=== PATIENT | male | born 1960 | race Caucasian/White ===

== ENCOUNTER 2016-10-17 17:02 | Inpatient (IN) | payer MEDICARE, OTHER ==
[2016-10-17] VITALS (7 sets, daily range): BP systolic 141–163; BP diastolic 61–73; PULSE 79–88; RESP 16–20; TEMP 97.8–98.2; O2SAT 96–97
[~2016-10-17] VITALS: Ht 185.4 cm; Wt 83.8 kg
[~2016-10-17 17:02] MED LIST: AMLO10 PO; AZAT50 PO; HYDRA50 PO; LABE100 PO; LEVA500T PO; LEVEMIR SQ; LORA.5 PO; MAGN400T PO; PRED5 PO; SODI650T PO; TACR1 PO; Z.0.HUMULIN REGULARU SQ
[2016-10-17] MEDS ORDERED: HYDR50TA15 PO (17:22)
[2016-10-17] MEDS ORDERED: AZAT50 PO (17:22)
[2016-10-17] MEDS ORDERED: LEVEMIR SQ (17:22)
[2016-10-17] MEDS ORDERED: INSU100V2 SQ (17:22)
[2016-10-17] MEDS ORDERED: AMLO10TA2 PO (17:22)
[2016-10-17] MEDS ORDERED: TACR1 PO ×2 (17:23→17:26)
[2016-10-17] MEDS ORDERED: SODI325T PO (17:23)
[2016-10-17] MEDS ORDERED: MAGN400T5 PO (17:23)
[2016-10-17] MEDS ORDERED: LORA-373 PO (17:23)
[2016-10-17] MEDS ORDERED: PRED5TAB PO (17:23)
[2016-10-17] MEDS ORDERED: TRAZ100T4 PO (17:26)
[2016-10-17] MEDS ORDERED: LEXA10TA PO (17:26)
[2016-10-17] MEDS ORDERED: DOXY1CAP74 PO (17:26)
[2016-10-17] MEDS ORDERED: SODIUM CHLORIDE 0.9% FLUSH 5 ML FLUSH IVF PRN (17:30)
--- NOTE | 2016-10-17 17:32 | PD ---
HPI Chief Complaint: Respiratory Symptoms Time Seen by Provider: 17:17 Travel History International Travel<30 days: No Contact w/Intl Traveler<30days: No Traveled to known affect area: No History of Present Illness HPI 55yo M with PMH of ESRD s/p 2 kidney transplants, DM, bilateral BKA presents to the ED with c/o shortness of breath for a few days. States he feels short of breath when he takes a few steps which is new. +Nausea. +Generalized weakness. Pt is currently taking antibiotics for UTI. States his kidney function is getting worst and his sponge maker is Dr. Ramirez. Pt had stress test 2 weeks ago and was told it was abnormal by Dr. Phelan. Denies any fever, cough, chest pain, vomiting, abdominal pain, focal weakness or numbness. PFSH Past Medical History Hx Anticoagulant Therapy: No Arthritis: No Asthma: No Autoimmune Disease: No Anxiety: No Depression: No Heart Rhythm Problems: No Cancer: Yes (SKIN) Cardiovascular Problems: No High Cholesterol: No Chemotherapy: No Chest Pain: No Congestive Heart Failure: No COPD: No Cerebrovascular Accident: No Diabetes: Yes (Type I) Dialysis: No ( STOPPED IN 2009) Diminished Hearing: No Endocrine: No Gastrointestinal Disorders: Yes GERD: Yes Glaucoma: No Genitourinary: Yes (SELF CATH NEEDED, HX: BLADDER STONES) Headaches: No Hepatitis: No Hiatal Hernia: No Hypertension: Yes Immune Disorder: No (takes immune depressant drugs) Implanted Vascular Access Dvce: Yes Kidney Stones: No Musculoskeletal: No Neurologic: Yes Psychiatric: No Reproductive: No Respiratory: No Immunizations Current: Yes Migraines: No Myocardial Infarction: No Pancreatitis: Yes Radiation Therapy: No Renal Failure: Yes Seizures: No Sleep Apnea: No Thyroid Disease: No Ulcer: No Past Surgical History Abdominal Surgery: Yes (left kidney transplants x2, pancreas transplant-1991) AICD: No Appendectomy: Yes Arteriovenous Shunt: Yes ( non-functional AV graft LUE) Cardiac Surgery: No Cholecystectomy: Yes Ear Surgery: Yes (cataract surgery left eye) Endocrine Surgery: Yes (pancreatic TXPL 1991) Eye Surgery: Yes (rt eye extracted/prosthetic eye now) Genitourinary Surgery: Yes (turp 2007- patient self cath to void) Gynecologic Surgery: No Hysterectomy: No Insulin Pump: No Joint Replacement: No Neurologic Surgery: No Oral Surgery: No Pacemaker: No Prostatectomy: Yes Thoracic Surgery: No Other Surgery: Yes (fistula left ARM upper arm, non funtional av graft) Social History Alcohol Use: No Tobacco Use: No Substance Use: No Allergies-Medications (Allergen,Severity, Reaction): Coded Allergies: No Known Allergies (Verified , 10/17/16) Reported Meds & Prescriptions Reported Meds & Active Scripts Active Reported Doxycycline 40 Mg Cap 100 Mg PO DAILY Lexapro (Escitalopram Oxalate) 10 Mg Tab 10 Mg PO DAILY Trazodone (Trazodone HCl) 100 Mg Tab 100 Mg PO HS Prograf (Tacrolimus) 1 Mg Cap 2 Mg PO DAILY 2200 Sodium Bicarbonate 325 Mg Tab 450 Mg PO BIDPC Prograf (Tacrolimus) 1 Mg Cap 3 Mg PO DAILY@0600 Magnesium Oxide 400 Mg Tab 2 Tab PO DAILY Lorazepam 0.5 Mg Tab 0.5 Mg PO Q6H PRN Prednisone 5 Mg Tab 5 Mg PO DAILY Humulin R Inj (Insulin Human Regular) 1,000 Unit/10 Ml Vial 1-9 Units SQ ACHS Max dose at bedtime( )units; sugars < 70(0)units; sugars 150-199,(1)unit; sugars 200-249(3)units; sugars 250-299,(5)units; sugars 300-349(7)units; sugars more than 349(9)units. Levemir Inj (Insulin Detemir) 1,000 unit/ 10 ML Vial 15 Units SQ HS Do not mix with any other Insulin. Hydralazine (Hydralazine HCl) 50 Mg Tab 50 Mg PO DAILY Take with a meal Azathioprine 50 Mg Tab 75 Mg PO DAILY Hazardous agent use appropriate precautions for handling and disposal. Amlodipine (Amlodipine Besylate) 10 Mg Tab 10 Mg PO DAILY Review of Systems Except as stated in HPI: all other systems reviewed are Neg Physical Exam Narrative GENERAL: 55yo M not in distress. SKIN: Warm and dry. HEAD: Atraumatic. Normocephalic. EYES: Right eye prosthetic. Left eye: Pupil reactive at 4mm. EOMI. ENT: No nasal bleeding or discharge. Mucous membranes pink and moist. NECK: Trachea midline. No JVD. CARDIOVASCULAR: Regular rate and rhythm. No murmur appreciated. RESPIRATORY: No accessory muscle use. Clear to auscultation. Breath sounds equal bilaterally. Saturating at 97% on RA. GASTROINTESTINAL: Abdomen soft, non-tender, nondistended. +Midline surgical scar. MUSCULOSKELETAL: Bilateral prosthetic legs. NEUROLOGICAL: Awake and alert. No obvious cranial nerve deficits. Motor grossly within normal limits. Normal speech. PSYCHIATRIC: Appropriate mood and affect; insight and judgment normal. Data Data Last Documented VS Vital Signs Date Time Temp Pulse Resp B/P Pulse Ox O2 Delivery O2 Flow Rate FiO2 10/17/16 18:00 88 18 153/73 97 Room Air 10/17/16 17:07 97.9 Orders Complete Blood Count With Diff (10/17/16 17:25) Basic Metabolic Panel (Bmp) (10/17/16 17:25) B-Type Natriuretic Peptide (10/17/16 17:25) Act Partial Throm Time (Ptt) (10/17/16 17:25) Prothrombin Time / Inr (Pt) (10/17/16 17:25) Magnesium (Mg) (10/17/16 17:25) Troponin I (10/17/16 17:25) Urinalysis - C+S If Indicated (10/17/16 17:25) Influenzae A/B Antigen (10/17/16 17:25) Iv Access Insert/Monitor (10/17/16 17:25) Electrocardiogram (10/17/16 17:25) Ecg Monitoring (10/17/16 17:25) Oximetry (10/17/16 17:25) Oxygen Administration (10/17/16 17:25) Sodium Chloride 0.9% Flush (Ns Flush) (10/17/16 17:30) Chest, Single Ap (10/17/16 ) Urine Culture (10/17/16 17:50) Ceftriaxone Inj (Rocephin Inj) (10/17/16 18:45) Calcium Gluconate Inj (Calcium Gluconate (10/17/16 18:45) Consult Nephrology (10/17/16 ) Admit Order (Ed Use Only) (10/17/16 18:41) Labs Laboratory Tests Test 10/17/16 10/17/16 17:40 17:50 White Blood Count 5.8 TH/MM3 Red Blood Count 2.49 MIL/MM3 Hemoglobin 8.1 GM/DL Hematocrit 23.9 % Mean Corpuscular Volume 95.8 FL Mean Corpuscular Hemoglobin 32.3 PG Mean Corpuscular Hemoglobin 33.8 % Concent Red Cell Distribution Width 14.8 % Platelet Count 159 TH/MM3 Mean Platelet Volume 7.0 FL Neutrophils (%) (Auto) 82.8 % Lymphocytes (%) (Auto) 9.5 % Monocytes (%) (Auto) 4.5 % Eosinophils (%) (Auto) 0.2 % Basophils (%) (Auto) 3.0 % Neutrophils # (Auto) 4.7 TH/MM3 Lymphocytes # (Auto) 0.6 TH/MM3 Monocytes # (Auto) 0.3 TH/MM3 Eosinophils # (Auto) 0.0 TH/MM3 Basophils # (Auto) 0.2 TH/MM3 CBC Comment AUTO DIFF Differential Comment AUTO DIFF CONFIRMED Prothrombin Time 10.6 SEC Prothromb Time International 1.0 RATIO Ratio Activated Partial 27.7 SEC Thromboplast Time Sodium Level 136 MEQ/L Potassium Level 3.6 MEQ/L Chloride Level 110 MEQ/L Carbon Dioxide Level 8.6 MEQ/L Anion Gap 17 MEQ/L Blood Urea Nitrogen 101 MG/DL Creatinine 6.90 MG/DL Estimat Glomerular Filtration 8 ML/MIN Rate Random Glucose 136 MG/DL Calcium Level 7.5 MG/DL Magnesium Level 1.6 MG/DL Troponin I 0.03 NG/ML B-Type Natriuretic Peptide 462 PG/ML Urine Color YELLOW Urine Turbidity CLOUDY Urine pH 7.0 Urine Specific [place] 1.011 Urine Protein 30 mg/dL Urine Glucose (UA) NEG mg/dL Urine Ketones NEG mg/dL Urine Occult Blood MOD Urine Nitrite NEG Urine Bilirubin NEG Urine Leukocyte Esterase LARGE Urine RBC 10-14 /hpf Urine WBC INNUM /hpf Urine Squamous Epithelial 6-8 /hpf Cells Urine Bacteria MANY /hpf Microscopic Urinalysis Comment CULTURE INDICATED MDM Medical Decision Making Medical Screen Exam Complete: Yes Emergency Medical Condition: Yes Interpretation(s) EKG: NSR 82bpm. LAD. No ST segment elevation or depression. Q wave III, V1. Laboratory Tests Test 10/17/16 10/17/16 17:40 17:50 White Blood Count 5.8 TH/MM3 (4.0-11.0) Red Blood Count 2.49 MIL/MM3 (4.50-5.90) Hemoglobin 8.1 GM/DL (13.0-17.0) Hematocrit 23.9 % (39.0-51.0) Mean Corpuscular Volume 95.8 FL (80.0-100.0) Mean Corpuscular Hemoglobin 32.3 PG (27.0-34.0) Mean Corpuscular Hemoglobin 33.8 % Concent (32.0-36.0) Red Cell Distribution Width 14.8 % (11.6-17.2) Platelet Count 159 TH/MM3 (150-450) Mean Platelet Volume 7.0 FL (7.0-11.0) Neutrophils (%) (Auto) 82.8 % (16.0-70.0) Lymphocytes (%) (Auto) 9.5 % (9.0-44.0) Monocytes (%) (Auto) 4.5 % (0.0-8.0) Eosinophils (%) (Auto) 0.2 % (0.0-4.0) Basophils (%) (Auto) 3.0 % (0.0-2.0) Neutrophils # (Auto) 4.7 TH/MM3 (1.8-7.7) Lymphocytes # (Auto) 0.6 TH/MM3 (1.0-4.8) Monocytes # (Auto) 0.3 TH/MM3 (0-0.9) Eosinophils # (Auto) 0.0 TH/MM3 (0-0.4) Basophils # (Auto) 0.2 TH/MM3 (0-0.2) CBC Comment AUTO DIFF Differential Comment AUTO DIFF CONFIRMED Prothrombin Time 10.6 SEC (9.8-11.6) Prothromb Time International 1.0 RATIO Ratio Activated Partial 27.7 SEC Thromboplast Time (24.3-30.1) Sodium Level 136 MEQ/L (136-145) Potassium Level 3.6 MEQ/L (3.5-5.1) Chloride Level 110 MEQ/L (98-107) Carbon Dioxide Level 8.6 MEQ/L (21.0-32.0) Anion Gap 17 MEQ/L (5-15) Blood Urea Nitrogen 101 MG/DL (7-18) Creatinine 6.90 MG/DL (0.60-1.30) Estimat Glomerular Filtration 8 ML/MIN (>89) Rate Random Glucose 136 MG/DL (74-106) Calcium Level 7.5 MG/DL (8.5-10.1) Magnesium Level 1.6 MG/DL (1.5-2.5) Troponin I 0.03 NG/ML (0.02-0.05) B-Type Natriuretic Peptide 462 PG/ML (0-100) Urine Color YELLOW (YELLW/STRAW) Urine Turbidity CLOUDY (CLEAR) Urine pH 7.0 (5.0-8.5) Urine Specific [place] 1.011 (1.002-1.035) Urine Protein 30 mg/dL (NEG-TRACE) Urine Glucose (UA) NEG mg/dL (NEG) Urine Ketones NEG mg/dL (NEG) Urine Occult Blood MOD (NEG) Urine Nitrite NEG (NEG) Urine Bilirubin NEG (NEG) Urine Leukocyte Esterase LARGE (NEG) Urine RBC 10-14 /hpf (0-3) Urine WBC INNUM /hpf (0-5) Urine Squamous Epithelial 6-8 /hpf (0-5) Cells Urine Bacteria MANY /hpf (NONE) Microscopic Urinalysis Comment CULTURE INDICATED Differential Diagnosis CHF exacerbation vs. Pneumonia vs. symptomatic anemia vs. electrolyte abnormality Narrative Course 55yo M with multiple comorbidities presents to the ED with c/o sob with walking that is new for a new days. Pt states he has been having declining renal function and has had 2 kidney transplants already. Labs reviewed, no leukocytosis. H/H is low at 8.1/23.9 compare to 11.1/34.0 from 04/2016. BUN/ creatinine is elevated at 101/6.90. Pt state his renal failure has been worsening and creatinine was 4.4 a month ago. Last BUN/creatinine we have is 43 /3.50 on 04/2016. BNP 462. Troponin 0.03. Calcium low at 7.5, replaced. UA showed large leukocytosis. Ceftriaxone 1gm IV given. Pt reevaluated at bedside. Does not feel short of breath just sitting down and saturating at 97% RA. CXR showed cardiomegaly with possible mild vascular congestion but no evidence of pulmonary edema or significant pleural fluid accumulation. Discussed with sponge maker Dr. Harris and he states that patient is in kidney failure and needs to be admitted. He would prefer pt be transferred to [facility]. Discussed with Dr. Mariano who accepted the patient. Diagnosis Primary Impression: Acute on chronic kidney failure Admitting Information Admitting Physician Requests: Admit EbenDorinda DO Oct 17, 2016 17:32
[2016-10-17 18:02] LABS: AUTOMATED NEUTROPHIL # 4.7 TH/MM3 (1.8-7.7); BASOPHIL # 0.2 TH/MM3 (0-0.2); EOSINOPHIL % 0.2 % (0.0-4.0); HEMATOCRIT 23.9 % (39.0-51.0); LYMPH % 9.5 % (9.0-44.0); LYMPHOCYTE # 0.6 TH/MM3 (1.0-4.8); MEAN CELL VOLUME 95.8 FL (80.0-100.0); MEAN CORPUSCULAR HEMOGLOBIN 32.3 PG (27.0-34.0); MEAN CORPUSCULAR HGB CONC 33.8 % (32.0-36.0); MONO % 4.5 % (0.0-8.0); NEUT % 82.8 % (16.0-70.0); PLATELET COUNT 159 TH/MM3 (150-450); RED BLOOD COUNT 2.49 MIL/MM3 (4.50-5.90); RED CELL DISTRIBUTION WIDTH 14.8 % (11.6-17.2); WHITE BLOOD COUNT 5.8 TH/MM3 (4.0-11.0)
[2016-10-17 18:04] LABS: HEMO FLAGS AUTO DIFF
[2016-10-17 18:05] LABS: POTASSIUM 3.6 MEQ/L (3.5-5.1)
[2016-10-17 18:08] LABS: BICARBONATE 8.6 MEQ/L (21.0-32.0); MAGNESIUM 1.6 MG/DL (1.5-2.5)
[2016-10-17 18:10] LABS: APTT (PATIENT) 27.7 SEC (24.3-30.1); PROTHROMBIN TIME - PATIENT 10.6 SEC (9.8-11.6)
[2016-10-17 18:12] LABS: GLUCOSE,URINE NEG (NEG); KETONE, URINE NEG (NEG); NITRITE,URINE NEG (NEG)
[2016-10-17 18:21] LABS: BLOOD, URINE MOD (NEG)
[2016-10-17 18:23] LABS: URINE COLOR YELLOW (YELLW/STRAW)
[2016-10-17 18:24] LABS: BACTERIA, URINE MANY /hpf; COMMENT (UR) CULTURE INDICATED; CULTURE IF INDICATED CULTURE INDICATED; WBC, URINE INNUM /hpf (0-5)
[2016-10-17 18:30] LABS: SCAN/DIFF AUTO DIFF CONFIRMED
[2016-10-17] MEDS ORDERED: LORazepam 0.5 MG TAB PO PRN (18:45)
[2016-10-17] MEDS ORDERED: GLUCAGON 1 MG/ML VIAL OTHER PRN (18:45)
[2016-10-17] MEDS ORDERED: TACROLIMUS 1 MG CAP PO SCH (18:45)
[2016-10-17] MEDS ORDERED: DEXTROSE 50% IN WATER 50 ML VIAL(D50) IV PUSH PRN (18:45)
[2016-10-17] MEDS ORDERED: CALCIUM GLUCONATE INJ 1 GM in DEXTROSE 5% IN WATER 100ML INJ 100 ML IV ONE ×2 (18:45)
[2016-10-17] MEDS ORDERED: cefTRIAXone INJ 1,000 MG in SODIUM CHLORIDE 0.9% INJ 100 ML IV ONE (18:45)
--- NOTE | 2016-10-17 18:53 | RADHPO ---
EXAM DATE/TIME: 10/17/2016 18:32 [facility] COMPARISON: CHEST SINGLE AP, May 01, 2016, 10:33. INDICATIONS : Shortness of breath for 3 days MEDICAL HISTORY : None. SURGICAL HISTORY : None. ENCOUNTER: Initial ACUITY: 3 days PAIN SCORE: 0/10 LOCATION: Bilateral chest FINDINGS: The heart is moderately enlarged. Mild vascular engorgement is noted. There is no subchondral edema o r consolidating airspace disease. There are no significant effusions. CONCLUSION: Cardiomegaly with possible mild vascular congestion but no evidence of pulmonary edema or significant pleural fluid accumulation. No evidence of acute air space disease Leonardo Butler MD on October 17, 2016 at 18:50 Board Certified Radiologist. This report was verified electronically.
[2016-10-17] MEDS ORDERED: PILL SPLITTER OTHER PRN (19:00)
[2016-10-17] MEDS: BUMETANIDE INJ 1 MG/4 ML VIAL IV PUSH SCH (19:37)
[2016-10-17] MEDS: INSULIN ASPART SUPPLEMENTAL SCALE SQ SCH (21:45)
[2016-10-17] MEDS: INSULIN DETEMIR 100 UNITS/ML VIAL SQ SCH (21:46)
[2016-10-17] MEDS: traZODone HCL 100 MG TAB PO SCH (21:49)
[2016-10-17] MEDS: SODIUM CHLORIDE 0.9% FLUSH 5 ML FLUSH FLUSH SCH (21:49)
[2016-10-17] MEDS ORDERED: ACETAMINOPHEN 325 MG TAB PO PRN (22:30)
[2016-10-18] VITALS (10 sets, daily range): BP systolic 128–174; BP diastolic 58–77; PULSE 73–88; RESP 16–20; TEMP 97.5–99; O2SAT 75–98
[2016-10-18 04:07] LABS: AUTOMATED NEUTROPHIL # 3.2 TH/MM3 (1.8-7.7); BASOPHIL % 0.5 % (0.0-2.0); EOSINOPHIL % 0.3 % (0.0-4.0); HEMATOCRIT 21.8 % (39.0-51.0); HEMO FLAGS DIFF FINAL; LYMPH % 16.8 % (9.0-44.0); LYMPHOCYTE # 0.7 TH/MM3 (1.0-4.8); MEAN CELL VOLUME 95.8 FL (80.0-100.0); MEAN CORPUSCULAR HEMOGLOBIN 33.1 PG (27.0-34.0); MEAN CORPUSCULAR HGB CONC 34.5 % (32.0-36.0); MONO % 6.8 % (0.0-8.0); NEUT % 75.6 % (16.0-70.0); PLATELET COUNT 121 TH/MM3 (150-450); RED BLOOD COUNT 2.27 MIL/MM3 (4.50-5.90); RED CELL DISTRIBUTION WIDTH 15.3 % (11.6-17.2); WHITE BLOOD COUNT 4.2 TH/MM3 (4.0-11.0)
[2016-10-18 04:34] LABS: POTASSIUM 3.5 MEQ/L (3.5-5.1)
[2016-10-18] MEDS: INSULIN ASPART SUPPLEMENTAL SCALE SQ SCH ×4 (06:55→21:00)
[2016-10-18] MEDS: TACROLIMUS 1 MG CAP PO SCH ×2 (07:34→17:01)
[2016-10-18] MEDS: predniSONE 5 MG TAB PO SCH (08:24)
[2016-10-18] MEDS: ESCITALOPRAM OXALATE 10 MG TAB PO SCH (08:25)
[2016-10-18] MEDS: BUMETANIDE INJ 1 MG/4 ML VIAL IV PUSH SCH ×2 (08:25→17:04)
[2016-10-18] MEDS: hydrALAZINE HCL 50 MG TAB PO SCH (08:25)
[2016-10-18] MEDS ORDERED: SODIUM BICARBONATE 650 MG TAB PO SCH (09:00)
[2016-10-18] MEDS: DOXYCYCLINE HYCLATE 100 MG TAB PO SCH (09:13)
[2016-10-18] MEDS: azaTHIOprine 50 MG TAB PO SCH (09:13)
[2016-10-18] MEDS: SODIUM CHLORIDE 0.9% FLUSH 5 ML FLUSH FLUSH SCH ×2 (09:14→21:22)
--- NOTE | 2016-10-18 09:47 | PD.CONS ---
[facility] Service Nephrology Consult Requested By Reason for Consult Known to our services. CKD approaching ESRD. Transplant patient Primary Care Physician No Primary Care Physician History of Present Illness The patient is a 55 yo [place] male who is known to our services for CKD s/p kidney/ pancreas transplant x2. He has had progressively worsening renal functions over the past 6 months and has been following with his transplant team at [facility] to attempt salvage of allograft even receiving IVIg in July. He unfortunately has progressed to stage 5 CKD requiring HD intervention. He has been weak, anorexic, and dyspneic on exertion for the past few weeks. He went to see his outpatient cardiology, Dr. Medina, at the end of Sep for a stress test. It showed suspicion for inferior ischemia, but given his severely impaired renal functions, a cardiac cath was held off. Fortunately, has a preserved LVEF. Denies any new medication, no new illness except UTI that was treated by Dr. León with Doxycycline. Endorses very little energy, [place], and very poor appetite. He self catheterizes 4 times per day and says he gets out about 400mL of urine each time. 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 x2 Pancreas transplant HTN DM Urinary retention requiring self-cath 4x daily PVD s/p bilat BKA Anxiety Depression Chronic Acidosis Past Surgical History Bilat BKA Kidney transplant x2 Pancreas transplant Cholecystectomy Knee surgery Skin CA removal Reported Medications Reported Meds & Active Scripts Active Reported Doxycycline 40 Mg Cap 100 Mg PO DAILY Lexapro (Escitalopram Oxalate) 10 Mg Tab 10 Mg PO DAILY Trazodone (Trazodone HCl) 100 Mg Tab 100 Mg PO HS Prograf (Tacrolimus) 1 Mg Cap 2 Mg PO DAILY 2200 Sodium Bicarbonate 325 Mg Tab 450 Mg PO BIDPC Prograf (Tacrolimus) 1 Mg Cap 3 Mg PO DAILY@0600 Magnesium Oxide 400 Mg Tab 2 Tab PO DAILY Lorazepam 0.5 Mg Tab 0.5 Mg PO Q6H PRN Prednisone 5 Mg Tab 5 Mg PO DAILY Humulin R Inj (Insulin Human Regular) 1,000 Unit/10 Ml Vial 1-9 Units SQ ACHS Max dose at bedtime( )units; sugars < 70(0)units; sugars 150-199,(1)unit; sugars 200-249(3)units; sugars 250-299,(5)units; sugars 300-349(7)units; sugars more than 349(9)units. Levemir Inj (Insulin Detemir) 1,000 unit/ 10 ML Vial 15 Units SQ HS Do not mix with any other Insulin. Hydralazine (Hydralazine HCl) 50 Mg Tab 50 Mg PO DAILY Take with a meal Azathioprine 50 Mg Tab 75 Mg PO DAILY Hazardous agent use appropriate precautions for handling and disposal. Amlodipine (Amlodipine Besylate) 10 Mg Tab 10 Mg PO DAILY Active Ordered Medications Current Medications Medications (Trade) Dose Ordered Sig/Lida Route Start Time Stop Time Status Last Admin (NS Flush) 2 ml UNSCH PRN FLUSH 10/17/16 18:45 (NS Flush) 2 ml BID FLUSH 10/17/16 21:00 10/18/16 09:14 (Zofran Inj) 4 mg Q6H PRN IVP 10/17/16 18:45 (Bumex Inj) 1 mg BID@09,18 IV PUSH 10/17/16 18:50 10/18/16 08:25 (D50w (Vial) Inj) 25 ml UNSCH PRN IV PUSH 10/17/16 18:45 (Glucagon Inj) 1 mg UNSCH PRN OTHER 10/17/16 18:45 (Norvasc) 10 mg DAILY PO 10/18/16 09:00 10/18/16 08:25 (Imuran) 75 mg DAILY PO 10/18/16 09:00 10/18/16 09:13 (Lexapro) 10 mg DAILY PO 10/18/16 09:00 10/18/16 08:25 (Apresoline) 50 mg DAILY PO 10/18/16 09:00 10/18/16 08:25 (Levemir Inj) 15 units HS SQ 10/17/16 21:00 10/17/16 21:46 (Ativan) 0.5 mg Q6H PRN PO 10/17/16 18:45 (Deltasone) 5 mg DAILY PO 10/18/16 09:00 10/18/16 08:24 (Prograf) 3 mg DAILY@0600 PO 10/18/16 06:00 10/18/16 07:34 (Desyrel) 100 mg HS PO 10/17/16 21:00 10/17/16 21:49 (Vibratab) 100 mg DAILY PO 10/18/16 09:00 10/18/16 09:13 (Pill Splitter) 1 ea UNSCH PRN OTHER 10/17/16 19:00 (Tylenol) 650 mg Q8HR PRN PO 10/17/16 22:30 10/17/16 23:10 Sodium Bicarbonate 1300 mg 1,300 mg TID PO 10/18/16 13:00 (NS 1000 ml Inj) 1,000 ml @ 0 mls/hr Q0M PRN IV 10/18/16 12:51 Heparin Sodium (Porcine) 8000 units 8,000 units UNSCH PRN IVF 10/18/16 13:00 UNV Sodium Chloride 1,000 ml @ 200 mls/hr Q5H PRN IV 10/18/16 12:51 (NS 1000 ml Inj) 1,000 ml @ 0 mls/hr Q0M PRN IV 10/18/16 12:51 (Mannitol Inj) 12.5 gm UNSCH PRN IV 10/18/16 13:00 (Albumin 25% Inj) 25 gm UNSCH PRN IV 10/18/16 13:00 (NS Flush) 5 ml UNSCH PRN IVF 10/18/16 13:00 (Heparin Inj) UNSCH PRN .XX 10/18/16 13:00 (Gentamicin (Dialysis) Inj) 20 mg UNSCH PRN IV 10/18/16 13:00 (Zofran Inj) 4 mg UNSCH PRN IV 10/18/16 13:00 (Tylenol) 650 mg UNSCH PRN PO 10/18/16 13:00 (Benadryl) 25 mg UNSCH PRN PO 10/18/16 13:00 UNV (Nitrostat Sl) 0.4 mg UNSCH PRN SL 10/18/16 13:00 UNV (Catapres) 0.1 mg UNSCH PRN PO 10/18/16 13:00 UNV (Gelfoam 12 Mm/7 Mm Top) 1 foam UNSCH PRN TOP 10/18/16 13:00 UNV Family History Father PE Mother Crohn's Social History Non-smoker No tobacco use No EtOH use (Liza Clifford) Physical Exam Vital Signs Vital Signs Date Time Temp Pulse Resp B/P Pulse Ox O2 Delivery O2 Flow Rate FiO2 10/18/16 08:00 97.8 74 18 144/66 98 10/18/16 03:59 97.8 73 16 134/63 96 10/18/16 03:00 Room Air 10/18/16 02:03 78 10/18/16 01:50 97.5 77 16 171/77 97 10/18/16 00:30 97.7 79 20 159/70 97 Room Air 10/18/16 00:20 20 10/17/16 23:00 20 97 Room Air 10/17/16 22:00 98.2 82 20 141/61 96 Room Air 10/17/16 21:25 96 21 10/17/16 20:00 80 20 163/66 97 Room Air 10/17/16 19:05 20 97 Room Air 10/17/16 19:05 97.8 79 20 161/66 97 Room Air 10/17/16 18:00 88 18 153/73 97 Room Air 10/17/16 17:27 97 Room Air 10/17/16 17:27 97 Room Air 10/17/16 17:26 97 Room Air 10/17/16 17:07 97.9 80 16 144/63 97 Physical Exam GENERAL: NAD. Sitting in bed. SKIN: Warm and dry. HEAD: Atraumatic. Normocephalic. EYES: Pupils equal and round. No scleral icterus. No injection or drainage. ENT: No nasal bleeding or discharge. Mucous membranes pink and moist. NECK: Trachea midline. No JVD. CARDIOVASCULAR: Regular rate and rhythm. RESPIRATORY: No accessory muscle use. Clear to auscultation. Breath sounds equal bilaterally. GASTROINTESTINAL: Abdomen soft, non-tender, nondistended. Hepatic and splenic margins not palpable. MUSCULOSKELETAL: Extremities without clubbing, cyanosis. No edema present. bilat BKA NEUROLOGICAL: Awake and alert. No obvious cranial nerve deficits.Normal speech. PSYCHIATRIC: Appropriate mood and affect; insight and judgment normal. Laboratory Laboratory Tests Test 10/17/16 10/17/16 10/18/16 17:40 17:50 03:54 White Blood Count 5.8 4.2 Red Blood Count 2.49 2.27 Hemoglobin 8.1 7.5 Hematocrit 23.9 21.8 Mean Corpuscular Volume 95.8 95.8 Mean Corpuscular Hemoglobin 32.3 33.1 Mean Corpuscular Hemoglobin 33.8 34.5 Concent Red Cell Distribution Width 14.8 15.3 Platelet Count 159 121 Mean Platelet Volume 7.0 6.9 Neutrophils (%) (Auto) 82.8 75.6 Lymphocytes (%) (Auto) 9.5 16.8 Monocytes (%) (Auto) 4.5 6.8 Eosinophils (%) (Auto) 0.2 0.3 Basophils (%) (Auto) 3.0 0.5 Neutrophils # (Auto) 4.7 3.2 Lymphocytes # (Auto) 0.6 0.7 Monocytes # (Auto) 0.3 0.3 Eosinophils # (Auto) 0.0 0.0 Basophils # (Auto) 0.2 0.0 CBC Comment AUTO DIFF DIFF FINAL Differential Comment AUTO DIFF CONFIRMED Prothrombin Time 10.6 Prothromb Time International 1.0 Ratio Activated Partial 27.7 Thromboplast Time Sodium Level 136 135 Potassium Level 3.6 3.5 Chloride Level 110 109 Carbon Dioxide Level 8.6 10.0 Anion Gap 17 16 Blood Urea Nitrogen 101 108 Creatinine 6.90 6.90 Estimat Glomerular Filtration 8 8 Rate Random Glucose 136 180 Calcium Level 7.5 8.1 Magnesium Level 1.6 Troponin I 0.03 B-Type Natriuretic Peptide 462 Urine Color YELLOW Urine Turbidity CLOUDY Urine pH 7.0 Urine Specific [place] 1.011 Urine Protein 30 Urine Glucose (UA) NEG Urine Ketones NEG Urine Occult Blood MOD Urine Nitrite NEG Urine Bilirubin NEG Urine Leukocyte Esterase LARGE Urine RBC 10-14 Urine WBC INNUM Urine Squamous Epithelial 6-8 Cells Urine Bacteria MANY Microscopic Urinalysis Comment CULTURE INDICATED Date/Time Procedure Status Source Growth 10/17/16 17:50 Urine Culture Received Urine Clean Catch Pending 10/17/16 17:33 Influenza Types A,B Antigen (ELSA) - Final Complete Nasal Aspirate NEGATIVE FOR FLU A AND B ANTIGEN.... (Liza Clifford) Result Diagram: 10/18/16 0354 10/18/16 0354 Imaging Last Impressions Chest X-Ray 10/17/16 0000 Signed Impressions: Service Date/Time: Monday, October 17, 2016 18:32 - CONCLUSION: Cardiomegaly with possible mild vascular congestion but no evidence of pulmonary edema or significant pleural fluid accumulation. No evidence of acute air space disease Leonardo Butler MD (Liza Clifford) Assessment and Plan Problem List: (1) Kidney transplant failure Plan: The patient's renal functions have been deteriorating over the past 6 months. He has been following very closely with [facility] in attempt to salvage his transplanted kidney, but unfortunately at this time as progressed to ESRD. He is symptomatically uremic with fatigue, SOB, weakness, anorexia. He is chronically acidotic (baseline serum bicarb at 17), but has fallen to 10. He has a viable AVF in [facility] that we will have the dialysis nurse assess to see if they can cannulate. We have planned to initiate dialysis today with another session tomorrow. This should help alleviate his symptom of SOB, but I have reviewed his outpatient cardiology records that states he had an abnormal stress test and consideration was given to catheterization but was held given his impaired renal functions. If agreeable by the primary team, would likely benefit from cardiology consultation. Check iPTH, phos, Vit D levels Will leave on transplant medications at the present (Tacrolimus, Prednisone) and confer with his broadcast traffic coordinator at [facility] for recommendations on tapering dose. He uses Prograf 3mg in the AM and 2mg in the PM as well as Prednisone. Medications should be adjusted for the patient's renal decline. Avoid gadolinium. (2) Diabetes mellitus type 2 with complications Plan: Mgmt as per primary (3) HTN (hypertension) Plan: Continue on current regimen (4) Anemia Plan: Repeat CBC with Fe panel. Epo with HD (5) Metabolic acidosis Plan: Will improve with HD (6) Urinary retention Plan: To continue with self catheterization QID as before. (7) Dyspnea Plan: As above, would benefit from cardiology input if agreeable with primary (Liza Clifford) Assessment and Plan The exam, history, and the medical decision-making described in the above note were completed with the assistance of the PA-Kee. I reviewed and agree with the findings presented. I attest that I had a [id number] encounter with the patient . (Rodo Ramirez MD) Problem Qualifiers (1) Dyspnea: Qualified Code: R06.09 - Dyspnea on exertion Liza Clifford Oct 18, 2016 09:47 Rodo Ramirez MD Oct 19, 2016 12:23
--- NOTE | 2016-10-18 11:49 | HHI.HP ---
HPI Service [facility] Hospitalists Primary Care Physician No Primary Care Physician Admission Diagnosis Acute on chronic kidney failure Diagnoses: (1) CKD (chronic kidney disease) stage 4, GFR 15-29 ml/min (2) Diabetes mellitus type 2 with complications (3) Kidney transplant failure (4) HTN (hypertension) (5) Urinary retention Chief Complaint: Shortness of breath Travel History International Travel<30 Days: No Contact w/Intl Traveler <30 Da: No Traveled to Known Affected Are: No History of Present Illness 55-year-old male with history of diabetes mellitus, end-stage renal disease, renal transplantation failure on chronic immunosuppression presented to the hospital for evaluation of worsening shortness of breath times several days associated with nausea without any emesis along with generalized weakness. Patient had 2 previous kidney transplant however both have failed. Followed by cardiology as well and states had abnormal recent studies performed. He Is currently on oral antibiotics for UTI. Patient was transferred from [place] to [facility] in order to undergo dialysis. He denies any chest pain or GI bleed Review of Systems Other 12 systems reviewed and are negative except for the ones mentioned in history of present illness Past Family Social History Past Medical History Renal transplant (history of end-stage renal disease) Diabetes) resolved with pancreatic transplant) hypertension Immunosuppression Renal stones Past Surgical History Pancreas renal transplant Renal transplants (second postoperative this Bilateral BKAs Appendectomy AV shunt Cataract left eye Right eye prosthesis TURP Reported Medications Doxycycline 40 Mg Cap 100 Mg PO DAILY Lexapro (Escitalopram Oxalate) 10 Mg Tab 10 Mg PO DAILY Trazodone (Trazodone HCl) 100 Mg Tab 100 Mg PO HS Prograf (Tacrolimus) 1 Mg Cap 2 Mg PO DAILY 2200 Sodium Bicarbonate 325 Mg Tab 450 Mg PO BIDPC Prograf (Tacrolimus) 1 Mg Cap 3 Mg PO DAILY@0600 Magnesium Oxide 400 Mg Tab 2 Tab PO DAILY Lorazepam 0.5 Mg Tab 0.5 Mg PO Q6H PRN Prednisone 5 Mg Tab 5 Mg PO DAILY Humulin R Inj (Insulin Human Regular) 1,000 Unit/10 Ml Vial 1-9 Units SQ ACHS Max dose at bedtime( )units; sugars < 70(0)units; sugars 150-199,(1)unit; sugars 200-249(3)units; sugars 250-299,(5)units; sugars 300-349(7)units; sugars more than 349(9)units. Levemir Inj (Insulin Detemir) 1,000 unit/ 10 ML Vial 15 Units SQ HS Do not mix with any other Insulin. Hydralazine (Hydralazine HCl) 50 Mg Tab 50 Mg PO DAILY Take with a meal Azathioprine 50 Mg Tab 75 Mg PO DAILY Hazardous agent use appropriate precautions for handling and disposal. Amlodipine (Amlodipine Besylate) 10 Mg Tab 10 Mg PO DAILY Allergies: Coded Allergies: No Known Allergies (Verified , 10/17/16) Family History Positive for diabetes type 2 Social History Lives with family, no tobacco alcohol dependency Physical Exam Vital Signs Vital Signs Date Time Temp Pulse Resp B/P Pulse Ox O2 Delivery O2 Flow Rate FiO2 10/18/16 09:47 Room Air 10/18/16 09:35 75 10/18/16 08:00 97.8 74 18 144/66 98 10/18/16 03:59 97.8 73 16 134/63 96 10/18/16 03:00 Room Air 10/18/16 02:03 78 10/18/16 01:50 97.5 77 16 171/77 97 10/18/16 00:30 97.7 79 20 159/70 97 Room Air 10/18/16 00:20 20 10/17/16 23:00 20 97 Room Air 10/17/16 22:00 98.2 82 20 141/61 96 Room Air 10/17/16 21:25 96 21 10/17/16 20:00 80 20 163/66 97 Room Air 10/17/16 19:05 20 97 Room Air 10/17/16 19:05 97.8 79 20 161/66 97 Room Air 10/17/16 18:00 88 18 153/73 97 Room Air 10/17/16 17:27 97 Room Air 10/17/16 17:27 97 Room Air 10/17/16 17:26 97 Room Air 10/17/16 17:07 97.9 80 16 144/63 97 Physical Exam GENERAL: This is a well-nourished, well-developed patient, in no apparent distress. SKIN: No rashes, ecchymoses or lesions. Cool and dry. HEAD: Atraumatic. Normocephalic. No temporal or scalp tenderness. EYES: Pupils equal round and reactive. Extraocular motions intact. No scleral icterus. No injection or drainage. ENT: Nose without bleeding, purulent drainage or septal hematoma. Throat without erythema, tonsillar hypertrophy or exudate. Uvula midline. Airway patent. NECK: Trachea midline. No JVD or lymphadenopathy. Supple, nontender, no meningeal signs. CARDIOVASCULAR: Regular rate and rhythm without murmurs, gallops, or rubs. RESPIRATORY: Clear to auscultation. Breath sounds equal bilaterally. No wheezes , rales, or rhonchi. GASTROINTESTINAL: Abdomen soft, non-tender, nondistended. No hepato-splenomegaly , or palpable masses. No guarding. MUSCULOSKELETAL: Bilateral BKAs. AV fistula left arm NEUROLOGICAL: Awake and alert. Cranial nerves II through XII intact. Motor and sensory grossly within normal limits. Five out of 5 muscle strength in all muscle groups. Normal speech. Laboratory Laboratory Tests Test 10/17/16 10/17/16 10/18/16 17:40 17:50 03:54 White Blood Count 5.8 4.2 Red Blood Count 2.49 2.27 Hemoglobin 8.1 7.5 Hematocrit 23.9 21.8 Mean Corpuscular Volume 95.8 95.8 Mean Corpuscular Hemoglobin 32.3 33.1 Mean Corpuscular Hemoglobin 33.8 34.5 Concent Red Cell Distribution Width 14.8 15.3 Platelet Count 159 121 Mean Platelet Volume 7.0 6.9 Neutrophils (%) (Auto) 82.8 75.6 Lymphocytes (%) (Auto) 9.5 16.8 Monocytes (%) (Auto) 4.5 6.8 Eosinophils (%) (Auto) 0.2 0.3 Basophils (%) (Auto) 3.0 0.5 Neutrophils # (Auto) 4.7 3.2 Lymphocytes # (Auto) 0.6 0.7 Monocytes # (Auto) 0.3 0.3 Eosinophils # (Auto) 0.0 0.0 Basophils # (Auto) 0.2 0.0 CBC Comment AUTO DIFF DIFF FINAL Differential Comment AUTO DIFF CONFIRMED Prothrombin Time 10.6 Prothromb Time International 1.0 Ratio Activated Partial 27.7 Thromboplast Time Sodium Level 136 135 Potassium Level 3.6 3.5 Chloride Level 110 109 Carbon Dioxide Level 8.6 10.0 Anion Gap 17 16 Blood Urea Nitrogen 101 108 Creatinine 6.90 6.90 Estimat Glomerular Filtration 8 8 Rate Random Glucose 136 180 Calcium Level 7.5 8.1 Magnesium Level 1.6 Troponin I 0.03 B-Type Natriuretic Peptide 462 Urine Color YELLOW Urine Turbidity CLOUDY Urine pH 7.0 Urine Specific [place] 1.011 Urine Protein 30 Urine Glucose (UA) NEG Urine Ketones NEG Urine Occult Blood MOD Urine Nitrite NEG Urine Bilirubin NEG Urine Leukocyte Esterase LARGE Urine RBC 10-14 Urine WBC INNUM Urine Squamous Epithelial 6-8 Cells Urine Bacteria MANY Microscopic Urinalysis Comment CULTURE INDICATED Date/Time Procedure Status Source Growth 10/17/16 17:50 Urine Culture Received Urine Clean Catch Pending 10/17/16 17:33 Influenza Types A,B Antigen (ELSA) - Final Complete Nasal Aspirate NEGATIVE FOR FLU A AND B ANTIGEN.... Result Diagram: 10/18/16 0354 10/18/16 0354 Imaging Last Impressions Chest X-Ray 10/17/16 0000 Signed Impressions: Service Date/Time: Saturday, October 17, 2016 18:32 - CONCLUSION: Cardiomegaly with possible mild vascular congestion but no evidence of pulmonary edema or significant pleural fluid accumulation. No evidence of acute air space disease Leonardo Butler MD Assessment and Plan Problem List: (1) CKD (chronic kidney disease) stage 4, GFR 15-29 ml/min ICD Code: N18.4 Status: Acute (2) Diabetes mellitus type 2 with complications ICD Code: E11.8 Status: Acute (3) HTN (hypertension) ICD Code: I10 Status: Acute (4) Kidney transplant failure ICD Code: T86.12 Status: Acute Assessment and Plan 55-year-old male History of renal chest pain failure: On chronic immunosuppression, management per nephrology and monitor Prograf level End-stage renal disease: Previous history of kidney transplant, now in need of dialysis. Nephrology was consulted and plan for hemodialysis today 10/18/16 Diabetes mellitus type II - continue basal insulin and start ISS with FSBG monitoring Hypertension-continue oral antihypertensive medications History of urinary retention: Currently stable and continue with self catheterization Recent diagnosis of UTI: Continue oral antibiotic Anxiety/depression: Stable on Lexapro Code Status Full code Discussed Condition With Patient Physician Certification 2 Midnight Certification Type: Admission for Inpatient Services Order for Inpatient Services The services are ordered in accordance with Medicare regulations or non- Medicare payer requirements, as applicable. In the case of services not specified as inpatient-only, they are appropriately provided as inpatient services in accordance with the 2-midnight benchmark. Estimated LOS (days): 2 days is the estimated time the patient will need to remain in the hospital, assuming treatment plan goals are met and no additional complications. Post-Hospital Plan: Not yet determined Arnulfo Warner MD Oct 18, 2016 11:47
[2016-10-18] MEDS ORDERED: SODIUM CHLOR 0.9% 1000 ML INJ 1,000 ML IV PRN ×3 (12:51)
[2016-10-18 12:56] LABS: FERRITIN 466 NG/ML (26-388); TRANSFERRIN IRON PROFILE 128 MG/DL (200-360)
[2016-10-18] MEDS ORDERED: SODIUM CHLORIDE 0.9% FLUSH 5 ML FLUSH IVF PRN (13:00)
[2016-10-18] MEDS ORDERED: GENTAMICIN SULFATE (DIALYSIS USE ONLY) 20 MG/2 ML VIAL IV PRN (13:00)
[2016-10-18] MEDS ORDERED: HEPARIN SODIUM - IV 10,000 UNITS/10 ML VIAL IVF PRN (13:00)
[2016-10-18] MEDS ORDERED: MANNITOL 12.5 GM/50 ML VIAL IV PRN (13:00)
[2016-10-18] MEDS ORDERED: diphenhydrAMINE HCL 25 MG CAP PO PRN (13:00)
[2016-10-18] MEDS ORDERED: ACETAMINOPHEN 325 MG TAB PO PRN (13:00)
[2016-10-18] MEDS ORDERED: ALBUMIN HUMAN 25% 25 GM/100 ML BAGP IV PRN (13:00)
[2016-10-18] MEDS ORDERED: ONDANSETRON HCL 4 MG/2 ML VIAL IV PRN (13:00)
[2016-10-18] MEDS ORDERED: HEPARIN SODIUM - IV 10,000 UNITS/10 ML VIAL PRN (13:00)
[2016-10-18] MEDS ORDERED: NITROGLYCERIN 0.4 MG SL 25 TABS/BTL SL PRN (13:00)
[2016-10-18] MEDS ORDERED: cloNIDine HCL 0.1 MG TAB PO PRN (13:00)
[2016-10-18] MEDS: SODIUM BICARBONATE 650 MG TAB PO SCH ×2 (13:00→17:01)
[2016-10-18] MEDS: GELATIN 12 MM/7 MM FOAM TOP PRN (13:45)
[2016-10-18] MEDS: INSULIN DETEMIR 100 UNITS/ML VIAL SQ SCH (21:15)
[2016-10-18] MEDS: traZODone HCL 100 MG TAB PO SCH (21:15)
[2016-10-18] MEDS ORDERED: hydrALAZINE HCL 25 MG TAB PO PRN (23:00)
--- NOTE | 2016-10-18 23:55 | EKG ---
Date Performed: 10/17/2016 Time Performed: 17:29:36 PTAGE: 55 years EKG: Sinus rhythm with PAC(s) Lateral T wave changes are nonspecific Borderline ECG PREVIOUS TRACING : 10/11/2015 16.20 Compared to prior tracing no significant change DOCTOR: Archie Smith Interpretating Date/Time 10/18/2016 23:53:57
[2016-10-19] VITALS: BP 151/65; PULSE 66; RESP 20; TEMP 98.5; O2SAT 90
[2016-10-19] MEDS: TACROLIMUS 1 MG CAP PO SCH ×2 (06:00→17:23)
[2016-10-19] MEDS: INSULIN ASPART SUPPLEMENTAL SCALE SQ SCH ×4 (07:00→21:00)
[2016-10-19 08:00] VITALS: BP 135/65; PULSE 63; PULSE 66; RESP 18; TEMP 97; O2SAT 97
[2016-10-19 08:18] LABS: HEMATOCRIT 21.3 % (39.0-51.0); MEAN CELL VOLUME 93.6 FL (80.0-100.0); MEAN CORPUSCULAR HGB CONC 34.2 % (32.0-36.0); PLATELET COUNT 140 TH/MM3 (150-450); RED BLOOD COUNT 2.27 MIL/MM3 (4.50-5.90); RED CELL DISTRIBUTION WIDTH 14.7 % (11.6-17.2); REVIEW FLAG FINAL; WHITE BLOOD COUNT 4.6 TH/MM3 (4.0-11.0)
[2016-10-19 08:49] LABS: BICARBONATE 21.6 MEQ/L (21.0-32.0)
[2016-10-19 08:53] LABS: POTASSIUM 2.5 MEQ/L (3.5-5.1)
--- NOTE | 2016-10-19 09:13 | HHI.PR ---
Subjective Remarks Follow-up end-stage renal disease in need of HD 10/19/16-patient seen and examined, he had hemodialysis yesterday and report improvement or shortness of breath. Plan for HD today Objective Vitals Vital Signs Date Time Temp Pulse Resp B/P Pulse Ox O2 Delivery O2 Flow Rate FiO2 10/19/16 08:00 97.0 66 18 135/65 97 10/19/16 00:00 98.5 66 20 151/65 90 10/18/16 21:30 Room Air 10/18/16 20:00 99.0 75 20 161/74 75 10/18/16 16:00 98.1 88 19 174/73 93 160/70 10/18/16 12:45 94 10/18/16 11:40 97.5 76 19 128/58 95 10/18/16 09:47 Room Air 10/18/16 09:35 75 I/O 10/18/16 10/18/16 10/18/16 10/19/16 10/19/16 10/19/16 07:00 15:00 23:00 07:00 15:00 23:00 Intake Total 200 ml 480 ml 240 ml Output Total 175 ml 300 ml Balance 25 ml 180 ml 240 ml Intake Oral 200 ml 480 ml 240 ml Output Urine Total 175 ml 300 ml # Voids 2 0 1 # Bowel Movements 0 0 0 Result Diagram: 10/19/16 0723 10/19/16 0723 Imaging Last Impressions Chest X-Ray 10/17/16 0000 Signed Impressions: Service Date/Time: Monday, October 17, 2016 18:32 - CONCLUSION: Cardiomegaly with possible mild vascular congestion but no evidence of pulmonary edema or significant pleural fluid accumulation. No evidence of acute air space disease Leonardo Butler MD Procedures GENERAL: NAD SKIN: Warm and dry. HEAD: Normocephalic. EYES: No scleral icterus. No injection or drainage. NECK: Supple, trachea midline. No JVD or lymphadenopathy. CARDIOVASCULAR: Regular rate and rhythm without murmurs, gallops, or rubs. RESPIRATORY: Breath sounds equal bilaterally. No accessory muscle use. GASTROINTESTINAL: Abdomen soft, non-tender, nondistended. MUSCULOSKELETAL: B-BKAs BACK: Nontender without obvious deformity. No CVA tenderness. A/P Problem List: (1) CKD (chronic kidney disease) stage 4, GFR 15-29 ml/min ICD Code: N18.4 Status: Acute (2) Diabetes mellitus type 2 with complications ICD Code: E11.8 Status: Acute (3) HTN (hypertension) ICD Code: I10 Status: Acute (4) Kidney transplant failure ICD Code: T86.12 Status: Acute Assessment and Plan 55-year-old male History of renal chest pain failure: On chronic immunosuppression, management per nephrology and monitor Prograf level End-stage renal disease: Previous history of kidney transplant, now in need of dialysis. Had hemodialysis yesterday 10/18/16 and plan for HD again today 10/19. Management per nephrology. Hypokalemia: Give potassium 60 mEq 1 now and monitor Diabetes mellitus type II - continue basal insulin and ISS with FSBG monitoring Hypertension-continue oral antihypertensive medications History of urinary retention: Currently stable and continue with self catheterization Recent diagnosis of UTI: Continue oral antibiotic Anxiety/depression: Stable on Arnulfo Alicia MD Oct 19, 2016 09:13
[2016-10-19] MEDS ORDERED: POTASSIUM CHLORIDE 10 MEQ CONTROLLED RELEASE TAB PO ONE (09:15)
[2016-10-19] MEDS: SODIUM CHLORIDE 0.9% FLUSH 5 ML FLUSH FLUSH SCH ×2 (09:26→21:00)
[2016-10-19] MEDS: azaTHIOprine 50 MG TAB PO SCH (09:31)
[2016-10-19] MEDS: SODIUM BICARBONATE 650 MG TAB PO SCH ×2 (09:31→21:41)
[2016-10-19] MEDS: DOXYCYCLINE HYCLATE 100 MG TAB PO SCH (09:32)
[2016-10-19] MEDS: ESCITALOPRAM OXALATE 10 MG TAB PO SCH (09:32)
[2016-10-19] MEDS: hydrALAZINE HCL 50 MG TAB PO SCH (09:32)
[2016-10-19] MEDS: predniSONE 5 MG TAB PO SCH (09:32)
[2016-10-19] MEDS: BUMETANIDE INJ 1 MG/4 ML VIAL IV PUSH SCH ×2 (09:33→17:24)
[2016-10-19 12:00] VITALS: BP 145/66; PULSE 68; RESP 18; TEMP 97.9; O2SAT 94
[2016-10-19] MEDS ORDERED: EPOETIN ALFA 10,000 UNITS/ML VIAL IV ONE (12:00)
--- NOTE | 2016-10-19 12:32 | HHI.NPPN ---
Subjective History of Present Illness The patient is a 55 yo [place] male who is known to our services for CKD s/p kidney/ pancreas transplant x2. He has had progressively worsening renal functions over the past 6 months and has been following with his transplant team at [facility] to attempt salvage of allograft even receiving IVIg in July. He unfortunately has progressed to stage 5 CKD requiring HD intervention. He has been weak, anorexic, and dyspneic on exertion for the past few weeks. He went to see his outpatient cardiology, Dr. Medina, at the end of Sep for a stress test. It showed suspicion for inferior ischemia, but given his severely impaired renal functions, a cardiac cath was held off. Fortunately, has a preserved LVEF. Denies any new medication, no new illness except UTI that was treated by Dr. León with Doxycycline. Endorses very little energy, [place], and very poor appetite. He self catheterizes 4 times per day and says he gets out about 400mL of urine each time. Interval History Patient received initial hemodialysis yesterday and indicated that his shortness of breath has improved and he feels improved overall. He is awaiting his second session today. Review of Systems General Constitutional: Fatigue Objective Data Data 10/18/16 10/19/16 19:00 07:00 Intake Total 480 ml 240 ml Output Total 300 ml Balance 180 ml 240 ml Intake Oral 480 ml 240 ml Output Urine Total 300 ml # Voids 1 # Bowel Movements 0 Vital Signs Date Time Temp Pulse Resp B/P Pulse Ox O2 Delivery O2 Flow Rate FiO2 10/19/16 08:00 97.0 66 18 135/65 97 10/19/16 08:00 Room Air 10/19/16 08:00 63 10/19/16 00:00 98.5 66 20 151/65 90 10/18/16 21:30 Room Air 10/18/16 20:00 99.0 75 20 161/74 75 10/18/16 16:00 98.1 88 19 174/73 93 160/70 10/18/16 12:45 94 -: 10/19/16 0723 10/19/16 0723 Medication Review Current Medications IV Flush 2 ml 2 ml UNSCH PRN IVF FLUSH AFTER USING IV ACCESS Last administered on 10/17/16t 18:40; Start 10/17/16 at 17:30; Stop 10/17/16 at 18:55; Status DC Ceftriaxone Sodium 1000 mg/ Sodium Chloride 100 ml @ 200 mls/hr ONCE ONCE IV Last administered on 10/17/16 18:38; Start 10/17/16 at 18:45; Stop 10/17/16 at 19: 14; Status DC Calcium Gluconate/ Dextrose (Calcium Gluconate Inj/D5W 100 ml Inj) 110 ml @ 110 mls/hr ONCE ONCE IV Last administered on 10/17/16 19:38; Start 10/17/16 at 18:45; Stop 10/17/16 at 19:44; Status DC IV Flush (NS Flush) 2 ml UNSCH PRN FLUSH FLUSH AFTER USING IV ACCESS; Start 10/17/16 at 18:45 IV Flush (NS Flush) 2 ml BID FLUSH Last administered on 10/19/16 09:26; Start 10/17/16 at 21:00 Ondansetron HCl (Zofran Inj) 4 mg Q6H PRN IVP NAUSEA OR VOMITING; Start at 18:45 Bumetanide (Bumex Inj) 1 mg BID@09,18 IV PUSH Last administered on 10/19/16 09: 33; Start 10/17/16 at 18:50 Dextrose (D50w (Vial) Inj) 25 ml UNSCH PRN IV PUSH HYPOGLYCEMIA-SEE COMMENTS; Start 10/17/16 at 18:45 Glucagon (Glucagon Inj) 1 mg UNSCH PRN OTHER HYPOGLYCEMIA-SEE COMMENTS; Start 10/17/16 at 18:45 Insulin Aspart (NovoLOG SUPPLEMENTAL SCALE) 1 ACHS SLIDING SCALE SQ Last administered on 10/19/16 11:17; Start 10/17/16 at 21:00 Amlodipine Besylate (Norvasc) 10 mg DAILY PO Last administered on 10/19/16 09: 32; Start 10/18/16 at 09:00 Azathioprine (Imuran) 75 mg DAILY PO Last administered on 10/19/16 09:31; Start 10/18/16 at 09:00 Escitalopram Oxalate (Lexapro) 10 mg DAILY PO Last administered on 10/19/16 09: 32; Start 10/18/16 at 09:00 Hydralazine HCl (Apresoline) 50 mg DAILY PO Last administered on 10/19/16 09:32 ; Start 10/18/16 at 09:00 Insulin Detemir (Levemir Inj) 15 units HS SQ Last administered on 10/18/16 21: 15; Start 10/17/16 at 21:00 Lorazepam (Ativan) 0.5 mg Q6H PRN PO ANXIETY; Start 10/17/16 at 18:45 Prednisone (Deltasone) 5 mg DAILY PO Last administered on 10/19/16 09:32; Start 10/18/16 at 09:00 Sodium Bicarbonate (Sodium Bicarbonate) 650 mg BIDPC PO Last administered on 08:25; Start 10/18/16 at 09:00; Stop 10/18/16 at 09:47; Status DC Tacrolimus (Prograf) 2 mg DAILY PO Last administered on 10/17/16 19:36; Start 10/17/16 at 18:45; Stop 10/18/16 at 07:13; Status DC Tacrolimus (Prograf) 3 mg DAILY@0600 PO Last administered on 10/19/16 06:00; Start 10/18/16 at 06:00 Trazodone HCl (Desyrel) 100 mg HS PO Last administered on 10/18/16 21:15; Start 10/17/16 at 21:00 Doxycycline Hyclate (Vibratab) 100 mg DAILY PO Last administered on 10/19/16 09 :32; Start 10/18/16 at 09:00 Miscellaneous (Pill Splitter) 1 ea UNSCH PRN OTHER SEE LABEL COMMENTS; Start at 19:00 Acetaminophen (Tylenol) 650 mg Q8HR PRN PO pain Last administered on 10/17/16 23:10; Start 10/17/16 at 22:30 Sodium Bicarbonate 1300 mg 1,300 mg TID PO Last administered on 10/19/16 09:31 ; Start 10/18/16 at 13:00 Sodium Chloride (NS 1000 ml Inj) 1,000 ml @ 0 mls/hr Q0M PRN IV For Prime & Rinse Back Last administered on 10/18/16 13:45; Start 10/18/16 at 12:51 Heparin Sodium (Porcine) 8000 units 8,000 units UNSCH PRN IVF WITH DIALYSIS; Start 10/18/16 at 13:00 Sodium Chloride 1,000 ml @ 200 mls/hr Q5H PRN IV WITH DIALYSIS; Start 10/18/16 at 12:51 Sodium Chloride (NS 1000 ml Inj) 1,000 ml @ 0 mls/hr Q0M PRN IV WITH DIALYSIS; Start 10/18/16 at 12:51 Mannitol (Mannitol Inj) 12.5 gm UNSCH PRN IV WITH DIALYSIS; Start 10/18/16 at 13 :00 Albumin Human (Albumin 25% Inj) 25 gm UNSCH PRN IV WITH DIALYSIS; Start at 13:00 IV Flush (NS Flush) 5 ml UNSCH PRN IVF WITH DIALYSIS; Start 10/18/16 at 13:00 Heparin Sodium (Porcine) (Heparin Inj) UNSCH PRN .XX WITH DIALYSIS; Start 10/18 at 13:00 Gentamicin Sulfate (Gentamicin (Dialysis) Inj) 20 mg UNSCH PRN IV WITH DIALYSIS ; Start 10/18/16 at 13:00 Ondansetron HCl (Zofran Inj) 4 mg UNSCH PRN IV WITH DIALYSIS; Start 10/18/16 at 13:00 Acetaminophen (Tylenol) 650 mg UNSCH PRN PO for headach, pain, temp > 101F; Start 10/18/16 at 13:00 Diphenhydramine HCl (Benadryl) 25 mg UNSCH PRN PO for hives/itching/anaphylaxis ; Start 10/18/16 at 13:00 Nitroglycerin (Nitrostat Sl) 0.4 mg UNSCH PRN SL CHEST PAIN; Start 10/18/16 at 13:00 Clonidine (Catapres) 0.1 mg UNSCH PRN PO for BP > 180/100 X 2 readings; Start 10/18/16 at 13:00 Gelatin (Gelfoam 12 Mm/7 Mm Top) 1 foam UNSCH PRN TOP SEE LABEL COMMENTS Last administered on 10/18/16 13:45; Start 10/18/16 at 13:00 Tacrolimus (Prograf) 2 mg DAILY@18 PO Last administered on 10/18/16 17:01; Start 10/18/16 at 18:00 Epoetin Delfino (Epogen Inj) 10,000 units ONCE ONCE IV ; Start 10/19/16 at 12:00; Stop 10/19/16 at 12:01 Hydralazine HCl (Apresoline) 25 mg Q8HR PRN PO SBP>160, DBP>90; Start 10/18/16 at 23:00 Potassium Chloride 60 meq 60 meq ONCE ONCE PO Last administered on 10/19/16t 09 :26; Start 10/19/16 at 09:15; Stop 10/19/16 at 09:26; Status DC Cefepime HCl/ Sodium Chloride (Maxipime Inj/NS Inj) 100 ml @ 200 mls/hr Q48H PRN IV WITH DIALYSIS; Start 10/19/16 at 13:00 Physical Exam General Appearance: No Acute Distress, Comfortable Eyes Eye Exam: Sclera White Pulmonary Resp Exam: Clear Bilaterally, Breath Sounds Equal, No Distress Cardiology CV Exam: Regular, Normal Sinus Rhythm, Good Perfusion Gastrointestinal/Abdomen GI Exam: Soft, Non-Tender Integumentary Skin Exam: Clear, Warm, Dry Extremeties Extremities Exam: Trace Edema Neurologic Neuro Exam: Alert, Awake Psychiatric Psych Exam: Appropriate Responses Assessment/Plan Problem List: (1) Kidney transplant failure Plan: Patient's renal function has been deteriorating progressively over the last several months and I believe that he has progressed to end-stage renal disease but will continue to monitor. Second hemodialysis today. His dialysis shunt appears to be working well. Situation was discussed with his quality improvement coordinator at [facility]. She indicated to me that workup there suggested that his pancreatic transplant was still working relatively well and she recommended continuance of current immunosuppressive therapy in view of this with subsequent follow-up with them about 2 weeks after discharge from this institution. Recommended Prograf level 5-7 for the pancreas. Discharge pending reevaluation over the weekend. Dialysis has been arranged as an outpatient. Medications should be adjusted for the patient's renal decline. Avoid gadolinium. Total time spent in direct patient care 44 minutes. (2) Urinary tract infection Plan: Urine culture indicating Enterobacter sensitive to Cipro and cefepime. There is potential interaction between Cipro and tacrolimus. I will order cefepime adjusted for the patient's renal function. Discussed with patient. (3) Diabetes mellitus type 2 with complications Plan: Mgmt as per primary (4) HTN (hypertension) Plan: Continue on current regimen (5) Hyperparathyroidism due to vitamin D deficiency Plan: We'll start ergocalciferol 50,000 units weekly. (6) Secondary hyperparathyroidism of renal origin Plan: Will monitor intact PTH level. If it remains above 500 despite adequate vitamin D, 25-hydroxy level will initiate therapy with calcitriol subsequently. (7) Anemia Plan: Repeat CBC with Fe panel. Epo with HD (8) Metabolic acidosis Plan: Improved with dialysis. Reduce by mouth sodium bicarbonate. (9) Urinary retention Plan: To continue with self catheterization QID as before. Rodo Ramirez MD Oct 19, 2016 12:32
[2016-10-19] MEDS ORDERED: CEFEPIME INJ 2,000 MG in SODIUM CHLORIDE 0.9% INJ 100 ML IV PRN (13:00)
[2016-10-19] MEDS: GELATIN 12 MM/7 MM FOAM TOP PRN (15:17)
[2016-10-19 16:00] VITALS: BP 142/68; PULSE 72; RESP 18; TEMP 98.5; O2SAT 93
[2016-10-19 20:00] VITALS: BP 128/61; PULSE 76; PULSE 77; RESP 20; TEMP 98.2; O2SAT 96
[2016-10-19] MEDS: traZODone HCL 100 MG TAB PO SCH (21:41)
[2016-10-19] MEDS: INSULIN DETEMIR 100 UNITS/ML VIAL SQ SCH (21:45)
--- NOTE | 2016-10-19 23:22 | RADRPT ---
EXAM DATE/TIME: 10/19/2016 22:17 [facility] COMPARISON: US KIDNEY / TRANSPLANT, May 01, 2016, 14:23. EXTERNAL COMPARISON : [facility], US KIDNEY - BILATERAL, June 14, 2016 INDICATIONS : Obstruction. MEDICAL HISTORY : Peripheral vascular disease. Pancreatitis. Diabetes mellitus type 2. GERD. Chronic kidney disease. UT I. HTN. Skin cancer. MRSA. SURGICAL HISTORY : Appendectomy. Cholecystectomy. Prostatectomy. Right eye extracted/prosthetic eye. Left laser eye surg sully. Left cataract surgery. AV shunt. Kidney transplant x2. Pancreas transplant. Dialysis. TURP. Lef t femur with pins. Left elbow surgery. Bilateral below knee amputations with prostheses. Carpel tunne l release. Blood transfusions. ENCOUNTER: Subsequent ACUITY: 1 day PAIN SCORE: 0/10 LOCATION: Left lower quadrant MEASUREMENTS: TRANSPLANT KIDNEY: 11.6 x 6.5 x 5.0 cm LOCATION: Left lower quadrant. PREVIOUS ULTRASOUND: May 01 2016 PREVIOUS ARCUATE ARTERIES INDEX: Upper - 0.7 Mid - 0.7 Lower - 0.7 ARCUATE ARTERIES RESISTIVE INDEX: Upper - 0.8 Mid - 0.8 Lower - 0.8 RA/EIA Ratio: 0.59 MAIN RENAL ARTERY VELOCITY: (cm/sec): 86.9 MAIN RENAL VEIN: Patent EXTERNAL ILIAC ARTERY VELOCITY (cm/sec): 145.3 * NORMAL DOPPLER FINDINGS Arcuate arteries - RI = 0.6 - 0.8 Renal artery = under 200 cm/sec Renal vein = May be monophasic with continuous flow or demonstrate some pulsatility with cardiac cycl e FINDINGS: TRANSPLANT KIDNEY: Tiny upper pole cyst. Minimal fullness of the renal pelvis. URINARY BLADDER: Dilated with note again made of endophytic structures or masses as previously described CONCLUSION: Stable appearance of transplant kidney Gage Tellez MD on October 19, 2016 at 23:14 Board Certified Radiologist. This report was verified electronically.
[2016-10-20] VITALS (8 sets, daily range): BP systolic 128–145; BP diastolic 63–68; PULSE 62–89; RESP 18–20; TEMP 97.9–98.5; O2SAT 92–96
[2016-10-20] MEDS: TACROLIMUS 1 MG CAP PO SCH ×2 (06:36→17:46)
[2016-10-20] MEDS: INSULIN ASPART SUPPLEMENTAL SCALE SQ SCH ×4 (06:36→20:32)
[2016-10-20] MEDS: ONDANSETRON HCL 4 MG/2 ML VIAL IVP PRN (06:43)
[2016-10-20] MEDS: SODIUM CHLORIDE 0.9% FLUSH 5 ML FLUSH FLUSH PRN (06:44)
[2016-10-20 08:11] LABS: HEMATOCRIT 21.7 % (39.0-51.0); MEAN CORPUSCULAR HEMOGLOBIN 32.3 PG (27.0-34.0); PLATELET COUNT 123 TH/MM3 (150-450); RED BLOOD COUNT 2.28 MIL/MM3 (4.50-5.90); RED CELL DISTRIBUTION WIDTH 14.7 % (11.6-17.2); REVIEW FLAG FINAL; WHITE BLOOD COUNT 4.2 TH/MM3 (4.0-11.0)
[2016-10-20] MEDS: BUMETANIDE INJ 1 MG/4 ML VIAL IV PUSH SCH ×2 (09:44→17:46)
[2016-10-20] MEDS: SODIUM CHLORIDE 0.9% FLUSH 5 ML FLUSH FLUSH SCH ×2 (09:44→20:31)
[2016-10-20] MEDS: azaTHIOprine 50 MG TAB PO SCH (09:45)
[2016-10-20] MEDS: predniSONE 5 MG TAB PO SCH (09:45)
[2016-10-20] MEDS: hydrALAZINE HCL 50 MG TAB PO SCH (09:45)
[2016-10-20] MEDS: ESCITALOPRAM OXALATE 10 MG TAB PO SCH (09:46)
[2016-10-20] MEDS: SODIUM BICARBONATE 650 MG TAB PO SCH ×2 (09:46→20:31)
[2016-10-20] MEDS: DOXYCYCLINE HYCLATE 100 MG TAB PO SCH (09:46)
--- NOTE | 2016-10-20 10:55 | HHI.PR ---
Subjective Remarks Follow-up end-stage renal disease in need of HD 10/19/16-patient seen and examined, he had hemodialysis yesterday and report improvement or shortness of breath. Plan for HD today 10/20/16-patient seen and examined, complains of nausea without any emesis. Getting cefepime with dialysis for UTI. Objective Vitals Vital Signs Date Time Temp Pulse Resp B/P Pulse Ox O2 Delivery O2 Flow Rate FiO2 10/20/16 08:00 98.4 62 18 128/63 94 10/20/16 04:00 98.0 69 18 144/68 96 10/20/16 00:00 98.3 89 18 145/67 94 10/19/16 21:45 Room Air 10/19/16 20:00 76 10/19/16 20:00 98.2 77 20 128/61 96 10/19/16 16:00 98.5 72 18 142/68 93 10/19/16 12:00 97.9 68 18 145/66 94 I/O 10/19/16 10/19/16 10/19/16 10/20/16 10/20/16 10/20/16 07:00 15:00 23:00 07:00 15:00 23:00 Intake Total 240 ml 360 ml 780 ml 250 ml Output Total 300 ml Balance 240 ml 360 ml 780 ml -50 ml Intake Oral 240 ml 360 ml 780 ml 250 ml Output Urine Total 300 ml # Voids 1 1 1 # Bowel Movements 0 0 Result Diagram: 10/20/16 0717 10/20/16 0717 Imaging Last Impressions Renal Ultrasound 10/19/16 0000 Signed Impressions: Service Date/Time: Wednesday, October 19, 2016 22:17 - CONCLUSION: Stable appearance of transplant kidney Gage Tellez MD Chest X-Ray 10/17/16 0000 Signed Impressions: Service Date/Time: Monday, October 17, 2016 18:32 - CONCLUSION: Cardiomegaly with possible mild vascular congestion but no evidence of pulmonary edema or significant pleural fluid accumulation. No evidence of acute air space disease Leonardo Butler MD Objective Remarks GENERAL: NAD SKIN: Warm and dry. HEAD: Normocephalic. EYES: No scleral icterus. No injection or drainage. NECK: Supple, trachea midline. No JVD or lymphadenopathy. CARDIOVASCULAR: Regular rate and rhythm without murmurs, gallops, or rubs. RESPIRATORY: Breath sounds equal bilaterally. No accessory muscle use. GASTROINTESTINAL: Abdomen soft, non-tender, nondistended. MUSCULOSKELETAL: B-BKAs BACK: Nontender without obvious deformity. No CVA tenderness. Procedures A/P Problem List: (1) CKD (chronic kidney disease) stage 4, GFR 15-29 ml/min ICD Code: N18.4 Status: Acute (2) Diabetes mellitus type 2 with complications ICD Code: E11.8 Status: Acute (3) HTN (hypertension) ICD Code: I10 Status: Acute (4) Kidney transplant failure ICD Code: T86.12 Status: Acute (5) UTI (urinary tract infection) ICD Code: N39.0 Status: Acute Assessment and Plan 55-year-old male History of renal chest pain failure: On chronic immunosuppression, management per nephrology and monitor Prograf level End-stage renal disease: Previous history of kidney transplant, now in need of dialysis. Had hemodialysis x 2 on 10/18/16 and 10/19/16, plan for HD on . Management per nephrology. Will need outpatient HD Hypokalemia: Replace electrolyte and monitor UTI: On cefepime during HD. Cipro was discontinued Diabetes mellitus type II - continue basal insulin and ISS with FSBG monitoring Hypertension-continue oral antihypertensive medications History of urinary retention: Currently stable and continue with self catheterization Anxiety/depression: Stable on Arnulfo Alicia MD Oct 20, 2016 10:55
--- NOTE | 2016-10-20 14:44 | HHI.NPPN ---
Subjective History of Present Illness The patient is a 55 yo [place] male who is known to our services for CKD s/p kidney/ pancreas transplant x2. He has had progressively worsening renal functions over the past 6 months and has been following with his transplant team at [facility] to attempt salvage of allograft even receiving IVIg in July. He unfortunately has progressed to stage 5 CKD requiring HD intervention. He has been weak, anorexic, and dyspneic on exertion for the past few weeks. He went to see his outpatient cardiology, Dr. Medina, at the end of Sep for a stress test. It showed suspicion for inferior ischemia, but given his severely impaired renal functions, a cardiac cath was held off. Fortunately, has a preserved LVEF. Denies any new medication, no new illness except UTI that was treated by Dr. León with Doxycycline. Endorses very little energy, [place], and very poor appetite. He self catheterizes 4 times per day and says he gets out about 400mL of urine each time. Interval History Patient indicated that he was feeling better. No verbal complaints currently. Review of Systems General Constitutional: Fatigue Objective Data Data 10/19/16 10/20/16 19:00 07:00 Intake Total 360 ml 1030 ml Output Total 300 ml Balance 360 ml 730 ml Intake Oral 360 ml 1030 ml Output Urine Total 300 ml # Voids 1 1 # Bowel Movements 0 Vital Signs Date Time Temp Pulse Resp B/P Pulse Ox O2 Delivery O2 Flow Rate FiO2 10/20/16 12:00 98.5 73 18 143/65 92 10/20/16 11:00 92 Room Air 10/20/16 08:00 98.4 62 18 128/63 94 10/20/16 04:00 98.0 69 18 144/68 96 10/20/16 00:00 98.3 89 18 145/67 94 10/19/16 21:45 Room Air 10/19/16 20:00 76 10/19/16 20:00 98.2 77 20 128/61 96 10/19/16 16:00 98.5 72 18 142/68 93 -: 10/20/16 0717 10/20/16 0717 Physical Exam General Appearance: No Acute Distress, Comfortable Eyes Eye Exam: Sclera White Pulmonary Resp Exam: Clear Bilaterally, Breath Sounds Equal, No Distress Cardiology CV Exam: Regular, Normal Sinus Rhythm, Good Perfusion Gastrointestinal/Abdomen GI Exam: Soft, Non-Tender Integumentary Skin Exam: Clear, Warm, Dry Extremeties Extremities Exam: Trace Edema Neurologic Neuro Exam: Alert, Awake Psychiatric Psych Exam: Appropriate Responses Assessment/Plan Problem List: (1) Kidney transplant failure Plan: Patient's renal function has been deteriorating progressively over the last several months and I believe that he has progressed to end-stage renal disease but will continue to monitor. His dialysis shunt appears to be working well. Situation was discussed with his material coordinator at [facility]. She indicated to me that workup there suggested that his pancreatic transplant was still working relatively well and she recommended continuance of current immunosuppressive therapy in view of this with subsequent follow-up with them about 2 weeks after discharge from this institution. Recommended Prograf level 5-7 for the pancreas. We'll continue to monitor patient's renal indices over the weekend. Hemodialysis Saturday if indicated and subsequently patient will be clear from a renal point of view to start outpatient dialysis thereafter if required. Discharge pending reevaluation over the weekend. Dialysis has been arranged as an outpatient if required. Medications should be adjusted for the patient's renal decline. Avoid gadolinium. (2) Urinary tract infection Plan: Urine culture indicating Enterobacter sensitive to Cipro and cefepime. There is potential interaction between Cipro and tacrolimus. I will order cefepime adjusted for the patient's renal function. Discussed with patient. (3) Diabetes mellitus type 2 with complications Plan: Mgmt as per primary (4) HTN (hypertension) Plan: Continue on current regimen (5) Hyperparathyroidism due to vitamin D deficiency Plan: We'll start ergocalciferol 50,000 units weekly. (6) Secondary hyperparathyroidism of renal origin Plan: Will monitor intact PTH level. If it remains above 500 despite adequate vitamin D, 25-hydroxy level will initiate therapy with calcitriol subsequently. (7) Anemia Plan: Repeat CBC with Fe panel. Extra dose of Epogen today. (8) Metabolic acidosis Plan: Improved with dialysis. (9) Urinary retention Plan: To continue with self catheterization QID as before. Rodo Ramirez MD Oct 20, 2016 14:44
[2016-10-20] MEDS ORDERED: POTASSIUM CHLORIDE 10 MEQ CONTROLLED RELEASE TAB PO ONE (14:45)
[2016-10-20] MEDS: EPOETIN ALFA 10,000 UNITS/ML VIAL SQ ONE ×2 (15:23→17:42)
[2016-10-20] MEDS: traZODone HCL 100 MG TAB PO SCH (20:31)
[2016-10-20] MEDS: INSULIN DETEMIR 100 UNITS/ML VIAL SQ SCH (20:31)
[2016-10-21] VITALS (7 sets, daily range): BP systolic 127–152; BP diastolic 60–70; PULSE 60–72; RESP 16–18; TEMP 98.4–99.9; O2SAT 92–95
[2016-10-21] MEDS: SODIUM CHLORIDE 0.9% FLUSH 5 ML FLUSH FLUSH PRN (05:15)
[2016-10-21] MEDS: ONDANSETRON HCL 4 MG/2 ML VIAL IVP PRN (05:15)
[2016-10-21] MEDS: TACROLIMUS 1 MG CAP PO SCH ×2 (06:12→17:20)
[2016-10-21] MEDS: INSULIN ASPART SUPPLEMENTAL SCALE SQ SCH ×4 (06:12→20:33)
[2016-10-21] MEDS: SODIUM CHLORIDE 0.9% FLUSH 5 ML FLUSH FLUSH SCH ×2 (09:22→20:33)
[2016-10-21] MEDS: hydrALAZINE HCL 50 MG TAB PO SCH (09:22)
[2016-10-21] MEDS: BUMETANIDE INJ 1 MG/4 ML VIAL IV PUSH SCH ×2 (09:22→17:20)
[2016-10-21] MEDS: predniSONE 5 MG TAB PO SCH (09:22)
[2016-10-21] MEDS: SODIUM BICARBONATE 650 MG TAB PO SCH ×2 (09:23→20:33)
[2016-10-21] MEDS: DOXYCYCLINE HYCLATE 100 MG TAB PO SCH (09:23)
[2016-10-21] MEDS: ESCITALOPRAM OXALATE 10 MG TAB PO SCH (09:23)
[2016-10-21] MEDS: azaTHIOprine 50 MG TAB PO SCH (09:23)
[2016-10-21 09:29] LABS: BICARBONATE 22.6 MEQ/L (21.0-32.0); POTASSIUM 3.5 MEQ/L (3.5-5.1)
--- NOTE | 2016-10-21 10:10 | HHI.PR ---
Subjective Remarks Follow-up end-stage renal disease in need of HD 10/19/16-patient seen and examined, he had hemodialysis yesterday and report improvement or shortness of breath. Plan for HD today 10/20/16-patient seen and examined, complains of nausea without any emesis. Getting cefepime with dialysis for UTI. 10/21/16-patient seen and examined, still complain of nausea with dry heaves however no emesis. Afebrile. Plan for HD tomorrow 10/22/16 Objective Vitals Vital Signs Date Time Temp Pulse Resp B/P Pulse Ox O2 Delivery O2 Flow Rate FiO2 10/21/16 04:00 98.7 60 18 152/68 95 10/21/16 00:00 98.4 60 18 138/66 95 10/20/16 20:30 Room Air 10/20/16 20:26 69 10/20/16 20:00 97.9 66 20 144/67 94 10/20/16 16:47 65 10/20/16 16:00 98.0 65 18 135/63 94 10/20/16 12:00 98.5 73 18 143/65 92 10/20/16 11:00 92 Room Air I/O 10/20/16 10/20/16 10/20/16 10/21/16 10/21/16 10/21/16 07:00 15:00 23:00 07:00 15:00 23:00 Intake Total 250 ml 360 ml 120 ml 120 ml Output Total 300 ml 500 ml 500 ml Balance -50 ml -140 ml 120 ml -380 ml Intake Oral 250 ml 360 ml 120 ml 120 ml IV Total 0 ml Output Urine Total 300 ml 500 ml 500 ml # Voids 2 # Bowel Movements 1 0 Result Diagram: 10/20/16 0717 10/21/16 0735 Imaging Last Impressions Renal Ultrasound 10/19/16 0000 Signed Impressions: Service Date/Time: Wednesday, October 19, 2016 22:17 - CONCLUSION: Stable appearance of transplant kidney Gage Tellez MD Chest X-Ray 10/17/16 0000 Signed Impressions: Service Date/Time: Monday, October 17, 2016 18:32 - CONCLUSION: Cardiomegaly with possible mild vascular congestion but no evidence of pulmonary edema or significant pleural fluid accumulation. No evidence of acute air space disease Leonardo Butler MD Objective Remarks GENERAL: NAD SKIN: Warm and dry. HEAD: Normocephalic. EYES: No scleral icterus. No injection or drainage. NECK: Supple, trachea midline. No JVD or lymphadenopathy. CARDIOVASCULAR: Regular rate and rhythm without murmurs, gallops, or rubs. RESPIRATORY: Breath sounds equal bilaterally. No accessory muscle use. GASTROINTESTINAL: Abdomen soft, non-tender, nondistended. MUSCULOSKELETAL: B-BKAs BACK: Nontender without obvious deformity. No CVA tenderness. Procedures A/P Problem List: (1) CKD (chronic kidney disease) stage 4, GFR 15-29 ml/min ICD Code: N18.4 Status: Acute (2) Diabetes mellitus type 2 with complications ICD Code: E11.8 Status: Acute (3) HTN (hypertension) ICD Code: I10 Status: Acute (4) Kidney transplant failure ICD Code: T86.12 Status: Acute (5) UTI (urinary tract infection) ICD Code: N39.0 Status: Acute (6) Anemia in CKD (chronic kidney disease) ICD Code: N18.9 Status: Acute (7) Hyperparathyroidism due to vitamin D deficiency ICD Code: E21.1 Status: Acute Assessment and Plan 55-year-old male History of renal chest pain failure: On chronic immunosuppression, management per nephrology and monitor Prograf level End-stage renal disease: Previous history of kidney transplant, now in need of dialysis. Had hemodialysis x 2 on 10/18/16 and 10/19/16, plan for HD on if indicated. Otherwise may need outpatient HD by nephrology next week. Management per nephrology. But if no HD on 10/22/16 patient will be discharged home Anemia in CKD: H&H stable, continue with Epogen during HD Vitamin D deficiency:Ergocalciferol 50,000 units weekly Hypokalemia: Replace electrolyte and monitor UTI: On cefepime during HD. Will need by mouth antibiotic other Cipro on discharge Diabetes mellitus type II - continue basal insulin and ISS with FSBG monitoring Hypertension-continue oral antihypertensive medications History of urinary retention: Currently stable and continue with self catheterization Anxiety/depression: Stable on Arnulfo Alicia MD Oct 21, 2016 10:09
--- NOTE | 2016-10-21 10:14 | HHI.FF ---
Face to Face Verification Diagnosis: (1) CKD (chronic kidney disease) stage 4, GFR 15-29 ml/min (2) Diabetes mellitus type 2 with complications (3) UTI (urinary tract infection) (4) Anemia in CKD (chronic kidney disease) Physical Therapy Order: Evaluate and Treat Home Health Nursing Order: Signs/symptoms of disease process I have seen patient Basilio Frank on 10/21/16. My clinical findings support the need for the requested home health care services because: Deconditioned w/ increased weakness I certify that my clinical findings support that this patient is homebound because: Poor cardiac reserve Arnulfo Warner MD Oct 21, 2016 10:14
[2016-10-21] MEDS: INSULIN DETEMIR 100 UNITS/ML VIAL SQ SCH (20:32)
[2016-10-21] MEDS: traZODone HCL 100 MG TAB PO SCH (20:33)
[2016-10-22 00:51] VITALS: BP 141/65; PULSE 73; RESP 18; TEMP 99.9; O2SAT 91
[2016-10-22 05:03] VITALS: BP 122/60; PULSE 62; RESP 18; TEMP 99.3; O2SAT 90
[2016-10-22] MEDS: INSULIN ASPART SUPPLEMENTAL SCALE SQ SCH ×3 (06:09→16:00)
[2016-10-22] MEDS: TACROLIMUS 1 MG CAP PO SCH (06:09)
[2016-10-22 08:00] VITALS: BP_SYST 118; BP_SYST 124; BP_DIAS 59; BP_DIAS 60; PULSE 58; PULSE 60; RESP 18; RESP 24; TEMP 98.5; TEMP 99.3; O2SAT 95
[2016-10-22 09:00] VITALS: PULSE 55
[2016-10-22] MEDS: SODIUM CHLORIDE 0.9% FLUSH 5 ML FLUSH FLUSH SCH (09:00)
[2016-10-22] MEDS: SODIUM BICARBONATE 650 MG TAB PO SCH (09:44)
[2016-10-22] MEDS: ESCITALOPRAM OXALATE 10 MG TAB PO SCH (09:44)
[2016-10-22] MEDS: azaTHIOprine 50 MG TAB PO SCH (09:44)
[2016-10-22] MEDS: predniSONE 5 MG TAB PO SCH (09:44)
[2016-10-22] MEDS: DOXYCYCLINE HYCLATE 100 MG TAB PO SCH (09:44)
[2016-10-22] MEDS: hydrALAZINE HCL 50 MG TAB PO SCH (09:44)
[2016-10-22] MEDS: BUMETANIDE INJ 1 MG/4 ML VIAL IV PUSH SCH (09:45)
--- NOTE | 2016-10-22 10:58 | HHI.NPPN ---
Subjective History of Present Illness The patient is a 55 yo [place] male who is known to our services for CKD s/p kidney/ pancreas transplant x2. He has had progressively worsening renal functions over the past 6 months and has been following with his transplant team at [facility] to attempt salvage of allograft even receiving IVIg in July. He unfortunately has progressed to stage 5 CKD requiring HD intervention. He has been weak, anorexic, and dyspneic on exertion for the past few weeks. He went to see his outpatient cardiology, Dr. Medina, at the end of Sep for a stress test. It showed suspicion for inferior ischemia, but given his severely impaired renal functions, a cardiac cath was held off. Fortunately, has a preserved LVEF. Denies any new medication, no new illness except UTI that was treated by Dr. León with Doxycycline. Endorses very little energy, [place], and very poor appetite. He self catheterizes 4 times per day and says he gets out about 400mL of urine each time. Interval History Patient had no verbal complaints today. Objective Data Data 10/21/16 10/22/16 19:00 07:00 Intake Total 900 ml Balance 900 ml Intake Oral 900 ml IV Total 0 ml # Voids 2 1 # Bowel Movements 1 Vital Signs Date Time Temp Pulse Resp B/P Pulse Ox O2 Delivery O2 Flow Rate FiO2 10/22/16 08:00 99.3 58 18 118/59 95 10/22/16 05:03 99.3 62 18 122/60 90 10/22/16 00:51 99.9 73 18 141/65 91 10/21/16 21:41 98.8 60 16 144/66 92 10/21/16 20:40 Room Air 10/21/16 20:24 66 10/21/16 17:13 94 Room Air 10/21/16 16:00 99.2 70 18 150/70 94 10/21/16 12:00 99.5 72 18 127/60 94 10/21/16 12:00 99.5 72 18 127/60 94 -: 10/20/16 0717 10/21/16 0735 Medication Review Current Medications IV Flush 2 ml 2 ml UNSCH PRN IVF FLUSH AFTER USING IV ACCESS Last administered on 10/17/16t 18:40; Start 10/17/16 at 17:30; Stop 10/17/16 at 18:55; Status DC Ceftriaxone Sodium 1000 mg/ Sodium Chloride 100 ml @ 200 mls/hr ONCE ONCE IV Last administered on 10/17/16 18:38; Start 10/17/16 at 18:45; Stop 10/17/16 at 19: 14; Status DC Calcium Gluconate/ Dextrose (Calcium Gluconate Inj/D5W 100 ml Inj) 110 ml @ 110 mls/hr ONCE ONCE IV Last administered on 10/17/16 19:38; Start 10/17/16 at 18:45; Stop 10/17/16 at 19:44; Status DC IV Flush (NS Flush) 2 ml UNSCH PRN FLUSH FLUSH AFTER USING IV ACCESS Last administered on 10/21/16 05:15; Start 10/17/16 at 18:45 IV Flush (NS Flush) 2 ml BID FLUSH Last administered on 10/22/16 09:00; Start 10/17/16 at 21:00 Ondansetron HCl (Zofran Inj) 4 mg Q6H PRN IVP NAUSEA OR VOMITING Last administered on 10/21/16 05:15; Start 10/17/16 at 18:45 Bumetanide (Bumex Inj) 1 mg BID@09,18 IV PUSH Last administered on 10/22/16 09: 45; Start 10/17/16 at 18:50; Stop 10/22/16 at 10:30; Status DC Dextrose (D50w (Vial) Inj) 25 ml UNSCH PRN IV PUSH HYPOGLYCEMIA-SEE COMMENTS; Start 10/17/16 at 18:45 Glucagon (Glucagon Inj) 1 mg UNSCH PRN OTHER HYPOGLYCEMIA-SEE COMMENTS; Start 10/17/16 at 18:45 Insulin Aspart (NovoLOG SUPPLEMENTAL SCALE) 1 ACHS SLIDING SCALE SQ Last administered on 10/21/16 20:33; Start 10/17/16 at 21:00 Amlodipine Besylate (Norvasc) 10 mg DAILY PO Last administered on 10/22/16 09: 44; Start 10/18/16 at 09:00 Azathioprine (Imuran) 75 mg DAILY PO Last administered on 10/22/16 09:44; Start 10/18/16 at 09:00 Escitalopram Oxalate (Lexapro) 10 mg DAILY PO Last administered on 10/22/16 09: 44; Start 10/18/16 at 09:00 Hydralazine HCl (Apresoline) 50 mg DAILY PO Last administered on 10/22/16 09:44 ; Start 10/18/16 at 09:00 Insulin Detemir (Levemir Inj) 15 units HS SQ Last administered on 10/21/16 20: 32; Start 10/17/16 at 21:00 Lorazepam (Ativan) 0.5 mg Q6H PRN PO ANXIETY; Start 10/17/16 at 18:45 Prednisone (Deltasone) 5 mg DAILY PO Last administered on 10/22/16 09:44; Start 10/18/16 at 09:00 Sodium Bicarbonate (Sodium Bicarbonate) 650 mg BIDPC PO Last administered on 08:25; Start 10/18/16 at 09:00; Stop 10/18/16 at 09:47; Status DC Tacrolimus (Prograf) 2 mg DAILY PO Last administered on 10/17/16 19:36; Start 10/17/16 at 18:45; Stop 10/18/16 at 07:13; Status DC Tacrolimus (Prograf) 3 mg DAILY@0600 PO Last administered on 10/22/16 06:09; Start 10/18/16 at 06:00 Trazodone HCl (Desyrel) 100 mg HS PO Last administered on 10/21/16 20:33; Start 10/17/16 at 21:00 Doxycycline Hyclate (Vibratab) 100 mg DAILY PO Last administered on 10/22/16 09 :44; Start 10/18/16 at 09:00 Miscellaneous (Pill Splitter) 1 ea UNSCH PRN OTHER SEE LABEL COMMENTS; Start at 19:00 Acetaminophen (Tylenol) 650 mg Q8HR PRN PO pain Last administered on 10/17/16 23:10; Start 10/17/16 at 22:30 Sodium Bicarbonate 1300 mg 1,300 mg TID PO Last administered on 10/19/16 09:31 ; Start 10/18/16 at 13:00; Stop 10/19/16 at 12:22; Status DC Sodium Chloride (NS 1000 ml Inj) 1,000 ml @ 0 mls/hr Q0M PRN IV For Prime & Rinse Back Last administered on 10/18/16 13:45; Start 10/18/16 at 12:51 Heparin Sodium (Porcine) 8000 units 8,000 units UNSCH PRN IVF WITH DIALYSIS; Start 10/18/16 at 13:00 Sodium Chloride 1,000 ml @ 200 mls/hr Q5H PRN IV WITH DIALYSIS; Start 10/18/16 at 12:51 Sodium Chloride (NS 1000 ml Inj) 1,000 ml @ 0 mls/hr Q0M PRN IV WITH DIALYSIS; Start 10/18/16 at 12:51 Mannitol (Mannitol Inj) 12.5 gm UNSCH PRN IV WITH DIALYSIS; Start 10/18/16 at 13 :00 Albumin Human (Albumin 25% Inj) 25 gm UNSCH PRN IV WITH DIALYSIS; Start at 13:00 IV Flush (NS Flush) 5 ml UNSCH PRN IVF WITH DIALYSIS; Start 10/18/16 at 13:00 Heparin Sodium (Porcine) (Heparin Inj) UNSCH PRN .XX WITH DIALYSIS; Start 10/18 at 13:00 Gentamicin Sulfate (Gentamicin (Dialysis) Inj) 20 mg UNSCH PRN IV WITH DIALYSIS ; Start 10/18/16 at 13:00 Ondansetron HCl (Zofran Inj) 4 mg UNSCH PRN IV WITH DIALYSIS; Start 10/18/16 at 13:00 Acetaminophen (Tylenol) 650 mg UNSCH PRN PO for headach, pain, temp > 101F; Start 10/18/16 at 13:00 Diphenhydramine HCl (Benadryl) 25 mg UNSCH PRN PO for hives/itching/anaphylaxis ; Start 10/18/16 at 13:00 Nitroglycerin (Nitrostat Sl) 0.4 mg UNSCH PRN SL CHEST PAIN; Start 10/18/16 at 13:00 Clonidine (Catapres) 0.1 mg UNSCH PRN PO for BP > 180/100 X 2 readings; Start 10/18/16 at 13:00 Gelatin (Gelfoam 12 Mm/7 Mm Top) 1 foam UNSCH PRN TOP SEE LABEL COMMENTS Last administered on 10/19/16 15:17; Start 10/18/16 at 13:00 Tacrolimus (Prograf) 2 mg DAILY@18 PO Last administered on 10/21/16 17:20; Start 10/18/16 at 18:00 Epoetin Delfino (Epogen Inj) 10,000 units ONCE ONCE IV Last administered on 14:45; Start 10/19/16 at 12:00; Stop 10/19/16 at 12:34; Status DC Hydralazine HCl (Apresoline) 25 mg Q8HR PRN PO SBP>160, DBP>90; Start 10/18/16 at 23:00 Potassium Chloride 60 meq 60 meq ONCE ONCE PO Last administered on 10/19/16 09 :26; Start 10/19/16 at 09:15; Stop 10/19/16 at 09:26; Status DC Cefepime HCl/ Sodium Chloride (Maxipime Inj/NS Inj) 100 ml @ 200 mls/hr Q48H PRN IV WITH DIALYSIS Last administered on 10/19/16 15:00; Start 10/19/16 at 13:00 Sodium Bicarbonate (Sodium Bicarbonate) 650 mg BID PO Last administered on 09:44; Start 10/19/16 at 21:00 Potassium Chloride (KCl) 10 meq ONCE ONCE PO Last administered on 10/20/16 15: 23; Start 10/20/16 at 14:45; Stop 10/20/16 at 14:46; Status DC Epoetin Delfino (Epogen Inj) 10,000 units ONCE ONCE SQ Last administered on 17:42; Start 10/20/16 at 14:45; Stop 10/20/16 at 14:46; Status DC Bumetanide (Bumetanide) 2 mg DAILY PO ; Start 10/23/16 at 09:00 Physical Exam General Appearance: No Acute Distress, Comfortable Eyes Eye Exam: Sclera White Pulmonary Resp Exam: Clear Bilaterally, Breath Sounds Equal, No Distress Cardiology CV Exam: Regular, Normal Sinus Rhythm, Good Perfusion Gastrointestinal/Abdomen GI Exam: Soft, Non-Tender Integumentary Skin Exam: Clear, Warm, Dry Extremeties Extremities Exam: Trace Edema Neurologic Neuro Exam: Alert, Awake Psychiatric Psych Exam: Appropriate Responses Assessment/Plan Problem List: (1) Kidney transplant failure Plan: Patient's renal function has been deteriorating progressively over the last several months. His dialysis shunt appears to be working well. Patient's creatinine level deteriorated postdialysis so I do believe the patient has progressed to end- stage renal disease at this point in time. Patient will have hemodialysis today in house and will subsequently be clear from a renal point of view for discharge. Outpatient dialysis has been arranged for Saturday 6 AM. Patient will be notified. I discussed the situation with his outpatient office bookkeeper Dr. Medina. She indicated as far she can recollect the only strong indication for a cardiac catheterization was for clearance for renal transplant. I discussed the situation with the packaging coordinator at [facility] during this admission and she indicated that there were multiple issues as far as clearance for transplant was concerned which included patient's 2 previous kidney transplants, the fact that he has to self catheterize to empty his bladder as well as possible need for catheterization. I advised the patient to contact his packaging coordinator to determine whether or not if he did have cardiac catheterization and was subsequently clear from a cardiac point of view whether or not this would be enough for him to be listed for future transplant with there were other issues precluding patient being listed for same. borough coordinator or so indicated to me that workup there suggested that his pancreatic transplant was still working relatively well and she recommended continuance of current immunosuppressive therapy in view of this with subsequent follow-up with them about 2 weeks after discharge from this institution. Recommended Prograf level 5-7 for the pancreas. Level currently 7.1. Minimally above range will continue current immunosuppressive dosages. Medications should be adjusted for the patient's renal decline. Avoid gadolinium. (2) Urinary tract infection Plan: Urine culture indicating Enterobacter sensitive to Cipro and cefepime. There is potential interaction between Cipro and tacrolimus. I will order cefepime adjusted for the patient's renal function. Discussed with patient. (3) Diabetes mellitus type 2 with complications Plan: Mgmt as per primary (4) HTN (hypertension) Plan: Continue on current regimen (5) Hyperparathyroidism due to vitamin D deficiency Plan: We'll start ergocalciferol 50,000 units weekly. (6) Secondary hyperparathyroidism of renal origin Plan: Will monitor intact PTH level. If it remains above 500 despite adequate vitamin D, 25-hydroxy level will initiate therapy with calcitriol subsequently. (7) Anemia Plan: Repeat CBC with Fe panel. Extra dose of Epogen today. (8) Metabolic acidosis Plan: Improved with dialysis. (9) Urinary retention Plan: To continue with self catheterization QID as before. Rodo Ramirez MD Oct 22, 2016 10:58
--- NOTE | 2016-10-22 11:35 | HHI.PR ---
Subjective Remarks The patient no acute complaints. He is resting comfortably. Discussed with nursing. He was expecting to go to dialysis and then home afterwards. Objective Vitals Vital Signs Date Time Temp Pulse Resp B/P Pulse Ox O2 Delivery O2 Flow Rate FiO2 10/22/16 09:00 55 10/22/16 08:00 Room Air 10/22/16 08:00 99.3 58 18 118/59 95 10/22/16 05:03 99.3 62 18 122/60 90 10/22/16 00:51 99.9 73 18 141/65 91 10/21/16 21:41 98.8 60 16 144/66 92 10/21/16 20:40 Room Air 10/21/16 20:24 66 10/21/16 17:13 94 Room Air 10/21/16 16:00 99.2 70 18 150/70 94 10/21/16 12:00 99.5 72 18 127/60 94 10/21/16 12:00 99.5 72 18 127/60 94 I/O 10/21/16 10/21/16 10/21/16 10/22/16 10/22/16 10/22/16 07:00 15:00 23:00 07:00 15:00 23:00 Intake Total 120 ml 900 ml 0 ml Output Total 500 ml Balance -380 ml 900 ml 0 ml Intake Oral 120 ml 900 ml IV Total 0 ml Output Urine Total 500 ml # Voids 2 1 # Bowel Movements 1 Result Diagram: 10/20/16 0717 10/21/16 0735 Imaging Last Impressions Renal Ultrasound 10/19/16 0000 Signed Impressions: Service Date/Time: Wednesday, October 19, 2016 22:17 - CONCLUSION: Stable appearance of transplant kidney Gage Tellez MD Chest X-Ray 10/17/16 0000 Signed Impressions: Service Date/Time: Monday, October 17, 2016 18:32 - CONCLUSION: Cardiomegaly with possible mild vascular congestion but no evidence of pulmonary edema or significant pleural fluid accumulation. No evidence of acute air space disease Leonardo Butler MD Objective Remarks GENERAL: NAD SKIN: Warm and dry. HEAD: Normocephalic. EYES: No scleral icterus. No injection or drainage. NECK: Supple, trachea midline. No JVD or lymphadenopathy. CARDIOVASCULAR: Regular rate and rhythm without murmurs, gallops, or rubs. RESPIRATORY: Breath sounds equal bilaterally. No accessory muscle use. GASTROINTESTINAL: Abdomen soft, non-tender, nondistended. MUSCULOSKELETAL: B-BKAs BACK: Nontender without obvious deformity. No CVA tenderness. Procedures Medications and IVs Current Medications Medications (Trade) Dose Ordered Sig/Lida Route Start Time Stop Time Status Last Admin (NS Flush) 2 ml UNSCH PRN FLUSH 10/17/16 18:45 10/21/16 05:15 (NS Flush) 2 ml BID FLUSH 10/17/16 21:00 10/22/16 09:00 (Zofran Inj) 4 mg Q6H PRN IVP 10/17/16 18:45 10/21/16 05:15 (D50w (Vial) Inj) 25 ml UNSCH PRN IV PUSH 10/17/16 18:45 (Glucagon Inj) 1 mg UNSCH PRN OTHER 10/17/16 18:45 (Norvasc) 10 mg DAILY PO 10/18/16 09:00 10/22/16 09:44 (Imuran) 75 mg DAILY PO 10/18/16 09:00 10/22/16 09:44 (Lexapro) 10 mg DAILY PO 10/18/16 09:00 10/22/16 09:44 (Apresoline) 50 mg DAILY PO 10/18/16 09:00 10/22/16 09:44 (Levemir Inj) 15 units HS SQ 10/17/16 21:00 10/21/16 20:32 (Ativan) 0.5 mg Q6H PRN PO 10/17/16 18:45 (Deltasone) 5 mg DAILY PO 10/18/16 09:00 10/22/16 09:44 (Prograf) 3 mg DAILY@0600 PO 10/18/16 06:00 10/22/16 06:09 (Desyrel) 100 mg HS PO 10/17/16 21:00 10/21/16 20:33 (Vibratab) 100 mg DAILY PO 10/18/16 09:00 10/22/16 09:44 (Pill Splitter) 1 ea UNSCH PRN OTHER 10/17/16 19:00 Acetaminophen 650 mg 650 mg Q8HR PRN PO 10/17/16 22:30 10/17/16 23:10 (NS 1000 ml Inj) 1,000 ml @ 0 mls/hr Q0M PRN IV 10/18/16 12:51 10/18/16 13:45 Heparin Sodium (Porcine) 8000 units 8,000 units UNSCH PRN IVF 10/18/16 13:00 Sodium Chloride 1,000 ml @ 200 mls/hr Q5H PRN IV 10/18/16 12:51 (NS 1000 ml Inj) 1,000 ml @ 0 mls/hr Q0M PRN IV 10/18/16 12:51 (Mannitol Inj) 12.5 gm UNSCH PRN IV 10/18/16 13:00 (Albumin 25% Inj) 25 gm UNSCH PRN IV 10/18/16 13:00 (NS Flush) 5 ml UNSCH PRN IVF 10/18/16 13:00 (Heparin Inj) UNSCH PRN .XX 10/18/16 13:00 (Gentamicin (Dialysis) Inj) 20 mg UNSCH PRN IV 10/18/16 13:00 (Zofran Inj) 4 mg UNSCH PRN IV 10/18/16 13:00 (Tylenol) 650 mg UNSCH PRN PO 10/18/16 13:00 (Benadryl) 25 mg UNSCH PRN PO 10/18/16 13:00 (Nitrostat Sl) 0.4 mg UNSCH PRN SL 10/18/16 13:00 (Catapres) 0.1 mg UNSCH PRN PO 10/18/16 13:00 (Gelfoam 12 Mm/7 Mm Top) 1 foam UNSCH PRN TOP 10/18/16 13:00 10/19/16 15:17 (Prograf) 2 mg DAILY@18 PO 10/18/16 18:00 10/21/16 17:20 Hydralazine HCl 25 mg 25 mg Q8HR PRN PO 10/18/16 23:00 (Maxipime Inj/NS Inj) 100 ml @ 200 mls/hr Q48H PRN IV 10/19/16 13:00 10/19/16 15:00 (Sodium Bicarbonate) 650 mg BID PO 10/19/16 21:00 10/22/16 09:44 (Bumetanide) 2 mg DAILY PO 10/23/16 09:00 A/P Problem List: (1) CKD (chronic kidney disease) stage 4, GFR 15-29 ml/min ICD Code: N18.4 Status: Acute (2) Diabetes mellitus type 2 with complications ICD Code: E11.8 Status: Acute (3) HTN (hypertension) ICD Code: I10 Status: Acute (4) Kidney transplant failure ICD Code: T86.12 Status: Acute (5) UTI (urinary tract infection) ICD Code: N39.0 Status: Acute (6) Anemia in CKD (chronic kidney disease) ICD Code: N18.9 Status: Acute (7) Hyperparathyroidism due to vitamin D deficiency ICD Code: E21.1 Status: Acute Assessment and Plan 55-year-old male History of renal chest pain failure: On chronic immunosuppression, management per nephrology and monitor Prograf level End-stage renal disease: Previous history of kidney transplant, now in need of dialysis. Had hemodialysis x 2 on 10/18/16 and 10/19/16, plan for HD on if indicated. The patient is in a have dialysis today. He'll continue his medication regimen per nephrology. Anemia in CKD: H&H stable, continue with Epogen during HD Vitamin D deficiency:Ergocalciferol 50,000 units weekly Hypokalemia: Replace electrolyte and monitor UTI: On cefepime during HD. Will need by mouth Cipro on discharge Diabetes mellitus type II - continue basal insulin and ISS with [facility]SB[facility] monitoring Hypertension-continue oral antihypertensive medications History of urinary retention: Currently stable and continue with self catheterization Anxiety/depression: Stable on Lexapro Discharge Planning Discharge with home health care. Brett Rick DO Oct 22, 2016 11:35
[2016-10-22 12:00] VITALS: BP 124/60; PULSE 60; RESP 24; TEMP 98.5; O2SAT 95
[2016-10-22] MEDS ORDERED: SODI650T PO (12:03)
[2016-10-22] MEDS ORDERED: BUME1TAB PO (12:03)
--- NOTE | 2016-10-22 12:05 | HHI.DCPOC ---
Discharge Care Plan Diagnosis: (1) Urinary tract infection (2) CKD (chronic kidney disease) stage 4, GFR 15-29 ml/min (3) Diabetes mellitus type 2 with complications (4) Kidney transplant failure (5) Urinary retention Goals to Promote Your Health * To prevent worsening of your condition and complications * To maintain your health at the optimal level Directions to Meet Your Goals Take your medications as prescribed Follow your dietary instruction Follow activity as directed Keep your appointments as scheduled Take your immunizations and boosters as scheduled If your symptoms worsen call your PCP, if no PCP go to Urgent Care Center or Emergency Room Smoking is Dangerous to Your Health. Avoid second hand smoke Call the 24-hour hour crisis hotline for domestic abuse at Brett Rick DO Oct 22, 2016 12:05
[2016-10-22] MEDS ORDERED: CIPR500T2 PO (12:13)
--- NOTE | 2016-10-22 12:15 | HHI.DS ---
Discharge Summary Admission Date Oct 17, 2016 at 18:43 Discharge Date: Oct 22, 2016 Admitting Diagnosis Acute on chronic kidney failure (1) CKD (chronic kidney disease) stage 4, GFR 15-29 ml/min ICD Code: N18.4 Diagnosis: Principal (2) Diabetes mellitus type 2 with complications ICD Code: E11.8 (3) HTN (hypertension) ICD Code: I10 (4) Kidney transplant failure ICD Code: T86.12 (5) UTI (urinary tract infection) ICD Code: N39.0 (6) Anemia in CKD (chronic kidney disease) ICD Code: N18.9 (7) Hyperparathyroidism due to vitamin D deficiency ICD Code: E21.1 Procedures None. Brief History - From Admission 55-year-old male with history of diabetes mellitus, end-stage renal disease, renal transplantation failure on chronic immunosuppression presented to the hospital for evaluation of worsening shortness of breath times several days associated with nausea without any emesis along with generalized weakness. Patient had 2 previous kidney transplant however both have failed. Followed by cardiology as well and states had abnormal recent studies performed. He Is currently on oral antibiotics for UTI. Patient was transferred from [place] to [facility] in order to undergo dialysis. He denies any chest pain or GI bleed CBC/BMP: 10/20/16 0717 10/21/16 0735 Significant Findings Laboratory Tests Test 10/20/16 10/21/16 07:17 07:35 Red Blood Count 2.28 MIL/MM3 (4.50-5.90) Hemoglobin 7.4 GM/DL (13.0-17.0) Hematocrit 21.7 % (39.0-51.0) Platelet Count 123 TH/MM3 (150-450) Potassium Level 3.0 MEQ/L (3.5-5.1) Blood Urea Nitrogen 49 MG/DL (7-18) 70 MG/DL (7-18) Creatinine 4.17 MG/DL 5.78 MG/DL (0.60-1.30) (0.60-1.30) Estimat Glomerular Filtration 15 ML/MIN (>89) 10 ML/MIN (>89) Rate Random Glucose 161 MG/DL 161 MG/DL (74-106) (74-106) Calcium Level 8.4 MG/DL 8.3 MG/DL (8.5-10.1) (8.5-10.1) Sodium Level 135 MEQ/L (136-145) Imaging Last Impressions Renal Ultrasound 10/19/16 0000 Signed Impressions: Service Date/Time: Wednesday, October 19, 2016 22:17 - CONCLUSION: Stable appearance of transplant kidney Gage Tellez MD Chest X-Ray 10/17/16 0000 Signed Impressions: Service Date/Time: Monday, October 17, 2016 18:32 - CONCLUSION: Cardiomegaly with possible mild vascular congestion but no evidence of pulmonary edema or significant pleural fluid accumulation. No evidence of acute air space disease Leonardo Butler MD PE at Discharge GENERAL: NAD SKIN: Warm and dry. HEAD: Normocephalic. EYES: No scleral icterus. No injection or drainage. NECK: Supple, trachea midline. No JVD or lymphadenopathy. CARDIOVASCULAR: Regular rate and rhythm without murmurs, gallops, or rubs. RESPIRATORY: Breath sounds equal bilaterally. No accessory muscle use. GASTROINTESTINAL: Abdomen soft, non-tender, nondistended. MUSCULOSKELETAL: B-BKAs BACK: Nontender without obvious deformity. No CVA tenderness. Pt update on day of discharge The patient said he was feeling well. He said he was going to go for dialysis and would like to go home afterwards. He said he will follow up with his kidney doctor as an outpatient. Discussed with nursing. Hospital Course End-stage renal disease: Previous history of kidney transplant, now in need of dialysis. Had hemodialysis on 10/18/16 and 10/19/16 and 10/22/16. Outpatient HD was set up by nephrology to start on Saturday. The pt was diuresed. He was continued on his immunosuppressive agents. He will follow up with nephrology as an outpt. He will continue his medication regimen. He will follow up with [facility] as scheduled. Anemia in CKD: H&H has been stable. He will continue with Epogen during HD. Vitamin D deficiency: The pt received Ergocalciferol 50,000 units weekly. UTI: On cefepime during HD. Will complete course of Cipro on discharge. Diabetes mellitus type II - continue basal insulin and ISS. Hypertension-continue oral antihypertensive medications. History of urinary retention: Currently stable and continues with self catheterization. Anxiety/depression: Stable on Lexapro Pt Condition on Discharge: Stable Discharge Disposition: Disch w/ Home Health Serv Discharge Time: > 30 minutes Discharge Instructions DIET: Follow Instructions for: Diabetic Diet, Renal Failure Diet Activities you can perform: Weight Bearing as John Follow up Referrals: Nephrology - 10/24/[address] Ramirez New Medications: Ciprofloxacin (Ciprofloxacin) 500 Mg Tab 500 MG PO DAILY Please take after dialysis on dialysis days. First dose on Saturday after dialysis. Infection #2 Ref 0 TAB Bumetanide (Bumetanide) 1 Mg Tab 2 MG PO DAILY Kidneys #60 TAB Sodium Bicarbonate (Sodium Bicarbonate) 650 Mg Tab 650 MG PO BID Supplement #60 TAB Continued Medications: Amlodipine (Amlodipine) 10 Mg Tab 10 MG PO DAILY Blood Pressure Management #30 Ref 0 TAB Azathioprine (Azathioprine) 50 Mg Tab 75 MG PO DAILY Hazardous agent use appropriate precautions for handling and disposal. Immunosuppression #30 Ref 0 TAB Escitalopram (Lexapro) 10 Mg Tab 10 MG PO DAILY #30 Ref 0 TAB Hydralazine (Hydralazine) 50 Mg Tab 50 MG PO DAILY Take with a meal Blood Pressure Management Ref 0 TAB Insulin Detemir Inj (Levemir Inj) 1,000 unit/ 10 ML Vial 15 UNITS SQ HS Do not mix with any other Insulin. Blood Sugar Management Ref 0 VIAL Insulin Human Regular Inj (Humulin R Inj) 1,000 Unit/10 Ml Vial 1-9 UNITS SQ ACHS Max dose at bedtime( )units; sugars < 70(0)units; sugars 150- 199,(1)unit; sugars 200-249(3)units; sugars 250-299,(5)units; sugars 300-349(7) units; sugars more than 349(9)units. Blood Sugar Management #10 ML Lorazepam (Lorazepam) 0.5 Mg Tab 0.5 MG PO Q6H PRN ANXIETY Ref 0 TAB Magnesium Oxide (Magnesium Oxide) 400 Mg Tab 2 TAB PO DAILY Prednisone (Prednisone) 5 Mg Tab 5 MG PO DAILY Ref 0 TAB Tacrolimus (Prograf) 1 Mg Cap 3 MG PO DAILY@0600 Prevent Transplant Reject #30 Ref 0 CAP Tacrolimus (Prograf) 1 Mg Cap 2 MG PO DAILY 2200 Prevent Transplant Reject #30 Ref 0 CAP Trazodone (Trazodone) 100 Mg Tab 100 MG PO HS Control Depression #30 Ref 0 TAB Discontinued Medications: Doxycycline (Doxycycline) 40 Mg Cap 100 MG PO DAILY Infection Ref 0 CAP Sodium Bicarbonate (Sodium Bicarbonate) 325 Mg Tab 450 MG PO BIDPC #60 Ref 0 TAB Brett Rick DO Oct 22, 2016 12:14
[2016-10-23] MEDS ORDERED: BUMETANIDE 1 MG TAB PO SCH (09:00)
== END 2016-10-22 19:22 | disposition home health service (06) | DRG 698 ==
LOC: PHED 17:02 → PHEDA 18:43 → PHEDH 22:42 → N04B 10-18 01:42
PROVIDERS: ADMIT Hospitalist; ATTEND Hospitalist
PROC: 5A1D00Z (ICD-10-PCS; principal; 2016-10-18)
PROC: 5A1D00Z (ICD-10-PCS; 2016-10-19)
DX: T86.12 Kidney transplant failure (principal); N18.6 End stage renal disease; N17.9 Acute kidney failure, unspecified; Z94.83 Pancreas transplant status; N39.0 Urinary tract infection, site not specified; I12.0 Hypertensive chronic kidney disease with stage 5 chronic kidney disease or end stage renal disease; E10.22 Type 1 diabetes mellitus with diabetic chronic kidney disease; N25.81 Secondary hyperparathyroidism of renal origin; E55.9 Vitamin D deficiency, unspecified; D63.1 Anemia in chronic kidney disease; E87.6 Hypokalemia; I73.9 Peripheral vascular disease, unspecified; Z89.512 Acquired absence of left leg below knee; Z99.2 Dependence on renal dialysis; R11.0 Nausea; F32.9 Major depressive disorder, single episode, unspecified; F41.9 Anxiety disorder, unspecified; Y83.0 Surgical operation with transplant of whole organ as the cause of abnormal reaction of the patient, or of later complication, without mention of misadventure at the time of the procedure
CPT/HCPCS: 36591; 71010; 76776; 80048; 80069; 80197; 81001; 82306; 82728; 82948; 83540; 83550; 83735; 83880; 83970; 84484; 85025; 85027; 85610; 85730; 86803; 87077; 87086; 87186; 87340; 87804; 90935; 93005; 96374; 96375; J0610; J0692; J0696; J1815; J2405; J7030; J7500; J7507; J7512; Q4081

== ENCOUNTER 2017-03-23 17:16 | Inpatient (IN) | payer MEDICARE, OTHER ==
[~2017-03-23] VITALS: Ht 185.4 cm; Wt 91.6 kg
[~2017-03-23 17:16] MED LIST changes: -AMLO10 PO; +AMLO10TA2 PO; +BUME1TAB PO; +CIPR500T2 PO; +HYDR50TA15 PO; -HYDRA50 PO; +INSU100V2 SQ; -LABE100 PO; -LEVA500T PO; +LEXA10TA PO; +LORA-373 PO; -LORA.5 PO; -MAGN400T PO; +MAGN400T5 PO; -PRED5 PO; +PRED5TAB PO; +TRAZ100T4 PO; -Z.0.HUMULIN REGULARU SQ
[2017-03-23 17:19] VITALS: BP 149/67; PULSE 89; RESP 16; TEMP 99; O2SAT 97
--- NOTE | 2017-03-23 17:46 | PD ---
HPI Chief Complaint: Skin Problem Time Seen by Provider: 17:26 Travel History International Travel<30 days: No Contact w/Intl Traveler<30days: No Traveled to known affect area: No History of Present Illness HPI 56 years old male complains of pain and swelling and redness left leg stump. Patient status post bilateral BKA. Patient also has history of end-stage renal disease status post renal transplant failure. Patient also has history of pancreatic transplant and on Chronic immunosuppression and hemodialysis. Patient noticed increase in pain on the left leg stump yesterday and increasing redness and swelling of the left leg stump today. Patient denies any fever chills. Patient denies any recent injury to the left leg stump. Patient also has history of diabetes, hypertension, anemia and hyperparathyroidism. Patient has dialysis Saturday and Saturday weekly by Dr. Ramirez. [facility] Past Medical History Hx Anticoagulant Therapy: No Arthritis: No Asthma: No Autoimmune Disease: No Anxiety: No Depression: No Heart Rhythm Problems: No Cancer: Yes (SKIN) Cardiovascular Problems: No High Cholesterol: No Chemotherapy: No Chest Pain: No Congestive Heart Failure: No COPD: No Cerebrovascular Accident: No Diabetes: Yes (Type I) Dialysis: No ( STOPPED IN 2009) Diminished Hearing: No Endocrine: No Gastrointestinal Disorders: Yes GERD: Yes Glaucoma: No Genitourinary: Yes (SELF CATH NEEDED, HX: BLADDER STONES) Headaches: No Hepatitis: No Hiatal Hernia: No Hypertension: Yes Immune Disorder: No Implanted Vascular Access Dvce: Yes Kidney Stones: No Musculoskeletal: No Neurologic: Yes Psychiatric: No Reproductive: No Respiratory: No Immunizations Current: Yes Migraines: No Myocardial Infarction: No Pancreatitis: Yes Radiation Therapy: No Renal Failure: Yes Seizures: No Sleep Apnea: No Thyroid Disease: No Ulcer: No Past Surgical History Abdominal Surgery: Yes (left kidney transplants x2, pancreas transplant-1991) AICD: No Appendectomy: Yes Arteriovenous Shunt: Yes ( non-functional AV graft LUE) Cardiac Surgery: No Cholecystectomy: Yes Ear Surgery: Yes (cataract surgery left eye) Endocrine Surgery: Yes (pancreatic TXPL 1991) Eye Surgery: Yes (rt eye extracted/prosthetic eye now) Genitourinary Surgery: Yes (turp 2006- patient self cath to void) Gynecologic Surgery: No Hysterectomy: No Insulin Pump: No Joint Replacement: No Neurologic Surgery: No Oral Surgery: No Pacemaker: No Prostatectomy: Yes Thoracic Surgery: No Other Surgery: Yes (fistula left ARM upper arm, non funtional av graft) Social History Alcohol Use: No Tobacco Use: No Substance Use: No Allergies-Medications (Allergen,Severity, Reaction): Coded Allergies: No Known Allergies (Verified , 03/23/17) Reported Meds & Prescriptions Reported Meds & Active Scripts Active Sodium Bicarbonate 650 Mg Tab 650 Mg PO BID Reported Trazodone (Trazodone HCl) 100 Mg Tablet 100 Mg PO HS Lexapro (Escitalopram Oxalate) 10 Mg Tab 10 Mg PO DAILY Prograf (Tacrolimus) 1 Mg Cap 2 Mg PO DAILY 2200 Prograf (Tacrolimus) 1 Mg Cap 2 Mg PO DAILY@0600 Prednisone 5 Mg Tab 5 Mg PO DAILY Humulin R Inj (Insulin Human Regular) 1,000 Unit/10 Ml Vial 1-9 Units SQ ACHS Max dose at bedtime( )units; sugars < 70(0)units; sugars 150-199,(1)unit; sugars 200-249(3)units; sugars 250-299,(5)units; sugars 300-349(7)units; sugars more than 349(9)units. Levemir Inj (Insulin Detemir) 1,000 unit/ 10 ML Vial 15 Units SQ HS Do not mix with any other Insulin. Azathioprine 50 Mg Tab 75 Mg PO DAILY Hazardous agent use appropriate precautions for handling and disposal. Review of Systems General / Constitutional: No: Fever Eyes: No: Visual changes HENT: No: Headaches Cardiovascular: No: Chest Pain or Discomfort Respiratory: No: Shortness of Breath Gastrointestinal: No: Abdominal Pain Genitourinary: No: Dysuria Musculoskeletal: Positive: Pain Skin: No Rash Neurologic: No: Weakness Psychiatric: No: Depression Endocrine: No: Polydipsia Hematologic/Lymphatic: No: Easy Bruising Physical Exam Narrative GENERAL: Well-nourished, well-developed patient. SKIN: Focused skin assessment warm/dry. HEAD: Normocephalic. EYES: No scleral icterus. No injection or drainage. NECK: Supple, trachea midline. No JVD or lymphadenopathy. CARDIOVASCULAR: Regular rate and rhythm without murmurs, gallops, or rubs. RESPIRATORY: Breath sounds equal bilaterally. No accessory muscle use. GASTROINTESTINAL: Abdomen soft, non-tender, nondistended. MUSCULOSKELETAL: Patient has bilateral BKA. Patient has redness swelling tenderness and increasing heat on the left leg stump. No induration. No discharge. BACK: Nontender without obvious deformity. No CVA tenderness. Neurologic exam normal. Data Data Last Documented VS Vital Signs Date Time Temp Pulse Resp B/P Pulse Ox O2 Delivery O2 Flow Rate FiO2 03/23/17 18:04 20 97 Room Air 03/23/17 17:19 99.0 89 149/67 Orders Complete Blood Count With Diff (03/23/17 17:34) Comprehensive Metabolic Panel (03/23/17 17:34) Prothrombin Time / Inr (Pt) (03/23/17 17:34) Act Partial Throm Time (Ptt) (03/23/17 17:34) Blood Culture (03/23/17 17:34) Magnesium (Mg) (03/23/17 17:34) Phosphorus (Po4) (03/23/17 17:34) Chest, Single Ap (03/23/17 17:34) Iv Access Insert/Monitor (03/23/17 17:34) Ecg Monitoring (03/23/17 17:34) Oximetry (03/23/17 17:34) Morphine Inj (Morphine Inj) (03/23/17 18:15) Ondansetron Inj (Zofran Inj) (03/23/17 18:15) Admit Order (Ed Use Only) (03/23/17 19:13) Vancomycin Inj (Vancomycin Inj) (03/23/17 19:15) Labs Laboratory Tests Test 03/23/17 17:55 White Blood Count 12.0 TH/MM3 Red Blood Count 3.62 MIL/MM3 Hemoglobin 12.3 GM/DL Hematocrit 36.8 % Mean Corpuscular Volume 101.5 FL Mean Corpuscular Hemoglobin 33.9 PG Mean Corpuscular Hemoglobin 33.4 % Concent Red Cell Distribution Width 15.9 % Platelet Count 225 TH/MM3 Mean Platelet Volume 7.0 FL Neutrophils (%) (Auto) 86.8 % Lymphocytes (%) (Auto) 5.0 % Monocytes (%) (Auto) 5.3 % Eosinophils (%) (Auto) 0.2 % Basophils (%) (Auto) 2.7 % Neutrophils # (Auto) 10.5 TH/MM3 Lymphocytes # (Auto) 0.6 TH/MM3 Monocytes # (Auto) 0.6 TH/MM3 Eosinophils # (Auto) 0.0 TH/MM3 Basophils # (Auto) 0.3 TH/MM3 CBC Comment DIFF FINAL Differential Comment Prothrombin Time 10.4 SEC Prothromb Time International 0.9 RATIO Ratio Activated Partial 29.6 SEC Thromboplast Time Sodium Level 128 MEQ/L Potassium Level 5.3 MEQ/L Chloride Level 96 MEQ/L Carbon Dioxide Level 19.0 MEQ/L Anion Gap 13 MEQ/L Blood Urea Nitrogen 36 MG/DL Creatinine 7.30 MG/DL Estimat Glomerular Filtration 8 ML/MIN Rate Random Glucose 308 MG/DL Calcium Level 8.7 MG/DL Phosphorus Level 5.6 MG/DL Magnesium Level 1.9 MG/DL Total Bilirubin 1.2 MG/DL Aspartate Amino Transf 12 U/L (AST/SGOT) Alanine Aminotransferase 7 U/L (ALT/SGPT) Alkaline Phosphatase 126 U/L Total Protein 7.8 GM/DL Albumin 2.5 GM/DL [facility] Medical Decision Making Medical Screen Exam Complete: Yes Emergency Medical Condition: Yes Interpretation(s) Last Impressions Chest X-Ray 03/23/17 7684 Signed Impressions: Service Date/Time: Thursday, March 23, 2017 17:57 - CONCLUSION: 1. Mild basal atelectasis. Cardiomegaly. No significant change from October 17. Tee Stack MD 1846 PM. CBC WBC 12.0. Hemoglobin 12.3 hematocrit 36.8. MCV 11.5. 86 neutrophil. Sodium 128. Potassium 5.3. Chloride 96. Bicarbonate 19. BUN 36. Creatinine 7.3. Glucose 308. Phosphorus 5.6. Total bili 1.2. Alkaline phosphatase 126. Differential Diagnosis Differential diagnosis including cellulitis, abscess. Narrative Course 56-year-old male with increasing pain, redness swelling left leg stump. Status post BKA. Patient's on hemodialysis. Diagnosis Primary Impression: Cellulitis Qualified Code: L03.116 - Cellulitis of left lower extremity Additional Impressions: End stage renal disease on dialysis Electrolyte abnormality Admitting Information Admitting Physician Requests: Admit Ez Forrester MD Mar 23, 2017 17:46 Additional Impressions: End stage renal disease on dialysis Electrolyte abnormality Admitting Information Admitting Physician Requests: Admit Ez Forrester MD Mar 23, 2017 17:46
[2017-03-23 18:04] VITALS: RESP 20; O2SAT 97
[2017-03-23 18:04] LABS: AUTOMATED NEUTROPHIL # 10.5 TH/MM3 (1.8-7.7); BASOPHIL # 0.3 TH/MM3 (0-0.2); BASOPHIL % 2.7 % (0.0-2.0); EOSINOPHIL % 0.2 % (0.0-4.0); HEMATOCRIT 36.8 % (39.0-51.0); LYMPHOCYTE # 0.6 TH/MM3 (1.0-4.8); MEAN CELL VOLUME 101.5 FL (80.0-100.0); MEAN CORPUSCULAR HEMOGLOBIN 33.9 PG (27.0-34.0); MEAN CORPUSCULAR HGB CONC 33.4 % (32.0-36.0); MONO % 5.3 % (0.0-8.0); NEUT % 86.8 % (16.0-70.0); PLATELET COUNT 225 TH/MM3 (150-450); RED BLOOD COUNT 3.62 MIL/MM3 (4.50-5.90); RED CELL DISTRIBUTION WIDTH 15.9 % (11.6-17.2)
[2017-03-23 18:10] LABS: HEMO FLAGS DIFF FINAL
[2017-03-23 18:13] LABS: CHLORIDE 96 MEQ/L (98-107); POTASSIUM 5.3 MEQ/L (3.5-5.1); SODIUM (NA) 128 MEQ/L (136-145)
[2017-03-23] MEDS ORDERED: ONDANSETRON HCL 4 MG/2 ML VIAL IV PUSH ONE (18:15)
[2017-03-23] MEDS ORDERED: MORPHINE SULFATE 4 MG/ML INJ IV PUSH ONE (18:15)
[2017-03-23 18:17] LABS: ANION GAP 13 MEQ/L (5-15); BLOOD UREA NITROGEN 36 MG/DL (7-18); MAGNESIUM 1.9 MG/DL (1.5-2.5)
[2017-03-23 18:18] LABS: APTT (PATIENT) 29.6 SEC (24.3-30.1); INTERNATIONAL NORMALIZED RATIO 0.9 RATIO; PROTHROMBIN TIME - PATIENT 10.4 SEC (9.8-11.6)
[2017-03-23 18:20] LABS: ALT (GPT) 7 U/L (12-78); AST (GOT) 12 U/L (15-37); GLOMERULAR FILTRATION RATE 8 ML/MIN (>89)
[2017-03-23 18:21] LABS: TOTAL BILIRUBIN ADULT 1.2 MG/DL (0.2-1.0)
[2017-03-23 18:22] LABS: ALKALINE PHOSPHATASE 126 U/L (45-117)
--- NOTE | 2017-03-23 18:29 | RADRPT ---
EXAM DATE/TIME: 03/23/2017 17:57 [facility] COMPARISON: CHEST SINGLE AP, October 17, 2016, 18:32. INDICATIONS : Sepsis follow up. MEDICAL HISTORY : Diabetes mellitus type I. Hypertension SURGICAL HISTORY : None. ENCOUNTER: Initial ACUITY: 1 day PAIN SCORE: 0/10 LOCATION: Bilateral chest FINDINGS: A single view of the chest demonstrates cardiomegaly. Basal atelectasis. No significant effusion. No pneumothorax. CONCLUSION: 1. Mild basal atelectasis. Cardiomegaly. No significant change from October 17. Tee Stack MD on March 23, 2017 at 18:26 Board Certified Radiologist. This report was verified electronically.
[2017-03-23 19:02] VITALS: BP 129/64; PULSE 79; RESP 18; TEMP 98.7; O2SAT 97
[2017-03-23] MEDS ORDERED: TRAZ100T6 PO (19:11)
[2017-03-23] MEDS ORDERED: ONDANSETRON HCL 4 MG/2 ML VIAL IVP PRN (19:15)
[2017-03-23] MEDS ORDERED: DEXTROSE 50% IN WATER 50 ML VIAL(D50) IV PRN (19:15)
[2017-03-23] MEDS ORDERED: SODIUM CHLORIDE 0.9% FLUSH 10 ML FLUSH IV FLUSH PRN (19:15)
[2017-03-23] MEDS ORDERED: MAGNESIUM HYDROXIDE SUSP 30 ML CUP PO PRN (19:15)
[2017-03-23] MEDS ORDERED: VANCOMYCIN INJ 1,000 MG in SODIUM CHLOR 0.9% 250 ML INJ 250 ML IV ONE (19:15)
[2017-03-23] MEDS ORDERED: SENNOSIDES 8.6 MG TAB PO PRN (19:15)
[2017-03-23] MEDS ORDERED: BISACODYL 10 MG SUPP RECTAL PRN (19:15)
[2017-03-23] MEDS ORDERED: LACTULOSE SYRUP 20 GM/30 ML CUP PO PRN (19:15)
[2017-03-23] MEDS ORDERED: GLUCAGON 1 MG/ML VIAL OTHER PRN (19:15)
[2017-03-23] MEDS ORDERED: PILL SPLITTER OTHER PRN (19:45)
[2017-03-23] MEDS: DOCUSATE SODIUM 50 MG/SENNA 8.6 MG TAB PO SCH (20:13)
[2017-03-23] MEDS: SODIUM BICARBONATE 325 MG TAB PO SCH (20:13)
[2017-03-23] MEDS: traZODone HCL 100 MG TAB PO SCH (20:14)
[2017-03-23] MEDS: INSULIN DETEMIR 100 UNITS/ML VIAL SQ SCH (20:16)
[2017-03-23 20:21] VITALS: BP 117/62; PULSE 80; RESP 18; TEMP 99.1; O2SAT 97
[2017-03-23] MEDS: SODIUM CHLORIDE 0.9% FLUSH 10 ML FLUSH IV FLUSH SCH (21:00)
[2017-03-23] MEDS: MORPHINE SULFATE 4 MG/ML INJ IV PRN (21:15)
[2017-03-23 21:57] VITALS: BP 94/55; PULSE 76; RESP 16; O2SAT 98
[2017-03-23] MEDS ORDERED: TACROLIMUS 1 MG CAP PO SCH (22:00)
[2017-03-23 22:53] VITALS: BP 96/55; PULSE 78; RESP 16; TEMP 98.5; O2SAT 98
[2017-03-23] MEDS: HEPARIN SODIUM - SQ 10,000 UNITS/ML VIAL SQ SCH (22:59)
[2017-03-24] VITALS (9 sets, daily range): BP systolic 92–128; BP diastolic 53–69; PULSE 70–80; RESP 16–20; TEMP 97.2–98.2; O2SAT 95–98
[2017-03-24] MEDS: ACETAMINOPHEN 325 MG TAB PO PRN ×2 (00:52→11:59)
--- NOTE | 2017-03-24 01:27 | HHI.HP ---
HPI Service [facility] Primary Care Physician Rodo Ramirez MD Admission Diagnosis left leg stump cellulitis. End stage renal disease on dialysis. El Diagnoses: Chief Complaint: Left stump redness, swelling and pain Travel History International Travel<30 Days: No Contact w/Intl Traveler <30 Da: No Traveled to Known Affected Are: No History of Present Illness 56 y/o male with a history of ESRD on HD s/p failed kidney transplant on chronic immunosuppression , HTN, DM, bilateral BKA, anxiety and depression presented to the ED with complaints of pain, swelling and redness in left stump. Patient states for the last week he has been having pain, swelling and redness in his left stump, and yesterday he began to have a hard time walking with his prostatic. He denies any fevers but does state at dialysis yesterday he did experience chills. He is a dialysis patient MWF with Dr. Ramirez. He denies any chest pain, sob, nausea, vomiting, dizziness or headaches. Review of Systems Except as stated in HPI: all other systems reviewed are Neg Past Family Social History Past Medical History ESRD on HD s/p kidney transplant x2 Pancreas transplant HTN DM Urinary retention requiring self-cath 4x daily PVD s/p bilat BKA Anxiety Depression Chronic Acidosis Past Surgical History Bilat BKA Kidney transplant x2 Pancreas transplant Cholecystectomy Knee surgery Skin CA removal Reported Medications Reported Meds & Active Scripts Active Sodium Bicarbonate 650 Mg Tab 650 Mg PO BID Reported Trazodone (Trazodone HCl) 100 Mg Tablet 100 Mg PO HS Lexapro (Escitalopram Oxalate) 10 Mg Tab 10 Mg PO DAILY Prograf (Tacrolimus) 1 Mg Cap 2 Mg PO DAILY 2200 Prograf (Tacrolimus) 1 Mg Cap 2 Mg PO DAILY@0600 Prednisone 5 Mg Tab 5 Mg PO DAILY Humulin R Inj (Insulin Human Regular) 1,000 Unit/10 Ml Vial 1-9 Units SQ ACHS Max dose at bedtime( )units; sugars < 70(0)units; sugars 150-199,(1)unit; sugars 200-249(3)units; sugars 250-299,(5)units; sugars 300-349(7)units; sugars more than 349(9)units. Levemir Inj (Insulin Detemir) 1,000 unit/ 10 ML Vial 15 Units SQ HS Do not mix with any other Insulin. Azathioprine 50 Mg Tab 75 Mg PO DAILY Hazardous agent use appropriate precautions for handling and disposal. Allergies: Coded Allergies: No Known Allergies (Verified , 03/23/17) Active Ordered Medications Current Medications Medications (Trade) Dose Ordered Sig/Lida Route Start Time Stop Time Status Last Admin (D50w (Vial) Inj) 50 ml UNSCH PRN IV 03/23/17 19:15 (Glucagon Inj) 1 mg UNSCH PRN OTHER 03/23/17 19:15 (NovoLIN R SUPPLEMENTAL SCALE) 1 TIDAC SQ 03/24/17 08:00 (NS Flush) 2 ml UNSCH PRN IV FLUSH 03/23/17 19:15 (NS Flush) 2 ml BID IV FLUSH 03/23/17 21:00 (Zofran Inj) 4 mg Q6H PRN IVP 03/23/17 19:15 (Heparin Inj) 5,000 units Q12H SQ 03/23/17 23:00 (Tylenol) 650 mg Q6H PRN PO 03/23/17 19:15 03/24/17 00:52 ([place] 5-325 Mg) 1 tab Q4H PRN PO 03/23/17 19:15 (Morphine Inj) 2 mg Q3H PRN IV 03/23/17 19:15 03/23/17 21:15 (Bibiana-Colace) 1 tab BID PO 03/23/17 21:00 03/23/17 20:13 (Milk Of Magnesia Liq) 30 ml Q12H PRN PO 03/23/17 19:15 (Senokot) 17.2 mg Q12H PRN PO 03/23/17 19:15 (Dulcolax Supp) 10 mg DAILY PRN RECTAL 03/23/17 19:15 (Lactulose Liq) 30 ml DAILY PRN PO 03/23/17 19:15 (Imuran) 75 mg DAILY PO 03/24/17 09:00 (Lexapro) 10 mg DAILY PO 03/24/17 09:00 (Levemir Inj) 15 units HS SQ 03/23/17 21:00 8/5/17 20:16 (Deltasone) 5 mg DAILY PO 03/24/17 09:00 (Sodium Bicarbonate) 650 mg BID PO 03/23/17 21:00 03/23/17 20:13 (Prograf) 2 mg DAILY@22 PO 03/23/17 22:00 03/23/17 23:20 (Prograf) 2 mg DAILY@0600 PO 03/24/17 06:00 (Desyrel) 100 mg HS PO 03/23/17 21:00 03/23/17 20:14 (Pill Splitter) 1 ea UNSCH PRN OTHER 03/23/17 19:45 Family History Father: PE, DM Mother: Crohn's Social History Patient denies any tobacco , alcohol or illicit drug use Physical Exam Vital Signs Vital Signs Date Time Temp Pulse Resp B/P Pulse Ox O2 Delivery O2 Flow Rate FiO2 03/24/17 00:00 98.0 74 16 97/53 97 03/23/17 22:53 98.5 78 16 96/55 98 Room Air 03/23/17 21:57 76 16 94/55 98 Room Air 03/23/17 20:21 99.1 80 18 117/62 97 Room Air 03/23/17 19:02 98.7 79 18 129/64 97 Room Air 03/23/17 18:04 20 97 Room Air 03/23/17 17:19 99.0 89 16 149/67 97 Physical Exam GENERAL: This is a well-nourished, well-developed patient, in no apparent distress. SKIN: No rashes, ecchymoses or lesions. Cool and dry. Left stump warm to touch with erythema HEAD: Atraumatic. Normocephalic. EYES: Pupils equal round and reactive. Extraocular motions intact. ENT: Nose without bleeding, purulent drainage or septal hematoma. Airway patent. NECK: Trachea midline. No JVD or lymphadenopathy. Supple, nontender, no meningeal signs. CARDIOVASCULAR: Regular rate and rhythm without murmurs, gallops, or rubs. RESPIRATORY: Clear to auscultation. Breath sounds equal bilaterally. No wheezes , rales, or rhonchi. GASTROINTESTINAL: Abdomen soft, non-tender, nondistended. MUSCULOSKELETAL: Estuardo BKA, Left stump with erythema, pain, and swelling. NEUROLOGICAL: Awake and alert. Motor and sensory grossly within normal limits. Normal speech. Laboratory Laboratory Tests Test 03/23/17 17:55 White Blood Count 12.0 Red Blood Count 3.62 Hemoglobin 12.3 Hematocrit 36.8 Mean Corpuscular Volume 101.5 Mean Corpuscular Hemoglobin 33.9 Mean Corpuscular Hemoglobin 33.4 Concent Red Cell Distribution Width 15.9 Platelet Count 225 Mean Platelet Volume 7.0 Neutrophils (%) (Auto) 86.8 Lymphocytes (%) (Auto) 5.0 Monocytes (%) (Auto) 5.3 Eosinophils (%) (Auto) 0.2 Basophils (%) (Auto) 2.7 Neutrophils # (Auto) 10.5 Lymphocytes # (Auto) 0.6 Monocytes # (Auto) 0.6 Eosinophils # (Auto) 0.0 Basophils # (Auto) 0.3 CBC Comment DIFF FINAL Differential Comment Prothrombin Time 10.4 Prothromb Time International 0.9 Ratio Activated Partial 29.6 Thromboplast Time Sodium Level 128 Potassium Level 5.3 Chloride Level 96 Carbon Dioxide Level 19.0 Anion Gap 13 Blood Urea Nitrogen 36 Creatinine 7.30 Estimat Glomerular Filtration 8 Rate Random Glucose 308 Calcium Level 8.7 Phosphorus Level 5.6 Magnesium Level 1.9 Total Bilirubin 1.2 Aspartate Amino Transf 12 (AST/SGOT) Alanine Aminotransferase 7 (ALT/SGPT) Alkaline Phosphatase 126 Total Protein 7.8 Albumin 2.5 Date/Time Procedure Status Source Growth 03/23/17 18:10 Aerobic Blood Culture Received Blood Peripheral Pending 03/23/17 18:10 Anaerobic Blood Culture Received Blood Peripheral Pending Result Diagram: 03/23/17 1755 03/23/17 1755 Imaging Last Impressions Chest X-Ray 03/23/17 1734 Signed Impressions: Service Date/Time: Thursday, March 23, 2017 17:57 - CONCLUSION: 1. Mild basal atelectasis. Cardiomegaly. No significant change from October 17. Tee Stack MD Assessment and Plan Problem List: (1) Cellulitis ICD Code: L03.90 Status: Acute (2) Diabetes mellitus type 2 with complications ICD Code: E11.8 Status: Chronic (3) HTN (hypertension) ICD Code: I10 Status: Chronic (4) End stage renal disease on dialysis ICD Code: N18.6 Status: Chronic Assessment and Plan 56 y/o male with a history of ESRD on HD s/p failed kidney transplant on chronic immunosuppression , HTN, DM, bilateral BKA, anxiety and depression presented to the ED with complaints of pain, swelling and redness in left stump. Cellulitis, left stump, no open wound or drainage -Iv antibiotics: vancomycin (nephrology to dose) -Pain management with IV morphine, and po [place] -Consult ID for recommendations Leukocytosis, WBC 12.0, due to cellulitis, no fevers -Antibiotics as above -Trend CBC in AM -Blood cultures pending ESRD on HD MWF, s/p failed renal transplant on chronic immunosuppression, creatinine 7.3 -Consult nephrology, Dr. Ramirez will follow -Reorder home medications: Prograf, na bicarb, and prednisone -BMP in AM HTN, chronic: Resume home medications, hold if hypotensive DM, Chronic: Resume home long acting insulin, Accu checks with SSI DVT prophylaxis: Heparin Discussed Condition With Patient and RN Physician Certification 2 Midnight Certification Type: Admission for Inpatient Services Order for Inpatient Services The services are ordered in accordance with Medicare regulations or non- Medicare payer requirements, as applicable. In the case of services not specified as inpatient-only, they are appropriately provided as inpatient services in accordance with the 2-midnight benchmark. Estimated LOS (days): 2 days is the estimated time the patient will need to remain in the hospital, assuming treatment plan goals are met and no additional complications. Post-Hospital Plan: Not yet determined Problem Qualifiers (1) Cellulitis: Qualified Code: L03.116 - Cellulitis of left lower extremity (2) Diabetes mellitus type 2 with complications: Qualified Code: E11.8 - Type 2 diabetes mellitus with complication, with long- term current use of insulin Ashley Boyle Mar 24, 2017 01:26
[2017-03-24] MEDS ORDERED: TACROLIMUS 1 MG CAP PO SCH (06:00)
[2017-03-24] MEDS: INSULIN NovoLIN REGULAR SUPPLEMENTAL SCALE SQ SCH ×3 (08:00→18:13)
[2017-03-24] MEDS: ESCITALOPRAM OXALATE 10 MG TAB PO SCH (08:28)
[2017-03-24] MEDS: DOCUSATE SODIUM 50 MG/SENNA 8.6 MG TAB PO SCH ×2 (08:28→20:25)
[2017-03-24] MEDS: predniSONE 5 MG TAB PO SCH (08:29)
[2017-03-24] MEDS: SODIUM BICARBONATE 325 MG TAB PO SCH ×2 (08:29→18:15)
[2017-03-24] MEDS: SODIUM CHLORIDE 0.9% FLUSH 10 ML FLUSH IV FLUSH SCH ×2 (08:29→20:30)
[2017-03-24] MEDS: azaTHIOprine 50 MG TAB PO SCH (09:38)
[2017-03-24] MEDS: HEPARIN SODIUM - SQ 10,000 UNITS/ML VIAL SQ SCH (11:00)
--- NOTE | 2017-03-24 12:26 | HHI.PR ---
Subjective Remarks Hypotensive to 92/54. Afebrile. Patient continues to complain of pain in his left knee. States it is better without his prosthetic on. Noted fluid-filled area on lateral aspect of left knee the patient states is new. Objective Vitals Vital Signs Date Time Temp Pulse Resp B/P Pulse Ox O2 Delivery O2 Flow Rate FiO2 03/24/17 08:25 Room Air 03/24/17 08:25 73 03/24/17 08:10 98.0 70 20 92/54 98 03/24/17 04:00 97.9 70 16 95/54 96 03/24/17 01:59 Room Air 03/24/17 00:30 73 03/24/17 00:00 98.0 74 16 97/53 97 03/23/17 22:53 98.5 78 16 96/55 98 Room Air 03/23/17 21:57 76 16 94/55 98 Room Air 03/23/17 20:21 99.1 80 18 117/62 97 Room Air 03/23/17 19:02 98.7 79 18 129/64 97 Room Air 03/23/17 19:00 18 03/23/17 18:04 20 97 Room Air 03/23/17 17:19 99.0 89 16 149/67 97 I/O 03/23/17 03/23/17 03/23/17 03/24/17 03/24/17 03/24/17 07:00 15:00 23:00 07:00 15:00 23:00 Intake Total 850 ml Balance 850 ml Intake Oral 600 ml IV Total 250 ml Result Diagram: 03/23/17 1755 03/23/17 1755 Objective Remarks GENERAL: This is a well-nourished, well-developed patient, in no apparent distress. SKIN: No rashes, ecchymoses or lesions. Cool and dry. Left stump warm to touch with erythema HEAD: Atraumatic. Normocephalic. EYES: Pupils equal round and reactive. Extraocular motions intact. ENT: Nose without bleeding, purulent drainage or septal hematoma. Airway patent. NECK: Trachea midline. No JVD or lymphadenopathy. Supple, nontender, no meningeal signs. CARDIOVASCULAR: Regular rate and rhythm without murmurs, gallops, or rubs. RESPIRATORY: Clear to auscultation. Breath sounds equal bilaterally. No wheezes , rales, or rhonchi. GASTROINTESTINAL: Abdomen soft, non-tender, nondistended. MUSCULOSKELETAL: Estuardo BKA, Left stump with erythema, pain, and swelling. Effusion and fluid noted worse on the lateral aspect of left knee. NEUROLOGICAL: Awake and alert. Motor and sensory grossly within normal limits. Normal speech. A/P Problem List: (1) Cellulitis ICD Code: L03.90 Status: Acute (2) Diabetes mellitus type 2 with complications ICD Code: E11.8 Status: Chronic (3) HTN (hypertension) ICD Code: I10 Status: Chronic (4) End stage renal disease on dialysis ICD Code: N18.6 Status: Chronic Assessment and Plan 56 y/o male with a history of ESRD on HD s/p failed kidney transplant on chronic immunosuppression , HTN, DM, bilateral BKA, anxiety and depression presented to the ED with complaints of pain, swelling and redness in left stump. Cellulitis, left stump, no open wound or drainage. On exam today patient with significant amount of fluid, worse in the lateral aspect of left knee. Concern for septic joint. Patient also with history of sarahy in left femur and pins in left elbow. -IV antibiotics: vancomycin (nephrology to dose) -Ordered joint aspiration with synovial fluid studies. -Pain management with IV morphine, and po [place] -Consult ID for recommendations Leukocytosis, due to cellulitis, no fevers -Antibiotics as above -Trend CBC in AM -Blood cultures NG x 1 day ESRD on HD MWF, s/p failed renal transplant on chronic immunosuppression, creatinine 7.3 -Consult nephrology, Dr. Ramirez will follow -Reorder home medications: Prograf, na bicarb, and prednisone -BMP in AM HTN, chronic: Resume home medications, hold if hypotensive DM, Chronic: Resume home long acting insulin, Accu checks with SSI DVT prophylaxis: Heparin - on hold in anticipation of joint aspiration Discharge Planning Pending clinical improvement Problem Qualifiers (1) Cellulitis: Qualified Code: L03.116 - Cellulitis of left lower extremity (2) Diabetes mellitus type 2 with complications: Qualified Code: E11.8 - Type 2 diabetes mellitus with complication, with long- term current use of insulin Latrice Stallings MD R3 Mar 24, 2017 12:26
--- NOTE | 2017-03-24 14:05 | PD.CONS ---
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 Patient also has a transplanted pancreas which is said to be still functional and he has been continued on immunosuppressive therapy per transplant clinic at [facility]. The patient has a history of bilateral below-knee amputations. Now presents with a history of erythema and increased swelling of his left stump. Denies drainage. His present for approximately 48 hours. Patient currently on maintenance hemodialysis Saturday and Saturday via a left dialysis shunt. Review of Systems Constitutional: DENIES: Diaphoretic episodes, Fatigue, Fever, Weight gain, Weight loss, Chills, Dizziness, Change in appetite, Night Sweats Cardiovascular: DENIES: Chest pain, Palpitations, Syncope, Dyspnea on Exertion , PND, Lower Extremity Edema, Orthopnea, Claudication Gastrointestinal: DENIES: Abdominal pain, Black stools, Bloody stools, Constipation, Diarrhea, Nausea, Vomiting, Difficulty Swallowing, Anorexia Musculoskeletal: COMPLAINS OF: Joint pain, Joint Swelling Psychiatric: DENIES: Anxiety, Confusion Past Family Social History Allergies: Coded Allergies: No Known Allergies (Verified , 03/23/17) Past Medical History End-stage renal disease from failed transplant s/p kidney transplant x2 Pancreas transplant HTN DM Urinary retention requiring self-cath 4x daily PVD s/p bilat BKA Anxiety Depression Chronic Acidosis Past Surgical History Bilat BKA Kidney transplant x2 Pancreas transplant Cholecystectomy Knee surgery Skin CA removal Reported Medications Past Surgical History Bilat BKA Kidney transplant x2 Pancreas transplant Cholecystectomy Knee surgery Skin CA removal Pancreatic transplant Reported Medications Reported Meds & Active Scripts Active Sodium Bicarbonate 650 Mg Tab 650 Mg PO BID Reported Trazodone (Trazodone HCl) 100 Mg Tablet 100 Mg PO HS Lexapro (Escitalopram Oxalate) 10 Mg Tab 10 Mg PO DAILY Prograf (Tacrolimus) 1 Mg Cap 2 Mg PO DAILY 2200 Prograf (Tacrolimus) 1 Mg Cap 2 Mg PO DAILY@0600 Prednisone 5 Mg Tab 5 Mg PO DAILY Humulin R Inj (Insulin Human Regular) 1,000 Unit/10 Ml Vial 1-9 Units SQ ACHS Max dose at bedtime( )units; sugars < 70(0)units; sugars 150-199,(1)unit; sugars 200-249(3)units; sugars 250-299,(5)units; sugars 300-349(7)units; sugars more than 349(9)units. Levemir Inj (Insulin Detemir) 1,000 unit/ 10 ML Vial 15 Units SQ HS Do not mix with any other Insulin. Azathioprine 50 Mg Tab 75 Mg PO DAILY Hazardous agent use appropriate precautions for handling and disposal. Active Ordered Medications Current Medications Morphine Sulfate (Morphine Inj) 2 mg ONCE ONCE IV PUSH Last administered on 18:15; Start 03/23/17 at 18:15; Stop 03/23/17 at 18:16; Status DC Ondansetron HCl 4 mg 4 mg ONCE ONCE IV PUSH Last administered on 03/23/17 18: 15; Start 03/23/17 at 18:15; Stop 03/23/17 at 18:16; Status DC Vancomycin HCl/ Sodium Chloride (Vancomycin Inj/ NS 250 ml Inj) 250 ml @ 250 mls/hr ONCE ONCE IV Last administered on 03/23/17 20:13; Start 03/23/17 at 19: 15; Stop 03/23/17 at 20:14; Status DC Dextrose (D50w (Vial) Inj) 50 ml UNSCH PRN IV HYPOGLYCEMIA-SEE COMMENTS; Start 03/23/17 at 19:15 Glucagon (Glucagon Inj) 1 mg UNSCH PRN OTHER HYPOGLYCEMIA-SEE COMMENTS; Start 03/23/17 at 19:15 Insulin Human Regular (NovoLIN R SUPPLEMENTAL SCALE) 1 TIDAC SQ Last administered on 03/24/17 08:00; Start 03/24/17 at 08:00 Sodium Chloride (NS Flush) 2 ml UNSCH PRN IV FLUSH FLUSH AFTER USING IV ACCESS ; Start 03/23/17 at 19:15 Sodium Chloride (NS Flush) 2 ml BID IV FLUSH Last administered on 03/24/17 08: 29; Start 03/23/17 at 21:00 Ondansetron HCl (Zofran Inj) 4 mg Q6H PRN IVP NAUSEA OR VOMITING; Start at 19:15 Heparin Sodium (Porcine) (Heparin Inj) 5,000 units Q12H SQ ; Start 03/23/17 at 23 :00; Status Hold Acetaminophen (Tylenol) 650 mg Q6H PRN PO FEVER/PAIN SCALE 1 TO 2 Last administered on 03/24/17 11:59; Start 03/23/17 at 19:15 Acetaminophen/ Hydrocodone Bitart ([place] 5-325 Mg) 1 tab Q4H PRN PO PAIN SCALE 3 TO 5; Start 03/23/17 at 19:15 Morphine Sulfate (Morphine Inj) 2 mg Q3H PRN IV Pain 6-10 Last administered on 03/23/17 21:15; Start 03/23/17 at 19:15 Senna/Docusate Sodium (Bibiana-Colace) 1 tab BID PO Last administered on 03/23/17 20:13; Start 03/23/17 at 21:00 Magnesium Hydroxide (Milk Of Magnesia Liq) 30 ml Q12H PRN PO MILD - MODERATE CONSTIPATION; Start 03/23/17 at 19:15 Sennosides (Senokot) 17.2 mg Q12H PRN PO MODERATE - SEVERE CONSTIPATION; Start 03/23/17 at 19:15 Bisacodyl (Dulcolax Supp) 10 mg DAILY PRN RECTAL SEVERE CONSITIPATION; Start at 19:15 Lactulose (Lactulose Liq) 30 ml DAILY PRN PO SEVERE CONSITIPATION; Start at 19:15 Azathioprine (Imuran) 75 mg DAILY PO Last administered on 03/24/17 09:38; Start 03/24/17 at 09:00 Escitalopram Oxalate (Lexapro) 10 mg DAILY PO Last administered on 03/24/17 08: 28; Start 03/24/17 at 09:00 Insulin Detemir (Levemir Inj) 15 units HS SQ Last administered on 03/23/17 20: 16; Start 03/23/17 at 21:00 Prednisone (Deltasone) 5 mg DAILY PO Last administered on 03/24/17 08:29; Start 03/24/17 at 09:00 Sodium Bicarbonate (Sodium Bicarbonate) 650 mg BID PO Last administered on 08:29; Start 03/23/17 at 21:00 Tacrolimus (Prograf) 2 mg DAILY@22 PO Last administered on 03/23/17 23:20; Start 03/23/17 at 22:00 Tacrolimus (Prograf) 2 mg DAILY@0600 PO Last administered on 03/24/17 05:31; Start 03/24/17 at 06:00 Trazodone HCl (Desyrel) 100 mg HS PO Last administered on 03/23/17 20:14; Start 03/23/17 at 21:00 Miscellaneous (Pill Splitter) 1 ea UNSCH PRN OTHER SEE LABEL COMMENTS; Start at 19:45 Family History Noncontributory to current complaint. Social History No current history of illicit drug use or alcohol abuse. Physical Exam Vital Signs Vital Signs Date Time Temp Pulse Resp B/P Pulse Ox O2 Delivery O2 Flow Rate FiO2 03/24/17 12:30 97.2 75 18 104/58 95 03/24/17 08:25 Room Air 03/24/17 08:25 73 03/24/17 08:10 98.0 70 20 92/54 98 03/24/17 04:00 97.9 70 16 95/54 96 03/24/17 01:59 Room Air 03/24/17 00:30 73 03/24/17 00:00 98.0 74 16 97/53 97 03/23/17 22:53 98.5 78 16 96/55 98 Room Air 03/23/17 21:57 76 16 94/55 98 Room Air 03/23/17 20:21 99.1 80 18 117/62 97 Room Air 03/23/17 19:02 98.7 79 18 129/64 97 Room Air 03/23/17 19:00 18 03/23/17 18:04 20 97 Room Air 03/23/17 17:19 99.0 89 16 149/67 97 Physical Exam GENERAL: Gen. examination reveals a middle-aged male lying in bed not in the respiratory distress. SKIN: Warm and dry. HEAD: Normocephalic. EYES: No scleral icterus. No injection or drainage. NECK: Supple, trachea midline. No JVD or lymphadenopathy. CARDIOVASCULAR: Regular rate and rhythm without murmurs, gallops, or rubs. RESPIRATORY: Breath sounds equal bilaterally. No accessory muscle use. GASTROINTESTINAL: Abdomen soft, non-tender, nondistended. MUSCULOSKELETAL: No cyanosis, or edema. Left lower extremity with erythema and edema involving the knee and leg stump. Clinically there appears to be a left knee effusion. No evidence of ulceration or drainage on exam. BACK: Nontender without obvious deformity. No CVA tenderness. Laboratory Laboratory Tests Test 03/23/17 17:55 White Blood Count 12.0 Red Blood Count 3.62 Hemoglobin 12.3 Hematocrit 36.8 Mean Corpuscular Volume 101.5 Mean Corpuscular Hemoglobin 33.9 Mean Corpuscular Hemoglobin 33.4 Concent Red Cell Distribution Width 15.9 Platelet Count 225 Mean Platelet Volume 7.0 Neutrophils (%) (Auto) 86.8 Lymphocytes (%) (Auto) 5.0 Monocytes (%) (Auto) 5.3 Eosinophils (%) (Auto) 0.2 Basophils (%) (Auto) 2.7 Neutrophils # (Auto) 10.5 Lymphocytes # (Auto) 0.6 Monocytes # (Auto) 0.6 Eosinophils # (Auto) 0.0 Basophils # (Auto) 0.3 CBC Comment DIFF FINAL Differential Comment Prothrombin Time 10.4 Prothromb Time International 0.9 Ratio Activated Partial 29.6 Thromboplast Time Sodium Level 128 Potassium Level 5.3 Chloride Level 96 Carbon Dioxide Level 19.0 Anion Gap 13 Blood Urea Nitrogen 36 Creatinine 7.30 Estimat Glomerular Filtration 8 Rate Random Glucose 308 Calcium Level 8.7 Phosphorus Level 5.6 Magnesium Level 1.9 Total Bilirubin 1.2 Aspartate Amino Transf 12 (AST/SGOT) Alanine Aminotransferase 7 (ALT/SGPT) Alkaline Phosphatase 126 Total Protein 7.8 Albumin 2.5 Date/Time Procedure Status Source Growth 03/23/17 18:10 Aerobic Blood Culture - Preliminary Resulted Blood Peripheral NO GROWTH IN 1 DAY 03/23/17 18:10 Anaerobic Blood Culture - Preliminary Resulted Blood Peripheral NO GROWTH IN 1 DAY Result Diagram: 03/23/17 1753 03/23/17 4585 Assessment and Plan Problem List: (1) End stage renal disease on dialysis Plan: Continue hemodialysis Saturday and Saturday. Dialysis orders have been entered. Medication should be adjusted for his end-stage renal disease when indicated. Avoid gadolinium. (2) Cellulitis of left leg without foot Plan: Will defer management to infectious disease. Noted knee aspirate has been ordered (3) Metabolic acidosis Plan: Patient's metabolic acidosis is secondary to a combination of his end- stage renal disease but also his pancreatic transplant which is associated with bicarbonate into the bladder. Continue sodium bicarbonate supplementation. Hemodialysis tomorrow. (4) Kidney transplant failure (5) Pancreas transplant status Plan: The patient is continued on immunosuppressive therapy secondary to the presence of a pancreatic transplant and not renal function. We'll check tacrolimus level in a.m. According to the patient transplant clinic at [place] recommending a tacrolimus level of approximately 6-8. Rodo Ramirez MD Mar 24, 2017 14:05
[2017-03-24 14:09] LABS: AUTOMATED NEUTROPHIL # 7.8 TH/MM3 (1.8-7.7); BASOPHIL % 0.2 % (0.0-2.0); EOSINOPHIL # 0.1 TH/MM3 (0-0.4); EOSINOPHIL % 0.6 % (0.0-4.0); HEMATOCRIT 33.6 % (39.0-51.0); HEMO FLAGS DIFF FINAL; LYMPH % 8.4 % (9.0-44.0); LYMPHOCYTE # 0.8 TH/MM3 (1.0-4.8); MEAN CELL VOLUME 103.7 FL (80.0-100.0); MEAN CORPUSCULAR HEMOGLOBIN 34.7 PG (27.0-34.0); MEAN CORPUSCULAR HGB CONC 33.5 % (32.0-36.0); MONO % 7.6 % (0.0-8.0); NEUT % 83.2 % (16.0-70.0); PLATELET COUNT 192 TH/MM3 (150-450); RED BLOOD COUNT 3.24 MIL/MM3 (4.50-5.90); RED CELL DISTRIBUTION WIDTH 16.4 % (11.6-17.2); WHITE BLOOD COUNT 9.4 TH/MM3 (4.0-11.0)
[2017-03-24 14:28] LABS: ANION GAP 16 MEQ/L (5-15); AST (GOT) 6 U/L (15-37); BICARBONATE 18.1 MEQ/L (21.0-32.0); BLOOD UREA NITROGEN 47 MG/DL (7-18); CHLORIDE 98 MEQ/L (98-107); GLOMERULAR FILTRATION RATE 7 ML/MIN (>89); POTASSIUM 4.6 MEQ/L (3.5-5.1); SODIUM (NA) 132 MEQ/L (136-145)
[2017-03-24 14:29] LABS: ALT (GPT) LESS THAN 6 U/L (12-78)
[2017-03-24 14:32] LABS: ALKALINE PHOSPHATASE 108 U/L (45-117); TOTAL BILIRUBIN ADULT 1.1 MG/DL (0.2-1.0)
[2017-03-24] MEDS ORDERED: SODIUM CHLOR 0.9% 1000 ML INJ 1,000 ML IV PRN ×3 (14:44)
[2017-03-24] MEDS ORDERED: MANNITOL 12.5 GM/50 ML VIAL IV PRN (14:45)
[2017-03-24] MEDS ORDERED: NITROGLYCERIN 0.4 MG SL 25 TABS/BTL SL PRN (14:45)
[2017-03-24] MEDS ORDERED: ONDANSETRON HCL 4 MG/2 ML VIAL IV PRN (14:45)
[2017-03-24] MEDS ORDERED: HEPARIN SODIUM - IV 10,000 UNITS/10 ML VIAL IVF PRN (14:45)
[2017-03-24] MEDS ORDERED: GENTAMICIN SULFATE (DIALYSIS USE ONLY) 20 MG/2 ML VIAL IV PRN (14:45)
[2017-03-24] MEDS ORDERED: diphenhydrAMINE HCL 25 MG CAP PO PRN (14:45)
[2017-03-24] MEDS ORDERED: ACETAMINOPHEN 325 MG TAB PO PRN (14:45)
[2017-03-24] MEDS ORDERED: cloNIDine HCL 0.1 MG TAB PO PRN (14:45)
[2017-03-24] MEDS ORDERED: GELATIN 12 MM/7 MM FOAM TOP PRN (14:45)
[2017-03-24] MEDS ORDERED: ALBUMIN HUMAN 25% 25 GM/100 ML BAGP IV PRN (14:45)
[2017-03-24] MEDS ORDERED: VANCOMYCIN INJ 1,000 MG in SODIUM CHLOR 0.9% 250 ML INJ 250 ML IV SCH (15:15)
--- NOTE | 2017-03-24 16:29 | MB ---
cc: OBEY MABRY MD DATE OF CONSULTATION 03/24/[address] Shen REASON FOR CONSULTATION BKA stump infection. Immunocompromised. HISTORY OF THE PRESENT ILLNESS This is a 56-year-old white male who has a history of end-stage renal disease and has hemodialysis three times a week. The patient noticed some redness at his right knee 2 days ago. He has a history of bilateral dexpl-vfg-iekh amputations and wears prosthesis. He states that he went to dialysis 5 days ago and at the beginning he was having some shaking. Three days ago the dialysis was performed and he was feeling cold rather with developing shaking at the time. He presented to the emergency department because of the pain and swelling and redness of the left leg some which is actually at the inner aspect of the left knee. The prosthesis of the stump appears to be extending up to that area of the knee where the redness is located. He denies nausea or vomiting or fever. The patient has a history of pancreatic transplantation and he is on immunosuppressive agents. Blood cultures taken on admission have no growth in 1 day. White blood cell count was elevated 12.0 yesterday and today it is 9.4. The patient undergoes hemodialysis via an AV fistula in the lower left upper extremity. PAST MEDICAL HISTORY 1. End-stage renal disease. 2. Hypertension. 3. Diabetes mellitus. 4. Anxiety, depression. 5. Chronic acidosis. 6. Bilateral bizau-oos-qjtv amputation. 7. kidney transplantation in 1991 and 2009. 8. Pancreatic transplantation in 1991. 9. Cholecystectomy. 10. Skin cancer removal. 11. Prosthesis in the right eye. ALLERGIES NO KNOWN DRUG ALLERGIES. MEDICATIONS 1. Tacrolimus. 2. Imuran. 3. Lexapro. 4. Deltasone. 5. Insulin. 6. Bibiana-Colace. 7. Levemir. 8. Morphine sulfate. SOCIAL HISTORY No alcohol, tobacco or illicit drugs. FAMILY HISTORY Significant for diabetes in the patient's father. REVIEW OF SYSTEMS GENERAL: No fever or chills. HEENT: The right eye has a prosthesis. The left eye has no visual blurring or diplopia. No difficulty swallowing or soreness of the throat. CARDIOVASCULAR: No palpitations or chest pain. RESPIRATORY: No cough or shortness of breath. GASTROINTESTINAL: No nausea or vomiting, abdominal pain or diarrhea. GENITOURINARY: No urgency, frequency or dysuria. HEMATOLOGIC: No easy bruising or bleeding. MUSCULOSKELETAL: Pain at the left inner knee and a little along the area above the BKA stump at the inner aspect. INTEGUMENT: No skin rash or itching. ENDOCRINE: No polyuria or polydipsia. PSYCHIATRIC: No mood changes or depression. PHYSICAL EXAMINATION GENERAL: This is a well-developed, pleasant male in no acute distress. He is awake, alert, oriented. VITAL SIGNS: Include a temperature of 97.2, blood pressure 104/58, respiratory rate 18, heart rate 75. HEENT: Extraocular movements on the left is intact. No itcterus. The right side has an eye prosthesis. Oropharynx no visible lesions. NECK: Supple without adenopathy or swelling. LUNGS: Decreased clear breath sounds. HEART: Regular S1-S2 without murmurs, rubs, or gallops. ABDOMEN: Decreased bowel sounds, soft, nontender. RECTAL: Not performed. EXTREMITIES: The left knee at the inner aspect has erythema and it blanches on palpation. The area is warm to touch. The erythema extends along the side of the patella. There is no involvement of the stump incision or the area around the stump itself. The right stump is intact. There is no cyanosis or edema. SKIN: No rash. NEUROLOGIC: No gross focal findings. PSYCHIATRIC: The patient is calm and cooperative. LABORATORY DATA WBC 9.4, platelets 192, 83% neutrophils, hemoglobin 11.2. Creatinine 8.52, BUN 47, sodium 132. IMPRESSION 1. Cellulitis of the right knee and possibly soft tissue infection at the right knee. 2. Immunosuppression. The patient had a pancreatic transplant and is on immunosuppressive medications. 3. Bilateral mzgqx-yjk-sadq amputation. It appears that the patient's cellulitis in the area where the stump rubs against the lower extremity at the knee region and he may simply have developed cellulitis from the irritation of the prosthesis subsequently developing infection in that location. RECOMMENDATIONS 1. Continue vancomycin at dialysis. 2. Monitor response. 3. Monitor blood cultures. 4. If there is not satisfactory response we may need to change the antibiotic. If he does continue to respond he can receive the vancomycin to complete treatment. He may also have possibly an effusion at the left knee which may have to be evaluated if he does not improve. Thank for this consultation. I will follow the patient's progress with you and will make further recommendations on followup if necessary. Obey Mabry MD FD/JD /2:57 PM /3:48 PM JUAN LUIS
[2017-03-24] MEDS: CINACALCET HYDROCHLORIDE 30 MG TAB PO SCH (18:15)
[2017-03-24] MEDS ORDERED: INSULIN ASPART 1,000 UNITS/10 ML VIAL SQ ONE (18:15)
[2017-03-24] MEDS: TACROLIMUS 1 MG CAP PO SCH ×2 (18:15→20:26)
[2017-03-24] MEDS: traZODone HCL 100 MG TAB PO SCH (20:25)
[2017-03-24] MEDS: ACETAMINOPHEN/HYDROcodone 325 MG/5 MG TAB PO PRN (20:25)
[2017-03-24] MEDS: INSULIN DETEMIR 100 UNITS/ML VIAL SQ SCH (20:28)
[2017-03-25] VITALS (8 sets, daily range): BP systolic 102–132; BP diastolic 56–63; PULSE 74–103; RESP 16–20; TEMP 97.4–99.4; O2SAT 76–98
[2017-03-25] MEDS: ACETAMINOPHEN/HYDROcodone 325 MG/5 MG TAB PO PRN ×3 (04:14→20:37)
[2017-03-25 07:59] LABS: AUTOMATED NEUTROPHIL # 7.4 TH/MM3 (1.8-7.7); BASOPHIL # 0.1 TH/MM3 (0-0.2); BASOPHIL % 0.6 % (0.0-2.0); EOSINOPHIL # 0.1 TH/MM3 (0-0.4); HEMATOCRIT 33.8 % (39.0-51.0); HEMO FLAGS DIFF FINAL; LYMPH % 12.2 % (9.0-44.0); LYMPHOCYTE # 1.1 TH/MM3 (1.0-4.8); MEAN CELL VOLUME 103.6 FL (80.0-100.0); MEAN CORPUSCULAR HEMOGLOBIN 34.6 PG (27.0-34.0); MEAN CORPUSCULAR HGB CONC 33.4 % (32.0-36.0); MONO % 7.2 % (0.0-8.0); PLATELET COUNT 199 TH/MM3 (150-450); RED BLOOD COUNT 3.27 MIL/MM3 (4.50-5.90); RED CELL DISTRIBUTION WIDTH 16.6 % (11.6-17.2); WHITE BLOOD COUNT 9.3 TH/MM3 (4.0-11.0)
[2017-03-25] MEDS: INSULIN NovoLIN REGULAR SUPPLEMENTAL SCALE SQ SCH ×3 (08:00→17:00)
[2017-03-25 08:35] LABS: BICARBONATE 16.1 MEQ/L (21.0-32.0); POTASSIUM 5.3 MEQ/L (3.5-5.1)
[2017-03-25] MEDS: predniSONE 5 MG TAB PO SCH (09:12)
[2017-03-25] MEDS: SODIUM BICARBONATE 325 MG TAB PO SCH ×3 (09:12→19:02)
[2017-03-25] MEDS: ESCITALOPRAM OXALATE 10 MG TAB PO SCH (09:12)
[2017-03-25] MEDS: DOCUSATE SODIUM 50 MG/SENNA 8.6 MG TAB PO SCH ×2 (09:12→20:38)
[2017-03-25] MEDS: SODIUM CHLORIDE 0.9% FLUSH 10 ML FLUSH IV FLUSH SCH ×2 (09:13→20:38)
[2017-03-25] MEDS: azaTHIOprine 50 MG TAB PO SCH (09:18)
[2017-03-25] MEDS: TACROLIMUS 1 MG CAP PO SCH ×2 (09:18→20:37)
--- NOTE | 2017-03-25 11:14 | HHI.NPPN ---
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 Patient also has a transplanted pancreas which is said to be still functional and he has been continued on immunosuppressive therapy per transplant clinic at [facility]. The patient has a history of bilateral below-knee amputations. Now presents with a history of erythema and increased swelling of his left stump. Denies drainage. His present for approximately 48 hours. Patient currently on maintenance hemodialysis Saturday and Saturday via a left dialysis shunt. Interval History Patient indicated that his stump was feeling slightly better but still swollen Review of Systems General Constitutional: Fatigue Objective Data Data 03/24/17 03/25/17 18:59 06:59 Intake Total 600 ml 900 ml Output Total 1 ml 1200 ml Balance 599 ml -300 ml Intake Oral 600 ml 900 ml Output Urine Total 1 ml 1200 ml # Bowel Movements 0 1 Vital Signs Date Time Temp Pulse Resp B/P Pulse Ox O2 Delivery O2 Flow Rate FiO2 03/25/17 08:00 98.0 77 18 102/56 97 03/25/17 04:07 98.1 103 20 103/57 76 03/25/17 00:00 97.8 85 18 122/59 96 03/24/17 20:05 74 03/24/17 20:05 Room Air 03/24/17 20:00 97.9 77 18 128/57 96 03/24/17 16:10 98.2 80 18 114/69 96 03/24/17 12:30 97.2 75 18 104/58 95 -: 03/25/17 0721 03/25/17 0721 Microbiology 03/25/17 Gram Stain, Received Pending 03/25/17 Body Fluid Culture, Received Pending 03/25/17 Acid Fast Stain, Received Pending 03/25/17 Mycobacterial Culture, Received Pending 03/25/17 Fungal Smear, Received Pending 03/25/17 Fungal Culture, Received Pending Medication Review Inpatient Medications Acetaminophen (Tylenol) 650 mg UNSCH PRN PO for headach, pain, temp > 101F; Start 03/24/17 at 14:45 Acetaminophen/ Hydrocodone Bitart ([place] 5-325 Mg) 1 tab Q4H PRN PO PAIN SCALE 3 TO 5 Last administered on 03/25/17t 04:14; Start 03/23/17 at 19:15 Albumin Human (Albumin 25% Inj) 25 gm UNSCH PRN IV WITH DIALYSIS; Start at 14:45 Azathioprine (Imuran) 75 mg DAILY PO Last administered on 03/25/17 09:18; Start 03/24/17 at 09:00 Bisacodyl (Dulcolax Supp) 10 mg DAILY PRN RECTAL SEVERE CONSITIPATION; Start at 19:15 Cinacalcet 30 mg 30 mg WITH DINNER PO Last administered on 03/24/17 18:15; Start 03/24/17 at 18:00 Clonidine (Catapres) 0.1 mg UNSCH PRN PO for BP > 180/100 X 2 readings; Start 03/24/17 at 14:45 Dextrose (D50w (Vial) Inj) 50 ml UNSCH PRN IV HYPOGLYCEMIA-SEE COMMENTS; Start 03/23/17 at 19:15 Diphenhydramine HCl (Benadryl) 25 mg UNSCH PRN PO for hives/itching/anaphylaxis ; Start 03/24/17 at 14:45 Escitalopram Oxalate (Lexapro) 10 mg DAILY PO Last administered on 03/25/17 09: 12; Start 03/24/17 at 09:00 Gelatin (Gelfoam 12 Mm/7 Mm Top) 1 foam UNSCH PRN TOP SEE LABEL COMMENTS; Start 03/24/17 at 14:45 Gentamicin Sulfate (Gentamicin (Dialysis) Inj) 20 mg UNSCH PRN IV WITH DIALYSIS ; Start 03/24/17 at 14:45 Glucagon (Glucagon Inj) 1 mg UNSCH PRN OTHER HYPOGLYCEMIA-SEE COMMENTS; Start 03/23/17 at 19:15 Heparin Sodium (Porcine) (Heparin Inj) 5,000 units Q12H SQ ; Start 03/23/17 at 23 :00; Status Hold Heparin Sodium (Porcine) 8000 units 8,000 units UNSCH PRN IVF WITH DIALYSIS; Start 03/24/17 at 14:45 Insulin Aspart (NovoLOG INJ) 10 units ONCE ONCE SQ ; Start 03/24/17 at 18:15; Stop 03/24/17 at 18:41; Status DC Insulin Detemir (Levemir Inj) 15 units HS SQ Last administered on 03/24/17 20: 28; Start 03/23/17 at 21:00 Insulin Human Regular (NovoLIN R SUPPLEMENTAL SCALE) 1 TIDAC SQ Last administered on 03/25/17 08:00; Start 03/24/17 at 08:00 Lactulose (Lactulose Liq) 30 ml DAILY PRN PO SEVERE CONSITIPATION; Start at 19:15 Magnesium Hydroxide (Milk Of Magnesia Liq) 30 ml Q12H PRN PO MILD - MODERATE CONSTIPATION; Start 03/23/17 at 19:15 Mannitol (Mannitol Inj) 12.5 gm UNSCH PRN IV WITH DIALYSIS; Start 03/24/17 at 14 :45 Miscellaneous (Pill Splitter) 1 ea UNSCH PRN OTHER SEE LABEL COMMENTS; Start at 19:45 Morphine Sulfate (Morphine Inj) 2 mg Q3H PRN IV Pain 6-10 Last administered on 03/23/17 21:15; Start 03/23/17 at 19:15 Nitroglycerin (Nitrostat Sl) 0.4 mg UNSCH PRN SL CHEST PAIN; Start 03/24/17 at 14:45 Ondansetron HCl (Zofran Inj) 4 mg UNSCH PRN IV WITH DIALYSIS; Start 03/24/17 at 14:45 Prednisone (Deltasone) 5 mg DAILY PO Last administered on 03/25/17 09:12; Start 03/24/17 at 09:00 Senna/Docusate Sodium (Bibiana-Colace) 1 tab BID PO Last administered on 03/25/17 09:12; Start 03/23/17 at 21:00 Sennosides (Senokot) 17.2 mg Q12H PRN PO MODERATE - SEVERE CONSTIPATION; Start 03/23/17 at 19:15 Sodium Bicarbonate (Sodium Bicarbonate) 650 mg TID PO Last administered on 09:12; Start 03/24/17 at 18:00 Sodium Chloride (NS 1000 ml Inj) 1,000 ml @ 0 mls/hr Q0M PRN IV WITH DIALYSIS; Start 03/24/17 at 14:44 Sodium Chloride (NS Flush) 5 ml UNSCH PRN IV FLUSH WITH DIALYSIS; Start at 14:45 Tacrolimus (Prograf) 2 mg Q12HR PO Last administered on 03/25/17 09:18; Start 03/24/17 at 18:00 Trazodone HCl (Desyrel) 100 mg HS PO Last administered on 03/24/17t 20:25; Start 03/23/17 at 21:00 Vancomycin HCl/ Sodium Chloride (Vancomycin Inj/ NS 250 ml Inj) 250 ml @ 250 mls/hr WITH DIALYSIS IV ; Start 03/24/17 at 15:15 Physical Exam General Appearance: No Acute Distress, Comfortable Eyes Eye Exam: Sclera White Pulmonary Resp Exam: Clear Bilaterally, Breath Sounds Equal, No Distress Cardiology CV Exam: Regular, Normal Sinus Rhythm, Good Perfusion Gastrointestinal/Abdomen GI Exam: Soft, Non-Tender Musculoskeletal MS Exam: Joints Intact (improved but still swollen left knee joint.) MS Remarks Bilateral BKA. Integumentary Skin Exam: Clear, Warm Extremeties Extremities Exam: Moderate Edema (L BKA stump.) Assessment/Plan Discussed Condition With: Patient Problem List: (1) End stage renal disease on dialysis Plan: Continue hemodialysis Saturday and Saturday. Dialysis orders have been entered. Medication should be adjusted for his end-stage renal disease when indicated. Avoid gadolinium. (2) Cellulitis of left leg without foot Plan: Will defer management to infectious disease. Await results of the knee aspirate. (3) Metabolic acidosis Plan: Patient's metabolic acidosis is secondary to a combination of his end- stage renal disease but also his pancreatic transplant which is associated with bicarbonate into the bladder. Continue sodium bicarbonate supplementation. Hemodialysis tomorrow. (4) Kidney transplant failure (5) Pancreas transplant status Plan: The patient is continued on immunosuppressive therapy secondary to the presence of a pancreatic transplant and not renal function. Tacrolimus level still pending. According to the patient transplant clinic at [place] recommending a tacrolimus level of approximately 6-8. Rodo Ramirez MD Mar 25, 2017 11:14
--- NOTE | 2017-03-25 12:19 | HHI.PR ---
Subjective Remarks Follow up for left knee/stump cellulitis. The patient reports continued pain/ warmth/erythema mostly at the left anterior medial knee with extension down to the anterior stump. Denies fevers/chills. Tolerating oral intake. Denies any chest pain or shortness of breath. He has no other medical complaints at this time. Objective Vitals Vital Signs Date Time Temp Pulse Resp B/P Pulse Ox O2 Delivery O2 Flow Rate FiO2 03/25/17 08:00 98.0 77 18 102/56 97 03/25/17 04:07 98.1 103 20 103/57 76 03/25/17 00:00 97.8 85 18 122/59 96 03/24/17 20:05 74 03/24/17 20:05 Room Air 03/24/17 20:00 97.9 77 18 128/57 96 03/24/17 16:10 98.2 80 18 114/69 96 03/24/17 12:30 97.2 75 18 104/58 95 I/O 03/24/17 03/24/17 03/24/17 03/25/17 03/25/17 03/25/17 06:59 14:59 22:59 06:59 14:59 22:59 Intake Total 600 ml 600 ml 580 ml 320 ml Output Total 1 ml 300 ml 900 ml Balance 600 ml 599 ml 280 ml -580 ml Intake Oral 600 ml 600 ml 580 ml 320 ml Output Urine Total 1 ml 300 ml 900 ml # Bowel Movements 0 1 0 Result Diagram: 03/25/17 0721 03/25/17 0721 Imaging Last Impressions Chest X-Ray 03/23/17 3314 Signed Impressions: Service Date/Time: Thursday, March 23, 2017 17:57 - CONCLUSION: 1. Mild basal atelectasis. Cardiomegaly. No significant change from October 17. Tee Stack MD Objective Remarks GENERAL: Well-nourished, well-developed pleasant middle aged male patient in [facility]. SKIN: Warm and dry. No rash. HEENT: Normocephalic. Atraumatic. Pupils equal and round. Mucous membranes pink and moist. CARDIOVASCULAR: Regular rate and rhythm. S1, S2 noted. No murmur appreciated. RESPIRATORY: No accessory muscle use. Clear to auscultation. Breath sounds equal bilaterally. GASTROINTESTINAL: Abdomen soft, non-tender, nondistended. Normoactive bowel sounds x4. MUSCULOSKELETAL: Chronic bilateral BKA. Left stump with diffuse erythema/edema and TTP extending into the medial knee. S/p joint aspiration at left lateral knee, aspiration site clean, covered with dressing CDI. Right leg with prosthesis in place. NEUROLOGICAL: Awake and alert. No obvious cranial nerve deficits. Motor grossly within normal limits. Normal speech. PSYCHIATRIC: Appropriate mood and affect; insight and judgment normal. Procedures 03/25/17 - right lateral knee joint aspiration Medications and IVs Current Medications Medications (Trade) Dose Ordered Sig/Lida Route Start Time Stop Time Status Last Admin (D50w (Vial) Inj) 50 ml UNSCH PRN IV 03/23/17 19:15 (Glucagon Inj) 1 mg UNSCH PRN OTHER 03/23/17 19:15 (NovoLIN R SUPPLEMENTAL SCALE) 1 TIDAC SQ 03/24/17 08:00 03/25/17 08:00 (NS Flush) 2 ml UNSCH PRN IV FLUSH 03/23/17 19:15 (NS Flush) 2 ml BID IV FLUSH 03/23/17 21:00 03/25/17 09:13 (Zofran Inj) 4 mg Q6H PRN IVP 03/23/17 19:15 (Heparin Inj) 5,000 units Q12H SQ 03/23/17 23:00 Hold (Tylenol) 650 mg Q6H PRN PO 03/23/17 19:15 03/24/17 11:59 ([place] 5-325 Mg) 1 tab Q4H PRN PO 03/23/17 19:15 03/25/17 04:14 (Morphine Inj) 2 mg Q3H PRN IV 03/23/17 19:15 03/23/17 21:15 (Bibiana-Colace) 1 tab BID PO 03/23/17 21:00 03/25/17 09:12 (Milk Of Magnesia Liq) 30 ml Q12H PRN PO 03/23/17 19:15 (Senokot) 17.2 mg Q12H PRN PO 03/23/17 19:15 (Dulcolax Supp) 10 mg DAILY PRN RECTAL 03/23/17 19:15 (Lactulose Liq) 30 ml DAILY PRN PO 03/23/17 19:15 (Imuran) 75 mg DAILY PO 03/24/17 09:00 03/25/17 09:18 (Lexapro) 10 mg DAILY PO 03/24/17 09:00 03/25/17 09:12 (Levemir Inj) 15 units HS SQ 03/23/17 21:00 03/24/17 20:28 (Deltasone) 5 mg DAILY PO 03/24/17 09:00 03/25/17 09:12 (Desyrel) 100 mg HS PO 03/23/17 21:00 03/24/17 20:25 (Pill Splitter) 1 ea UNSCH PRN OTHER 03/23/17 19:45 (Prograf) 2 mg Q12HR PO 03/24/17 18:00 03/25/17 09:18 Sodium Bicarbonate 650 mg 650 mg TID PO 03/24/17 18:00 03/25/17 09:12 (NS 1000 ml Inj) 1,000 ml @ 0 mls/hr Q0M PRN IV 03/24/17 14:44 Heparin Sodium (Porcine) 8000 units 8,000 units UNSCH PRN IVF 03/24/17 14:45 Sodium Chloride 1,000 ml @ 200 mls/hr Q5H PRN IV 03/24/17 14:44 (NS 1000 ml Inj) 1,000 ml @ 0 mls/hr Q0M PRN IV 03/24/17 14:44 (Mannitol Inj) 12.5 gm UNSCH PRN IV 03/24/17 14:45 (Albumin 25% Inj) 25 gm UNSCH PRN IV 03/24/17 14:45 (NS Flush) 5 ml UNSCH PRN IV FLUSH 03/24/17 14:45 (Gentamicin (Dialysis) Inj) 20 mg UNSCH PRN IV 03/24/17 14:45 (Zofran Inj) 4 mg UNSCH PRN IV 03/24/17 14:45 (Tylenol) 650 mg UNSCH PRN PO 03/24/17 14:45 (Benadryl) 25 mg UNSCH PRN PO 03/24/17 14:45 (Nitrostat Sl) 0.4 mg UNSCH PRN SL 03/24/17 14:45 (Catapres) 0.1 mg UNSCH PRN PO 03/24/17 14:45 (Gelfoam 12 Mm/7 Mm Top) 1 foam UNSCH PRN TOP 03/24/17 14:45 A/P Problem List: (1) Cellulitis ICD Code: L03.90 Status: Acute (2) Diabetes mellitus type 2 with complications ICD Code: E11.8 Status: Chronic (3) HTN (hypertension) ICD Code: I10 Status: Chronic (4) End stage renal disease on dialysis ICD Code: N18.6 Status: Chronic Assessment and Plan 56 y/o male with a history of ESRD on HD s/p failed kidney transplant on chronic immunosuppression , HTN, DM, bilateral BKA, anxiety and depression presented to the ED with complaints of pain, swelling and redness in left stump. Left BKA/Knee Cellulitis: no open wound or drainage however +erythema/edema/ warmth with palpable effusion. Concern for septic joint. Patient also with history of sarahy in left femur and pins in left elbow. -Continue IV antibiotics with vancomycin during dialysis -S/p left knee joint aspiration on 03/25, send synovial fluid studies -Continue pain control with IV morphine, and po [place] -Consult ID, discussed with Dr. Mabry, await fluid cultures, consider MRI depending on results of culture Leukocytosis: secondary to cellulitis as above, no documented fevers. -On antibiotics as above -CBC shows improvement, WBC 9.3K -Continue to monitor blood cultures, NGTD ESRD on HD MWF, s/p failed renal transplant on chronic immunosuppression, creatinine 7.3 -Consult nephrology, Dr. Ramirez will follow -Continue home medications: Prograf, na bicarb, and prednisone -Monitor BMP, worsening today with +hyperkalemia and anion gap acidosis, going for HD today HTN, chronic: Resume home medications, hold if hypotensive DM, Chronic: Resume home long acting insulin, Accu checks with SSI DVT prophylaxis: Heparin Discharge Planning Discharge pending further clinical improvement and culture results. Possible discharge in 2-3 days. Problem Qualifiers (1) Cellulitis: Qualified Code: L03.116 - Cellulitis of left lower extremity (2) Diabetes mellitus type 2 with complications: Qualified Code: E11.8 - Type 2 diabetes mellitus with complication, with long- term current use of insulin Brandi Hicks PA-C Mar 25, 2017 12:19 pm
--- NOTE | 2017-03-25 12:19 | HHI.IDPN ---
Note Infectious Disease Note Patient continues to have pain at the l. knee. Went for aspiration. The fluid was removed from the lateral left knee. Redness still present at the inner l. knee. No redness at the lateral l. knee. No chills. Afebrile. Synovial fluid counts pending. Culture pending. PAST MEDICAL HISTORY 1. End-stage renal disease. On hemodialysis. 2. Hypertension. 3. Diabetes mellitus. 4. Anxiety, depression. 5. Chronic acidosis. 6. Bilateral zpkql-rny-rtqz amputation. 7. kidney transplantation in 1991 and 2009. 8. Pancreatic transplantation in 1991. On immunosuppressive med. 9. Cholecystectomy. 10. Skin cancer removal. 11. Prosthesis in the right eye. ALLERGIES NO KNOWN DRUG ALLERGIES. OBJECTIVE: Vital Signs Date Time Temp Pulse Resp B/P Pulse Ox O2 Delivery O2 Flow Rate FiO2 03/25/17 08:00 98.0 77 18 102/56 97 03/25/17 04:07 98.1 103 20 103/57 76 03/25/17 00:00 97.8 85 18 122/59 96 03/24/17 20:05 74 03/24/17 20:05 Room Air 03/24/17 20:00 97.9 77 18 128/57 96 03/24/17 16:10 98.2 80 18 114/69 96 03/24/17 12:30 97.2 75 18 104/58 95 03/24/17 03/24/17 03/25/17 14:59 22:59 06:59 Intake Total 600 ml 580 ml 320 ml Output Total 1 ml 300 ml 900 ml Balance 599 ml 280 ml -580 ml Intake Oral 600 ml 580 ml 320 ml Output Urine Total 1 ml 300 ml 900 ml # Bowel Movements 0 1 0 Laboratory Tests Test 03/23/17 03/24/17 03/25/17 17:55 13:05 07:21 White Blood Count 12.0 TH/MM3 9.4 TH/MM3 9.3 TH/MM3 Red Blood Count 3.62 MIL/MM3 3.24 MIL/MM3 3.27 MIL/MM3 Hemoglobin 12.3 GM/DL 11.2 GM/DL 11.3 GM/DL Hematocrit 36.8 % 33.6 % 33.8 % Mean Corpuscular Volume 101.5 FL 103.7 FL 103.6 FL Mean Corpuscular Hemoglobin 33.9 PG 34.7 PG 34.6 PG Mean Corpuscular Hemoglobin 33.4 % 33.5 % 33.4 % Concent Red Cell Distribution Width 15.9 % 16.4 % 16.6 % Platelet Count 225 TH/MM3 192 TH/MM3 199 TH/MM3 Mean Platelet Volume 7.0 FL 7.6 FL 7.5 FL Neutrophils (%) (Auto) 86.8 % 83.2 % 79.0 % Lymphocytes (%) (Auto) 5.0 % 8.4 % 12.2 % Monocytes (%) (Auto) 5.3 % 7.6 % 7.2 % Eosinophils (%) (Auto) 0.2 % 0.6 % 1.0 % Basophils (%) (Auto) 2.7 % 0.2 % 0.6 % Neutrophils # (Auto) 10.5 TH/MM3 7.8 TH/MM3 7.4 TH/MM3 Lymphocytes # (Auto) 0.6 TH/MM3 0.8 TH/MM3 1.1 TH/MM3 Monocytes # (Auto) 0.6 TH/MM3 0.7 TH/MM3 0.7 TH/MM3 Eosinophils # (Auto) 0.0 TH/MM3 0.1 TH/MM3 0.1 TH/MM3 Basophils # (Auto) 0.3 TH/MM3 0.0 TH/MM3 0.1 TH/MM3 CBC Comment DIFF FINAL DIFF FINAL DIFF FINAL Differential Comment Laboratory Tests Test 03/23/17 03/24/17 03/25/17 17:55 13:05 07:21 Sodium Level 128 MEQ/L 132 MEQ/L 132 MEQ/L Potassium Level 5.3 MEQ/L 4.6 MEQ/L 5.3 MEQ/L Chloride Level 96 MEQ/L 98 MEQ/L 97 MEQ/L Carbon Dioxide Level 19.0 MEQ/L 18.1 MEQ/L 16.1 MEQ/L Anion Gap 13 MEQ/L 16 MEQ/L 19 MEQ/L Blood Urea Nitrogen 36 MG/DL 47 MG/DL 67 MG/DL Creatinine 7.30 MG/DL 8.52 MG/DL 10.63 MG/DL Estimat Glomerular Filtration 8 ML/MIN 7 ML/MIN 5 ML/MIN Rate Random Glucose 308 MG/DL 191 MG/DL 172 MG/DL Calcium Level 8.7 MG/DL 8.6 MG/DL 8.7 MG/DL Phosphorus Level 5.6 MG/DL Magnesium Level 1.9 MG/DL Total Bilirubin 1.2 MG/DL 1.1 MG/DL Aspartate Amino Transf 12 U/L 6 U/L (AST/SGOT) Alanine Aminotransferase 7 U/L LESS THAN 6 U/L (ALT/SGPT) Alkaline Phosphatase 126 U/L 108 U/L Total Protein 7.8 GM/DL 6.7 GM/DL Albumin 2.5 GM/DL 2.1 GM/DL Microbiology Date/Time Procedure Status Source Growth 03/23/17 17:55 Aerobic Blood Culture - Preliminary Resulted Blood Peripheral NO GROWTH IN 2 DAYS 03/23/17 17:55 Anaerobic Blood Culture - Preliminary Resulted Blood Peripheral NO GROWTH IN 2 DAYS 03/23/17 18:10 Aerobic Blood Culture - Preliminary Resulted Blood Peripheral NO GROWTH IN 2 DAYS 03/23/17 18:10 Anaerobic Blood Culture - Preliminary Resulted Blood Peripheral NO GROWTH IN 2 DAYS 03/25/17 10:10 Gram Stain Received Fluid Synovial Fluid Pending 03/25/17 10:10 Body Fluid Culture Received Fluid Synovial Fluid Pending 03/25/17 10:10 Acid Fast Stain Received Fluid Synovial Fluid Pending 03/25/17 10:10 Mycobacterial Culture Received Fluid Synovial Fluid Pending 03/25/17 10:10 Fungal Smear Received Fluid Synovial Fluid Pending 03/25/17 10:10 Fungal Culture Received Fluid Synovial Fluid Pending PHYSICAL EXAMINATION GENERAL: No acute distress. He is awake, alert, oriented. HEENT: No icterus. The right side has an eye prosthesis. Oropharynx no visible lesions. LUNGS: Decreased clear breath sounds. HEART: Regular S1-S2 without murmurs, rubs, or gallops. ABDOMEN: Decreased bowel sounds, soft, nontender. EXTREMITIES: The left knee at the inner aspect has blanching erythema at the inner aspect. The area is warm to touch. No change from yesterday. The erythema extends along the side of the patella and here is also mild erythema at the anterior tatiana above the stump. There is no involvement of the stump incision or the area around the stump itself. The right stump is intact. There is no cyanosis or edema. SKIN: No rash. NEUROLOGIC: No gross focal findings. PSYCHIATRIC: The patient is calm and cooperative. IMPRESSION 1. Cellulitis of the right knee and possibly soft tissue infection at the right knee. ? infective arthritis. 2. Immunosuppression. The patient had a pancreatic transplant and is on immunosuppressive medications. 3. Bilateral [id number]-bix-vbcl amputation. It appears that the patient's cellulitis in the area where the stump rubs against the lower extremity at the knee region and he may simply have developed cellulitis from the irritation of the prosthesis subsequently developing infection in that location. RECOMMENDATIONS 1. Continue vancomycin at dialysis. 2. Monitor response. 3. Monitor cultures. Elier Mabry MD Mar 25, 2017 12:19
--- NOTE | 2017-03-25 12:24 | RADRPT ---
EXAM DATE/TIME: 03/25/2017 09:48 [place] COMPARISON: No previous studies available for comparison. INDICATIONS : Patient is in need of a left knee aspiration due to swelling and joint effusion. MEDICAL HISTORY : History of HTN, DM, urinary retention, ESRD, PVD, chronic acidosis, right knee cellulitis. SURGICAL HISTORY : History of bilateral BKA, cholecystectomy, right eye prosthesis, skin cancer removal, renal transplan t x 2, pancreas transplant. ENCOUNTER: Initial ACUITY: 1 day PAIN SCORE: 6/10 LOCATION: Bilateral knee stumps FLUORO TIME: IMAGE SERIES: 0 DEVICE(S): 18 gauge needle was placed into the left knee joint. RESPONSE: Pre procedure pain level was 6/10 Post procedure pain level was 6/10 FLUID: Total volume of30 cc of clear yellowjoint fluid was removed. Fluid specimen was submitted to the lab for evaluation. PROCEDURE : 1. Fluoroscopically guided left knee aspiration. The risks, benefits and alternatives to the procedure were explained and verbal and written consent w as obtained. The site was prepped in sterile fashion. Full sterile technique was used, including ca p, mask, sterile gloves and gown and a large sterile sheet. Hand hygiene and 2% chlorhexidine and/or betadine/alcohol prep was utilized per protocol for cutaneous antisepsis. The skin and subcutaneous tissues were infiltrated with local anesthetic solution. A total of 30 cc of akbar fluid was aspirated from the lateral aspect of the left knee. Sample was se nt for laboratory analysis. The patient tolerated the procedure well and there were no complications. CONCLUSION: Uncomplicated aspiration as above. Rodney Vaughan MD on March 25, 2017 at 12:21 Board Certified Radiologist. This report was verified electronically.
--- NOTE | 2017-03-25 12:57 | PD.RAD ---
Post Procedure Progress Note Pre Procedure Diagnosis: (1) Cellulitis of left leg without foot Post Procedure Diagnosis: (1) Cellulitis of left leg without foot Procedure Date: Mar 25, 2017 Supervising Radiologist: Rodney Vaughan Proceduralist/Assist: RT Sonia(R)() Anesthesia: Local Plan of Activity Patient to Unit: Nursing Unit Patient Condition: Good See PACS Report for procedural detail/treatment Drainage Procedure Procedure 1 Imaging Guidance: Ultrasound Procedure Type: Aspiration (Left knee) Fluid Removal (CCs): 30 Fluid Description: Clear, Other (akbar) Rodney Vaughan MD Mar 25, 2017 12:57
[2017-03-25 14:04] LABS: WBC, SYNOVIAL FLUID 690 /MM3 (0-200)
[2017-03-25] MEDS: CINACALCET HYDROCHLORIDE 30 MG TAB PO SCH (19:01)
[2017-03-25] MEDS: traZODone HCL 100 MG TAB PO SCH (20:37)
[2017-03-25] MEDS: INSULIN DETEMIR 100 UNITS/ML VIAL SQ SCH (20:38)
[2017-03-25] MEDS: HEPARIN SODIUM - SQ 10,000 UNITS/ML VIAL SQ SCH (23:00)
[2017-03-26] VITALS (7 sets, daily range): BP systolic 98–119; BP diastolic 54–60; PULSE 71–91; RESP 16–20; TEMP 97.6–99.8; O2SAT 90–95
[2017-03-26] MEDS: INSULIN NovoLIN REGULAR SUPPLEMENTAL SCALE SQ SCH (09:02)
[2017-03-26] MEDS: SODIUM CHLORIDE 0.9% FLUSH 10 ML FLUSH IV FLUSH SCH ×2 (09:03→20:59)
[2017-03-26] MEDS: predniSONE 5 MG TAB PO SCH (09:03)
[2017-03-26] MEDS: azaTHIOprine 50 MG TAB PO SCH (09:03)
[2017-03-26] MEDS: SODIUM BICARBONATE 325 MG TAB PO SCH ×3 (09:03→16:17)
[2017-03-26] MEDS: TACROLIMUS 1 MG CAP PO SCH ×2 (09:03→20:56)
[2017-03-26] MEDS: ESCITALOPRAM OXALATE 10 MG TAB PO SCH (09:03)
[2017-03-26] MEDS: DOCUSATE SODIUM 50 MG/SENNA 8.6 MG TAB PO SCH ×2 (09:03→20:57)
[2017-03-26] MEDS: HEPARIN SODIUM - SQ 10,000 UNITS/ML VIAL SQ SCH ×2 (11:29→23:00)
--- NOTE | 2017-03-26 11:49 | HHI.NPPN ---
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 Patient also has a transplanted pancreas which is said to be still functional and he has been continued on immunosuppressive therapy per transplant clinic at [facility]. The patient has a history of bilateral below-knee amputations. Now presents with a history of erythema and increased swelling of his left stump. Denies drainage. His present for approximately 48 hours. Patient currently on maintenance hemodialysis Saturday and Saturday via a left dialysis shunt. Interval History No new complaints today. Review of Systems General Constitutional: Fatigue Objective Data Data 03/25/17 03/26/17 19:00 07:00 Intake Total 236 ml 480 ml Output Total 2500 ml 0 ml Balance -2264 ml 480 ml Intake Oral 236 ml 480 ml Output Urine Total 0 ml 0 ml Hemodialysis 2500 ml # Bowel Movements 0 0 Vital Signs Date Time Temp Pulse Resp B/P Pulse Ox O2 Delivery O2 Flow Rate FiO2 03/26/17 09:09 Room Air 03/26/17 09:09 81 03/26/17 08:00 98.9 80 18 98/57 92 03/26/17 04:35 98.5 76 16 99/54 91 03/26/17 04:00 Room Air 03/26/17 00:12 99.8 91 16 102/55 94 03/26/17 00:00 Room Air 03/25/17 20:18 99.4 89 16 132/63 92 03/25/17 20:00 96 03/25/17 20:00 Room Air 03/25/17 13:30 20 03/25/17 12:00 97.4 74 20 125/60 98 -: 03/25/17 0721 03/25/17 0721 Physical Exam General Appearance: No Acute Distress, Comfortable Eyes Eye Exam: Sclera White Pulmonary Resp Exam: Clear Bilaterally, Breath Sounds Equal, No Distress Cardiology CV Exam: Regular, Normal Sinus Rhythm, Good Perfusion Gastrointestinal/Abdomen GI Exam: Soft, Non-Tender Musculoskeletal MS Exam: Joints Intact (improved but still swollen left knee joint.) MS Remarks Bilateral BKA. Integumentary Skin Exam: Clear, Warm Extremeties Extremities Exam: Moderate Edema (erythema overlying the stump has improved however there is still some erythema and tenderness overlying his left knee joint.) Assessment/Plan Discussed Condition With: Patient Problem List: (1) End stage renal disease on dialysis Plan: Continue hemodialysis Saturday and Saturday. Dialysis orders have been entered. Medication should be adjusted for his end-stage renal disease when indicated. Avoid gadolinium. (2) Cellulitis of left leg without foot Plan: Will defer management to infectious disease. Await results of the knee aspirate. Clinically the infection is improving albeit slowly. Blood cultures negative to date. (3) Metabolic acidosis Plan: Patient's metabolic acidosis is secondary to a combination of his end- stage renal disease but also his pancreatic transplant which is associated with bicarbonate into the bladder. Continue sodium bicarbonate supplementation. Hemodialysis tomorrow. (4) Kidney transplant failure (5) Pancreas transplant status Plan: Tacrolimus level is elevated however the timing of the medication and lab draw seen to indicate that it was not a true trough level. Re-ordered for tomorrow. Rodo Ramirez MD Mar 26, 2017 11:49
--- NOTE | 2017-03-26 12:59 | HHI.PR ---
Subjective Remarks The patient was resting comfortably in bed. He said he had dialysis. He said his pain was controlled. He had no acute complaints. He said he has been having bowel movements. Discussed with nursing. Objective Vitals Vital Signs Date Time Temp Pulse Resp B/P Pulse Ox O2 Delivery O2 Flow Rate FiO2 03/26/17 09:09 Room Air 03/26/17 09:09 81 03/26/17 08:00 98.9 80 18 98/57 92 03/26/17 04:35 98.5 76 16 99/54 91 03/26/17 04:00 Room Air 03/26/17 00:12 99.8 91 16 102/55 94 03/26/17 00:00 Room Air 03/25/17 20:18 99.4 89 16 132/63 92 03/25/17 20:00 96 03/25/17 20:00 Room Air 03/25/17 13:30 20 I/O 03/25/17 03/25/17 03/25/17 03/26/17 03/26/17 03/26/17 07:00 15:00 23:00 07:00 15:00 23:00 Intake Total 320 ml 236 ml 480 ml 0 ml Output Total 900 ml 0 ml 2500 ml 0 ml Balance -580 ml 236 ml -2020 ml 0 ml Intake Oral 320 ml 236 ml 480 ml 0 ml Output Urine Total 900 ml 0 ml 0 ml 0 ml Hemodialysis 2500 ml # Bowel Movements 0 0 0 0 Result Diagram: 03/25/17 0721 03/25/17 0721 Imaging Last Impressions Aspiration 03/25/17 0000 Signed Impressions: Service Date/Time: Saturday, March 25, 2017 09:48 - CONCLUSION: Uncomplicated aspiration as above. Rodney Vaughan MD Chest X-Ray 03/23/17 2194 Signed Impressions: Service Date/Time: Thursday, March 23, 2017 17:57 - CONCLUSION: 1. Mild basal atelectasis. Cardiomegaly. No significant change from October 17. Tee Stack MD Objective Remarks GENERAL: Well-nourished, well-developed pleasant middle aged male patient in [facility]. SKIN: Warm and dry. No rash. HEENT: Normocephalic. Atraumatic. Pupils equal and round. Mucous membranes pink and moist. CARDIOVASCULAR: Regular rate and rhythm. S1, S2 noted. No murmur appreciated. RESPIRATORY: Slight crackles at the bases. GASTROINTESTINAL: Abdomen soft, non-tender, nondistended. Normoactive bowel sounds x4. MUSCULOSKELETAL: Chronic bilateral BKA. Left stump with diffuse erythema/edema and TTP extending into the medial knee. S/p joint aspiration at left lateral knee, aspiration site clean, covered with dressing CDI. NEUROLOGICAL: Awake and alert. No obvious cranial nerve deficits. Motor grossly within normal limits. Normal speech. PSYCHIATRIC: Appropriate mood and affect; insight and judgment normal. Procedures 03/25/17 - right lateral knee joint aspiration Medications and IVs Current Medications Medications (Trade) Dose Ordered Sig/Lida Route Start Time Stop Time Status Last Admin (D50w (Vial) Inj) 50 ml UNSCH PRN IV 03/23/17 19:15 (Glucagon Inj) 1 mg UNSCH PRN OTHER 03/23/17 19:15 (NS Flush) 2 ml UNSCH PRN IV FLUSH 03/23/17 19:15 (NS Flush) 2 ml BID IV FLUSH 03/23/17 21:00 03/26/17 09:03 (Zofran Inj) 4 mg Q6H PRN IVP 03/23/17 19:15 (Heparin Inj) 5,000 units Q12H SQ 03/23/17 23:00 (Tylenol) 650 mg Q6H PRN PO 03/23/17 19:15 03/24/17 11:59 ([place] 5-325 Mg) 1 tab Q4H PRN PO 03/23/17 19:15 03/25/17 20:37 (Morphine Inj) 2 mg Q3H PRN IV 03/23/17 19:15 03/23/17 21:15 (Bibiana-Colace) 1 tab BID PO 03/23/17 21:00 03/26/17 09:03 (Milk Of Magnesia Liq) 30 ml Q12H PRN PO 03/23/17 19:15 (Senokot) 17.2 mg Q12H PRN PO 03/23/17 19:15 (Dulcolax Supp) 10 mg DAILY PRN RECTAL 03/23/17 19:15 (Lactulose Liq) 30 ml DAILY PRN PO 03/23/17 19:15 (Imuran) 75 mg DAILY PO 03/24/17 09:00 03/26/17 09:03 (Lexapro) 10 mg DAILY PO 03/24/17 09:00 03/26/17 09:03 (Levemir Inj) 15 units HS SQ 03/23/17 21:00 03/25/17 20:38 (Deltasone) 5 mg DAILY PO 03/24/17 09:00 03/26/17 09:03 (Desyrel) 100 mg HS PO 03/23/17 21:00 03/25/17 20:37 (Pill Splitter) 1 ea UNSCH PRN OTHER 03/23/17 19:45 (Prograf) 2 mg Q12HR PO 03/24/17 18:00 03/26/17 09:03 Sodium Bicarbonate 650 mg 650 mg TID PO 03/24/17 18:00 03/26/17 09:03 (NS 1000 ml Inj) 1,000 ml @ 0 mls/hr Q0M PRN IV 03/24/17 14:44 03/25/17 16:48 Heparin Sodium (Porcine) 8000 units 8,000 units UNSCH PRN IVF 03/24/17 14:45 Sodium Chloride 1,000 ml @ 200 mls/hr Q5H PRN IV 03/24/17 14:44 (NS 1000 ml Inj) 1,000 ml @ 0 mls/hr Q0M PRN IV 03/24/17 14:44 (Mannitol Inj) 12.5 gm UNSCH PRN IV 03/24/17 14:45 (Albumin 25% Inj) 25 gm UNSCH PRN IV 03/24/17 14:45 (NS Flush) 5 ml UNSCH PRN IV FLUSH 03/24/17 14:45 (Gentamicin (Dialysis) Inj) 20 mg UNSCH PRN IV 03/24/17 14:45 (Zofran Inj) 4 mg UNSCH PRN IV 03/24/17 14:45 (Tylenol) 650 mg UNSCH PRN PO 03/24/17 14:45 (Benadryl) 25 mg UNSCH PRN PO 03/24/17 14:45 (Nitrostat Sl) 0.4 mg UNSCH PRN SL 03/24/17 14:45 (Catapres) 0.1 mg UNSCH PRN PO 03/24/17 14:45 (Gelfoam 12 Mm/7 Mm Top) 1 foam UNSCH PRN TOP 03/24/17 14:45 03/25/17 16:48 A/P Problem List: (1) Cellulitis ICD Code: L03.90 Status: Acute (2) Diabetes mellitus type 2 with complications ICD Code: E11.8 Status: Chronic (3) HTN (hypertension) ICD Code: I10 Status: Chronic (4) End stage renal disease on dialysis ICD Code: N18.6 Status: Chronic Assessment and Plan 56 y/o male with a history of ESRD on HD s/p failed kidney transplant on chronic immunosuppression , HTN, DM, bilateral BKA, anxiety and depression presented to the ED with complaints of pain, swelling and redness in left stump. Left BKA/Knee Cellulitis: no open wound or drainage, however, +erythema/edema/ warmth with palpable effusion. Concern for septic joint. Patient also with history of sarahy in left femur and pins in left elbow. -Continue IV antibiotics with vancomycin during dialysis -S/p left knee joint aspiration on 03/25, send synovial fluid studies. WBC count 690 -Continue pain control as needed with a bowel regimen -Consult ID, discussed with Dr. Mabry, await fluid cultures, consider MRI depending on results of culture Leukocytosis: secondary to cellulitis as above, no documented fevers. -On antibiotics as above -Continue to monitor blood cultures, NGTD ESRD on HD MWF, s/p failed renal transplant on chronic immunosuppression. -Consult nephrology, Dr. Ramirez will follow -Continue home medications: Prograf, na bicarb, and prednisone -Monitor BMP. HTN, chronic: Resume home medications, hold if hypotensive DM, Chronic: Resume home long acting insulin, Accu checks with SSI. Add long- acting as needed. DVT prophylaxis: Heparin Discharge Planning Awaiting clinical improvement Problem Qualifiers (1) Cellulitis: Qualified Code: L03.116 - Cellulitis of left lower extremity (2) Diabetes mellitus type 2 with complications: Qualified Code: E11.8 - Type 2 diabetes mellitus with complication, with long- term current use of insulin Brett Rick DO Mar 26, 2017 12:59
[2017-03-26] MEDS: INSULIN ASPART SUPPLEMENTAL SCALE SQ SCH ×3 (13:17→20:53)
[2017-03-26] MEDS ORDERED: INSULIN ASPART SUPPLEMENTAL SCALE SQ SCH (16:00)
[2017-03-26] MEDS: ACETAMINOPHEN/HYDROcodone 325 MG/5 MG TAB PO PRN (16:17)
[2017-03-26] MEDS: CINACALCET HYDROCHLORIDE 30 MG TAB PO SCH (16:17)
--- NOTE | 2017-03-26 17:07 | HHI.IDPN ---
Note Infectious Disease Note Patient continues to have pain at the l. knee. Redness still present at the inner l. knee. No redness at the lateral l. knee. No chills. Afebrile. Synovial fluid Culture - no growth. PAST MEDICAL HISTORY 1. End-stage renal disease. On hemodialysis. 2. Hypertension. 3. Diabetes mellitus. 4. Anxiety, depression. 5. Chronic acidosis. 6. Bilateral tqfvh-ilf-inot amputation. 7. kidney transplantation in 1991 and 2009. 8. Pancreatic transplantation in 1991. On immunosuppressive med. 9. Cholecystectomy. 10. Skin cancer removal. 11. Prosthesis in the right eye. ALLERGIES NO KNOWN DRUG ALLERGIES. OBJECTIVE: Vital Signs Date Time Temp Pulse Resp B/P Pulse Ox O2 Delivery O2 Flow Rate FiO2 03/26/17 12:00 98.7 84 18 113/58 90 03/26/17 09:09 Room Air 03/26/17 09:09 81 03/26/17 08:00 98.9 80 18 98/57 92 03/26/17 04:35 98.5 76 16 99/54 91 03/26/17 04:00 Room Air 03/26/17 00:12 99.8 91 16 102/55 94 03/26/17 00:00 Room Air 03/25/17 20:18 99.4 89 16 132/63 92 03/25/17 20:00 96 03/25/17 20:00 Room Air 03/25/17 03/25/17 03/26/17 15:00 23:00 07:00 Intake Total 236 ml 480 ml 0 ml Output Total 0 ml 2500 ml 0 ml Balance 236 ml -2020 ml 0 ml Intake Oral 236 ml 480 ml 0 ml Output Urine Total 0 ml 0 ml 0 ml Hemodialysis 2500 ml # Bowel Movements 0 0 0 Laboratory Tests Test 03/25/17 07:21 White Blood Count 9.3 TH/MM3 Red Blood Count 3.27 MIL/MM3 Hemoglobin 11.3 GM/DL Hematocrit 33.8 % Mean Corpuscular Volume 103.6 FL Mean Corpuscular Hemoglobin 34.6 PG Mean Corpuscular Hemoglobin 33.4 % Concent Red Cell Distribution Width 16.6 % Platelet Count 199 TH/MM3 Mean Platelet Volume 7.5 FL Neutrophils (%) (Auto) 79.0 % Lymphocytes (%) (Auto) 12.2 % Monocytes (%) (Auto) 7.2 % Eosinophils (%) (Auto) 1.0 % Basophils (%) (Auto) 0.6 % Neutrophils # (Auto) 7.4 TH/MM3 Lymphocytes # (Auto) 1.1 TH/MM3 Monocytes # (Auto) 0.7 TH/MM3 Eosinophils # (Auto) 0.1 TH/MM3 Basophils # (Auto) 0.1 TH/MM3 CBC Comment DIFF FINAL Differential Comment Laboratory Tests Test 03/25/17 07:21 Sodium Level 132 MEQ/L Potassium Level 5.3 MEQ/L Chloride Level 97 MEQ/L Carbon Dioxide Level 16.1 MEQ/L Anion Gap 19 MEQ/L Blood Urea Nitrogen 67 MG/DL Creatinine 10.63 MG/DL Estimat Glomerular Filtration 5 ML/MIN Rate Random Glucose 172 MG/DL Calcium Level 8.7 MG/DL Microbiology Date/Time Procedure Status Source Growth 03/23/17 17:55 Aerobic Blood Culture - Preliminary Resulted Blood Peripheral NO GROWTH IN 3 DAYS 03/23/17 17:55 Anaerobic Blood Culture - Preliminary Resulted Blood Peripheral NO GROWTH IN 3 DAYS 03/23/17 18:10 Aerobic Blood Culture - Preliminary Resulted Blood Peripheral NO GROWTH IN 3 DAYS 03/23/17 18:10 Anaerobic Blood Culture - Preliminary Resulted Blood Peripheral NO GROWTH IN 3 DAYS 03/25/17 10:10 Gram Stain - Final Resulted Fluid Synovial Fluid 03/25/17 10:10 Body Fluid Culture - Preliminary Resulted Fluid Synovial Fluid NO GROWTH IN 24 HOURS. 03/25/17 10:10 Acid Fast Stain - Final Resulted Fluid Synovial Fluid NO ACID FAST BACILLI SEEN 03/25/17 10:10 Mycobacterial Culture Resulted Fluid Synovial Fluid Pending 03/25/17 10:10 Fungal Smear - Final Resulted Fluid Synovial Fluid NO FUNGAL ELEMENTS SEEN. 03/25/17 10:10 Fungal Culture Resulted Fluid Synovial Fluid Pending PHYSICAL EXAMINATION GENERAL: No acute distress. He is awake, alert, oriented. HEENT: No icterus. The right side has an eye prosthesis. Oropharynx no visible lesions. LUNGS: Decreased clear breath sounds. HEART: Regular S1-S2 without murmurs, rubs, or gallops. ABDOMEN: Decreased bowel sounds, soft, nontender. EXTREMITIES: The left knee at the inner aspect has blanching erythema at the inner aspect. The area is warm to touch. No change. The erythema extends along the side of the patella and here is also mild erythema at the anterior tatiana above the stump. There is no involvement of the stump incision or the area around the stump itself. The right stump is intact. There is no cyanosis or edema. SKIN: No rash. NEUROLOGIC: No gross focal findings. PSYCHIATRIC: The patient is calm and cooperative. IMPRESSION 1. Cellulitis of the right knee and possibly soft tissue infection at the right knee. ? infective arthritis. 2. Immunosuppression. The patient had pancreatic transplant and is on immunosuppressive medications. 3. Bilateral [id number]-dml-[id number] amputation. It appears that the patient's cellulitis in the area where the stump rubs against the lower extremity at the knee region and he may simply have developed cellulitis from the irritation of the prosthesis subsequently developing infection in that location. RECOMMENDATIONS 1. Continue vancomycin at dialysis. 2. Add Ceftriaxone. 3. Monitor cultures. 4. Monitor response. Elier Mabry MD Mar 26, 2017 17:07
[2017-03-26] MEDS: INSULIN DETEMIR 100 UNITS/ML VIAL SQ SCH (20:55)
[2017-03-26] MEDS: traZODone HCL 100 MG TAB PO SCH (20:56)
[2017-03-26] MEDS: cefTRIAXone INJ 1,000 MG in SODIUM CHLORIDE 0.9% INJ 100 ML IV SCH (20:58)
[2017-03-27] VITALS: BP 100/54; PULSE 67; RESP 16; TEMP 98.4; O2SAT 91
[2017-03-27 04:00] VITALS: BP 98/55; PULSE 70; RESP 18; TEMP 99; O2SAT 91
[2017-03-27] MEDS: INSULIN ASPART SUPPLEMENTAL SCALE SQ SCH ×4 (05:25→20:55)
[2017-03-27 07:27] LABS: BICARBONATE 22.6 MEQ/L (21.0-32.0); MAGNESIUM 2.1 MG/DL (1.5-2.5); POTASSIUM 4.7 MEQ/L (3.5-5.1)
[2017-03-27 08:00] VITALS: BP 90/50; PULSE 91; RESP 18; TEMP 98.5; O2SAT 91
[2017-03-27] MEDS: SODIUM CHLORIDE 0.9% FLUSH 10 ML FLUSH IV FLUSH SCH ×2 (09:05→20:56)
[2017-03-27] MEDS: SODIUM BICARBONATE 325 MG TAB PO SCH ×3 (09:05→18:08)
[2017-03-27] MEDS: azaTHIOprine 50 MG TAB PO SCH (09:05)
[2017-03-27] MEDS: TACROLIMUS 1 MG CAP PO SCH (09:05)
[2017-03-27] MEDS: DOCUSATE SODIUM 50 MG/SENNA 8.6 MG TAB PO SCH ×2 (09:05→20:59)
[2017-03-27] MEDS: predniSONE 5 MG TAB PO SCH (09:05)
[2017-03-27] MEDS: ESCITALOPRAM OXALATE 10 MG TAB PO SCH (09:05)
[2017-03-27] MEDS: ACETAMINOPHEN/HYDROcodone 325 MG/5 MG TAB PO PRN ×2 (09:11→20:51)
[2017-03-27 09:13] VITALS: PULSE 69
--- NOTE | 2017-03-27 15:11 | HHI.IDPN ---
Note Infectious Disease Note Patient continues to have pain at the l. knee above and below the knee. Redness still present at the inner l. knee. and anteriorly above the stump. No chills. Afebrile. Synovial fluid Culture - no growth. PAST MEDICAL HISTORY 1. End-stage renal disease. On hemodialysis. 2. Hypertension. 3. Diabetes mellitus. 4. Anxiety, depression. 5. Chronic acidosis. 6. Bilateral zniho-edx-uqgr amputation. 7. kidney transplantation in 1991 and 2009. 8. Pancreatic transplantation in 1991. On immunosuppressive med. 9. Cholecystectomy. 10. Skin cancer removal. 11. Prosthesis in the right eye. ALLERGIES NO KNOWN DRUG ALLERGIES. OBJECTIVE: Vital Signs Date Time Temp Pulse Resp B/P Pulse Ox O2 Delivery O2 Flow Rate FiO2 03/27/17 09:13 69 03/27/17 09:13 Room Air 03/27/17 08:00 98.5 91 18 90/50 91 03/27/17 04:00 99.0 70 18 98/55 91 03/27/17 04:00 Room Air 03/27/17 00:00 Room Air 03/27/17 00:00 98.4 67 16 100/54 91 03/26/17 20:00 Room Air 03/26/17 20:00 71 03/26/17 20:00 98.3 71 18 119/60 95 03/26/17 16:00 97.6 74 20 115/58 93 03/26/17 03/26/17 03/27/17 15:00 23:00 07:00 Intake Total 480 ml 240 ml 0 ml Output Total 0 ml Balance 480 ml 240 ml 0 ml Intake Oral 480 ml 240 ml 0 ml Output Urine Total 0 ml # Voids 0 0 # Bowel Movements 0 1 0 Laboratory Tests Test 03/27/17 05:15 Sodium Level 131 MEQ/L Potassium Level 4.7 MEQ/L Chloride Level 93 MEQ/L Carbon Dioxide Level 22.6 MEQ/L Anion Gap 15 MEQ/L Blood Urea Nitrogen 62 MG/DL Creatinine 9.34 MG/DL Estimat Glomerular Filtration 6 ML/MIN Rate Random Glucose 136 MG/DL Calcium Level 8.5 MG/DL Magnesium Level 2.1 MG/DL PHYSICAL EXAMINATION GENERAL: No acute distress. HEENT: No icterus. The right side has an eye prosthesis. Oropharynx no visible lesions. LUNGS: Decreased clear breath sounds. HEART: Regular S1-S2 without murmurs, rubs, or gallops. ABDOMEN: Decreased bowel sounds, soft, nontender. EXTREMITIES: The left knee at the inner aspect has blanching erythema at the inner aspect unchanged. The area is warm to touch. No change. The erythema extends along the side of the patella and here is also mild erythema at the anterior tatiana above the stump. There is no involvement of the stump incision. The right stump is intact. There is no cyanosis or edema. SKIN: No rash. NEUROLOGIC: No gross focal findings. PSYCHIATRIC: The patient is calm and cooperative. IMPRESSION 1. Cellulitis of the right knee and possibly soft tissue infection at the right knee. No improvement. ? infective arthritis. 2. Immunosuppression. The patient had pancreatic transplant and is on immunosuppressive medications. 3. Bilateral wjjij-crx-tsoa amputation. Also has sarahy in left femur. RECOMMENDATIONS 1. Continue vancomycin at dialysis. 2. Continue Ceftriaxone. 3. Orthopedic consult. 4. Monitor response. Elier Mabry MD Mar 27, 2017 15:11
--- NOTE | 2017-03-27 15:17 | HHI.PR ---
Subjective Remarks The patient was seen after dialysis. He said dialysis went well. He said he woke up with more pain in the left leg. Everything else is going well he said. Objective Vitals Vital Signs Date Time Temp Pulse Resp B/P Pulse Ox O2 Delivery O2 Flow Rate FiO2 03/27/17 09:13 69 03/27/17 09:13 Room Air 03/27/17 08:00 98.5 91 18 90/50 91 03/27/17 04:00 99.0 70 18 98/55 91 03/27/17 04:00 Room Air 03/27/17 00:00 Room Air 03/27/17 00:00 98.4 67 16 100/54 91 03/26/17 20:00 Room Air 03/26/17 20:00 71 03/26/17 20:00 98.3 71 18 119/60 95 03/26/17 16:00 97.6 74 20 115/58 93 I/O 03/26/17 03/26/17 03/26/17 03/27/17 03/27/17 03/27/17 07:00 15:00 23:00 07:00 15:00 23:00 Intake Total 0 ml 480 ml 240 ml 0 ml Output Total 0 ml 0 ml 2500 ml Balance 0 ml 480 ml 240 ml 0 ml -2500 ml Intake Oral 0 ml 480 ml 240 ml 0 ml Output Urine Total 0 ml 0 ml Hemodialysis 2500 ml # Voids 0 0 # Bowel Movements 0 0 1 0 Result Diagram: 03/25/17 0721 03/27/17 0515 Imaging Last Impressions Aspiration 03/25/17 0000 Signed Impressions: Service Date/Time: Saturday, March 25, 2017 09:48 - CONCLUSION: Uncomplicated aspiration as above. Rodney Vaughan MD Chest X-Ray 03/23/17 1734 Signed Impressions: Service Date/Time: Thursday, March 23, 2017 17:57 - CONCLUSION: 1. Mild basal atelectasis. Cardiomegaly. No significant change from October 17. Tee Stack MD Objective Remarks GENERAL: Well-nourished, well-developed pleasant middle aged male patient in [facility]. SKIN: Warm and dry. No rash. HEENT: Normocephalic. Atraumatic. Pupils equal and round. Mucous membranes pink and moist. CARDIOVASCULAR: Regular rate and rhythm. S1, S2 noted. No murmur appreciated. RESPIRATORY: Slight crackles at the bases. GASTROINTESTINAL: Abdomen soft, non-tender, nondistended. Normoactive bowel sounds x4. MUSCULOSKELETAL: Chronic bilateral BKA. Left stump with erythema and TTP. NEUROLOGICAL: Awake and alert. No obvious cranial nerve deficits. Motor grossly within normal limits. Normal speech. PSYCHIATRIC: Appropriate mood and affect; insight and judgment normal. Procedures 03/25/17 - right lateral knee joint aspiration Medications and IVs Current Medications Medications (Trade) Dose Ordered Sig/Lida Route Start Time Stop Time Status Last Admin (D50w (Vial) Inj) 50 ml UNSCH PRN IV 03/23/17 19:15 (Glucagon Inj) 1 mg UNSCH PRN OTHER 03/23/17 19:15 (NS Flush) 2 ml UNSCH PRN IV FLUSH 03/23/17 19:15 (NS Flush) 2 ml BID IV FLUSH 03/23/17 21:00 03/27/17 09:05 (Zofran Inj) 4 mg Q6H PRN IVP 03/23/17 19:15 (Heparin Inj) 5,000 units Q12H SQ 03/23/17 23:00 (Tylenol) 650 mg Q6H PRN PO 03/23/17 19:15 03/24/17 11:59 ([place] 5-325 Mg) 1 tab Q4H PRN PO 03/23/17 19:15 03/27/17 09:11 (Morphine Inj) 2 mg Q3H PRN IV 03/23/17 19:15 03/23/17 21:15 (Bibiana-Colace) 1 tab BID PO 03/23/17 21:00 03/27/17 09:05 (Milk Of Magnesia Liq) 30 ml Q12H PRN PO 03/23/17 19:15 (Senokot) 17.2 mg Q12H PRN PO 03/23/17 19:15 (Dulcolax Supp) 10 mg DAILY PRN RECTAL 03/23/17 19:15 (Lactulose Liq) 30 ml DAILY PRN PO 03/23/17 19:15 (Imuran) 75 mg DAILY PO 03/24/17 09:00 03/27/17 09:05 (Lexapro) 10 mg DAILY PO 03/24/17 09:00 03/27/17 09:05 (Levemir Inj) 15 units HS SQ 03/23/17 21:00 03/26/17 20:55 (Deltasone) 5 mg DAILY PO 03/24/17 09:00 03/27/17 09:05 (Desyrel) 100 mg HS PO 03/23/17 21:00 03/26/17 20:56 (Pill Splitter) 1 ea UNSCH PRN OTHER 03/23/17 19:45 (Prograf) 2 mg Q12HR PO 03/24/17 18:00 03/27/17 09:05 Sodium Bicarbonate 650 mg 650 mg TID PO 03/24/17 18:00 03/27/17 09:05 (NS 1000 ml Inj) 1,000 ml @ 0 mls/hr Q0M PRN IV 03/24/17 14:44 03/25/17 16:48 Heparin Sodium (Porcine) 8000 units 8,000 units UNSCH PRN IVF 03/24/17 14:45 Sodium Chloride 1,000 ml @ 200 mls/hr Q5H PRN IV 03/24/17 14:44 (NS 1000 ml Inj) 1,000 ml @ 0 mls/hr Q0M PRN IV 03/24/17 14:44 (Mannitol Inj) 12.5 gm UNSCH PRN IV 03/24/17 14:45 (Albumin 25% Inj) 25 gm UNSCH PRN IV 03/24/17 14:45 (NS Flush) 5 ml UNSCH PRN IV FLUSH 03/24/17 14:45 (Gentamicin (Dialysis) Inj) 20 mg UNSCH PRN IV 03/24/17 14:45 (Zofran Inj) 4 mg UNSCH PRN IV 03/24/17 14:45 (Tylenol) 650 mg UNSCH PRN PO 03/24/17 14:45 (Benadryl) 25 mg UNSCH PRN PO 03/24/17 14:45 (Nitrostat Sl) 0.4 mg UNSCH PRN SL 03/24/17 14:45 (Catapres) 0.1 mg UNSCH PRN PO 03/24/17 14:45 Gelatin 1 foam 1 foam UNSCH PRN TOP 03/24/17 14:45 03/25/17 16:48 (Rocephin Inj/NS Inj) 100 ml @ 200 mls/hr Q24H IV 03/26/17 20:00 03/26/17 20:58 A/P Problem List: (1) Cellulitis ICD Code: L03.90 Status: Acute (2) Diabetes mellitus type 2 with complications ICD Code: E11.8 Status: Chronic (3) HTN (hypertension) ICD Code: I10 Status: Chronic (4) End stage renal disease on dialysis ICD Code: N18.6 Status: Chronic Assessment and Plan 56 y/o male with a history of ESRD on HD s/p failed kidney transplant on chronic immunosuppression , HTN, DM, bilateral BKA, anxiety and depression presented to the ED with complaints of pain, swelling and redness in left stump. Left BKA/Knee Cellulitis: no open wound or drainage, however, +erythema/edema/ warmth with palpable effusion. Concern for septic joint. Patient also with history of sarahy in left femur and pins in left elbow. -Continue IV antibiotics with vancomycin during dialysis -S/p left knee joint aspiration on 03/25, send synovial fluid studies. WBC count 690 -Continue pain control as needed with a bowel regimen -Consult ID, discussed with Dr. Mabry, await fluid cultures. Ortho consult has been requested. Leukocytosis: secondary to cellulitis as above, no documented fevers. -On antibiotics as above -Continue to monitor blood cultures, NGTD ESRD on HD MWF, s/p failed renal transplant on chronic immunosuppression. -Consult nephrology. Had dialysis 03/27. -Continue home medications: Prograf, na bicarb, and prednisone -Monitor BMP. HTN, chronic: Resume home medications, hold if hypotensive. Blood pressure low . DM, Chronic: Resume home long acting insulin, Accu checks with SSI. Add long- acting as needed. Well controlled 03/27. DVT prophylaxis: Heparin Discharge Planning Awaiting clinical improvement Problem Qualifiers (1) Cellulitis: Qualified Code: L03.116 - Cellulitis of left lower extremity (2) Diabetes mellitus type 2 with complications: Qualified Code: E11.8 - Type 2 diabetes mellitus with complication, with long- term current use of insulin Brett Rick DO Mar 27, 2017 15:17
[2017-03-27] MEDS: HEPARIN SODIUM - SQ 10,000 UNITS/ML VIAL SQ SCH ×2 (15:18→20:59)
[2017-03-27 16:00] VITALS: BP 107/63; PULSE 75; RESP 18; TEMP 98.6; O2SAT 97
--- NOTE | 2017-03-27 17:36 | RADRPT ---
EXAM DATE/TIME: 03/27/2017 17:04 [place] COMPARISON: No previous studies available for comparison. INDICATIONS : Left knee pain, swelling for 3 days MEDICAL HISTORY : Diabetes mellitus type II. Left distal femur fracture SURGICAL HISTORY : ORIF left distal femur, Left proximal lower leg amputation ENCOUNTER: Initial ACUITY: 3 days PAIN SCORE: 5/10 LOCATION: Left distal lower leg FINDINGS: There has been previous below knee amputation. There is been previous cortical side plate and screw f ixation of the distal femur. There is severe arthritic change at the knee with evidence of pyrophosph ate arthropathy. There is no evidence of fracture or joint effusion. No destructive changes are ident ified. Dense atherosclerotic calcification is present in the femoral and popliteal vessels. Multiple phleboliths are also noted in the soft tissues. CONCLUSION: No definite acute bony findings Gage Tellez MD on March 27, 2017 at 17:33 Board Certified Radiologist. This report was verified electronically.
[2017-03-27] MEDS: CINACALCET HYDROCHLORIDE 30 MG TAB PO SCH (18:08)
--- NOTE | 2017-03-27 19:03 | HHI.NPPN ---
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 Patient also has a transplanted pancreas which is said to be still functional and he has been continued on immunosuppressive therapy per transplant clinic at [facility]. The patient has a history of bilateral below-knee amputations. Now presents with a history of erythema and increased swelling of his left stump. Denies drainage. His present for approximately 48 hours. Patient currently on maintenance hemodialysis Saturday and Saturday via a left dialysis shunt. Interval History Pt states feeling OK. Still with pain in L stump with redness and small blisters. (Liza Clifford) Review of Systems Skin Skin: Lesions (erythema and blistering on L stump) (Liza Clifford) Objective Data Data 03/26/17 03/27/17 18:59 06:59 Intake Total 480 ml 240 ml Output Total 0 ml Balance 480 ml 240 ml Intake Oral 480 ml 240 ml Output Urine Total 0 ml # Voids 0 0 # Bowel Movements 0 1 Vital Signs Date Time Temp Pulse Resp B/P Pulse Ox O2 Delivery O2 Flow Rate FiO2 03/27/17 16:00 98.6 75 18 107/63 97 03/27/17 09:13 69 03/27/17 09:13 Room Air 03/27/17 08:00 98.5 91 18 90/50 91 03/27/17 04:00 99.0 70 18 98/55 91 03/27/17 04:00 Room Air 03/27/17 00:00 Room Air 03/27/17 00:00 98.4 67 16 100/54 91 03/26/17 20:00 Room Air 03/26/17 20:00 71 03/26/17 20:00 98.3 71 18 119/60 95 (Liza Clifford) -: 03/25/17 0721 03/27/17 0515 Imaging Last Impressions Knee X-Ray 03/27/17 0000 Signed Impressions: Service Date/Time: Monday, March 27, 2017 17:04 - CONCLUSION: No definite acute bony findings Gage Tellez MD Aspiration 03/25/17 0000 Signed Impressions: Service Date/Time: Saturday, March 25, 2017 09:48 - CONCLUSION: Uncomplicated aspiration as above. Rodney Vaughan MD Chest X-Ray 03/23/17 2713 Signed Impressions: Service Date/Time: Thursday, March 23, 2017 17:57 - CONCLUSION: 1. Mild basal atelectasis. Cardiomegaly. No significant change from October 17. Tee Stack MD Medication Review Current Medications Medications (Trade) Dose Ordered Sig/Lida Route Start Time Stop Time Status Last Admin (D50w (Vial) Inj) 50 ml UNSCH PRN IV 03/23/17 19:15 (Glucagon Inj) 1 mg UNSCH PRN OTHER 03/23/17 19:15 (NS Flush) 2 ml UNSCH PRN IV FLUSH 03/23/17 19:15 (NS Flush) 2 ml BID IV FLUSH 03/23/17 21:00 03/27/17 09:05 (Zofran Inj) 4 mg Q6H PRN IVP 03/23/17 19:15 (Heparin Inj) 5,000 units Q12H SQ 03/23/17 23:00 (Tylenol) 650 mg Q6H PRN PO 03/23/17 19:15 03/24/17 11:59 ([place] 5-325 Mg) 1 tab Q4H PRN PO 03/23/17 19:15 03/27/17 09:11 (Morphine Inj) 2 mg Q3H PRN IV 03/23/17 19:15 03/23/17 21:15 (Bibiana-Colace) 1 tab BID PO 03/23/17 21:00 03/27/17 09:05 (Milk Of Magnesia Liq) 30 ml Q12H PRN PO 03/23/17 19:15 (Senokot) 17.2 mg Q12H PRN PO 03/23/17 19:15 (Dulcolax Supp) 10 mg DAILY PRN RECTAL 03/23/17 19:15 (Lactulose Liq) 30 ml DAILY PRN PO 03/23/17 19:15 (Imuran) 75 mg DAILY PO 03/24/17 09:00 03/27/17 09:05 (Lexapro) 10 mg DAILY PO 03/24/17 09:00 03/27/17 09:05 (Levemir Inj) 15 units HS SQ 03/23/17 21:00 03/26/17 20:55 (Deltasone) 5 mg DAILY PO 03/24/17 09:00 03/27/17 09:05 (Desyrel) 100 mg HS PO 03/23/17 21:00 03/26/17 20:56 (Pill Splitter) 1 ea UNSCH PRN OTHER 03/23/17 19:45 (Prograf) 2 mg Q12HR PO 03/24/17 18:00 03/27/17 09:05 Sodium Bicarbonate 650 mg 650 mg TID PO 03/24/17 18:00 03/27/17 18:08 (NS 1000 ml Inj) 1,000 ml @ 0 mls/hr Q0M PRN IV 03/24/17 14:44 03/25/17 16:48 Heparin Sodium (Porcine) 8000 units 8,000 units UNSCH PRN IVF 03/24/17 14:45 Sodium Chloride 1,000 ml @ 200 mls/hr Q5H PRN IV 03/24/17 14:44 (NS 1000 ml Inj) 1,000 ml @ 0 mls/hr Q0M PRN IV 03/24/17 14:44 (Mannitol Inj) 12.5 gm UNSCH PRN IV 03/24/17 14:45 (Albumin 25% Inj) 25 gm UNSCH PRN IV 03/24/17 14:45 (NS Flush) 5 ml UNSCH PRN IV FLUSH 03/24/17 14:45 (Gentamicin (Dialysis) Inj) 20 mg UNSCH PRN IV 03/24/17 14:45 (Zofran Inj) 4 mg UNSCH PRN IV 03/24/17 14:45 (Tylenol) 650 mg UNSCH PRN PO 03/24/17 14:45 (Benadryl) 25 mg UNSCH PRN PO 03/24/17 14:45 (Nitrostat Sl) 0.4 mg UNSCH PRN SL 03/24/17 14:45 (Catapres) 0.1 mg UNSCH PRN PO 03/24/17 14:45 Gelatin 1 foam 1 foam UNSCH PRN TOP 03/24/17 14:45 03/25/17 16:48 (Rocephin Inj/NS Inj) 100 ml @ 200 mls/hr Q24H IV 03/26/17 20:00 03/26/17 20:58 (Liza Clifford) Physical Exam General Appearance: No Acute Distress, Comfortable (Liza Clifford) Eyes Eye Exam: Sclera White (Liza Clifford) Pulmonary Resp Exam: Clear Bilaterally, Breath Sounds Equal, No Distress (Liza Clifford) Cardiology CV Exam: Regular, Normal Sinus Rhythm, Good Perfusion (Liza Clifford) Gastrointestinal/Abdomen GI Exam: Soft, Non-Tender (Liza Clifford) Integumentary Skin Exam: Clear, Warm, Lesion(s) (L stump erythematous with small blisters present medially) (Liza Clifford) Extremeties Extremities Exam: Moderate Edema (Liza Clifford) Neurologic Neuro Exam: Alert, Awake (Liza Clifford) Psychiatric Psych Exam: Appropriate Responses (Liza Clifford) Assessment/Plan Discussed Condition With: Patient Problem List: (1) End stage renal disease on dialysis Plan: Continue hemodialysis Saturday and Saturday. Medication should be adjusted for his end-stage renal disease when indicated. Avoid gadolinium. (2) Cellulitis of left leg without foot Plan: Will defer management to infectious disease. Await results of the knee aspirate. Clinically the infection is improving albeit slowly. Blood cultures negative to date. (3) Metabolic acidosis Plan: Patient's metabolic acidosis is secondary to a combination of his end- stage renal disease but also his pancreatic transplant which is associated with bicarbonate into the bladder. Continue sodium bicarbonate supplementation. (4) Kidney transplant failure (5) Pancreas transplant status Plan: Tacrolimus level remains supratherapeutic. Goal range per transplant facility to be between 6-8. Will decrease Tacrolimus to 1.5mg q12h. Repeat level in 5 days (Liza Clifford) Plan The exam, history, and the medical decision-making described in the above note were completed with the assistance of the YANA. I reviewed and agree with the findings presented. (Rodo Ramirez MD) Liza Clifford Mar 27, 2017 19:03 Rodo Ramirez MD Mar 28, 2017 17:07
[2017-03-27 19:54] LABS: TOTAL PROTEIN, SYNOVIAL FLUID 1.6 g/dL (1.0-3.0)
[2017-03-27 20:00] VITALS: BP 150/63; PULSE 70; PULSE 84; RESP 18; TEMP 98.5; O2SAT 96
[2017-03-27] MEDS: TACROLIMUS 0.5 MG CAP PO SCH (20:49)
[2017-03-27] MEDS: cefTRIAXone INJ 1,000 MG in SODIUM CHLORIDE 0.9% INJ 100 ML IV SCH (20:49)
[2017-03-27] MEDS: traZODone HCL 100 MG TAB PO SCH (20:49)
[2017-03-27] MEDS: INSULIN DETEMIR 100 UNITS/ML VIAL SQ SCH (20:55)
[2017-03-28] VITALS (7 sets, daily range): BP systolic 110–152; BP diastolic 56–72; PULSE 64–71; RESP 16–20; TEMP 97.8–99.4; O2SAT 91–96
[2017-03-28] MEDS: INSULIN ASPART SUPPLEMENTAL SCALE SQ SCH ×4 (05:58→21:18)
[2017-03-28] MEDS: ACETAMINOPHEN/HYDROcodone 325 MG/5 MG TAB PO PRN ×2 (08:13→12:24)
[2017-03-28] MEDS: DOCUSATE SODIUM 50 MG/SENNA 8.6 MG TAB PO SCH ×2 (09:00→21:00)
[2017-03-28] MEDS: SODIUM CHLORIDE 0.9% FLUSH 10 ML FLUSH IV FLUSH SCH ×2 (09:00→21:21)
[2017-03-28] MEDS: TACROLIMUS 0.5 MG CAP PO SCH ×2 (09:11→21:21)
[2017-03-28] MEDS: ESCITALOPRAM OXALATE 10 MG TAB PO SCH (09:12)
[2017-03-28] MEDS: predniSONE 5 MG TAB PO SCH (09:12)
[2017-03-28] MEDS: azaTHIOprine 50 MG TAB PO SCH (09:12)
[2017-03-28] MEDS: SODIUM BICARBONATE 325 MG TAB PO SCH ×3 (09:13→17:33)
[2017-03-28 09:26] LABS: BICARBONATE 27.6 MEQ/L (21.0-32.0); POTASSIUM 4.3 MEQ/L (3.5-5.1)
--- NOTE | 2017-03-28 10:12 | HHI.PR ---
Subjective Remarks The patient was resting comfortably in bed. He said he still has pain along the medial aspect of his left leg and at the bottom of the stump. He had no acute complaints. Objective Vitals Vital Signs Date Time Temp Pulse Resp B/P Pulse Ox O2 Delivery O2 Flow Rate FiO2 03/28/17 08:00 99.3 65 18 110/57 94 03/28/17 04:00 Room Air 03/28/17 04:00 99.4 66 16 112/56 93 03/28/17 00:00 98.8 68 18 117/63 91 03/28/17 00:00 Room Air 03/27/17 22:03 16 03/27/17 21:00 Room Air 03/27/17 20:00 98.5 70 18 150/63 96 03/27/17 20:00 84 03/27/17 16:00 98.6 75 18 107/63 97 I/O 03/27/17 03/27/17 03/27/17 03/28/17 03/28/17 03/28/17 07:00 15:00 23:00 07:00 15:00 23:00 Intake Total 0 ml 360 ml 480 ml 586 ml Output Total 0 ml 2500 ml 480 ml Balance 0 ml -2140 ml 480 ml 106 ml Intake Oral 0 ml 360 ml 480 ml 480 ml IV Total 106 ml Output Urine Total 0 ml 480 ml Hemodialysis 2500 ml # Voids 0 1 # Bowel Movements 0 0 1 0 Result Diagram: 03/25/17 0721 03/28/17 0744 Imaging Last Impressions Knee X-Ray 03/27/17 0000 Signed Impressions: Service Date/Time: Monday, March 27, 2017 17:04 - CONCLUSION: No definite acute bony findings Gage Tellez MD Aspiration 03/25/17 0000 Signed Impressions: Service Date/Time: Saturday, March 25, 2017 09:48 - CONCLUSION: Uncomplicated aspiration as above. Rodney Vaughan MD Chest X-Ray 03/23/17 6024 Signed Impressions: Service Date/Time: Thursday, March 23, 2017 17:57 - CONCLUSION: 1. Mild basal atelectasis. Cardiomegaly. No significant change from October 17. Tee Stack MD Objective Remarks GENERAL: Well-nourished, well-developed pleasant middle aged male patient in [facility]. SKIN: Warm and dry. HEENT: Normocephalic. Atraumatic. Pupils equal and round. Mucous membranes pink and moist. CARDIOVASCULAR: Regular rate and rhythm. S1, S2 noted. No murmur appreciated. RESPIRATORY: Slight crackles at the bases. GASTROINTESTINAL: Abdomen soft, non-tender, nondistended. Normoactive bowel sounds x4. MUSCULOSKELETAL: Chronic bilateral BKA. Left stump with erythema and TTP medially. NEUROLOGICAL: Awake and alert. No obvious cranial nerve deficits. Motor grossly within normal limits. Normal speech. PSYCHIATRIC: Appropriate mood and affect; insight and judgment normal. Procedures 03/25/17 - right lateral knee joint aspiration Medications and IVs Current Medications Medications (Trade) Dose Ordered Sig/Lida Route Start Time Stop Time Status Last Admin (D50w (Vial) Inj) 50 ml UNSCH PRN IV 03/23/17 19:15 (Glucagon Inj) 1 mg UNSCH PRN OTHER 03/23/17 19:15 (NS Flush) 2 ml UNSCH PRN IV FLUSH 03/23/17 19:15 (NS Flush) 2 ml BID IV FLUSH 03/23/17 21:00 03/28/17 09:00 (Zofran Inj) 4 mg Q6H PRN IVP 03/23/17 19:15 (Heparin Inj) 5,000 units Q12H SQ 03/23/17 23:00 (Tylenol) 650 mg Q6H PRN PO 03/23/17 19:15 03/24/17 11:59 ([place] 5-325 Mg) 1 tab Q4H PRN PO 03/23/17 19:15 03/28/17 08:13 (Morphine Inj) 2 mg Q3H PRN IV 03/23/17 19:15 03/23/17 21:15 (Bibiana-Colace) 1 tab BID PO 03/23/17 21:00 03/27/17 09:05 (Milk Of Magnesia Liq) 30 ml Q12H PRN PO 03/23/17 19:15 (Senokot) 17.2 mg Q12H PRN PO 03/23/17 19:15 (Dulcolax Supp) 10 mg DAILY PRN RECTAL 03/23/17 19:15 (Lactulose Liq) 30 ml DAILY PRN PO 03/23/17 19:15 (Imuran) 75 mg DAILY PO 03/24/17 09:00 03/28/17 09:12 (Lexapro) 10 mg DAILY PO 03/24/17 09:00 03/28/17 09:12 (Levemir Inj) 15 units HS SQ 03/23/17 21:00 03/27/17 20:55 (Deltasone) 5 mg DAILY PO 03/24/17 09:00 03/28/17 09:12 (Desyrel) 100 mg HS PO 03/23/17 21:00 03/27/17 20:49 (Pill Splitter) 1 ea UNSCH PRN OTHER 03/23/17 19:45 Sodium Bicarbonate 650 mg 650 mg TID PO 03/24/17 18:00 03/28/17 09:13 (NS 1000 ml Inj) 1,000 ml @ 0 mls/hr Q0M PRN IV 03/24/17 14:44 03/25/17 16:48 Heparin Sodium (Porcine) 8000 units 8,000 units UNSCH PRN IVF 03/24/17 14:45 Sodium Chloride 1,000 ml @ 200 mls/hr Q5H PRN IV 03/24/17 14:44 (NS 1000 ml Inj) 1,000 ml @ 0 mls/hr Q0M PRN IV 03/24/17 14:44 (Mannitol Inj) 12.5 gm UNSCH PRN IV 03/24/17 14:45 (Albumin 25% Inj) 25 gm UNSCH PRN IV 03/24/17 14:45 (NS Flush) 5 ml UNSCH PRN IV FLUSH 03/24/17 14:45 (Gentamicin (Dialysis) Inj) 20 mg UNSCH PRN IV 03/24/17 14:45 (Zofran Inj) 4 mg UNSCH PRN IV 03/24/17 14:45 (Tylenol) 650 mg UNSCH PRN PO 03/24/17 14:45 (Benadryl) 25 mg UNSCH PRN PO 03/24/17 14:45 (Nitrostat Sl) 0.4 mg UNSCH PRN SL 03/24/17 14:45 (Catapres) 0.1 mg UNSCH PRN PO 03/24/17 14:45 Gelatin 1 foam 1 foam UNSCH PRN TOP 03/24/17 14:45 03/25/17 16:48 (Rocephin Inj/NS Inj) 100 ml @ 200 mls/hr Q24H IV 03/26/17 20:00 03/27/17 20:49 (Prograf) 1.5 mg Q12HR PO 03/27/17 21:00 03/28/17 09:11 A/P Problem List: (1) Cellulitis ICD Code: L03.90 Status: Acute (2) Diabetes mellitus type 2 with complications ICD Code: E11.8 Status: Chronic (3) HTN (hypertension) ICD Code: I10 Status: Chronic (4) End stage renal disease on dialysis ICD Code: N18.6 Status: Chronic Assessment and Plan 56 y/o male with a history of ESRD on HD s/p failed kidney transplant on chronic immunosuppression , HTN, DM, bilateral BKA, anxiety and depression presented to the ED with complaints of pain, swelling and redness in left stump. Left BKA/Knee Cellulitis: no open wound or drainage, however, +erythema/edema/ warmth with palpable effusion. Concern for septic joint. Patient also with history of sarahy in left femur and pins in left elbow. -Continue IV antibiotics with vancomycin during dialysis -S/p left knee joint aspiration on 03/25, send synovial fluid studies. WBC count 690 -Continue pain control as needed with a bowel regimen -Consult ID, discussed with Dr. Mabry, await fluid cultures. Ortho consult has been requested. Knee X ray unremarkable. Leukocytosis: secondary to cellulitis as above, no documented fevers. Resolved. -On antibiotics as above -Continue to monitor blood cultures, NGTD ESRD on HD MWF, s/p failed renal transplant on chronic immunosuppression. -Consult nephrology. Had dialysis 03/27. -Continue home medications: Prograf, na bicarb, and prednisone. Prograf dose decreased d/t elevated levels. Repeat levels in 5 days per nephrology. -Monitor BMP. HTN, chronic: Resume home medications, hold if hypotensive. Blood pressure well controlled 03/28. DM, Chronic: Resume home long acting insulin, Accu checks with SSI. Add long- acting as needed. Relatively well controlled 03/27. DVT prophylaxis: Heparin Discharge Planning Awaiting clinical improvement Problem Qualifiers (1) Cellulitis: Qualified Code: L03.116 - Cellulitis of left lower extremity (2) Diabetes mellitus type 2 with complications: Qualified Code: E11.8 - Type 2 diabetes mellitus with complication, with long- term current use of insulin Brett Rick DO Mar 28, 2017 10:12
[2017-03-28] MEDS: HEPARIN SODIUM - SQ 10,000 UNITS/ML VIAL SQ SCH ×2 (11:00→22:13)
--- NOTE | 2017-03-28 14:05 | MB ---
cc: LOLA NAJERA DATE OF CONSULTATION: 03/28/[address] Pérez. REASON FOR CONSULTATION Left knee pain and cellulitis. HISTORY OF PRESENT ILLNESS Mr. Frank is a 56-year-old male with multiple medical problems. He has end-stage renal failure. He has had a kidney transplant and he is on immunosuppression. He also has diabetes and hypertension. He has a history of bilateral below-knee amputations. He also has a history of left distal femur fracture treated with open reduction, internal fixation. The patient began developing redness and swelling of his left leg last week. He presented to the emergency room and was found to have cellulitis of the leg. He had aspiration of his knee which has been negative for infection. He feels as though he is improving significantly with antibiotics. He is currently awake and alert on the 4th floor. Pain is worse with weightbearing. He has minimal pain with gentle knee motion. PAST MEDICAL HISTORY ILLNESSES 1. Renal failure. 2. Hypertension. 3. Diabetes. 4. Peripheral vascular disease. 5. Depression. SURGERIES 1. Bilateral below-knee amputation. 2. Kidney transplant x2. 3. Pancreas transplant. 4. Cholecystectomy. 5. Left distal femur ORIF. 6. Skin cancer removal. MEDICATIONS Medications include: 1. Trazodone. 2. Lexapro. 3. Prograf. 4. Prednisone. 5. Humulin. 6. Levemir. 7. Azathioprine. ALLERGIES NO KNOWN DRUG ALLERGIES. FAMILY HISTORY Positive for diabetes and pulmonary embolism in his father and Crohn's disease in his mother. SOCIAL HISTORY The patient denies alcohol, tobacco or drug use. REVIEW OF SYSTEMS The patient denies headache, visual changes, neck pain, chest pain, shortness of breath, abdominal pain, nausea, vomiting or recent weight loss. He complains of left leg pain. He also had redness and swelling around his knee. PHYSICAL EXAMINATION GENERAL: The patient is a pleasant 56-year-old male, in no acute distress. He is awake and alert. He is alert and oriented x3. Appears well-developed, well-nourished. VITAL SIGNS: Temperature 99.3, pulse 65, respirations 18, blood pressure 110/57, O2 sat 94% on room air. HEAD: The patient is normocephalic. Pupils are equal. NECK: Soft, nontender. Trachea is midline. ABDOMEN: Soft, nontender, nondistended. EXTREMITIES: Examination of bilateral upper extremities reveals no obvious pain or deformity with shoulder, elbow or wrist motion. He has good cap refill in his hands. Dorsalis pedis pulses are palpable. Sensation is intact in radial, ulna and median nerve distributions. Examination of right leg reveals no obvious pain or deformity with hip or knee motion. He has a well-healed below-knee amputation. Skin is intact. Examination of left leg reveals no obvious pain or deformity with hip or knee motion. He has minimal pain with knee motion. There is no significant joint effusion noted. He does have some general redness around the stump and the medial knee. There is no fluctuance noted. There is no drainage or purulence present. His previous incision is completely healed. X-RAYS X-rays of left knee were reviewed. The patient has a well-healed left distal femur fracture. Hardware is in good position. LABORATORY DATA Left knee aspirate was reviewed. The patient has 690 white blood cells. Cultures were negative for bacterial growth to date. IMPRESSION 1. Diabetes. 2. Hypertension. 3. Immunosuppression secondary to organ transplant. 4. Left leg cellulitis. PLAN At this point the patient appears to have some cellulitis. He does not appear to have a deep infection or abscess. He does not appear to have a septic knee. He appears to be improving with IV antibiotics. At this point he should continue with antibiotics. I will continue to follow his progress. If the clinical scenario changes and he develops an abscess or septic knee, he would need surgical intervention. The patient is in agreement with this plan. All questions were answered. A mid-level provider in my office, nurse practitioner or PA, may see this patient on a follow-up basis and continue to implement the objective of this plan including: Starting or adjusting medications, injections of muscle, tendon, bursa or joints, cast application, orthotic or brace application, physical therapy, further radiographic studies including x-ray, MRI, CT, ultrasounds or bone scan, vascular studies, neurologic studies, or other specialist consultations, and proceeding with surgical management as appropriate. MD AGAPITO Mendoza/ESTEE /10:02 AM /12:36 PM
--- NOTE | 2017-03-28 16:16 | HHI.IDPN ---
Note Infectious Disease Note Patient complains of pain at the l. knee above and below the knee. Redness still present at the medial l. knee. and anteriorly above the stump unchanged form yesterday. Denies chills. Afebrile. Previous aspiration was done at the lateral aspect of the left knee. PAST MEDICAL HISTORY 1. End-stage renal disease. On hemodialysis. 2. Hypertension. 3. Diabetes mellitus. 4. Anxiety, depression. 5. Chronic acidosis. 6. Bilateral bskrb-paw-wpoh amputation. 7. kidney transplantation in 1991 and 2009. 8. Pancreatic transplantation in 1991. On immunosuppressive med. 9. Cholecystectomy. 10. Skin cancer removal. 11. Prosthesis in the right eye. ALLERGIES NO KNOWN DRUG ALLERGIES. OBJECTIVE: Vital Signs Date Time Temp Pulse Resp B/P Pulse Ox O2 Delivery O2 Flow Rate FiO2 03/28/17 12:00 98.6 67 18 124/60 93 03/28/17 10:00 93 Room Air 03/28/17 08:00 99.3 65 18 110/57 94 03/28/17 04:00 Room Air 03/28/17 04:00 99.4 66 16 112/56 93 03/28/17 00:00 98.8 68 18 117/63 91 03/28/17 00:00 Room Air 03/27/17 22:03 16 03/27/17 21:00 Room Air 03/27/17 20:00 98.5 70 18 150/63 96 03/27/17 20:00 84 03/27/17 03/27/17 03/28/17 14:59 22:59 06:59 Intake Total 360 ml 480 ml 586 ml Output Total 2500 ml 480 ml Balance -2140 ml 480 ml 106 ml Intake Oral 360 ml 480 ml 480 ml IV Total 106 ml Output Urine Total 480 ml Hemodialysis 2500 ml # Voids 0 1 # Bowel Movements 0 1 0 Laboratory Tests Test 03/27/17 03/28/17 05:15 07:44 Sodium Level 131 MEQ/L 131 MEQ/L Potassium Level 4.7 MEQ/L 4.3 MEQ/L Chloride Level 93 MEQ/L 92 MEQ/L Carbon Dioxide Level 22.6 MEQ/L 27.6 MEQ/L Anion Gap 15 MEQ/L 11 MEQ/L Blood Urea Nitrogen 62 MG/DL 43 MG/DL Creatinine 9.34 MG/DL 6.48 MG/DL Estimat Glomerular Filtration 6 ML/MIN 9 ML/MIN Rate Random Glucose 136 MG/DL 121 MG/DL Calcium Level 8.5 MG/DL 8.3 MG/DL Magnesium Level 2.1 MG/DL Phosphorus Level 5.9 MG/DL Albumin 1.9 GM/DL PHYSICAL EXAMINATION GENERAL: No acute distress. HEENT: No icterus. The right side has an eye prosthesis. Oropharynx no visible lesions. LUNGS: Clear. HEART: Regular S1-S2 without murmurs, rubs, or gallops. ABDOMEN: Decreased bowel sounds, soft, nontender. EXTREMITIES: The left knee at the inner aspect has blanching erythema at the medial aspect unchanged. The area is warm to touch. No change. The erythema extends along the side of the patella and here is also mild erythema at the anterior area above the stump. There is no involvement of the stump incision. The right stump is intact. There is no cyanosis or edema. SKIN: No rash. NEUROLOGIC: No gross focal findings. PSYCHIATRIC: The patient is calm and cooperative. IMPRESSION 1. Cellulitis of the right knee and possibly soft tissue infection at the right knee. No improvement. ? infective arthritis. 2. Immunosuppression. The patient had pancreatic transplant and is on immunosuppressive medications. 3. Bilateral mlpkh-lru-[id number] amputation. Also has sarahy in left femur. RECOMMENDATIONS 1. Continue vancomycin at dialysis. 2. Change ceftriaxone to Cefepime for gram negative coverage since he is immunosuppressed. 3. Consult invasive radiology for aspiration of the medial aspect of the knee for culture. 4. Monitor response. I will be of 03/29 - 04/01. Other ID MD covering. Elier Mabry MD Mar 28, 2017 16:16
--- NOTE | 2017-03-28 17:07 | HHI.NPPN ---
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 Patient also has a transplanted pancreas which is said to be still functional and he has been continued on immunosuppressive therapy per transplant clinic at [facility]. The patient has a history of bilateral below-knee amputations. Now presents with a history of erythema and increased swelling of his left stump. Denies drainage. His present for approximately 48 hours. Patient currently on maintenance hemodialysis Saturday and Saturday via a left dialysis shunt. Interval History No verbal complaints. Review of Systems Skin Skin: Lesions (erythema and blistering on L stump) Objective Data Data 03/27/17 03/28/17 19:00 07:00 Intake Total 360 ml 1066 ml Output Total 2500 ml 480 ml Balance -2140 ml 586 ml Intake Oral 360 ml 960 ml IV Total 106 ml Output Urine Total 480 ml Hemodialysis 2500 ml # Voids 0 1 # Bowel Movements 0 1 Vital Signs Date Time Temp Pulse Resp B/P Pulse Ox O2 Delivery O2 Flow Rate FiO2 03/28/17 16:00 98.1 71 18 124/63 96 03/28/17 12:00 98.6 67 18 124/60 93 03/28/17 10:00 93 Room Air 03/28/17 08:00 99.3 65 18 110/57 94 03/28/17 04:00 Room Air 03/28/17 04:00 99.4 66 16 112/56 93 03/28/17 00:00 98.8 68 18 117/63 91 03/28/17 00:00 Room Air 03/27/17 22:03 16 03/27/17 21:00 Room Air 03/27/17 20:00 98.5 70 18 150/63 96 03/27/17 20:00 84 -: 03/25/17 0721 03/28/17 0744 Physical Exam General Appearance: No Acute Distress, Comfortable Eyes Eye Exam: Sclera White Pulmonary Resp Exam: Clear Bilaterally, Breath Sounds Equal, No Distress Cardiology CV Exam: Regular, Normal Sinus Rhythm, Good Perfusion Gastrointestinal/Abdomen GI Exam: Soft, Non-Tender Musculoskeletal MS Remarks Bilateral BKA. Integumentary Skin Exam: Clear, Warm, Lesion(s) (L stump erythematous with small blisters present medially) Extremeties Extremities Exam: Moderate Edema Neurologic Neuro Exam: Alert, Awake Psychiatric Psych Exam: Appropriate Responses Assessment/Plan Discussed Condition With: Patient Problem List: (1) End stage renal disease on dialysis Plan: Continue hemodialysis Saturday and Saturday. Medication should be adjusted for his end-stage renal disease when indicated. Avoid gadolinium. (2) Cellulitis of left leg without foot Plan: Discussed management with infectious disease. Repeat knee aspirate has been planned. Blood cultures continue to remain negative. (3) Metabolic acidosis Plan: Patient's metabolic acidosis is secondary to a combination of his end- stage renal disease but also his pancreatic transplant which is associated with bicarbonate into the bladder. Continue sodium bicarbonate supplementation. (4) Kidney transplant failure (5) Pancreas transplant status Plan: Tacrolimus level remains supratherapeutic. Goal range per transplant facility to be between 6-8. Tacrolimus was decreased to 1.5mg q12h. Repeat level in 5 days Rodo Ramirez MD Mar 28, 2017 17:07
[2017-03-28] MEDS: CINACALCET HYDROCHLORIDE 30 MG TAB PO SCH (17:33)
[2017-03-28] MEDS: MORPHINE SULFATE 4 MG/ML INJ IV PRN ×2 (17:35→21:25)
[2017-03-28] MEDS: INSULIN DETEMIR 100 UNITS/ML VIAL SQ SCH (21:17)
[2017-03-28] MEDS: traZODone HCL 100 MG TAB PO SCH (21:21)
[2017-03-28] MEDS: cefTRIAXone INJ 1,000 MG in SODIUM CHLORIDE 0.9% INJ 100 ML IV SCH (21:30)
[2017-03-29] VITALS (7 sets, daily range): BP systolic 105–163; BP diastolic 51–81; PULSE 63–70; RESP 18–20; TEMP 97.9–98.2; O2SAT 92–97
[2017-03-29] MEDS: INSULIN ASPART SUPPLEMENTAL SCALE SQ SCH ×4 (06:03→21:00)
--- NOTE | 2017-03-29 07:05 | PD.ORT.PN ---
Subjective Subjective Remarks Patient seen and evaluated today. He has had minimal improvement overnight. He continues to have pain over the medial aspect of his knee and the anterior aspect of his below-knee amputation stump. Objective Vitals Vital Signs Date Time Temp Pulse Resp B/P Pulse Ox O2 Delivery O2 Flow Rate FiO2 03/29/17 04:00 97.9 63 20 105/51 92 03/29/17 04:00 Room Air 03/29/17 00:00 98.2 70 20 136/81 94 03/29/17 00:00 Room Air 03/28/17 21:25 Room Air 03/28/17 20:00 97.8 64 20 152/72 95 03/28/17 20:00 71 03/28/17 16:00 98.1 71 18 124/63 96 03/28/17 12:00 98.6 67 18 124/60 93 03/28/17 10:00 93 Room Air 03/28/17 09:00 66 03/28/17 08:00 99.3 65 18 110/57 94 I/O 03/28/17 03/28/17 03/28/17 03/29/17 03/29/17 03/29/17 06:59 14:59 22:59 06:59 14:59 22:59 Intake Total 586 ml 930 ml 240 ml 826 ml Output Total 480 ml Balance 106 ml 930 ml 240 ml 826 ml Intake Oral 480 ml 930 ml 240 ml 720 ml IV Total 106 ml 106 ml Output Urine Total 480 ml # Voids 1 0 0 # Bowel Movements 0 1 0 0 Result Diagram: 03/25/17 0721 03/28/17 0744 Objective Remarks Patient is awake and alert. Examination of left leg reveals well-healed surgical incisions. There is no drainage. He continues to have cellulitis around his left knee and BKA stump. There is increased area of fluctuance around the medial aspect of the knee. There is no clear fluctuance along the amputation site. Assessment & Plan Assessment and Plan Patient continues to have cellulitis and pain of the left lower extremity. Clinically he has increased fluctuance along the medial aspect of the knee. This likely represents an abscess. He also has significant tenderness along the amputation stump. Recommend MRI of left knee and stump see further evaluate abscess. Patient will likely need surgical debridement--but needs MRI first to further localize infection Carlos Sarkar MD Mar 29, 2017 07:05
[2017-03-29] MEDS: TACROLIMUS 0.5 MG CAP PO SCH ×2 (08:55→22:08)
[2017-03-29] MEDS: ESCITALOPRAM OXALATE 10 MG TAB PO SCH (08:56)
[2017-03-29] MEDS: azaTHIOprine 50 MG TAB PO SCH (08:56)
[2017-03-29] MEDS: SODIUM BICARBONATE 325 MG TAB PO SCH ×3 (08:56→16:35)
[2017-03-29] MEDS: predniSONE 5 MG TAB PO SCH (08:56)
[2017-03-29] MEDS: ACETAMINOPHEN/HYDROcodone 325 MG/5 MG TAB PO PRN ×4 (08:57→22:08)
[2017-03-29] MEDS: DOCUSATE SODIUM 50 MG/SENNA 8.6 MG TAB PO SCH ×2 (09:00→21:52)
[2017-03-29] MEDS: SODIUM CHLORIDE 0.9% FLUSH 10 ML FLUSH IV FLUSH SCH ×2 (09:00→21:52)
--- NOTE | 2017-03-29 10:57 | HHI.PR ---
Addendum to Inpatient Note Addendum Reason: Additional Documentation Additional Information D/w : he would like to cancel IR guided procedure and get an MRI. He thinks pt may need surgery but would like imaging to help guide places to be accessed. D.w . Cancel IR guided procedure. Notified IR. Continue antibiotics per . Patient off the floor at present time. covering pt over the weekend. Cindy Trejo MD Mar 29, 2017 10:57
[2017-03-29] MEDS: HEPARIN SODIUM - SQ 10,000 UNITS/ML VIAL SQ SCH ×2 (11:00→21:52)
--- NOTE | 2017-03-29 14:38 | HHI.NPPN ---
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 Patient also has a transplanted pancreas which is said to be still functional and he has been continued on immunosuppressive therapy per transplant clinic at [facility]. The patient has a history of bilateral below-knee amputations. Now presents with a history of erythema and increased swelling of his left stump. Denies drainage. His present for approximately 48 hours. Patient currently on maintenance hemodialysis Saturday and Saturday via a left dialysis shunt. Interval History Pt s/p HD today. Machine clotted last 20 minutes, but received full dose of Vanco Going to MRI tomorrow with an attempt to localize infection for potential aspiration. Pt offers no complaints (Liza Clifford) Review of Systems Skin Skin: Lesions (erythema and blistering on L stump) (Liza Clifford) Objective Data Data 03/28/17 03/29/17 18:59 06:59 Intake Total 930 ml 1066 ml Balance 930 ml 1066 ml Intake Oral 930 ml 960 ml IV Total 106 ml # Voids 1 0 # Bowel Movements 1 0 Vital Signs Date Time Temp Pulse Resp B/P Pulse Ox O2 Delivery O2 Flow Rate FiO2 03/29/17 09:30 94 Room Air 03/29/17 09:00 66 03/29/17 08:00 98.0 65 18 110/59 96 03/29/17 04:00 97.9 63 20 105/51 92 03/29/17 04:00 Room Air 03/29/17 00:00 98.2 70 20 136/81 94 03/29/17 00:00 Room Air 03/28/17 21:25 Room Air 03/28/17 20:00 97.8 64 20 152/72 95 03/28/17 20:00 71 03/28/17 16:00 98.1 71 18 124/63 96 (Liza Clifford) -: 03/25/17 0721 03/28/17 0744 Imaging Last Impressions Knee X-Ray 03/27/17 0000 Signed Impressions: Service Date/Time: Monday, March 27, 2017 17:04 - CONCLUSION: No definite acute bony findings Gage Tellez MD Aspiration 03/25/17 0000 Signed Impressions: Service Date/Time: Saturday, March 25, 2017 09:48 - CONCLUSION: Uncomplicated aspiration as above. Rodney Vaughan MD Chest X-Ray 03/23/17 1734 Signed Impressions: Service Date/Time: Thursday, March 23, 2017 17:57 - CONCLUSION: 1. Mild basal atelectasis. Cardiomegaly. No significant change from October 17. Tee Stack MD Medication Review Current Medications Medications (Trade) Dose Ordered Sig/Lida Route Start Time Stop Time Status Last Admin (D50w (Vial) Inj) 50 ml UNSCH PRN IV 03/23/17 19:15 (Glucagon Inj) 1 mg UNSCH PRN OTHER 03/23/17 19:15 (NS Flush) 2 ml UNSCH PRN IV FLUSH 03/23/17 19:15 (NS Flush) 2 ml BID IV FLUSH 03/23/17 21:00 03/29/17 09:00 (Zofran Inj) 4 mg Q6H PRN IVP 03/23/17 19:15 (Heparin Inj) 5,000 units Q12H SQ 03/23/17 23:00 (Tylenol) 650 mg Q6H PRN PO 03/23/17 19:15 03/24/17 11:59 (Lorman 5-325 Mg) 1 tab Q4H PRN PO 03/23/17 19:15 03/29/17 14:06 (Morphine Inj) 2 mg Q3H PRN IV 03/23/17 19:15 03/28/17 21:25 (Bibiana-Colace) 1 tab BID PO 03/23/17 21:00 03/27/17 09:05 (Milk Of Magnesia Liq) 30 ml Q12H PRN PO 03/23/17 19:15 (Senokot) 17.2 mg Q12H PRN PO 03/23/17 19:15 (Dulcolax Supp) 10 mg DAILY PRN RECTAL 03/23/17 19:15 (Lactulose Liq) 30 ml DAILY PRN PO 03/23/17 19:15 (Imuran) 75 mg DAILY PO 03/24/17 09:00 03/29/17 08:56 (Lexapro) 10 mg DAILY PO 03/24/17 09:00 03/29/17 08:56 (Levemir Inj) 15 units HS SQ 03/23/17 21:00 03/28/17 21:17 (Deltasone) 5 mg DAILY PO 03/24/17 09:00 03/29/17 08:56 (Desyrel) 100 mg HS PO 03/23/17 21:00 03/28/17 21:21 (Pill Splitter) 1 ea UNSCH PRN OTHER 03/23/17 19:45 Sodium Bicarbonate 650 mg 650 mg TID PO 03/24/17 18:00 03/29/17 08:56 (NS 1000 ml Inj) 1,000 ml @ 0 mls/hr Q0M PRN IV 03/24/17 14:44 03/25/17 16:48 Heparin Sodium (Porcine) 8000 units 8,000 units UNSCH PRN IVF 03/24/17 14:45 Sodium Chloride 1,000 ml @ 200 mls/hr Q5H PRN IV 03/24/17 14:44 (NS 1000 ml Inj) 1,000 ml @ 0 mls/hr Q0M PRN IV 03/24/17 14:44 (Mannitol Inj) 12.5 gm UNSCH PRN IV 03/24/17 14:45 (Albumin 25% Inj) 25 gm UNSCH PRN IV 03/24/17 14:45 (NS Flush) 5 ml UNSCH PRN IV FLUSH 03/24/17 14:45 (Gentamicin (Dialysis) Inj) 20 mg UNSCH PRN IV 03/24/17 14:45 (Zofran Inj) 4 mg UNSCH PRN IV 03/24/17 14:45 (Tylenol) 650 mg UNSCH PRN PO 03/24/17 14:45 (Benadryl) 25 mg UNSCH PRN PO 03/24/17 14:45 (Nitrostat Sl) 0.4 mg UNSCH PRN SL 03/24/17 14:45 (Catapres) 0.1 mg UNSCH PRN PO 03/24/17 14:45 Gelatin 1 foam 1 foam UNSCH PRN TOP 03/24/17 14:45 03/25/17 16:48 (Rocephin Inj/NS Inj) 100 ml @ 200 mls/hr Q24H IV 03/26/17 20:00 03/28/17 21:30 (Prograf) 1.5 mg Q12HR PO 03/27/17 21:00 03/29/17 08:55 (Liza Clifford) Physical Exam General Appearance: No Acute Distress, Comfortable (Liza Clifford) Eyes Eye Exam: Sclera White (Liza Clifford) Pulmonary Resp Exam: Clear Bilaterally, Breath Sounds Equal, No Distress (Liza Clifford) Cardiology CV Exam: Regular, Normal Sinus Rhythm, Good Perfusion (Liza Clifford) Gastrointestinal/Abdomen GI Exam: Soft, Non-Tender, Distended (Liza Clifford) Integumentary Skin Exam: Clear, Warm, Lesion(s) (L stump erythematous with small blisters present medially) (Liza Clifford) Extremeties Extremities Exam: Trace Edema (Liza Clifford) Neurologic Neuro Exam: Alert, Awake (Liza Clifford) Psychiatric Psych Exam: Appropriate Responses (Liza Clifford) Assessment/Plan Discussed Condition With: Patient Problem List: (1) End stage renal disease on dialysis Plan: Continue hemodialysis Saturday and Saturday. Start Fosrenol for hyperphosphatemia. Protein supplement ordered Medication should be adjusted for his end-stage renal disease when indicated. Avoid gadolinium. (2) Cellulitis of left leg without foot Plan: Discussed management with infectious disease. Repeat knee aspirate has been planned. Blood cultures continue to remain negative. (3) Metabolic acidosis Plan: Patient's metabolic acidosis is secondary to a combination of his end- stage renal disease but also his pancreatic transplant which is associated with bicarbonate into the bladder. Continue sodium bicarbonate supplementation. (4) Kidney transplant failure (5) Pancreas transplant status Plan: Tacrolimus level remains supratherapeutic. Goal range per transplant facility to be between 6-8. Tacrolimus was decreased to 1.5mg q12h. Repeat level in 5 days (Liza Clifford) Plan The exam, history, and the medical decision-making described in the above note were completed with the assistance of the YANA. I reviewed and agree with the findings presented. (Rodo Ramirez MD) Liza Clifford Mar 29, 2017 14:38 Rodo Ramirez MD Apr 22, 2017 13:29
--- NOTE | 2017-03-29 15:39 | HHI.PR ---
Subjective Remarks The patient was resting comfortably in bed. He said his blood pressure went low during dialysis but he didn't feel it. He was aware his leg would be debrided on Saturday by orthopedic surgery. Discussed with infectious disease. Objective Vitals Vital Signs Date Time Temp Pulse Resp B/P Pulse Ox O2 Delivery O2 Flow Rate FiO2 03/29/17 09:30 94 Room Air 03/29/17 09:00 66 03/29/17 08:00 98.0 65 18 110/59 96 03/29/17 04:00 97.9 63 20 105/51 92 03/29/17 04:00 Room Air 03/29/17 00:00 98.2 70 20 136/81 94 03/29/17 00:00 Room Air 03/28/17 21:25 Room Air 03/28/17 20:00 97.8 64 20 152/72 95 03/28/17 20:00 71 03/28/17 16:00 98.1 71 18 124/63 96 I/O 03/28/17 03/28/17 03/28/17 03/29/17 03/29/17 03/29/17 06:59 14:59 22:59 06:59 14:59 22:59 Intake Total 586 ml 930 ml 240 ml 826 ml Output Total 480 ml 2000 ml Balance 106 ml 930 ml 240 ml 826 ml -2000 ml Intake Oral 480 ml 930 ml 240 ml 720 ml IV Total 106 ml 106 ml Output Urine Total 480 ml Hemodialysis 2000 ml # Voids 1 0 0 # Bowel Movements 0 1 0 0 Result Diagram: 03/25/17 0721 03/28/17 0744 Imaging Last Impressions Knee X-Ray 03/27/17 0000 Signed Impressions: Service Date/Time: Monday, March 27, 2017 17:04 - CONCLUSION: No definite acute bony findings Gage Tellez MD Aspiration 03/25/17 0000 Signed Impressions: Service Date/Time: Saturday, March 25, 2017 09:48 - CONCLUSION: Uncomplicated aspiration as above. Rodney Vaughan MD Chest X-Ray 03/23/17 7884 Signed Impressions: Service Date/Time: Thursday, March 23, 2017 17:57 - CONCLUSION: 1. Mild basal atelectasis. Cardiomegaly. No significant change from October 17. Tee Stack MD Objective Remarks GENERAL: Well-nourished, well-developed pleasant middle aged male patient in [facility]. SKIN: Warm and dry. HEENT: Normocephalic. Atraumatic. Pupils equal and round. Mucous membranes pink and moist. CARDIOVASCULAR: Regular rate and rhythm. S1, S2 noted. No murmur appreciated. RESPIRATORY: CTAB.. GASTROINTESTINAL: Abdomen soft, non-tender, nondistended. Normoactive bowel sounds x4. MUSCULOSKELETAL: Chronic bilateral BKA. Left stump with erythema and TTP medially, extending proximally. NEUROLOGICAL: Awake and alert. No obvious cranial nerve deficits. Motor grossly within normal limits. Normal speech. PSYCHIATRIC: Appropriate mood and affect; insight and judgment normal. Procedures 03/25/17 - right lateral knee joint aspiration Medications and IVs Current Medications Medications (Trade) Dose Ordered Sig/Lida Route Start Time Stop Time Status Last Admin (D50w (Vial) Inj) 50 ml UNSCH PRN IV 03/23/17 19:15 (Glucagon Inj) 1 mg UNSCH PRN OTHER 03/23/17 19:15 (NS Flush) 2 ml UNSCH PRN IV FLUSH 03/23/17 19:15 (NS Flush) 2 ml BID IV FLUSH 03/23/17 21:00 03/29/17 09:00 (Zofran Inj) 4 mg Q6H PRN IVP 03/23/17 19:15 (Heparin Inj) 5,000 units Q12H SQ 03/23/17 23:00 (Tylenol) 650 mg Q6H PRN PO 03/23/17 19:15 03/24/17 11:59 ([place] 5-325 Mg) 1 tab Q4H PRN PO 03/23/17 19:15 03/29/17 14:06 (Morphine Inj) 2 mg Q3H PRN IV 03/23/17 19:15 03/28/17 21:25 (Bibiana-Colace) 1 tab BID PO 03/23/17 21:00 03/27/17 09:05 (Milk Of Magnesia Liq) 30 ml Q12H PRN PO 03/23/17 19:15 (Senokot) 17.2 mg Q12H PRN PO 03/23/17 19:15 (Dulcolax Supp) 10 mg DAILY PRN RECTAL 03/23/17 19:15 (Lactulose Liq) 30 ml DAILY PRN PO 03/23/17 19:15 (Imuran) 75 mg DAILY PO 03/24/17 09:00 03/29/17 08:56 (Lexapro) 10 mg DAILY PO 03/24/17 09:00 03/29/17 08:56 (Levemir Inj) 15 units HS SQ 03/23/17 21:00 03/28/17 21:17 (Deltasone) 5 mg DAILY PO 03/24/17 09:00 03/29/17 08:56 (Desyrel) 100 mg HS PO 03/23/17 21:00 03/28/17 21:21 (Pill Splitter) 1 ea UNSCH PRN OTHER 03/23/17 19:45 Sodium Bicarbonate 650 mg 650 mg TID PO 03/24/17 18:00 03/29/17 08:56 (NS 1000 ml Inj) 1,000 ml @ 0 mls/hr Q0M PRN IV 03/24/17 14:44 03/25/17 16:48 Heparin Sodium (Porcine) 8000 units 8,000 units UNSCH PRN IVF 03/24/17 14:45 Sodium Chloride 1,000 ml @ 200 mls/hr Q5H PRN IV 03/24/17 14:44 (NS 1000 ml Inj) 1,000 ml @ 0 mls/hr Q0M PRN IV 03/24/17 14:44 (Mannitol Inj) 12.5 gm UNSCH PRN IV 03/24/17 14:45 (Albumin 25% Inj) 25 gm UNSCH PRN IV 03/24/17 14:45 (NS Flush) 5 ml UNSCH PRN IV FLUSH 03/24/17 14:45 (Gentamicin (Dialysis) Inj) 20 mg UNSCH PRN IV 03/24/17 14:45 (Zofran Inj) 4 mg UNSCH PRN IV 03/24/17 14:45 (Tylenol) 650 mg UNSCH PRN PO 03/24/17 14:45 (Benadryl) 25 mg UNSCH PRN PO 03/24/17 14:45 (Nitrostat Sl) 0.4 mg UNSCH PRN SL 03/24/17 14:45 (Catapres) 0.1 mg UNSCH PRN PO 03/24/17 14:45 Gelatin 1 foam 1 foam UNSCH PRN TOP 03/24/17 14:45 03/25/17 16:48 (Rocephin Inj/NS Inj) 100 ml @ 200 mls/hr Q24H IV 03/26/17 20:00 03/28/17 21:30 (Prograf) 1.5 mg Q12HR PO 03/27/17 21:00 03/29/17 08:55 (Fosrenol Chew) 500 mg TID CHEW 03/29/17 18:00 A/P Problem List: (1) Cellulitis ICD Code: L03.90 Status: Acute (2) Diabetes mellitus type 2 with complications ICD Code: E11.8 Status: Chronic (3) HTN (hypertension) ICD Code: I10 Status: Chronic (4) End stage renal disease on dialysis ICD Code: N18.6 Status: Chronic Assessment and Plan 56 y/o male with a history of ESRD on HD s/p failed kidney transplant on chronic immunosuppression , HTN, DM, bilateral BKA, anxiety and depression presented to the ED with complaints of pain, swelling and redness in left stump. Left BKA/Knee Cellulitis: no open wound or drainage, however, +erythema/edema/ warmth with palpable effusion. Concern for septic joint. Patient also with history of sarahy in left femur and pins in left elbow. -Continue IV antibiotics with vancomycin during dialysis and ceftriaxone per ID. -S/p left knee joint aspiration on 03/25, send synovial fluid studies. WBC count 690 -Continue pain control as needed with a bowel regimen -ortho consult appreciated. MRI pending. Pt to go for debridement on Saturday. Leukocytosis: secondary to cellulitis as above, no documented fevers. Resolved. -On antibiotics as above -Continue to monitor blood cultures, NGTD ESRD on HD MWF, s/p failed renal transplant on chronic immunosuppression. -Consult nephrology. Had dialysis 03/27. -Continue home medications: Prograf, na bicarb, and prednisone. Prograf dose decreased d/t elevated levels. Repeat levels in 5 days per nephrology. -Monitor BMP. HTN, chronic: Resume home medications, hold if hypotensive. Blood pressure well controlled 03/29. DM, Chronic: Resume home long acting insulin, Accu checks with SSI. Add long- acting as needed. Relatively well controlled 03/29. DVT prophylaxis: Heparin Discharge Planning Awaiting clinical improvement. Will need debridement of left leg on Saturday by ortho. Problem Qualifiers (1) Cellulitis: Qualified Code: L03.116 - Cellulitis of left lower extremity (2) Diabetes mellitus type 2 with complications: Qualified Code: E11.8 - Type 2 diabetes mellitus with complication, with long- term current use of insulin Brett Rick DO Mar 29, 2017 15:39
[2017-03-29] MEDS: CINACALCET HYDROCHLORIDE 30 MG TAB PO SCH (16:35)
[2017-03-29] MEDS: LANTHANUM CARBONATE 500 MG CHEWABLE TABLET CHEW SCH (16:37)
[2017-03-29] MEDS: traZODone HCL 100 MG TAB PO SCH (21:52)
[2017-03-29] MEDS: cefTRIAXone INJ 1,000 MG in SODIUM CHLORIDE 0.9% INJ 100 ML IV SCH (21:52)
[2017-03-29] MEDS: INSULIN DETEMIR 100 UNITS/ML VIAL SQ SCH (21:57)
[2017-03-29] MEDS: MORPHINE SULFATE 4 MG/ML INJ IV PRN (23:02)
[2017-03-30] VITALS: BP_SYST 138; BP_SYST 157; BP_DIAS 70; BP_DIAS 74; PULSE 62; PULSE 88; RESP 16; RESP 20; TEMP 97.3; TEMP 97.8; O2SAT 100; O2SAT 93
[2017-03-30 04:00] VITALS: BP 153/70; PULSE 63; RESP 16; TEMP 97.8; O2SAT 97
[2017-03-30] MEDS: INSULIN ASPART SUPPLEMENTAL SCALE SQ SCH ×4 (06:28→21:00)
[2017-03-30] MEDS: ACETAMINOPHEN/HYDROcodone 325 MG/5 MG TAB PO PRN ×2 (06:30→12:38)
[2017-03-30 07:10] LABS: HEMATOCRIT 27.8 % (39.0-51.0); MEAN CELL VOLUME 100.9 FL (80.0-100.0); MEAN CORPUSCULAR HEMOGLOBIN 34.3 PG (27.0-34.0); PLATELET COUNT 209 TH/MM3 (150-450); RED BLOOD COUNT 2.75 MIL/MM3 (4.50-5.90); RED CELL DISTRIBUTION WIDTH 16.2 % (11.6-17.2); REVIEW FLAG FINAL; WHITE BLOOD COUNT 6.3 TH/MM3 (4.0-11.0)
[2017-03-30 07:27] LABS: BICARBONATE 29.8 MEQ/L (21.0-32.0); POTASSIUM 4.7 MEQ/L (3.5-5.1)
[2017-03-30 08:00] VITALS: BP 112/57; PULSE 66; RESP 17; TEMP 98.3; O2SAT 92
[2017-03-30] MEDS: DOCUSATE SODIUM 50 MG/SENNA 8.6 MG TAB PO SCH ×2 (09:00→21:00)
[2017-03-30] MEDS: SODIUM BICARBONATE 325 MG TAB PO SCH ×3 (09:00→18:07)
[2017-03-30] MEDS: LANTHANUM CARBONATE 500 MG CHEWABLE TABLET CHEW SCH ×3 (09:00→18:07)
--- NOTE | 2017-03-30 09:11 | RADRPT ---
EXAM DATE/TIME: 03/30/2017 07:56 [place] COMPARISON: KNEE LEFT COMPLETE (4VWS), March 27, 2017, 17:04. INDICATIONS : Abscess. MEDICAL HISTORY : Renal disease, end stage. Diabetes mellitus type 2. Hypertension. SURGICAL HISTORY : Cholecystectomy. Kidney transplant x 2. Pancreas transplant. Bilateral BKA. ENCOUNTER: Subsequent ACUITY: 2 day PAIN SCORE: 0/10 LOCATION: Left knee TECHNIQUE: Multiplanar, multisequence MRI examination was performed without contrast. FINDINGS: The patient is status post eirbn-pzu-july amputation. There is extensive soft tissue edema throughout the stump region with ill-defined crescentic fluid collection along the anterior proximal tibia. Its measures up to approximately 11 mm in greatest AP diameter. The patient is also status post open red uction internal fixation of an old distal femur fracture with screw-plate fixation device. There is s usceptibility artifact. There is evidence of a small to moderate joint effusion. Chondromalacia olguin la is also present. There is a well-defined fluid collection along the distal lateral plate in the hartmann bcutaneous tissue. This measures up to approximately 3.3 x 2 x 6.3 cm in greatest AP by transverse by caudal cranial dimension. This is mildly complex. There is no abnormal marrow signal to suggest oste omyelitis. CONCLUSION: 1. Ill-defined fluid collection along the lateral distal femur adjacent to the screw-plate fixation d evice. This is mildly complex and nonspecific. 2. Second crescentic fluid collection along the anterior proximal tibia which is nonspecific. There i s diffuse surrounding soft tissue edema. 3. No evidence of osteomyelitis. 4. Status post [id number]-[id number]-benz amputation and open rigid internal fixation of a distal femur fracture. 5. Small to moderate joint effusion and chondromalacia patella. Brett Sam MD on March 30, 2017 at 8:55 Board Certified Radiologist. This report was verified electronically.
[2017-03-30] MEDS: azaTHIOprine 50 MG TAB PO SCH (09:41)
[2017-03-30] MEDS: ESCITALOPRAM OXALATE 10 MG TAB PO SCH (09:41)
[2017-03-30] MEDS: predniSONE 5 MG TAB PO SCH (09:41)
[2017-03-30] MEDS: SODIUM CHLORIDE 0.9% FLUSH 10 ML FLUSH IV FLUSH SCH ×2 (09:42→22:01)
--- NOTE | 2017-03-30 09:42 | HHI.PR ---
Subjective Remarks 56 y/o male with a history of ESRD on HD s/p failed kidney transplant on chronic immunosuppression , HTN, DM, bilateral BKA, anxiety and depression presented to the ED with complaints of pain, swelling and redness in left stump. Patient seen in his bedroom stable no new complaint, Seen by Orthopedic hydramatic specialist, recommended to obtain a fluid sample from the medial aspect of the knee if this organizes into a more significant collection, for now continue observation. Objective Vital Signs Date Time Temp Pulse Resp B/P Pulse Ox O2 Delivery O2 Flow Rate FiO2 03/30/17 08:00 98.3 66 17 112/57 92 03/30/17 04:00 Room Air 03/30/17 04:00 97.8 63 16 153/70 97 03/30/17 00:00 97.3 62 16 157/74 93 03/30/17 00:00 Room Air 03/29/17 20:00 98.2 70 18 163/75 97 03/29/17 20:00 Room Air 03/29/17 18:00 66 03/29/17 16:00 98.0 68 18 157/72 93 I/O 03/29/17 03/29/17 03/29/17 03/30/17 03/30/17 03/30/17 06:59 14:59 22:59 06:59 14:59 22:59 Intake Total 826 ml 240 ml 820 ml 120 ml Output Total 2000 ml Balance 826 ml -1760 ml 820 ml 120 ml Intake Oral 720 ml 240 ml 720 ml 120 ml IV Total 106 ml 100 ml Hemodialysis 2000 ml # Voids 0 0 1 0 # Bowel Movements 0 1 1 0 Result Diagram: 03/30/17 0556 03/30/17 0556 Imaging Last Impressions Knee MRI 03/30/17 0000 Signed Impressions: Service Date/Time: Thursday, March 30, 2017 07:56 - CONCLUSION: 1. Ill-defined fluid collection along the lateral distal femur adjacent to the screw-plate fixation device. This is mildly complex and nonspecific. 2. Second crescentic fluid collection along the anterior proximal tibia which is nonspecific. There is diffuse surrounding soft tissue edema. 3. No evidence of osteomyelitis. 4. Status post udvue-fst-ftsu amputation and open rigid internal fixation of a distal femur fracture. 5. Small to moderate joint effusion and chondromalacia patella. Brett Sam MD Knee X-Ray 03/27/17 0000 Signed Impressions: Service Date/Time: Monday, March 27, 2017 17:04 - CONCLUSION: No definite acute bony findings Gage Tellez MD Aspiration 03/25/17 0000 Signed Impressions: Service Date/Time: Saturday, March 25, 2017 09:48 - CONCLUSION: Uncomplicated aspiration as above. Rodney Vaughan MD Chest X-Ray 03/23/17 1734 Signed Impressions: Service Date/Time: Thursday, March 23, 2017 17:57 - CONCLUSION: 1. Mild basal atelectasis. Cardiomegaly. No significant change from October 17. Tee Stack MD Procedures 03/25/17 - right lateral knee joint aspiration Other Results Laboratory Tests Test 03/25/17 03/27/17 03/30/17 10:10 05:15 05:56 Synovial Fluid Glucose 142 mg/dL Synovial Fluid Total Protein 1.6 g/dL Magnesium Level 2.1 MG/DL Tacrolimus (Prograf) Level 12.5 NG/ML White Blood Count 6.3 TH/MM3 Red Blood Count 2.75 MIL/MM3 Hemoglobin 9.4 GM/DL Hematocrit 27.8 % Mean Corpuscular Volume 100.9 FL Mean Corpuscular Hemoglobin 34.3 PG Mean Corpuscular Hemoglobin 34.0 % Concent Red Cell Distribution Width 16.2 % Platelet Count 209 TH/MM3 Mean Platelet Volume 7.4 FL Sodium Level 132 MEQ/L Potassium Level 4.7 MEQ/L Chloride Level 94 MEQ/L Carbon Dioxide Level 29.8 MEQ/L Anion Gap 8 MEQ/L Blood Urea Nitrogen 46 MG/DL Creatinine 6.44 MG/DL Estimat Glomerular Filtration 9 ML/MIN Rate Random Glucose 117 MG/DL Calcium Level 8.0 MG/DL Phosphorus Level 6.5 MG/DL Albumin 1.8 GM/DL Objective Remarks GENERAL: Well-nourished, well-developed pleasant middle aged male patient in [facility]. SKIN: Warm and dry. HEENT: Normocephalic. Atraumatic. Pupils equal and round. Mucous membranes pink and moist. CARDIOVASCULAR: Regular rate and rhythm. S1, S2 noted. No murmur appreciated. RESPIRATORY: CTAB.. GASTROINTESTINAL: Abdomen soft, non-tender, nondistended. Normoactive bowel sounds x4. MUSCULOSKELETAL: Chronic bilateral BKA. Left stump with erythema and TTP medially, extending proximally. NEUROLOGICAL: Awake and alert. No obvious cranial nerve deficits. Motor grossly within normal limits. Normal speech. PSYCHIATRIC: Appropriate mood and affect; insight and judgment normal. Medications and IVs Current Medications Medications (Trade) Dose Ordered Sig/Lida Route Start Time Stop Time Status Last Admin (D50w (Vial) Inj) 50 ml UNSCH PRN IV 03/23/17 19:15 (Glucagon Inj) 1 mg UNSCH PRN OTHER 03/23/17 19:15 (NS Flush) 2 ml UNSCH PRN IV FLUSH 03/23/17 19:15 (NS Flush) 2 ml BID IV FLUSH 03/23/17 21:00 03/29/17 21:52 (Zofran Inj) 4 mg Q6H PRN IVP 03/23/17 19:15 (Heparin Inj) 5,000 units Q12H SQ 03/23/17 23:00 (Tylenol) 650 mg Q6H PRN PO 03/23/17 19:15 03/24/17 11:59 ([place] 5-325 Mg) 1 tab Q4H PRN PO 03/23/17 19:15 03/30/17 06:30 (Morphine Inj) 2 mg Q3H PRN IV 03/23/17 19:15 03/29/17 23:02 (Bibiana-Colace) 1 tab BID PO 03/23/17 21:00 03/29/17 21:52 (Milk Of Magnesia Liq) 30 ml Q12H PRN PO 03/23/17 19:15 (Senokot) 17.2 mg Q12H PRN PO 03/23/17 19:15 (Dulcolax Supp) 10 mg DAILY PRN RECTAL 03/23/17 19:15 (Lactulose Liq) 30 ml DAILY PRN PO 03/23/17 19:15 (Imuran) 75 mg DAILY PO 03/24/17 09:00 03/29/17 08:56 (Lexapro) 10 mg DAILY PO 03/24/17 09:00 03/29/17 08:56 (Levemir Inj) 15 units HS SQ 03/23/17 21:00 03/29/17 21:57 (Deltasone) 5 mg DAILY PO 03/24/17 09:00 03/29/17 08:56 (Desyrel) 100 mg HS PO 03/23/17 21:00 03/29/17 21:52 (Pill Splitter) 1 ea UNSCH PRN OTHER 03/23/17 19:45 Sodium Bicarbonate 650 mg 650 mg TID PO 03/24/17 18:00 03/29/17 16:35 (NS 1000 ml Inj) 1,000 ml @ 0 mls/hr Q0M PRN IV 03/24/17 14:44 03/25/17 16:48 Heparin Sodium (Porcine) 8000 units 8,000 units UNSCH PRN IVF 03/24/17 14:45 Sodium Chloride 1,000 ml @ 200 mls/hr Q5H PRN IV 03/24/17 14:44 (NS 1000 ml Inj) 1,000 ml @ 0 mls/hr Q0M PRN IV 03/24/17 14:44 (Mannitol Inj) 12.5 gm UNSCH PRN IV 03/24/17 14:45 (Albumin 25% Inj) 25 gm UNSCH PRN IV 03/24/17 14:45 (NS Flush) 5 ml UNSCH PRN IV FLUSH 03/24/17 14:45 (Gentamicin (Dialysis) Inj) 20 mg UNSCH PRN IV 03/24/17 14:45 (Zofran Inj) 4 mg UNSCH PRN IV 03/24/17 14:45 (Tylenol) 650 mg UNSCH PRN PO 03/24/17 14:45 (Benadryl) 25 mg UNSCH PRN PO 03/24/17 14:45 (Nitrostat Sl) 0.4 mg UNSCH PRN SL 03/24/17 14:45 (Catapres) 0.1 mg UNSCH PRN PO 03/24/17 14:45 Gelatin 1 foam 1 foam UNSCH PRN TOP 03/24/17 14:45 03/25/17 16:48 (Rocephin Inj/NS Inj) 100 ml @ 200 mls/hr Q24H IV 03/26/17 20:00 03/29/17 21:52 (Prograf) 1.5 mg Q12HR PO 03/27/17 21:00 03/29/17 22:08 (Fosrenol Chew) 500 mg TID CHEW 8/11/17 18:00 03/29/17 16:37 A/P Assessment and Plan Left BKA/Knee Cellulitis: no open wound or drainage, however, +erythema/edema/ warmth with palpable effusion. Concern for septic joint. Patient also with history of sarahy in left femur and pins in left elbow. -Continue IV antibiotics with vancomycin during dialysis and ceftriaxone per ID. -S/p left knee joint aspiration on 03/25, send synovial fluid studies. WBC count 690 -Continue pain control as needed with a bowel regimen -Orthopedic transition specialist saw the patient and recommended for Observation Leukocytosis: secondary to cellulitis as above, no documented fevers. Resolved. -On antibiotics as above -Continue to monitor blood cultures, NGTD ESRD on HD MWF, s/p failed renal transplant on chronic immunosuppression. -Consult nephrology. Had dialysis 03/27. -Continue home medications: Prograf, na bicarb, and prednisone. Prograf dose decreased d/t elevated levels. Repeat levels in 5 days per nephrology. -Monitor BMP. HTN, chronic: Resume home medications, hold if hypotensive. Blood pressure well controlled 03/29. DM, Chronic: Resume home long acting insulin, Accu checks with SSI. Add long- acting as needed. Relatively well controlled 03/29. DVT prophylaxis: Heparin Discharge Planning Once cleared by specialists. Trung Jensen MD Mar 30, 2017 09:42
--- NOTE | 2017-03-30 11:12 | PD.ORT.PN ---
Subjective Subjective Remarks The patient says that overall the leg feels fairly stable without significant telephone exchange operator the last couple of days. He says however, that there is some swelling over the medial aspect of the knee which seems to be organizing more than previously. Objective Vitals Vital Signs Date Time Temp Pulse Resp B/P Pulse Ox O2 Delivery O2 Flow Rate FiO2 03/30/17 08:00 98.3 66 17 112/57 92 03/30/17 04:00 Room Air 03/30/17 04:00 97.8 63 16 153/70 97 03/30/17 00:00 97.3 62 16 157/74 93 03/30/17 00:00 Room Air 03/29/17 20:00 98.2 70 18 163/75 97 03/29/17 20:00 Room Air 03/29/17 18:00 66 03/29/17 16:00 98.0 68 18 157/72 93 I/O 03/29/17 03/29/17 03/29/17 03/30/17 03/30/17 03/30/17 07:00 15:00 23:00 07:00 15:00 23:00 Intake Total 826 ml 240 ml 820 ml 120 ml Output Total 2000 ml Balance 826 ml -1760 ml 820 ml 120 ml Intake Oral 720 ml 240 ml 720 ml 120 ml IV Total 106 ml 100 ml Hemodialysis 2000 ml # Voids 0 0 1 0 # Bowel Movements 0 1 1 0 Result Diagram: 03/30/17 0556 03/30/17 0556 Imaging Last 24 hours Impressions Knee MRI 03/30/17 0000 Signed Impressions: Service Date/Time: Thursday, March 30, 2017 07:56 - CONCLUSION: 1. Ill-defined fluid collection along the lateral distal femur adjacent to the screw-plate fixation device. This is mildly complex and nonspecific. 2. Second crescentic fluid collection along the anterior proximal tibia which is nonspecific. There is diffuse surrounding soft tissue edema. 3. No evidence of osteomyelitis. 4. Status post [id number]-ock-garw amputation and open rigid internal fixation of a distal femur fracture. 5. Small to moderate joint effusion and chondromalacia patella. Brett Sam MD I reviewed the MRI and agree with the report. Objective Remarks Patient is awake and alert. Examination of left leg reveals well-healed surgical incisions. There is no drainage. He continues to have cellulitis around his left knee and BKA stump. The medial aspect of the knee has induration and some flaky changes to the skin. There may be some mild fluctuance in this area. On the lateral aspect of the knee there is clear fluctuance of a moderate degree which does not have overlying cellulitis. There is no clear fluctuance along the amputation site, but there is still mild swelling and mild redness. Assessment & Plan Assessment and Plan This patient is status post a left below the knee amputation 15 years ago with recent history of cellulitis. The patient had an aspiration of the lateral fluid which did not show infection and was akbar colored. The MRI that was just completed reveals that there is a moderate fluid collection on the portion of the knee. However when I compare that area to his physical examination, that portion of fluctuance does not seem to be involved in the cellulitis or possible abscess formation. The most significant portion of the patient's exam is the anteromedial aspect of the knee, which when I review on the MRI could possibly have an organizing fluid collection isolated within the skin. However, the radiologist did not comment on this. Additionally, there is some fluid collection around the anterior aspect of the tibia which is nonspecific. I did discuss treatment options in detail with the patient including continued observation versus surgical management for irrigation and debridement. We discussed the option of obtaining a possible fluid sample from the medial aspect of the knee if this organizes into a more significant collection. For now the patient would like to move forward with observation. I agree with this plan. However, the patient still may require surgical management. Octaviano Barriga MD Mar 30, 2017 11:12
[2017-03-30 12:00] VITALS: BP 119/66; PULSE 69; RESP 18; TEMP 98.4; O2SAT 94
[2017-03-30] MEDS: TACROLIMUS 0.5 MG CAP PO SCH ×2 (12:37→22:05)
[2017-03-30] MEDS: HEPARIN SODIUM - SQ 10,000 UNITS/ML VIAL SQ SCH ×2 (12:39→22:05)
[2017-03-30 16:00] VITALS: BP 166/74; PULSE 70; RESP 22; TEMP 97.5; O2SAT 96
[2017-03-30 20:00] VITALS: BP 122/58; PULSE 67; PULSE 72; RESP 18; TEMP 98.3; O2SAT 93
[2017-03-30] MEDS: MORPHINE SULFATE 4 MG/ML INJ IV PRN (22:01)
[2017-03-30] MEDS: traZODone HCL 100 MG TAB PO SCH (22:05)
[2017-03-30] MEDS: cefTRIAXone INJ 1,000 MG in SODIUM CHLORIDE 0.9% INJ 100 ML IV SCH (22:06)
[2017-03-30] MEDS: INSULIN DETEMIR 100 UNITS/ML VIAL SQ SCH (22:10)
[2017-03-30] MEDS: CINACALCET HYDROCHLORIDE 30 MG TAB PO SCH (22:28)
[2017-03-31] VITALS (9 sets, daily range): BP systolic 130–156; BP diastolic 62–70; PULSE 68–96; RESP 18; TEMP 97.5–98.7; O2SAT 90–99
[2017-03-31] MEDS: INSULIN ASPART SUPPLEMENTAL SCALE SQ SCH ×3 (06:04→17:19)
[2017-03-31] MEDS ORDERED: GENTAMICIN SULFATE 80 MG/2 ML VIAL ONE (07:18)
--- NOTE | 2017-03-31 07:36 | PD.ORT.PN ---
Subjective Subjective Remarks The patient states that the medial aspect of the knee seems to be worsening with some increased swelling. He does continue to have pain in that region. He says the distal stump is stable and does not seem to be getting much worse. Objective Vitals Vital Signs Date Time Temp Pulse Resp B/P Pulse Ox O2 Delivery O2 Flow Rate FiO2 03/31/17 00:00 98.0 68 18 131/62 90 03/31/17 00:00 97.7 70 18 131/64 93 03/31/17 00:00 Room Air 03/30/17 20:00 Room Air 03/30/17 20:00 98.3 67 18 122/58 93 03/30/17 20:00 72 03/30/17 16:00 97.5 70 22 166/74 96 03/30/17 12:00 98.4 69 18 119/66 94 03/30/17 08:00 98.3 66 17 112/57 92 03/30/17 08:00 Room Air I/O 03/30/17 03/30/17 03/30/17 03/31/17 03/31/17 03/31/17 07:00 15:00 23:00 07:00 15:00 23:00 Intake Total 120 ml 100 ml Balance 120 ml 100 ml Intake Oral 120 ml IV Total 100 ml # Voids 0 1 # Bowel Movements 0 Result Diagram: 03/30/17 0556 03/30/17 0556 Imaging Last 24 hours Impressions Knee MRI 03/30/17 0000 Signed Impressions: Service Date/Time: Thursday, March 30, 2017 07:56 - CONCLUSION: 1. Ill-defined fluid collection along the lateral distal femur adjacent to the screw-plate fixation device. This is mildly complex and nonspecific. 2. Second crescentic fluid collection along the anterior proximal tibia which is nonspecific. There is diffuse surrounding soft tissue edema. 3. No evidence of osteomyelitis. 4. Status post qrwiv-zrp-vbri amputation and open rigid internal fixation of a distal femur fracture. 5. Small to moderate joint effusion and chondromalacia patella. Brett Sam MD I reviewed the MRI and agree with the report. Objective Remarks Patient is awake and alert. Examination of left leg reveals well-healed surgical incisions. There is no drainage. The generalized cellulitis of the stump seems to be slightly less than it was yesterday. However, on the medial aspect of the knee there has developed fluctuance around an area of what looks like fluid collection. There is still generalized swelling of the stump of a mild to moderate degree. There is some fluctuance noted laterally as well, with no specific cellulitis noted over that area. Assessment & Plan Assessment and Plan This patient is status post a left below the knee amputation 15 years ago with recent history of cellulitis. The patient had an aspiration of the lateral fluid which did not show infection and was akbar colored. The MRI that was just completed reveals that there is a moderate fluid collection on the portion of the knee. However when I compare that area to his physical examination, that portion of fluctuance does not seem to be involved in the cellulitis or possible abscess formation. The patient is having worsening fluctuance on the medial aspect of the knee with continued signs of infection. We discussed the option for surgical management again for this area. Today the patient does what will forward with this. We expressed that we can debride this and likely will require local wound dressings to allow for closure. We discussed options for the distal end of the stump. The patient would like to try to avoid opening that area due to problems with nonhealing. We did discuss that it is possible we may need to open that area up, additionally we did present some other surgical options for this. He understands he could require recurrent surgery. He has want to move forward with surgery today. He understands that the risks of surgery include but are not limited to continued infection, wound healing problems, loss of range of motion of the knee, need for reoperation, nonhealing wounds, requirement for further amputation, and medical complications such as heart attack, stroke, pulmonary embolus, . Octaviano Barriga MD Mar 31, 2017 07:36
[2017-03-31] MEDS ORDERED: HYDROCORTISONE SOD SUCCINATE 100 MG VIAL ONE (07:45)
[2017-03-31] MEDS ORDERED: SUGAMMADEX SODIUM 200 MG/2 ML VIAL IV PUSH ONE ×2 (08:03)
[2017-03-31] MEDS: SODIUM CHLOR 0.45% 1000 ML INJ 1,000 ML IV SCH ×2 (08:39→17:10)
[2017-03-31] MEDS ORDERED: diphenhydrAMINE HCL 25 MG CAP PO PRN (08:45)
[2017-03-31] MEDS ORDERED: SODIUM CHLORIDE 0.9% FLUSH 5 ML FLUSH IVF PRN (08:45)
[2017-03-31] MEDS ORDERED: Post-op Orders (for Pharmacy) MISC XX ONE (08:45)
[2017-03-31] MEDS ORDERED: MAGNESIUM HYDROXIDE SUSP 30 ML CUP PO PRN (08:45)
[2017-03-31] MEDS ORDERED: MISCELLANEOUS NURSING INFORMATION XX PRN (08:45)
[2017-03-31] MEDS ORDERED: MISCELLANEOUS PHARMACY INFORMATION XX ONE (08:45)
[2017-03-31] MEDS ORDERED: NALOXONE HCL 0.4 MG/ML AMP IV PRN (08:45)
[2017-03-31] MEDS ORDERED: ACETAMINOPHEN/HYDROcodone 325 MG/5 MG TAB PO PRN (08:45)
[2017-03-31] MEDS: LANTHANUM CARBONATE 500 MG CHEWABLE TABLET CHEW SCH ×3 (08:47→16:24)
[2017-03-31] MEDS: SODIUM CHLORIDE 0.9% FLUSH 10 ML FLUSH IV FLUSH SCH (08:48)
[2017-03-31] MEDS: SODIUM CHLORIDE 0.9% FLUSH 5 ML FLUSH IVF SCH ×2 (08:50→20:29)
[2017-03-31] MEDS: DOCUSATE SODIUM 50 MG/SENNA 8.6 MG TAB PO SCH ×2 (09:00→20:21)
[2017-03-31] MEDS ORDERED: DO NOT ADM ANY ANTICOAGULANT DRUGS PRN (09:00)
--- NOTE | 2017-03-31 09:01 | PD.OP ---
cc: Octaviano Barriga MD Operative Report Date of Surgery: Mar 31, 2017 Preoperative Diagnosis: Left lower extremity abscesses with history of below the knee up rotation. Postoperative Diagnosis: Same Procedure: Left lower leg irrigation and debridement of deep and superficial abscesses Anesthesia: Gen. Surgeon: Octaviano Barriga Manager Solution(s): MODESTO Lyles The surgical procedure was assisted by my Advanced Registered Nurse Practitioner. My TURNING SANDER TENDER presence was necessary throughout this case for the manipulation and positioning of the surgical extremity. My TURNING SANDER TENDER was assisting me throughout the duration of this procedure. The skill set of an Advance Registered Nurse Practitioner was medically necessary to complete this procedure. During the surgical case, the water filtration technician was working at the back table and the Advance Registered Nurse Practitioner was directly assisting me. Operation and Findings: The patient was brought back to the operative theater. Gen. anesthesia was administered. The patient was on standing antibiotics and no further antibiotics were given preoperatively. The left lower extremity was prepped and draped in usual sterile fashion. We started by performing an aspiration of the distal anterior deep tibia. We did express some purulence. Therefore, we decided to make incision over the anterior distal aspect of the tibia. We dissected down through deep tissue. We immediately found approximately 50 cc of gross dejesus thick purulence. There was necrosis to underlying deep soft tissue which was removed. We took multiple cultures of this including 2 swab cultures and 1 tissue culture. We used manual debridement with the use of a lap pad tracking medially and laterally up the anterior tibial region. We used a rongeur to remove necrotic tissue. The infection was just anterior to the bone. We made second incision over the anteromedial aspect of the knee where there was a second superficial infection with approximately 20 cc of even thicker dejesus purulence. This infection appeared to be superficial and did not communicate definitively with a deeper infection of the anterior tibia. We manually debrided this also with a lap pad and rongeur. We irrigated these wounds very thoroughly. We then applied wound vacs over both incisions. This patient may require repeat debridements. Intravenous antibiotics per infectious disease. Octaviano Barriga MD Mar 31, 2017 09:01
[2017-03-31] MEDS ORDERED: fentaNYL CITRATE 250 MCG/5 ML AMP ONE (09:10)
[2017-03-31] MEDS ORDERED: *RESP: ALBUTEROL 2.5 MG/3 ML NEB (PRN) PERIprocedural Use ONLY NEB ONE (09:26)
[2017-03-31] MEDS: SODIUM BICARBONATE 325 MG TAB PO SCH ×3 (10:05→17:13)
[2017-03-31] MEDS: TACROLIMUS 0.5 MG CAP PO SCH ×2 (10:06→20:21)
[2017-03-31] MEDS: predniSONE 5 MG TAB PO SCH (10:06)
[2017-03-31] MEDS: ESCITALOPRAM OXALATE 10 MG TAB PO SCH (10:06)
[2017-03-31] MEDS: MULTIVITAMINS/MINERALS THERAPEUTIC TAB PO SCH (10:06)
[2017-03-31] MEDS: azaTHIOprine 50 MG TAB PO SCH (10:06)
[2017-03-31] MEDS: MORPHINE SULFATE 4 MG/ML INJ IV PUSH PRN ×4 (10:08→20:19)
[2017-03-31] MEDS: SODIUM CHLORIDE 0.9% FLUSH 10 ML FLUSH IV FLUSH PRN ×2 (10:08→20:20)
[2017-03-31] MEDS: HEPARIN SODIUM - SQ 10,000 UNITS/ML VIAL SQ SCH ×2 (11:00→20:22)
[2017-03-31] MEDS ORDERED: ePHEDrine/NS 25 MG/5 ML SYR IV ONE (12:00)
[2017-03-31] MEDS ORDERED: ONDANSETRON HCL 4 MG/2 ML VIAL IV PUSH ONE (12:00)
[2017-03-31] MEDS ORDERED: PROPOFOL 200 MG/20 ML AMP IV ONE (12:00)
--- NOTE | 2017-03-31 12:33 | HHI.PR ---
Subjective Remarks 56 y/o male with a history of ESRD on HD s/p failed kidney transplant on chronic immunosuppression , HTN, DM, bilateral BKA, anxiety and depression presented to the ED with complaints of pain, swelling and redness in left stump. Patient seen in his bedroom stable no new complaint, Seen by Orthopedic disease education specialist, recommended to obtain a fluid sample from the medial aspect of the knee if this organizes into a more significant collection, for now continue observation. 03/31: Status post I and D with two vacuum placed on the left stump, no nausea, vomit or diarrhea. Objective Vital Signs Date Time Temp Pulse Resp B/P Pulse Ox O2 Delivery O2 Flow Rate FiO2 03/31/17 12:00 98.2 81 18 145/66 96 03/31/17 09:35 74 16 97 Nasal Cannula 2 03/31/17 09:30 97.6 72 16 149/72 95 Nasal Cannula 2 03/31/17 09:15 80 15 161/75 93 Nasal Cannula 2 03/31/17 09:00 98.1 83 15 165/63 98 Simple Mask 6 03/31/17 08:42 Room Air 03/31/17 04:00 97.7 70 18 131/64 93 03/31/17 00:00 98.0 68 18 131/62 90 03/31/17 00:00 Room Air 03/30/17 20:00 Room Air 03/30/17 20:00 98.3 67 18 122/58 93 03/30/17 20:00 72 03/30/17 16:00 97.5 70 22 166/74 96 I/O 03/30/17 03/30/17 03/30/17 03/31/17 03/31/17 03/31/17 07:00 15:00 23:00 07:00 15:00 23:00 Intake Total 120 ml 240 ml 340 ml 150 ml Output Total 575 ml 50 ml Balance 120 ml -335 ml 340 ml 100 ml Intake Oral 120 ml 240 ml 240 ml IV Total 100 ml 0 ml Other 150 ml Output Urine Total 575 ml Estimated Blood Loss 50 ml # Voids 0 1 0 # Bowel Movements 0 0 0 Result Diagram: 03/30/17 0556 03/30/17 0556 Imaging Last Impressions Knee MRI 03/30/17 0000 Signed Impressions: Service Date/Time: Thursday, March 30, 2017 07:56 - CONCLUSION: 1. Ill-defined fluid collection along the lateral distal femur adjacent to the screw-plate fixation device. This is mildly complex and nonspecific. 2. Second crescentic fluid collection along the anterior proximal tibia which is nonspecific. There is diffuse surrounding soft tissue edema. 3. No evidence of osteomyelitis. 4. Status post [id number] amputation and open rigid internal fixation of a distal femur fracture. 5. Small to moderate joint effusion and chondromalacia patella. Brett Sam MD Knee X-Ray 03/27/17 0000 Signed Impressions: Service Date/Time: Monday, March 27, 2017 17:04 - CONCLUSION: No definite acute bony findings Gage Tellez MD Aspiration 03/25/17 0000 Signed Impressions: Service Date/Time: Saturday, March 25, 2017 09:48 - CONCLUSION: Uncomplicated aspiration as above. Rodney Vaughan MD Chest X-Ray 03/23/17 1734 Signed Impressions: Service Date/Time: Thursday, March 23, 2017 17:57 - CONCLUSION: 1. Mild basal atelectasis. Cardiomegaly. No significant change from October 17. Tee Stack MD Procedures 03/25/17 - right lateral knee joint aspiration 03/31/17-Status post Left stump I and D with two Vacuum placed. Other Results Laboratory Tests Test 03/25/17 03/27/17 03/30/17 10:10 05:15 05:56 Synovial Fluid Glucose 142 mg/dL Synovial Fluid Total Protein 1.6 g/dL Magnesium Level 2.1 MG/DL Tacrolimus (Prograf) Level 12.5 NG/ML White Blood Count 6.3 TH/MM3 Red Blood Count 2.75 MIL/MM3 Hemoglobin 9.4 GM/DL Hematocrit 27.8 % Mean Corpuscular Volume 100.9 FL Mean Corpuscular Hemoglobin 34.3 PG Mean Corpuscular Hemoglobin 34.0 % Concent Red Cell Distribution Width 16.2 % Platelet Count 209 TH/MM3 Mean Platelet Volume 7.4 FL Sodium Level 132 MEQ/L Potassium Level 4.7 MEQ/L Chloride Level 94 MEQ/L Carbon Dioxide Level 29.8 MEQ/L Anion Gap 8 MEQ/L Blood Urea Nitrogen 46 MG/DL Creatinine 6.44 MG/DL Estimat Glomerular Filtration 9 ML/MIN Rate Random Glucose 117 MG/DL Calcium Level 8.0 MG/DL Phosphorus Level 6.5 MG/DL Albumin 1.8 GM/DL Objective Remarks GENERAL: Well-nourished, well-developed pleasant middle aged male patient in [facility]. SKIN: Warm and dry. HEENT: Normocephalic. Atraumatic. Pupils equal and round. Mucous membranes pink and moist. CARDIOVASCULAR: Regular rate and rhythm. S1, S2 noted. No murmur appreciated. RESPIRATORY: CTAB.. GASTROINTESTINAL: Abdomen soft, non-tender, nondistended. Normoactive bowel sounds x4. MUSCULOSKELETAL: Chronic bilateral BKA. Left stump with erythema and TTP medially, extending proximally. NEUROLOGICAL: Awake and alert. No obvious cranial nerve deficits. Motor grossly within normal limits. Normal speech. PSYCHIATRIC: Appropriate mood and affect; insight and judgment normal. Medications and IVs Current Medications Medications (Trade) Dose Ordered Sig/Lida Route Start Time Stop Time Status Last Admin (D50w (Vial) Inj) 50 ml UNSCH PRN IV 03/23/17 19:15 (Glucagon Inj) 1 mg UNSCH PRN OTHER 03/23/17 19:15 (Heparin Inj) 5,000 units Q12H SQ 03/23/17 23:00 03/30/17 12:39 (Senokot) 17.2 mg Q12H PRN PO 03/23/17 19:15 (Dulcolax Supp) 10 mg DAILY PRN RECTAL 03/23/17 19:15 (Lactulose Liq) 30 ml DAILY PRN PO 03/23/17 19:15 (Imuran) 75 mg DAILY PO 03/24/17 09:00 03/31/17 10:06 (Lexapro) 10 mg DAILY PO 03/24/17 09:00 03/31/17 10:06 (Levemir Inj) 15 units HS SQ 03/23/17 21:00 03/30/17 22:10 (Deltasone) 5 mg DAILY PO 03/24/17 09:00 03/31/17 10:06 (Desyrel) 100 mg HS PO 03/23/17 21:00 03/30/17 22:05 (Pill Splitter) 1 ea UNSCH PRN OTHER 03/23/17 19:45 Sodium Bicarbonate 650 mg 650 mg TID PO 03/24/17 18:00 03/31/17 10:05 (NS 1000 ml Inj) 1,000 ml @ 0 mls/hr Q0M PRN IV 03/24/17 14:44 03/25/17 16:48 Heparin Sodium (Porcine) 8000 units 8,000 units UNSCH PRN IVF 03/24/17 14:45 Sodium Chloride 1,000 ml @ 200 mls/hr Q5H PRN IV 03/24/17 14:44 (NS 1000 ml Inj) 1,000 ml @ 0 mls/hr Q0M PRN IV 03/24/17 14:44 (Mannitol Inj) 12.5 gm UNSCH PRN IV 03/24/17 14:45 (Albumin 25% Inj) 25 gm UNSCH PRN IV 03/24/17 14:45 (NS Flush) 5 ml UNSCH PRN IV FLUSH 03/24/17 14:45 03/31/17 10:08 (Gentamicin (Dialysis) Inj) 20 mg UNSCH PRN IV 03/24/17 14:45 (Zofran Inj) 4 mg UNSCH PRN IV 03/24/17 14:45 (Tylenol) 650 mg UNSCH PRN PO 03/24/17 14:45 (Benadryl) 25 mg UNSCH PRN PO 03/24/17 14:45 (Nitrostat Sl) 0.4 mg UNSCH PRN SL 03/24/17 14:45 (Catapres) 0.1 mg UNSCH PRN PO 03/24/17 14:45 Gelatin 1 foam 1 foam UNSCH PRN TOP 03/24/17 14:45 03/25/17 16:48 (Rocephin Inj/NS Inj) 100 ml @ 200 mls/hr Q24H IV 03/26/17 20:00 03/30/17 22:06 (Prograf) 1.5 mg Q12HR PO 03/27/17 21:00 03/31/17 10:06 Lanthanum Carbonate 500 mg 500 mg TID CHEW 03/29/17 18:00 03/30/17 18:07 (1/2 NS 1000 ml Inj) 1,000 ml @ 100 mls/hr Q10H IV 03/31/17 08:39 (NS Flush) 2 ml UNSCH PRN IVF 03/31/17 08:45 (NS Flush) 2 ml BID IVF 03/31/17 09:00 (Bibiana-Colace) 1 tab BID PO 03/31/17 09:00 (Milk Of Theodora Augustin) 10 ml Q12H PRN PO 03/31/17 08:45 Miscellaneous Information UNSCH PRN XX 03/31/17 08:45 (Zofran Inj) 4 mg Q4H PRN IVP 03/31/17 08:45 (Theragran M Tab) 1 tab DAILY PO 03/31/17 09:00 03/31/17 10:06 (Benadryl) 25 mg Q6H PRN PO 03/31/17 08:45 (Narcan Inj) 0.4 mg UNSCH PRN IV 03/31/17 08:45 (Morphine Inj) 2 mg Q3H PRN IV PUSH 03/31/17 08:45 03/31/17 10:08 ([place] 5-325 Mg) 1 tab Q4H PRN PO 03/31/17 08:45 ([place] 5-325 Mg) 2 tab Q6H PRN PO 03/31/17 08:45 Miscellaneous Information ALL NURSING DEPARTME... UNSCH PRN .XX 03/31/17 09:00 04/01/17 08:59 A/P Assessment and Plan Left BKA/Knee Cellulitis: no open wound or drainage, however, +erythema/edema/ warmth with palpable effusion. Concern for septic joint. Patient also with history of sarahy in left femur and pins in left elbow. -Continue IV antibiotics with vancomycin during dialysis and ceftriaxone per ID. -S/p left knee joint aspiration on 03/25, send synovial fluid studies. WBC count 690 -Continue pain control as needed with a bowel regimen -Orthopedic Sap Crm Developer status post I and D and two vacuum placed. Leukocytosis: secondary to cellulitis as above, no documented fevers. Resolved. -On antibiotics as above -Continue to monitor blood cultures, NGTD ESRD on HD MWF, s/p failed renal transplant on chronic immunosuppression. -Consult nephrology. to continue Dialysis Saturday, Saturday and Saturday. -Continue home medications: Prograf, na bicarb, and prednisone. Prograf dose decreased d/t elevated levels. Repeat levels in 5 days per nephrology. -Monitor BMP. HTN, chronic: Resume home medications, hold if hypotensive. controlled. DM, Chronic: Resume home long acting insulin, Accu checks with SSI. Add long- acting as needed. Uncontrolled today increased Sliding scale to moderate dose. DVT prophylaxis: Heparin Discharge Planning Once cleared by specialists. Trung Jensen MD Mar 31, 2017 12:32
--- NOTE | 2017-03-31 13:40 | HHI.NPPN ---
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 Patient also has a transplanted pancreas which is said to be still functional and he has been continued on immunosuppressive therapy per transplant clinic at [facility]. The patient has a history of bilateral below-knee amputations. Now presents with a history of erythema and increased swelling of his left stump. Denies drainage. His present for approximately 48 hours. Patient currently on maintenance hemodialysis Saturday and Saturday via a left dialysis shunt. Interval History No verbal complaints. Review of Systems Skin Skin: Lesions (erythema and blistering on L stump) Objective Data Data 03/30/17 03/31/17 19:00 07:00 Intake Total 580 ml Output Total 575 ml Balance 5 ml Intake Oral 480 ml IV Total 100 ml Output Urine Total 575 ml # Voids 1 0 # Bowel Movements 0 Vital Signs Date Time Temp Pulse Resp B/P Pulse Ox O2 Delivery O2 Flow Rate FiO2 03/31/17 12:00 98.2 81 18 145/66 96 03/31/17 10:00 97.5 79 18 142/64 99 03/31/17 09:35 74 16 97 Nasal Cannula 2 03/31/17 09:30 97.6 72 16 149/72 95 Nasal Cannula 2 03/31/17 09:15 80 15 161/75 93 Nasal Cannula 2 03/31/17 09:00 98.1 83 15 165/63 98 Simple Mask 6 03/31/17 08:42 Room Air 03/31/17 04:00 97.7 70 18 131/64 93 03/31/17 00:00 98.0 68 18 131/62 90 03/31/17 00:00 Room Air 03/30/17 20:00 Room Air 03/30/17 20:00 98.3 67 18 122/58 93 03/30/17 20:00 72 03/30/17 16:00 97.5 70 22 166/74 96 -: 03/30/17 0556 03/30/17 0556 Microbiology 03/31/17 Gram Stain, Received Pending 03/31/17 Wound Culture, Received Pending 03/31/17 Acid Fast Stain, Received Pending 03/31/17 Mycobacterial Culture, Received Pending 03/31/17 Fungal Smear, Received Pending 03/31/17 Fungal Culture, Received Pending 03/31/17 Gram Stain, Received Pending 03/31/17 Wound Culture, Received Pending 03/31/17 Acid Fast Stain, Received Pending 03/31/17 Mycobacterial Culture, Received Pending 03/31/17 Fungal Smear, Received Pending 03/31/17 Fungal Culture, Received Pending 03/31/17 Gram Stain, Received Pending 03/31/17 Wound Culture, Received Pending 03/31/17 Acid Fast Stain, Received Pending 03/31/17 Mycobacterial Culture, Received Pending 03/31/17 Fungal Smear, Received Pending 03/31/17 Fungal Culture, Received Pending Physical Exam General Appearance: No Acute Distress, Comfortable Eyes Eye Exam: Sclera White Pulmonary Resp Exam: Clear Bilaterally, Breath Sounds Equal, No Distress Cardiology CV Exam: Regular, Normal Sinus Rhythm, Good Perfusion Gastrointestinal/Abdomen GI Exam: Soft, Non-Tender, Distended Musculoskeletal MS Remarks Bilateral BKA. Integumentary Skin Exam: Clear, Warm, Lesion(s) (L stump erythematous with small blisters present medially) Extremeties Extremities Exam: Trace Edema Neurologic Neuro Exam: Alert, Awake Psychiatric Psych Exam: Appropriate Responses Assessment/Plan Discussed Condition With: Patient Problem List: (1) End stage renal disease on dialysis Plan: Continue hemodialysis Saturday and Saturday. Continue Fosrenol for hyperphosphatemia. Protein supplement ordered Medication should be adjusted for his end-stage renal disease when indicated. Avoid gadolinium. (2) Cellulitis of left leg without foot Plan: Now status post I&D. Drain in place. (3) Metabolic acidosis Plan: Patient's metabolic acidosis is secondary to a combination of his end- stage renal disease but also his pancreatic transplant which is associated with bicarbonate into the bladder. Continue sodium bicarbonate supplementation. (4) Kidney transplant failure (5) Pancreas transplant status Plan: Tacrolimus level remains supratherapeutic. Goal range per transplant facility to be between 6-8. Tacrolimus was decreased to 1.5mg q12h. Repeat level in 5 days Rodo Ramirez MD Mar 31, 2017 13:40
[2017-03-31 15:43] LABS: AUTOMATED NEUTROPHIL # 11.4 TH/MM3 (1.8-7.7); BASOPHIL % 0.3 % (0.0-2.0); EOSINOPHIL % 0.1 % (0.0-4.0); HEMATOCRIT 28.9 % (39.0-51.0); HEMO FLAGS DIFF FINAL; LYMPH % 2.6 % (9.0-44.0); LYMPHOCYTE # 0.3 TH/MM3 (1.0-4.8); MEAN CELL VOLUME 102.3 FL (80.0-100.0); MEAN CORPUSCULAR HEMOGLOBIN 32.7 PG (27.0-34.0); MONO % 1.7 % (0.0-8.0); NEUT % 95.3 % (16.0-70.0); PLATELET COUNT 245 TH/MM3 (150-450); RED BLOOD COUNT 2.82 MIL/MM3 (4.50-5.90); RED CELL DISTRIBUTION WIDTH 16.6 % (11.6-17.2); WHITE BLOOD COUNT 11.9 TH/MM3 (4.0-11.0)
[2017-03-31] MEDS: CINACALCET HYDROCHLORIDE 30 MG TAB PO SCH (17:13)
[2017-03-31] MEDS ORDERED: RESP: ALBUTEROL 2.5 MG/IPRATROPIUM 0.5 MG NEB (PRN) NEB (19:00)
[2017-03-31] MEDS: traZODone HCL 100 MG TAB PO SCH (20:21)
[2017-03-31] MEDS: guaiFENesin E.R. 600 MG TAB PO SCH (20:21)
[2017-03-31] MEDS: cefTRIAXone INJ 1,000 MG in SODIUM CHLORIDE 0.9% INJ 100 ML IV SCH (20:29)
[2017-03-31] MEDS: INSULIN DETEMIR 100 UNITS/ML VIAL SQ SCH (20:34)
[2017-03-31] MEDS: INSULIN NovoLIN REGULAR SUPPLEMENTAL SCALE SQ SCH (20:34)
[2017-04-01] VITALS: BP 174/82; PULSE 79; RESP 18; TEMP 97.7; O2SAT 97
[2017-04-01] MEDS: MORPHINE SULFATE 4 MG/ML INJ IV PUSH PRN (00:27)
[2017-04-01] MEDS: ONDANSETRON HCL 4 MG/2 ML VIAL IVP PRN (00:29)
[2017-04-01 04:00] VITALS: BP 169/82; PULSE 77; RESP 18; TEMP 97.4; O2SAT 97
[2017-04-01] MEDS: SODIUM CHLOR 0.45% 1000 ML INJ 1,000 ML IV SCH ×2 (04:39→16:36)
[2017-04-01] MEDS: INSULIN NovoLIN REGULAR SUPPLEMENTAL SCALE SQ SCH ×4 (05:46→21:00)
--- NOTE | 2017-04-01 07:00 | PD.ORT.PN ---
Subjective Subjective Remarks Patient had irrigation and debridement of left leg on 03/31/[address] Barriga. He continues to have pain over the medial aspect of his knee and the anterior aspect of his below-knee amputation stump--pain is improving Objective Vitals Vital Signs Date Time Temp Pulse Resp B/P Pulse Ox O2 Delivery O2 Flow Rate FiO2 04/01/17 04:00 97.4 77 18 169/82 97 04/01/17 00:00 Nasal Cannula 2.00 04/01/17 00:00 97.7 79 18 174/82 97 03/31/17 20:20 77 03/31/17 20:16 98 Nasal Cannula 1.50 03/31/17 20:00 Room Air 03/31/17 20:00 97.5 80 18 148/67 98 03/31/17 17:59 2.00 03/31/17 16:00 98.3 84 18 156/70 91 03/31/17 15:16 03/31/17 15:15 84 03/31/17 12:00 98.2 81 18 145/66 96 03/31/17 10:00 97.5 79 18 142/64 99 03/31/17 09:35 74 16 97 Nasal Cannula 2 03/31/17 09:30 97.6 72 16 149/72 95 Nasal Cannula 2 03/31/17 09:15 80 15 161/75 93 Nasal Cannula 2 03/31/17 09:00 98.1 83 15 165/63 98 Simple Mask 6 03/31/17 08:42 Room Air I/O 03/31/17 03/31/17 03/31/17 04/01/17 04/01/17 04/01/17 07:00 15:00 23:00 07:00 15:00 23:00 Intake Total 340 ml 870 ml 480 ml Output Total 50 ml 300 ml Balance 340 ml 820 ml 180 ml Intake Oral 240 ml 720 ml 480 ml IV Total 100 ml 0 ml Other 150 ml Output Urine Total 300 ml Stool Total 0 ml Estimated Blood Loss 50 ml # Voids 0 1 # Bowel Movements 0 0 Result Diagram: 03/31/17 1440 03/30/17 0556 Imaging Last 24 hours Impressions Knee MRI 03/30/17 0000 Signed Impressions: Service Date/Time: Thursday, March 30, 2017 07:56 - CONCLUSION: 1. Ill-defined fluid collection along the lateral distal femur adjacent to the screw-plate fixation device. This is mildly complex and nonspecific. 2. Second crescentic fluid collection along the anterior proximal tibia which is nonspecific. There is diffuse surrounding soft tissue edema. 3. No evidence of osteomyelitis. 4. Status post [id number] amputation and open rigid internal fixation of a distal femur fracture. 5. Small to moderate joint effusion and chondromalacia patella. Brett Sam MD I reviewed the MRI and agree with the report. Objective Remarks Patient is awake and alert. Examination of left leg reveals a VAC dressing in place 2. There is no drainage. The cellulitis of the stump seems to be slightly less than it was yesterday. There is still generalized swelling of the stump of a mild to moderate degree. Assessment & Plan Assessment and Plan Patient has infection of left knee and left BKA stump. He has 2 open wounds with VAC dressings. Nothing by mouth after midnight Plan on surgery tomorrow for repeat irrigation and debridement with possible wound closure. I discussed options for the distal end of the stump. The patient would like to try to avoid opening that area due to problems with nonhealing. We did discuss that it is possible we may need to open that area up , additionally we did present some other surgical options for this. He understands he could require recurrent surgery. He has want to move forward with surgery today. He understands that the risks of surgery include but are not limited to continued infection, wound healing problems, loss of range of motion of the knee, need for reoperation, nonhealing wounds, requirement for further amputation, and medical complications such as heart attack, stroke, pulmonary embolus, . Carlos Sarkar MD Apr 01, 2017 07:00
[2017-04-01 08:00] VITALS: BP 168/78; PULSE 85; RESP 18; TEMP 97.5; O2SAT 96
[2017-04-01] MEDS: TACROLIMUS 0.5 MG CAP PO SCH ×2 (08:24→21:10)
[2017-04-01] MEDS: DOCUSATE SODIUM 50 MG/SENNA 8.6 MG TAB PO SCH ×2 (08:24→21:00)
[2017-04-01] MEDS: SODIUM BICARBONATE 325 MG TAB PO SCH ×3 (08:24→16:33)
[2017-04-01] MEDS: MULTIVITAMINS/MINERALS THERAPEUTIC TAB PO SCH (08:24)
[2017-04-01] MEDS: predniSONE 5 MG TAB PO SCH (08:24)
[2017-04-01] MEDS: azaTHIOprine 50 MG TAB PO SCH (08:24)
[2017-04-01] MEDS: guaiFENesin E.R. 600 MG TAB PO SCH ×2 (08:24→21:10)
[2017-04-01] MEDS: ESCITALOPRAM OXALATE 10 MG TAB PO SCH (08:24)
[2017-04-01] MEDS: SODIUM CHLORIDE 0.9% FLUSH 5 ML FLUSH IVF SCH ×2 (08:26→21:00)
[2017-04-01] MEDS: LANTHANUM CARBONATE 500 MG CHEWABLE TABLET CHEW SCH ×3 (08:26→16:33)
[2017-04-01] MEDS: HEPARIN SODIUM - SQ 10,000 UNITS/ML VIAL SQ SCH ×2 (11:00→23:00)
--- NOTE | 2017-04-01 12:23 | HHI.NPPN ---
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 Patient also has a transplanted pancreas which is said to be still functional and he has been continued on immunosuppressive therapy per transplant clinic at [facility]. The patient has a history of bilateral below-knee amputations. Now presents with a history of erythema and increased swelling of his left stump. Denies drainage. His present for approximately 48 hours. Patient currently on maintenance hemodialysis Saturday and Saturday via a left dialysis shunt. Interval History Patient was seen during dialysis today. Indicated that his stump was feeling somewhat better today. Review of Systems Skin Skin: Lesions (erythema and blistering on L stump) Objective Data Data 03/31/17 04/01/17 19:00 07:00 Intake Total 870 ml 720 ml Output Total 50 ml 300 ml Balance 820 ml 420 ml Intake Oral 720 ml 720 ml IV Total 0 ml Other 150 ml Output Urine Total 300 ml Stool Total 0 ml Estimated Blood Loss 50 ml # Voids 1 1 # Bowel Movements 1 Vital Signs Date Time Temp Pulse Resp B/P Pulse Ox O2 Delivery O2 Flow Rate FiO2 04/01/17 08:00 97.5 85 18 168/78 96 04/01/17 04:00 97.4 77 18 169/82 97 04/01/17 00:00 Nasal Cannula 2.00 04/01/17 00:00 97.7 79 18 174/82 97 03/31/17 20:20 77 03/31/17 20:16 98 Nasal Cannula 1.50 03/31/17 20:00 Room Air 03/31/17 20:00 97.5 80 18 148/67 98 03/31/17 17:59 2.00 03/31/17 16:00 98.3 84 18 156/70 91 03/31/17 15:16 03/31/17 15:15 84 -: 03/31/17 1440 03/30/17 0556 Physical Exam General Appearance: No Acute Distress, Comfortable Eyes Eye Exam: Sclera White Pulmonary Resp Exam: Clear Bilaterally, Breath Sounds Equal, No Distress Cardiology CV Exam: Regular, Normal Sinus Rhythm, Good Perfusion Gastrointestinal/Abdomen GI Exam: Soft, Non-Tender, Distended Musculoskeletal MS Remarks Bilateral BKA. Integumentary Skin Exam: Clear, Warm, Lesion(s) (L stump erythematous with small blisters present medially) Extremeties Extremities Exam: Trace Edema Neurologic Neuro Exam: Alert, Awake Psychiatric Psych Exam: Appropriate Responses Assessment/Plan Discussed Condition With: Patient Problem List: (1) End stage renal disease on dialysis Plan: Patient was seen during dialysis today. Dialysis access working well. Patient tolerating treatment and fluid removal. Continue Fosrenol for hyperphosphatemia. Protein supplement ordered Medication should be adjusted for his end-stage renal disease when indicated. Avoid gadolinium. (2) Cellulitis of left leg without foot Plan: Now status post I&D. Drain in place. (3) Metabolic acidosis Plan: Patient's metabolic acidosis is secondary to a combination of his end- stage renal disease but also his pancreatic transplant which is associated with bicarbonate into the bladder. Continue sodium bicarbonate supplementation. (4) Kidney transplant failure (5) Pancreas transplant status Plan: Tacrolimus level remains supratherapeutic. Goal range per transplant facility to be between 6-8. Tacrolimus was decreased to 1.5mg q12h. Repeat level in 5 days Rodo Ramirez MD Apr 01, 2017 12:23
--- NOTE | 2017-04-01 13:29 | HHI.PR ---
Subjective Remarks 56 y/o male with a history of ESRD on HD s/p failed kidney transplant on chronic immunosuppression , HTN, DM, bilateral BKA, anxiety and depression presented to the ED with complaints of pain, swelling and redness in left stump. Patient seen in his bedroom stable no new complaint, Seen by Orthopedic veterinary surgery technician, recommended to obtain a fluid sample from the medial aspect of the knee if this organizes into a more significant collection, for now continue observation. 03/31: Status post I and D with two vacuum placed on the left stump. 04/01: Stable in his bedroom Discussed with nurse Miss Rojas and patient, was recommended by Orthopedic Surgery Doctor Carlos Sarkar to repeat the Irrigation and debridement with possible wound closure for tomorrow, patient will be NPO at midnight and will go tomorrow for the procedure denies any nausea, vomit or diarrhea. today was on Hemodialysis and seen by ID specialist recommended to continue Vancomycin and Ceftriaxone. Objective Vital Signs Date Time Temp Pulse Resp B/P Pulse Ox O2 Delivery O2 Flow Rate FiO2 04/01/17 08:00 97.5 85 18 168/78 96 04/01/17 04:00 97.4 77 18 169/82 97 04/01/17 00:00 Nasal Cannula 2.00 04/01/17 00:00 97.7 79 18 174/82 97 03/31/17 20:20 77 03/31/17 20:16 98 Nasal Cannula 1.50 03/31/17 20:00 Room Air 03/31/17 20:00 97.5 80 18 148/67 98 03/31/17 17:59 2.00 03/31/17 16:00 98.3 84 18 156/70 91 03/31/17 15:16 03/31/17 15:15 84 I/O 03/31/17 03/31/17 03/31/17 04/01/17 04/01/17 04/01/17 07:00 15:00 23:00 07:00 15:00 23:00 Intake Total 340 ml 870 ml 480 ml 240 ml Output Total 50 ml 300 ml 2000 ml Balance 340 ml 820 ml 180 ml 240 ml -2000 ml Intake Oral 240 ml 720 ml 480 ml 240 ml IV Total 100 ml 0 ml Other 150 ml Output Urine Total 300 ml Stool Total 0 ml Hemodialysis 2000 ml Estimated Blood Loss 50 ml # Voids 0 1 1 # Bowel Movements 0 0 1 Result Diagram: 03/31/17 1440 03/30/17 0556 Imaging Last Impressions Knee MRI 03/30/17 0000 Signed Impressions: Service Date/Time: Thursday, March 30, 2017 07:56 - CONCLUSION: 1. Ill-defined fluid collection along the lateral distal femur adjacent to the screw-plate fixation device. This is mildly complex and nonspecific. 2. Second crescentic fluid collection along the anterior proximal tibia which is nonspecific. There is diffuse surrounding soft tissue edema. 3. No evidence of osteomyelitis. 4. Status post jmftz-fjk-kikq amputation and open rigid internal fixation of a distal femur fracture. 5. Small to moderate joint effusion and chondromalacia patella. Brett Sam MD Knee X-Ray 03/27/17 0000 Signed Impressions: Service Date/Time: Monday, March 27, 2017 17:04 - CONCLUSION: No definite acute bony findings Gage Tellez MD Aspiration 03/25/17 0000 Signed Impressions: Service Date/Time: Saturday, March 25, 2017 09:48 - CONCLUSION: Uncomplicated aspiration as above. Rodney Vaughan MD Chest X-Ray 03/23/17 1734 Signed Impressions: Service Date/Time: Thursday, March 23, 2017 17:57 - CONCLUSION: 1. Mild basal atelectasis. Cardiomegaly. No significant change from October 17. Tee Stack MD Procedures 03/25/17 - right lateral knee joint aspiration 03/31/17-Status post Left stump I and D with two Vacuum placed. Other Results Laboratory Tests Test 03/30/17 03/31/17 04/01/17 05:56 14:40 08:14 Sodium Level 132 MEQ/L Potassium Level 4.7 MEQ/L Chloride Level 94 MEQ/L Carbon Dioxide Level 29.8 MEQ/L Anion Gap 8 MEQ/L Blood Urea Nitrogen 46 MG/DL Creatinine 6.44 MG/DL Estimat Glomerular Filtration 9 ML/MIN Rate Random Glucose 117 MG/DL Calcium Level 8.0 MG/DL Phosphorus Level 6.5 MG/DL Albumin 1.8 GM/DL White Blood Count 11.9 TH/MM3 Red Blood Count 2.82 MIL/MM3 Hemoglobin 9.2 GM/DL Hematocrit 28.9 % Mean Corpuscular Volume 102.3 FL Mean Corpuscular Hemoglobin 32.7 PG Mean Corpuscular Hemoglobin 32.0 % Concent Red Cell Distribution Width 16.6 % Platelet Count 245 TH/MM3 Mean Platelet Volume 7.1 FL Neutrophils (%) (Auto) 95.3 % Lymphocytes (%) (Auto) 2.6 % Monocytes (%) (Auto) 1.7 % Eosinophils (%) (Auto) 0.1 % Basophils (%) (Auto) 0.3 % Neutrophils # (Auto) 11.4 TH/MM3 Lymphocytes # (Auto) 0.3 TH/MM3 Monocytes # (Auto) 0.2 TH/MM3 Eosinophils # (Auto) 0.0 TH/MM3 Basophils # (Auto) 0.0 TH/MM3 CBC Comment DIFF FINAL Differential Comment Tacrolimus (Prograf) Level 5.2 NG/ML Objective Remarks GENERAL: Well-nourished, well-developed pleasant middle aged male patient in [facility]. SKIN: Warm and dry. HEENT: Normocephalic. Atraumatic. Pupils equal and round. Mucous membranes pink and moist. CARDIOVASCULAR: Regular rate and rhythm. S1, S2 noted. No murmur appreciated. RESPIRATORY: CTAB.. GASTROINTESTINAL: Abdomen soft, non-tender, nondistended. Normoactive bowel sounds x4. MUSCULOSKELETAL: Chronic bilateral BKA. Left stump with erythema and TTP medially, extending proximally. NEUROLOGICAL: Awake and alert. No obvious cranial nerve deficits. Motor grossly within normal limits. Normal speech. PSYCHIATRIC: Appropriate mood and affect; insight and judgment normal. Medications and IVs Current Medications Medications (Trade) Dose Ordered Sig/Lida Route Start Time Stop Time Status Last Admin (D50w (Vial) Inj) 50 ml UNSCH PRN IV 03/23/17 19:15 (Glucagon Inj) 1 mg UNSCH PRN OTHER 03/23/17 19:15 (Heparin Inj) 5,000 units Q12H SQ 03/23/17 23:00 03/30/17 12:39 (Senokot) 17.2 mg Q12H PRN PO 03/23/17 19:15 (Dulcolax Supp) 10 mg DAILY PRN RECTAL 03/23/17 19:15 (Lactulose Liq) 30 ml DAILY PRN PO 03/23/17 19:15 (Imuran) 75 mg DAILY PO 03/24/17 09:00 04/01/17 08:24 (Lexapro) 10 mg DAILY PO 03/24/17 09:00 04/01/17 08:24 (Levemir Inj) 15 units HS SQ 03/23/17 21:00 03/31/17 20:34 (Deltasone) 5 mg DAILY PO 03/24/17 09:00 04/01/17 08:24 (Desyrel) 100 mg HS PO 03/23/17 21:00 03/31/17 20:21 (Pill Splitter) 1 ea UNSCH PRN OTHER 03/23/17 19:45 Sodium Bicarbonate 650 mg 650 mg TID PO 03/24/17 18:00 04/01/17 08:24 (NS 1000 ml Inj) 1,000 ml @ 0 mls/hr Q0M PRN IV 03/24/17 14:44 03/25/17 16:48 Heparin Sodium (Porcine) 8000 units 8,000 units UNSCH PRN IVF 03/24/17 14:45 Sodium Chloride 1,000 ml @ 200 mls/hr Q5H PRN IV 03/24/17 14:44 (NS 1000 ml Inj) 1,000 ml @ 0 mls/hr Q0M PRN IV 03/24/17 14:44 (Mannitol Inj) 12.5 gm UNSCH PRN IV 03/24/17 14:45 (Albumin 25% Inj) 25 gm UNSCH PRN IV 03/24/17 14:45 (NS Flush) 5 ml UNSCH PRN IV FLUSH 03/24/17 14:45 03/31/17 20:20 (Gentamicin (Dialysis) Inj) 20 mg UNSCH PRN IV 03/24/17 14:45 (Zofran Inj) 4 mg UNSCH PRN IV 03/24/17 14:45 (Tylenol) 650 mg UNSCH PRN PO 03/24/17 14:45 (Benadryl) 25 mg UNSCH PRN PO 03/24/17 14:45 (Nitrostat Sl) 0.4 mg UNSCH PRN SL 03/24/17 14:45 (Catapres) 0.1 mg UNSCH PRN PO 03/24/17 14:45 Gelatin 1 foam 1 foam UNSCH PRN TOP 03/24/17 14:45 03/25/17 16:48 (Rocephin Inj/NS Inj) 100 ml @ 200 mls/hr Q24H IV 03/26/17 20:00 03/31/17 20:29 (Prograf) 1.5 mg Q12HR PO 03/27/17 21:00 04/01/17 08:24 Lanthanum Carbonate 500 mg 500 mg TID CHEW 03/29/17 18:00 03/31/17 16:24 (1/2 NS 1000 ml Inj) 1,000 ml @ 100 mls/hr Q10H IV 03/31/17 08:39 (NS Flush) 2 ml UNSCH PRN IVF 03/31/17 08:45 (NS Flush) 2 ml BID IVF 03/31/17 09:00 04/01/17 08:26 (Bibiana-Colace) 1 tab BID PO 03/31/17 09:00 04/01/17 08:24 (Milk Of Magnhéctor Liq) 10 ml Q12H PRN PO 03/31/17 08:45 Miscellaneous Information UNSCH PRN XX 03/31/17 08:45 (Zofran Inj) 4 mg Q4H PRN IVP 03/31/17 08:45 04/01/17 00:29 (Theragran M Tab) 1 tab DAILY PO 03/31/17 09:00 04/01/17 08:24 (Benadryl) 25 mg Q6H PRN PO 03/31/17 08:45 (Narcan Inj) 0.4 mg UNSCH PRN IV 03/31/17 08:45 (Morphine Inj) 2 mg Q3H PRN IV PUSH 03/31/17 08:45 04/01/17 00:27 (Potter 5-325 Mg) 1 tab Q4H PRN PO 03/31/17 08:45 (Potter 5-325 Mg) 2 tab Q6H PRN PO 03/31/17 08:45 (Mucinex Er) 600 mg BID PO 03/31/17 21:00 04/01/17 08:24 A/P Assessment and Plan Left BKA/Knee Cellulitis: no open wound or drainage, however, +erythema/edema/ warmth with palpable effusion. Concern for septic joint. Patient also with history of sarahy in left femur and pins in left elbow. -Continue IV antibiotics with vancomycin during dialysis and ceftriaxone per ID. -S/p left knee joint aspiration on 03/25, send synovial fluid studies. WBC count 690 -Continue pain control as needed with a bowel regimen -Orthopedic Airdox Fitter status post I and D and two vacuum placed. seen by Doctor Carlos Sarkar recommended to repeat the Irrigation and debridement with possible wound closure for tomorrow, patient will be NPO at midnight and will go tomorrow for the procedure Leukocytosis: secondary to cellulitis as above, no documented fevers. Resolved. -On antibiotics as above -Continue to monitor blood cultures, NGTD ESRD on HD MWF, s/p failed renal transplant on chronic immunosuppression. -Consult nephrology. to continue Dialysis Saturday, Saturday and Saturday. -Continue home medications: Prograf, na bicarb, and prednisone. Prograf dose decreased d/t elevated levels. Repeat levels in 5 days per nephrology. -Monitor BMP. HTN, chronic: Resume home medications, hold if hypotensive. controlled. DM, Chronic: Resume home long acting insulin, Accu checks with SSI. Add long- acting as needed. Uncontrolled today increased Sliding scale to moderate dose. DVT prophylaxis: Heparin Discharge Planning Once cleared by specialists. Trung Jensen MD Apr 01, 2017 13:29
--- NOTE | 2017-04-01 15:15 | HHI.IDPN ---
Note Infectious Disease Note ID Xcover for . is a 56 y/o CM with PMHx of ESRD on HD, HTN, DM, Bilateral BKA, s/ p kidney pancreas transplantation. Post op from I&D of abscess. Intraop note with deep tissue infection with necrosis, concerning for septic arthritis. Overall feels the redness has improved. Has a wound vac in place. Denies chills. Afebrile. PAST MEDICAL HISTORY 1. End-stage renal disease. On hemodialysis. 2. Hypertension. 3. Diabetes mellitus. 4. Anxiety, depression. 5. Chronic acidosis. 6. Bilateral otgpc-yde-vjjp amputation. 7. kidney transplantation in 1991 and 2009. 8. Pancreatic transplantation in 1991. On immunosuppressive med. 9. Cholecystectomy. 10. Skin cancer removal. 11. Prosthesis in the right eye. ALLERGIES NO KNOWN DRUG ALLERGIES. OBJECTIVE: Vital Signs Date Time Temp Pulse Resp B/P Pulse Ox O2 Delivery O2 Flow Rate FiO2 04/01/17 08:00 97.5 85 18 168/78 96 04/01/17 04:00 97.4 77 18 169/82 97 04/01/17 00:00 Nasal Cannula 2.00 04/01/17 00:00 97.7 79 18 174/82 97 03/31/17 20:20 77 03/31/17 20:16 98 Nasal Cannula 1.50 03/31/17 20:00 Room Air 03/31/17 20:00 97.5 80 18 148/67 98 03/31/17 17:59 2.00 03/31/17 16:00 98.3 84 18 156/70 91 03/31/17 15:16 03/31/17 15:15 84 Microbiology Date/Time Procedure Status Source Growth 03/31/17 08:30 Gram Stain - Final Resulted Wound Leg 03/31/17 08:30 Wound Culture - Preliminary Resulted Group B Beta Strep 03/31/17 08:30 Fungal Smear - Final Resulted Wound Leg NO FUNGAL ELEMENTS SEEN. 03/31/17 08:30 Fungal Culture Resulted Wound Leg Pending 03/31/17 08:30 Acid Fast Stain Received Wound Leg Pending 03/31/17 08:30 Mycobacterial Culture Received Wound Leg Pending Laboratory Tests Test 03/30/17 03/31/17 04/01/17 05:56 14:40 08:14 White Blood Count 6.3 TH/MM3 11.9 TH/MM3 Red Blood Count 2.75 MIL/MM3 2.82 MIL/MM3 Hemoglobin 9.4 GM/DL 9.2 GM/DL Hematocrit 27.8 % 28.9 % Mean Corpuscular Volume 100.9 FL 102.3 FL Mean Corpuscular Hemoglobin 34.3 PG 32.7 PG Mean Corpuscular Hemoglobin 34.0 % 32.0 % Concent Red Cell Distribution Width 16.2 % 16.6 % Platelet Count 209 TH/MM3 245 TH/MM3 Mean Platelet Volume 7.4 FL 7.1 FL Sodium Level 132 MEQ/L Potassium Level 4.7 MEQ/L Chloride Level 94 MEQ/L Carbon Dioxide Level 29.8 MEQ/L Anion Gap 8 MEQ/L Blood Urea Nitrogen 46 MG/DL Creatinine 6.44 MG/DL Estimat Glomerular Filtration 9 ML/MIN Rate Random Glucose 117 MG/DL Calcium Level 8.0 MG/DL Phosphorus Level 6.5 MG/DL Albumin 1.8 GM/DL Neutrophils (%) (Auto) 95.3 % Lymphocytes (%) (Auto) 2.6 % Monocytes (%) (Auto) 1.7 % Eosinophils (%) (Auto) 0.1 % Basophils (%) (Auto) 0.3 % Neutrophils # (Auto) 11.4 TH/MM3 Lymphocytes # (Auto) 0.3 TH/MM3 Monocytes # (Auto) 0.2 TH/MM3 Eosinophils # (Auto) 0.0 TH/MM3 Basophils # (Auto) 0.0 TH/MM3 CBC Comment DIFF FINAL Differential Comment Tacrolimus (Prograf) Level 5.2 NG/ML Last Impressions Knee MRI 03/30/17 0000 Signed Impressions: Service Date/Time: Thursday, March 30, 2017 07:56 - CONCLUSION: 1. Ill-defined fluid collection along the lateral distal femur adjacent to the screw-plate fixation device. This is mildly complex and nonspecific. 2. Second crescentic fluid collection along the anterior proximal tibia which is nonspecific. There is diffuse surrounding soft tissue edema. 3. No evidence of osteomyelitis. 4. Status post vrsmq-idi-pzzd amputation and open rigid internal fixation of a distal femur fracture. 5. Small to moderate joint effusion and chondromalacia patella. Brett Sam MD Knee X-Ray 03/27/17 0000 Signed Impressions: Service Date/Time: Monday, March 27, 2017 17:04 - CONCLUSION: No definite acute bony findings Gage Tellez MD Aspiration 03/25/17 0000 Signed Impressions: Service Date/Time: Saturday, March 25, 2017 09:48 - CONCLUSION: Uncomplicated aspiration as above. Rodney Vaughan MD Chest X-Ray 03/23/17 1734 Signed Impressions: Service Date/Time: Thursday, March 23, 2017 17:57 - CONCLUSION: 1. Mild basal atelectasis. Cardiomegaly. No significant change from October 17. Tee Stack MD PHYSICAL EXAMINATION GENERAL: No acute distress. HEENT: No icterus. The right side has an eye prosthesis. Oropharynx no visible lesions. LUNGS: Clear. HEART: Regular S1-S2 without murmurs, rubs, or gallops. ABDOMEN: Decreased bowel sounds, soft, nontender. EXTREMITIES: The left knee at the inner aspect has blanching erythema at the medial aspect unchanged. The area is warm to touch. No change. The erythema extends along the side of the patella and here is also mild erythema at the anterior area above the stump. There is no involvement of the stump incision. The right stump is intact. There is no cyanosis or edema. SKIN: No rash. NEUROLOGIC: No gross focal findings. PSYCHIATRIC: The patient is calm and cooperative. IMPRESSION Right knee abscess, deep tissue infection ? bone infection ? proximity to sarahy ( needs to be addressed) Immunosuppression. The patient had pancreatic transplant and is on immunosuppressive medications. Bilateral qoqzi-ywq-dxut amputation. Also has sarahy in left femur. RECOMMENDATIONS 1. Continue vancomycin IV at dialysis. 2. Continue Ceftriaxone IV for now. 3. d.w Micro to test for susceptibility to Strep as patient will need IV antibiotics. to resume care in am. Cindy Trejo MD Apr 01, 2017 15:15
[2017-04-01 16:00] VITALS: BP 130/62; PULSE 84; RESP 18; TEMP 98; O2SAT 97
[2017-04-01] MEDS: CINACALCET HYDROCHLORIDE 30 MG TAB PO SCH (16:33)
[2017-04-01 19:04] VITALS: PULSE 73
[2017-04-01 20:00] VITALS: BP 142/63; PULSE 88; RESP 18; TEMP 98.1; O2SAT 93
[2017-04-01] MEDS: ACETAMINOPHEN/HYDROcodone 325 MG/5 MG TAB PO PRN (21:09)
[2017-04-01] MEDS: traZODone HCL 100 MG TAB PO SCH (21:10)
[2017-04-01] MEDS: SODIUM CHLORIDE 0.9% FLUSH 10 ML FLUSH IV FLUSH PRN (21:11)
[2017-04-01] MEDS: cefTRIAXone INJ 2,000 MG in SODIUM CHLORIDE 0.9% INJ 100 ML IV SCH (21:11)
[2017-04-01] MEDS: INSULIN DETEMIR 100 UNITS/ML VIAL SQ SCH (21:15)
[2017-04-02] VITALS: BP 126/65; PULSE 81; RESP 20; TEMP 97.7; O2SAT 92
[2017-04-02] MEDS: SODIUM CHLOR 0.45% 1000 ML INJ 1,000 ML IV SCH (00:39)
[2017-04-02 04:00] VITALS: BP 161/70; PULSE 76; RESP 18; TEMP 98.1; O2SAT 96
[2017-04-02] MEDS: INSULIN NovoLIN REGULAR SUPPLEMENTAL SCALE SQ SCH ×4 (06:47→20:55)
[2017-04-02 08:00] VITALS: BP 159/72; PULSE 80; RESP 18; TEMP 97.4; O2SAT 100
[2017-04-02] MEDS: LANTHANUM CARBONATE 500 MG CHEWABLE TABLET CHEW SCH ×3 (09:00→16:22)
[2017-04-02] MEDS: SODIUM CHLORIDE 0.9% FLUSH 5 ML FLUSH IVF SCH ×2 (09:00→20:59)
[2017-04-02] MEDS: DOCUSATE SODIUM 50 MG/SENNA 8.6 MG TAB PO SCH ×2 (09:00→20:54)
[2017-04-02] MEDS: predniSONE 5 MG TAB PO SCH (09:36)
[2017-04-02] MEDS: SODIUM BICARBONATE 325 MG TAB PO SCH ×3 (09:38→16:23)
[2017-04-02] MEDS: MULTIVITAMINS/MINERALS THERAPEUTIC TAB PO SCH (09:38)
[2017-04-02] MEDS: azaTHIOprine 50 MG TAB PO SCH (09:38)
[2017-04-02] MEDS: guaiFENesin E.R. 600 MG TAB PO SCH ×2 (09:38→20:54)
[2017-04-02] MEDS: TACROLIMUS 0.5 MG CAP PO SCH ×2 (09:38→16:23)
[2017-04-02] MEDS: ESCITALOPRAM OXALATE 10 MG TAB PO SCH (09:38)
[2017-04-02] MEDS: HEPARIN SODIUM - SQ 10,000 UNITS/ML VIAL SQ SCH ×2 (11:00→23:00)
[2017-04-02] MEDS ORDERED: ONDANSETRON HCL 4 MG/2 ML VIAL IV PUSH ONE (12:00)
[2017-04-02] MEDS ORDERED: DEXT 5%-NACL 0.9% 1000 ML INJ 1,000 ML IV SCH (12:00)
[2017-04-02] MEDS ORDERED: PROPOFOL 200 MG/20 ML AMP IV ONE (12:00)
[2017-04-02] MEDS ORDERED: PHENYLEPH/NS 1000 MCG/10 ML SYR IV ONE (12:00)
[2017-04-02] MEDS ORDERED: ePHEDrine/NS 25 MG/5 ML SYR IV ONE (12:00)
[2017-04-02] MEDS ORDERED: GENTAMICIN SULFATE 80 MG/2 ML VIAL ONE (12:41)
[2017-04-02] MEDS ORDERED: fentaNYL CITRATE 250 MCG/5 ML AMP ONE (12:49)
[2017-04-02] MEDS ORDERED: FAMOTIDINE 20 MG/2 ML VIAL ONE (12:49)
[2017-04-02] MEDS ORDERED: MIDAZOLAM HCL 2 MG/2 ML VIAL ONE (12:49)
[2017-04-02] MEDS ORDERED: SUGAMMADEX SODIUM 200 MG/2 ML VIAL IV PUSH ONE ×2 (12:55)
--- NOTE | 2017-04-02 14:23 | PD.OP ---
cc: Carlos Bass MD Operative Report Date of Surgery: Apr 02, 2017 Preoperative Diagnosis: Left leg infection Postoperative Diagnosis: Procedure: Irrigation debridement of left leg wounds, closure of left leg wounds Anesthesia: Gen. Surgeon: Carlos Bass Drapery Cutter Machine(s): Scott Murillo PA-C The surgical procedure was assisted by my physician content assistant. My P.A. presence was necessary throughout this case for the manipulation and positioning of the surgical extremity. My P.A. was assisting me throughout the duration of this procedure. The skill set of a physician content assistant was medically necessary to complete this procedure. During the surgical case the surgical instrument mechanic was working at the back table and the physician content assistant was directly assisting me. Operation and Findings: Adeel returns operating room today for repeat irrigation debridement of left leg with possible wound closure. Informed consent was obtained and operative site was marked. He is brought to operating room. He was given IV sedation and general anesthesia. Timeout procedure was performed. Left leg was prepped with alcohol followed by Hibiclens and draped in usual sterile fashion. Procedure began with debridement of the wound. There were 2 open wounds. Both wounds were thoroughly debrided. Excisional debridement was performed using scalpel and rongeur. Overall the tissue to be healthy. There was minimal purulent drainage. After thorough debridement wound was copiously irrigated with pulsatile lavage. The wound appeared to be very clean at this time. Next attention was turned to wound closure. Subcutaneous tissues closed with 3- 0 PDS. Skin was closed with 3-0 nylon. A combination of retention suture and vertical mattress suture were utilized. Skin edges were well approximated with minimal tension at completion of closure. Sterile dressings were applied with Xeroform 4 x 4 soft roll and Ernesto wrap. Patient was awakened and transferred to recovery room in stable condition. Carlos Bass MD Apr 02, 2017 14:23
[2017-04-02] MEDS ORDERED: SODIUM CHLORIDE 0.9% FLUSH 5 ML FLUSH IVF PRN (14:30)
[2017-04-02] MEDS ORDERED: DO NOT ADM ANY ANTICOAGULANT DRUGS PRN (15:15)
--- NOTE | 2017-04-02 15:55 | HHI.NPPN ---
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 Patient also has a transplanted pancreas which is said to be still functional and he has been continued on immunosuppressive therapy per transplant clinic at [facility]. The patient has a history of bilateral below-knee amputations. Now presents with a history of erythema and increased swelling of his left stump. Denies drainage. His present for approximately 48 hours. Patient currently on maintenance hemodialysis Saturday and Saturday via a left dialysis shunt. Interval History Patient seen post-irrigation and debridement. Indicated that he was feeling somewhat better. Review of Systems Skin Skin: Lesions (erythema and blistering on L stump) Objective Data Data 04/01/17 04/02/17 19:00 07:00 Intake Total 720 ml 480 ml Output Total 2000 ml 500 ml Balance -1280 ml -20 ml Intake Oral 720 ml 480 ml Output Urine Total 0 ml 500 ml Hemodialysis 2000 ml # Voids 1 # Bowel Movements 0 1 Vital Signs Date Time Temp Pulse Resp B/P Pulse Ox O2 Delivery O2 Flow Rate FiO2 04/02/17 15:14 97.5 93 24 131/62 98 Nasal Cannula 2 04/02/17 15:00 95 14 131/62 100 04/02/17 14:45 101 14 129/71 99 04/02/17 14:30 96 14 116/67 99 Nasal Cannula 2 04/02/17 14:29 97.5 96 13 118/63 99 Simple Mask 6 04/02/17 08:00 97.4 80 18 159/72 100 04/02/17 04:00 98.1 76 18 161/70 96 04/02/17 00:00 97.7 81 20 126/65 92 04/01/17 20:00 98.1 88 18 142/63 93 04/01/17 19:45 Nasal Cannula 2.00 04/01/17 19:04 73 04/01/17 17:41 18 04/01/17 16:00 98.0 84 18 130/62 97 04/01/17 16:00 97 Nasal Cannula 2.00 -: 03/31/17 1440 03/30/17 0556 Physical Exam General Appearance: No Acute Distress, Comfortable Eyes Eye Exam: Sclera White Pulmonary Resp Exam: Clear Bilaterally, Breath Sounds Equal, No Distress Cardiology CV Exam: Regular, Normal Sinus Rhythm, Good Perfusion Gastrointestinal/Abdomen GI Exam: Soft, Non-Tender, Distended Musculoskeletal MS Remarks Bilateral BKA. Integumentary Skin Exam: Clear, Warm, Lesion(s) (L stump erythematous with small blisters present medially) Extremeties Extremities Exam: Trace Edema Neurologic Neuro Exam: Alert, Awake Psychiatric Psych Exam: Appropriate Responses Assessment/Plan Discussed Condition With: Patient Problem List: (1) End stage renal disease on dialysis Plan: Patient status post I&D. Drain is been removed. Hemodialysis tomorrow per outpatient schedule. Continue Fosrenol for hyperphosphatemia. Protein supplement ordered Medication should be adjusted for his end-stage renal disease when indicated. Avoid gadolinium. (2) Cellulitis of left leg without foot Plan: Now status post I&D. Drain in place. (3) Metabolic acidosis Plan: Patient's metabolic acidosis is secondary to a combination of his end- stage renal disease but also his pancreatic transplant which is associated with bicarbonate into the bladder. Continue sodium bicarbonate supplementation. (4) Kidney transplant failure (5) Pancreas transplant status Plan: Tacrolimus level remains supratherapeutic. Goal range per transplant facility to be between 6-8. Tacrolimus was decreased to 1.5mg q12h. Repeat level in 5 days Rodo Ramirez MD Apr 02, 2017 15:55
--- NOTE | 2017-04-02 15:57 | HHI.IDPN ---
Note Infectious Disease Note Patient just back from debridement and wound closure at the left stump and knee. Feels drowsy. No complaints. Denies chills. Afebrile. PAST MEDICAL HISTORY 1. End-stage renal disease. On hemodialysis. 2. Hypertension. 3. Diabetes mellitus. 4. Anxiety, depression. 5. Chronic acidosis. 6. Bilateral tkgfn-cnt-[id number] amputation. 7. kidney transplantation in 1991 and 2009. 8. Pancreatic transplantation in 1991. On immunosuppressive med. 9. Cholecystectomy. 10. Skin cancer removal. 11. Prosthesis in the right eye. ALLERGIES NO KNOWN DRUG ALLERGIES. OBJECTIVE: Vital Signs Date Time Temp Pulse Resp B/P Pulse Ox O2 Delivery O2 Flow Rate FiO2 04/02/17 15:14 97.5 93 24 131/62 98 Nasal Cannula 2 04/02/17 15:00 95 14 131/62 100 04/02/17 14:45 101 14 129/71 99 04/02/17 14:30 96 14 116/67 99 Nasal Cannula 2 04/02/17 14:29 97.5 96 13 118/63 99 Simple Mask 6 04/02/17 08:00 97.4 80 18 159/72 100 04/02/17 04:00 98.1 76 18 161/70 96 04/02/17 00:00 97.7 81 20 126/65 92 04/01/17 20:00 98.1 88 18 142/63 93 04/01/17 19:45 Nasal Cannula 2.00 04/01/17 19:04 73 04/01/17 17:41 18 04/01/17 16:00 98.0 84 18 130/62 97 04/01/17 16:00 97 Nasal Cannula 2.00 04/01/17 04/01/17 04/02/17 15:00 23:00 07:00 Intake Total 720 ml 240 ml 240 ml Output Total 2000 ml 300 ml 200 ml Balance -1280 ml -60 ml 40 ml Intake Oral 720 ml 240 ml 240 ml Output Urine Total 0 ml 300 ml 200 ml Hemodialysis 2000 ml # Voids 1 # Bowel Movements 0 1 0 Microbiology Date/Time Procedure Status Source Growth 03/31/17 08:30 Gram Stain - Final Complete Wound Leg 03/31/17 08:30 Wound Culture - Final Complete Group B Beta Strep 03/31/17 08:30 Acid Fast Stain - Final Resulted Wound Leg NO ACID FAST BACILLI SEEN 03/31/17 08:30 Mycobacterial Culture Resulted Wound Leg Pending 03/31/17 08:30 Fungal Smear - Final Resulted Wound Leg NO FUNGAL ELEMENTS SEEN. 03/31/17 08:30 Fungal Culture Resulted Wound Leg Pending 03/31/17 08:30 Gram Stain - Final Complete Wound Leg 03/31/17 08:30 Wound Culture - Final Complete Group B Beta Strep 03/31/17 08:30 Acid Fast Stain - Final Resulted Wound Leg NO ACID FAST BACILLI SEEN 03/31/17 08:30 Mycobacterial Culture Resulted Wound Leg Pending 03/31/17 08:30 Fungal Smear - Final Resulted Wound Leg NO FUNGAL ELEMENTS SEEN. 03/31/17 08:30 Fungal Culture Resulted Wound Leg Pending 03/31/17 08:30 Gram Stain - Final Complete Wound Leg 03/31/17 08:30 Wound Culture - Final Complete Group B Beta Strep 03/31/17 08:30 Acid Fast Stain - Final Resulted Wound Leg NO ACID FAST BACILLI SEEN 03/31/17 08:30 Mycobacterial Culture Resulted Wound Leg Pending 03/31/17 08:30 Fungal Smear - Final Resulted Wound Leg NO FUNGAL ELEMENTS SEEN. 03/31/17 08:30 Fungal Culture Resulted Wound Leg Pending PHYSICAL EXAMINATION GENERAL: No acute distress. HEENT: No icterus. The right side has an eye prosthesis. LUNGS: Clear. HEART: Regular S1-S2 without murmurs, rubs, or gallops. ABDOMEN: Decreased bowel sounds, soft, nontender. EXTREMITIES: The left knee is post debridement and wound closure. Dressing in place. SKIN: No rash. NEUROLOGIC: No gross focal findings. PSYCHIATRIC: Calm and cooperative. IMPRESSION 1. Cellulitis/abscess of the right knee. Group B strep. 2. Immunosuppression. The patient had pancreatic transplant and is on immunosuppressive medications. 3. Bilateral cnplc-rhh-ynfp amputation. Also has sarahy in left femur. RECOMMENDATIONS 1. Continue vancomycin with dialysis. Will arrange for 2 weeks additional treatment. 2. Continue ceftriaxone for now. 3. Monitor response. Elier Mabry MD Apr 02, 2017 15:57
[2017-04-02 16:00] VITALS: BP 159/70; PULSE 93; RESP 18; TEMP 97.9; O2SAT 95
--- NOTE | 2017-04-02 16:01 | HHI.FF ---
Infusion Therapy Location of Infusion Therapy: [facility] IV Infusion Order Patient Information Patient Weight 91.2 kg Diagnosis: Coded Allergies: No Known Allergies (Verified , 03/23/17) Administer Medication Vancomycin 1 gram IV q 48 hours w/Hemodialysis M,W,F Stop Treatment: Apr 17, 2017 Additional Information Venous access: Other Additional Instructions [x] Peripheral flush and dressing changes per protocol [x] Implanted port and central online merchandising specialist: * Implanted port: 10 ml Normal Saline followed by 5 ml Heparin 100 units/ml Heparin flush after each use and monthly to maintain. [] May leave port accessed during therapy. [] May leave peripheral site accessed for duration of therapy. [x] If patient has SOB or respiratory distress, check oxygen saturation. If less than 90% or clinical signs of respiratory distress, administer oxygen at 2 L/min. via nasal cannula and notify physician. [x] Anaphylaxis/Reaction orders: * Stop infusion. * Keep IV line open with saline flush. * Notify physician. * Monitor vital signs every 15 minutes until symptoms resolve. * Check Oxygen saturation; Oxygen at 2 L/min. via nasal cannula if less than 90% or clinical signs of respiratory distress. * Administer diphenhydramine (Benadryl) 25 mg IV STAT, (unless patient has received as pre-med). May repeat once, if necessary. * Solu-Cortef 250 mg IVP over 30-60 seconds, use 100 mg vials for each dissolution. * Epinephrine (1mg/1 ml) 0.3 mg subcutaneously or IVP now with any signs of respiratory distress. * Check with physician for new additional pre-med orders if patient is re- challenged or re-treated. [x] May remove PICC line when treatment complete, after confirming with Physician. [x] If the patient is admitted to the hospital, the ED, or transferred via [facility] , complete transfer form including medication reconciliation order sheet. Laboratory Tests Additional Information Patient to be placed on Keflex PO 250mg BID x 4 weeks after completion fo IV Vancomycin. The am dose on dialysis days should be taken after dialysis. Elier Mabry MD Apr 02, 2017 16:01
[2017-04-02] MEDS: ACETAMINOPHEN/HYDROcodone 325 MG/5 MG TAB PO PRN ×2 (16:21→20:53)
[2017-04-02] MEDS: CINACALCET HYDROCHLORIDE 30 MG TAB PO SCH (16:21)
--- NOTE | 2017-04-02 16:36 | HHI.PR ---
Subjective Remarks 56 y/o male with a history of ESRD on HD s/p failed kidney transplant on chronic immunosuppression , HTN, DM, bilateral BKA, anxiety and depression presented to the ED with complaints of pain, swelling and redness in left stump. Patient seen in his bedroom stable no new complaint, Seen by Orthopedic marketing proposal specialist, recommended to obtain a fluid sample from the medial aspect of the knee if this organizes into a more significant collection, for now continue observation. 03/31: Status post I and D with two vacuum placed on the left stump. 04/01: Stable in his bedroom Discussed with nurse Miss Rojas and patient, was recommended by Orthopedic Surgery Doctor Carlos Sarkar to repeat the Irrigation and debridement with possible wound closure for tomorrow, patient will be NPO at midnight and will go tomorrow for the procedure denies any nausea, vomit or diarrhea. today was on Hemodialysis and seen by ID specialist recommended to continue Vancomycin and Ceftriaxone. 04/02: Seen in his bedroom stable status post Surgery, no new issues, no nausea , vomit or diarrhea. Objective Vital Signs Date Time Temp Pulse Resp B/P Pulse Ox O2 Delivery O2 Flow Rate FiO2 04/02/17 15:14 97.5 93 24 131/62 98 Nasal Cannula 2 04/02/17 15:00 95 14 131/62 100 04/02/17 14:45 101 14 129/71 99 04/02/17 14:30 96 14 116/67 99 Nasal Cannula 2 04/02/17 14:29 97.5 96 13 118/63 99 Simple Mask 6 04/02/17 08:00 97.4 80 18 159/72 100 04/02/17 04:00 98.1 76 18 161/70 96 04/02/17 00:00 97.7 81 20 126/65 92 04/01/17 20:00 98.1 88 18 142/63 93 04/01/17 19:45 Nasal Cannula 2.00 04/01/17 19:04 73 04/01/17 17:41 18 I/O 04/01/17 04/01/17 04/01/17 04/02/17 04/02/17 04/02/17 07:00 15:00 23:00 07:00 15:00 23:00 Intake Total 240 ml 720 ml 240 ml 240 ml 700 ml Output Total 2000 ml 300 ml 200 ml Balance 240 ml -1280 ml -60 ml 40 ml 700 ml Intake Oral 240 ml 720 ml 240 ml 240 ml Other 700 ml Output Urine Total 0 ml 300 ml 200 ml Hemodialysis 2000 ml # Voids 1 1 # Bowel Movements 1 0 1 0 Result Diagram: 03/31/17 1440 03/30/17 0556 Imaging Last Impressions Knee MRI 03/30/17 0000 Signed Impressions: Service Date/Time: Thursday, March 30, 2017 07:56 - CONCLUSION: 1. Ill-defined fluid collection along the lateral distal femur adjacent to the screw-plate fixation device. This is mildly complex and nonspecific. 2. Second crescentic fluid collection along the anterior proximal tibia which is nonspecific. There is diffuse surrounding soft tissue edema. 3. No evidence of osteomyelitis. 4. Status post [id number] amputation and open rigid internal fixation of a distal femur fracture. 5. Small to moderate joint effusion and chondromalacia patella. Brett Sam MD Knee X-Ray 03/27/17 0000 Signed Impressions: Service Date/Time: Monday, March 27, 2017 17:04 - CONCLUSION: No definite acute bony findings Gage Tellez MD Aspiration 03/25/17 0000 Signed Impressions: Service Date/Time: Saturday, March 25, 2017 09:48 - CONCLUSION: Uncomplicated aspiration as above. Rodney Vaughan MD Chest X-Ray 03/23/17 1734 Signed Impressions: Service Date/Time: Thursday, March 23, 2017 17:57 - CONCLUSION: 1. Mild basal atelectasis. Cardiomegaly. No significant change from October 17. Tee Stack MD Procedures 03/25/17 - right lateral knee joint aspiration 03/31/17-Status post Left stump I and D with two Vacuum placed. Other Results Laboratory Tests Test 03/30/17 03/31/17 04/01/17 05:56 14:40 08:14 Sodium Level 132 MEQ/L Potassium Level 4.7 MEQ/L Chloride Level 94 MEQ/L Carbon Dioxide Level 29.8 MEQ/L Anion Gap 8 MEQ/L Blood Urea Nitrogen 46 MG/DL Creatinine 6.44 MG/DL Estimat Glomerular Filtration 9 ML/MIN Rate Random Glucose 117 MG/DL Calcium Level 8.0 MG/DL Phosphorus Level 6.5 MG/DL Albumin 1.8 GM/DL White Blood Count 11.9 TH/MM3 Red Blood Count 2.82 MIL/MM3 Hemoglobin 9.2 GM/DL Hematocrit 28.9 % Mean Corpuscular Volume 102.3 FL Mean Corpuscular Hemoglobin 32.7 PG Mean Corpuscular Hemoglobin 32.0 % Concent Red Cell Distribution Width 16.6 % Platelet Count 245 TH/MM3 Mean Platelet Volume 7.1 FL Neutrophils (%) (Auto) 95.3 % Lymphocytes (%) (Auto) 2.6 % Monocytes (%) (Auto) 1.7 % Eosinophils (%) (Auto) 0.1 % Basophils (%) (Auto) 0.3 % Neutrophils # (Auto) 11.4 TH/MM3 Lymphocytes # (Auto) 0.3 TH/MM3 Monocytes # (Auto) 0.2 TH/MM3 Eosinophils # (Auto) 0.0 TH/MM3 Basophils # (Auto) 0.0 TH/MM3 CBC Comment DIFF FINAL Differential Comment Tacrolimus (Prograf) Level 5.2 NG/ML Objective Remarks GENERAL: Well-nourished, well-developed pleasant middle aged male patient in [facility]. SKIN: Warm and dry. HEENT: Normocephalic. Atraumatic. Pupils equal and round. Mucous membranes pink and moist. CARDIOVASCULAR: Regular rate and rhythm. S1, S2 noted. No murmur appreciated. RESPIRATORY: CTAB.. GASTROINTESTINAL: Abdomen soft, non-tender, nondistended. Normoactive bowel sounds x4. MUSCULOSKELETAL: Chronic bilateral BKA. Left stump with erythema and TTP medially, extending proximally. NEUROLOGICAL: Awake and alert. No obvious cranial nerve deficits. Motor grossly within normal limits. Normal speech. PSYCHIATRIC: Appropriate mood and affect; insight and judgment normal. Medications and IVs Current Medications Medications (Trade) Dose Ordered Sig/Lida Route Start Time Stop Time Status Last Admin (D50w (Vial) Inj) 50 ml UNSCH PRN IV 03/23/17 19:15 (Glucagon Inj) 1 mg UNSCH PRN OTHER 03/23/17 19:15 (Heparin Inj) 5,000 units Q12H SQ 03/23/17 23:00 03/30/17 12:39 (Senokot) 17.2 mg Q12H PRN PO 03/23/17 19:15 (Dulcolax Supp) 10 mg DAILY PRN RECTAL 03/23/17 19:15 (Lactulose Liq) 30 ml DAILY PRN PO 03/23/17 19:15 (Imuran) 75 mg DAILY PO 03/24/17 09:00 04/02/17 09:38 (Lexapro) 10 mg DAILY PO 03/24/17 09:00 04/02/17 09:38 (Levemir Inj) 15 units HS SQ 03/23/17 21:00 04/01/17 21:15 (Deltasone) 5 mg DAILY PO 03/24/17 09:00 04/02/17 09:36 (Desyrel) 100 mg HS PO 03/23/17 21:00 04/01/17 21:10 (Pill Splitter) 1 ea UNSCH PRN OTHER 03/23/17 19:45 Sodium Bicarbonate 650 mg 650 mg TID PO 03/24/17 18:00 04/02/17 16:23 (NS 1000 ml Inj) 1,000 ml @ 0 mls/hr Q0M PRN IV 03/24/17 14:44 03/25/17 16:48 Heparin Sodium (Porcine) 8000 units 8,000 units UNSCH PRN IVF 03/24/17 14:45 (NS 1000 ml Inj) 1,000 ml @ 0 mls/hr Q0M PRN IV 03/24/17 14:44 (Mannitol Inj) 12.5 gm UNSCH PRN IV 03/24/17 14:45 (Albumin 25% Inj) 25 gm UNSCH PRN IV 03/24/17 14:45 (NS Flush) 5 ml UNSCH PRN IV FLUSH 03/24/17 14:45 04/01/17 21:11 (Gentamicin (Dialysis) Inj) 20 mg UNSCH PRN IV 03/24/17 14:45 (Zofran Inj) 4 mg UNSCH PRN IV 03/24/17 14:45 (Tylenol) 650 mg UNSCH PRN PO 03/24/17 14:45 (Benadryl) 25 mg UNSCH PRN PO 03/24/17 14:45 (Nitrostat Sl) 0.4 mg UNSCH PRN SL 03/24/17 14:45 (Catapres) 0.1 mg UNSCH PRN PO 03/24/17 14:45 (Gelfoam 12 Mm/7 Mm Top) 1 foam UNSCH PRN TOP 03/24/17 14:45 03/25/17 16:48 (Prograf) 1.5 mg Q12HR PO 03/27/17 21:00 04/03/17 09:00 04/02/17 09:38 (Fosrenol Chew) 500 mg TID CHEW 03/29/17 18:00 04/02/17 16:22 (NS Flush) 2 ml UNSCH PRN IVF 03/31/17 08:45 (NS Flush) 2 ml BID IVF 03/31/17 09:00 04/01/17 08:26 (Bibiana-Colace) 1 tab BID PO 03/31/17 09:00 04/01/17 08:24 (Milk Of Magnesia Liq) 10 ml Q12H PRN PO 03/31/17 08:45 Miscellaneous Information UNSCH PRN XX 03/31/17 08:45 (Zofran Inj) 4 mg Q4H PRN IVP 03/31/17 08:45 04/01/17 00:29 (Theragran M Tab) 1 tab DAILY PO 03/31/17 09:00 04/02/17 09:38 (Benadryl) 25 mg Q6H PRN PO 03/31/17 08:45 (Narcan Inj) 0.4 mg UNSCH PRN IV 03/31/17 08:45 (Morphine Inj) 2 mg Q3H PRN IV PUSH 03/31/17 08:45 04/01/17 00:27 (Lincoln 5-325 Mg) 1 tab Q4H PRN PO 03/31/17 08:45 04/01/17 16:39 (Lincoln 5-325 Mg) 2 tab Q6H PRN PO 03/31/17 08:45 04/02/17 16:21 Guaifenesin 600 mg 600 mg BID PO 03/31/17 21:00 04/02/17 09:38 Ceftriaxone Sodium 2000 mg/ Sodium Chloride 100 ml @ 200 mls/hr Q24H IV 04/01/17 20:00 04/01/17 21:11 (D5W-NS 1000 ml Inj) 1,000 ml @ 100 mls/hr Q10H IV 04/02/17 12:00 Miscellaneous Information ALL NURSING DEPARTME... UNSCH PRN .XX 8/15/17 15:15 04/03/17 15:14 (Prograf) 2 mg DAILY@0600 PO 04/03/17 06:00 (Prograf) 1.5 mg DAILY@18 PO 04/02/17 18:00 04/02/17 16:23 A/P Assessment and Plan Left BKA/Knee Cellulitis: no open wound or drainage, however, +erythema/edema/ warmth with palpable effusion. Concern for septic joint. Patient also with history of sarahy in left femur and pins in left elbow. -Continue IV antibiotics with vancomycin during dialysis and ceftriaxone per ID. -S/p left knee joint aspiration on 03/25, send synovial fluid studies. WBC count 690 -Continue pain control as needed with a bowel regimen -Today status post Irrigation and debridement with wound closure. Leukocytosis: secondary to cellulitis as above, no documented fevers. Resolved. -On antibiotics as above -Continue to monitor blood cultures, NGTD ESRD on HD MWF, s/p failed renal transplant on chronic immunosuppression. -Consult nephrology. to continue Dialysis Saturday, Saturday and Saturday. -Continue home medications: Prograf, na bicarb, and prednisone. Prograf dose decreased d/t elevated levels. Repeat levels in 5 days per nephrology. -Monitor BMP. HTN, chronic: Resume home medications, hold if hypotensive. controlled. DM, Chronic: Resume home long acting insulin, Accu checks with SSI. Add long- acting as needed. Uncontrolled today increased Sliding scale to moderate dose. in the morning had Hypoglycemia started on D5 but discontinued after procedure. DVT prophylaxis: Heparin Discharge Planning Once cleared by specialists. Trung Jensen MD Apr 02, 2017 16:36 Trung Jensen MD Apr 02, 2017 16:36
[2017-04-02 20:00] VITALS: BP 159/74; PULSE 86; RESP 20; TEMP 97.3; O2SAT 92
[2017-04-02 20:15] VITALS: PULSE 85
[2017-04-02] MEDS: cefTRIAXone INJ 2,000 MG in SODIUM CHLORIDE 0.9% INJ 100 ML IV SCH (20:52)
[2017-04-02] MEDS: traZODone HCL 100 MG TAB PO SCH (20:53)
[2017-04-02] MEDS: INSULIN DETEMIR 100 UNITS/ML VIAL SQ SCH (20:54)
[2017-04-02] MEDS ORDERED: SODIUM CHLORIDE 0.9% FLUSH 5 ML FLUSH IVF SCH (21:00)
[2017-04-03] VITALS (7 sets, daily range): BP systolic 177–212; BP diastolic 72–93; PULSE 77–86; RESP 20; TEMP 97.1–98.6; O2SAT 92–99
[2017-04-03] MEDS: ONDANSETRON HCL 4 MG/2 ML VIAL IVP PRN ×2 (03:14→12:30)
[2017-04-03] MEDS: ACETAMINOPHEN/HYDROcodone 325 MG/5 MG TAB PO PRN ×2 (03:14→21:48)
[2017-04-03] MEDS: TACROLIMUS 0.5 MG CAP PO SCH ×2 (05:22→18:00)
[2017-04-03] MEDS: INSULIN NovoLIN REGULAR SUPPLEMENTAL SCALE SQ SCH ×3 (06:02→21:00)
--- NOTE | 2017-04-03 07:07 | PD.ORT.PN ---
Subjective Subjective Remarks Resting comfortably with no new complaints Objective Vitals Vital Signs Date Time Temp Pulse Resp B/P Pulse Ox O2 Delivery O2 Flow Rate FiO2 04/03/17 04:00 97.1 77 20 178/80 93 04/03/17 00:00 97.6 84 20 186/86 92 04/02/17 20:15 85 04/02/17 20:00 97.3 86 20 159/74 92 04/02/17 19:45 Room Air 04/02/17 19:41 18 04/02/17 16:00 97.9 93 18 159/70 95 04/02/17 15:14 97.5 93 24 131/62 98 Nasal Cannula 2 04/02/17 15:00 95 14 131/62 100 04/02/17 14:45 101 14 129/71 99 04/02/17 14:30 96 14 116/67 99 Nasal Cannula 2 04/02/17 14:29 97.5 96 13 118/63 99 Simple Mask 6 04/02/17 08:00 97.4 80 18 159/72 100 04/02/17 07:15 95 Nasal Cannula 2.00 I/O 04/02/17 04/02/17 04/02/17 04/03/17 04/03/17 04/03/17 06:59 14:59 22:59 06:59 14:59 22:59 Intake Total 240 ml 1180 ml 240 ml 240 ml Output Total 200 ml 0 ml Balance 40 ml 1180 ml 240 ml 240 ml Intake Oral 240 ml 480 ml 240 ml 240 ml Other 700 ml Output Urine Total 200 ml 0 ml # Voids 0 0 # Bowel Movements 0 0 0 0 Result Diagram: 03/31/17 1440 03/30/17 0556 Imaging Last 24 hours Impressions Knee MRI 03/30/17 0000 Signed Impressions: Service Date/Time: Thursday, March 30, 2017 07:56 - CONCLUSION: 1. Ill-defined fluid collection along the lateral distal femur adjacent to the screw-plate fixation device. This is mildly complex and nonspecific. 2. Second crescentic fluid collection along the anterior proximal tibia which is nonspecific. There is diffuse surrounding soft tissue edema. 3. No evidence of osteomyelitis. 4. Status post nabad-[id number] amputation and open rigid internal fixation of a distal femur fracture. 5. Small to moderate joint effusion and chondromalacia patella. Brett Sam MD I reviewed the MRI and agree with the report. Objective Remarks Patient is awake and alert. Left lower extremity: Clean dry dressings intact. No Pain with hip or knee range of motion Assessment & Plan Assessment and Plan Irrigation debridement with closure of wounds to left below-knee amputation POD 1 Daily dressing changes beginning POD 2 Nonweightbearing left lower extremity with no use of prosthesis for 6-8 weeks Antibiotics managed by infectious disease: Recommend 2 weeks of IV antibiotics and continued oral antibiotics for a total of 6 weeks Case management for rehabilitation placement since patient lives alone Follow-up appointment with Dr. Bass or [place] in 2 weeks Brett Asher Jr. Apr 03, 2017 07:07
[2017-04-03] MEDS ORDERED: NORC5TAB PO (07:09)
[2017-04-03] MEDS: SODIUM CHLORIDE 0.9% FLUSH 5 ML FLUSH IVF SCH ×2 (09:00→21:00)
[2017-04-03] MEDS: SODIUM BICARBONATE 325 MG TAB PO SCH ×3 (09:31→18:00)
[2017-04-03] MEDS: LANTHANUM CARBONATE 500 MG CHEWABLE TABLET CHEW SCH ×3 (09:31→18:00)
[2017-04-03] MEDS: ESCITALOPRAM OXALATE 10 MG TAB PO SCH (09:32)
[2017-04-03] MEDS: guaiFENesin E.R. 600 MG TAB PO SCH ×2 (09:32→21:50)
[2017-04-03] MEDS: MULTIVITAMINS/MINERALS THERAPEUTIC TAB PO SCH (09:32)
[2017-04-03] MEDS: azaTHIOprine 50 MG TAB PO SCH (09:32)
[2017-04-03] MEDS: predniSONE 5 MG TAB PO SCH (09:32)
[2017-04-03] MEDS: DOCUSATE SODIUM 50 MG/SENNA 8.6 MG TAB PO SCH ×2 (09:32→21:00)
[2017-04-03] MEDS: HEPARIN SODIUM - SQ 10,000 UNITS/ML VIAL SQ SCH ×2 (11:00→21:45)
--- NOTE | 2017-04-03 13:06 | HHI.PR ---
Subjective Remarks 56 y/o male with a history of ESRD on HD s/p failed kidney transplant on chronic immunosuppression , HTN, DM, bilateral BKA, anxiety and depression presented to the ED with complaints of pain, swelling and redness in left stump. Patient seen in his bedroom stable no new complaint, Seen by Orthopedic sales and service specialist, recommended to obtain a fluid sample from the medial aspect of the knee if this organizes into a more significant collection, for now continue observation. 03/31: Status post I and D with two vacuum placed on the left stump. 04/01: Stable in his bedroom Discussed with nurse Miss Rojas and patient, was recommended by Orthopedic Surgery Doctor Carlos Sarkar to repeat the Irrigation and debridement with possible wound closure for tomorrow, patient will be NPO at midnight and will go tomorrow for the procedure denies any nausea, vomit or diarrhea. today was on Hemodialysis and seen by ID specialist recommended to continue Vancomycin and Ceftriaxone. 04/02: Seen in his bedroom stable status post Surgery, no new issues. 04/03: Stable in his bedroom seen already by Orthopedic Surgery, he is in status post I and D and closure of left BKA POD #1, daily dressing changes beginning tomorrow. Non weightbearing left lower extremity with no use of prosthesis for 6 to 8 weeks. CIR following for Inpatient Rehab asked for PT and OT, Followed by ID specialist with Diagnosis of Cellulitis/Abscess of the right Left knee Group B strep, Immunosuppression status post Pancreatic transplant on immunosuppressive medicines, recommended to continue Vancomycin with Dialysis for 2 weeks additional treatment. continue Ceftriaxone by now. Objective Vital Signs Date Time Temp Pulse Resp B/P Pulse Ox O2 Delivery O2 Flow Rate FiO2 04/03/17 08:00 97.4 78 20 212/93 95 04/03/17 04:00 97.1 77 20 178/80 93 04/03/17 00:00 97.6 84 20 186/86 92 04/02/17 20:15 85 04/02/17 20:00 97.3 86 20 159/74 92 04/02/17 19:45 Room Air 04/02/17 19:41 18 04/02/17 16:00 97.9 93 18 159/70 95 04/02/17 15:14 97.5 93 24 131/62 98 Nasal Cannula 2 04/02/17 15:00 95 14 131/62 100 04/02/17 14:45 101 14 129/71 99 04/02/17 14:30 96 14 116/67 99 Nasal Cannula 2 04/02/17 14:29 97.5 96 13 118/63 99 Simple Mask 6 I/O 04/02/17 04/02/17 04/02/17 04/03/17 04/03/17 04/03/17 06:59 14:59 22:59 06:59 14:59 22:59 Intake Total 240 ml 1180 ml 240 ml 240 ml Output Total 200 ml 0 ml Balance 40 ml 1180 ml 240 ml 240 ml Intake Oral 240 ml 480 ml 240 ml 240 ml Other 700 ml Output Urine Total 200 ml 0 ml # Voids 0 0 # Bowel Movements 0 0 0 0 Result Diagram: 03/31/17 1440 03/30/17 0556 Imaging Last Impressions Knee MRI 03/30/17 0000 Signed Impressions: Service Date/Time: Thursday, March 30, 2017 07:56 - CONCLUSION: 1. Ill-defined fluid collection along the lateral distal femur adjacent to the screw-plate fixation device. This is mildly complex and nonspecific. 2. Second crescentic fluid collection along the anterior proximal tibia which is nonspecific. There is diffuse surrounding soft tissue edema. 3. No evidence of osteomyelitis. 4. Status post [id number] amputation and open rigid internal fixation of a distal femur fracture. 5. Small to moderate joint effusion and chondromalacia patella. Brett Sam MD Knee X-Ray 03/27/17 0000 Signed Impressions: Service Date/Time: Monday, March 27, 2017 17:04 - CONCLUSION: No definite acute bony findings Gage Tellez MD Aspiration 03/25/17 0000 Signed Impressions: Service Date/Time: Saturday, March 25, 2017 09:48 - CONCLUSION: Uncomplicated aspiration as above. Rodney Vaughan MD Chest X-Ray 03/23/17 1734 Signed Impressions: Service Date/Time: Thursday, March 23, 2017 17:57 - CONCLUSION: 1. Mild basal atelectasis. Cardiomegaly. No significant change from October 17. Tee Stack MD Procedures 03/25/17 - right lateral knee joint aspiration 03/31/17-Status post Left stump I and D with two Vacuum placed. Other Results Laboratory Tests Test 03/30/17 03/31/17 04/01/17 05:56 14:40 08:14 Sodium Level 132 MEQ/L Potassium Level 4.7 MEQ/L Chloride Level 94 MEQ/L Carbon Dioxide Level 29.8 MEQ/L Anion Gap 8 MEQ/L Blood Urea Nitrogen 46 MG/DL Creatinine 6.44 MG/DL Estimat Glomerular Filtration 9 ML/MIN Rate Random Glucose 117 MG/DL Calcium Level 8.0 MG/DL Phosphorus Level 6.5 MG/DL Albumin 1.8 GM/DL White Blood Count 11.9 TH/MM3 Red Blood Count 2.82 MIL/MM3 Hemoglobin 9.2 GM/DL Hematocrit 28.9 % Mean Corpuscular Volume 102.3 FL Mean Corpuscular Hemoglobin 32.7 PG Mean Corpuscular Hemoglobin 32.0 % Concent Red Cell Distribution Width 16.6 % Platelet Count 245 TH/MM3 Mean Platelet Volume 7.1 FL Neutrophils (%) (Auto) 95.3 % Lymphocytes (%) (Auto) 2.6 % Monocytes (%) (Auto) 1.7 % Eosinophils (%) (Auto) 0.1 % Basophils (%) (Auto) 0.3 % Neutrophils # (Auto) 11.4 TH/MM3 Lymphocytes # (Auto) 0.3 TH/MM3 Monocytes # (Auto) 0.2 TH/MM3 Eosinophils # (Auto) 0.0 TH/MM3 Basophils # (Auto) 0.0 TH/MM3 CBC Comment DIFF FINAL Differential Comment Tacrolimus (Prograf) Level 5.2 NG/ML Objective Remarks GENERAL: Well-nourished, well-developed pleasant middle aged male patient in [facility]. SKIN: Warm and dry. HEENT: Normocephalic. Atraumatic. Pupils equal and round. Mucous membranes pink and moist. CARDIOVASCULAR: Regular rate and rhythm. S1, S2 noted. No murmur appreciated. RESPIRATORY: CTAB.. GASTROINTESTINAL: Abdomen soft, non-tender, nondistended. Normoactive bowel sounds x4. MUSCULOSKELETAL: Chronic bilateral BKA. Left stump dressed. NEUROLOGICAL: Awake and alert. No obvious cranial nerve deficits. Motor grossly within normal limits. Normal speech. PSYCHIATRIC: Appropriate mood and affect; insight and judgment normal. Medications and IVs Current Medications Medications (Trade) Dose Ordered Sig/Lida Route Start Time Stop Time Status Last Admin (D50w (Vial) Inj) 50 ml UNSCH PRN IV 03/23/17 19:15 (Glucagon Inj) 1 mg UNSCH PRN OTHER 03/23/17 19:15 (Heparin Inj) 5,000 units Q12H SQ 03/23/17 23:00 03/30/17 12:39 (Senokot) 17.2 mg Q12H PRN PO 03/23/17 19:15 (Dulcolax Supp) 10 mg DAILY PRN RECTAL 03/23/17 19:15 (Lactulose Liq) 30 ml DAILY PRN PO 03/23/17 19:15 (Imuran) 75 mg DAILY PO 03/24/17 09:00 04/03/17 09:32 (Lexapro) 10 mg DAILY PO 03/24/17 09:00 04/03/17 09:32 (Levemir Inj) 15 units HS SQ 03/23/17 21:00 04/02/17 20:54 (Deltasone) 5 mg DAILY PO 03/24/17 09:00 04/03/17 09:32 (Desyrel) 100 mg HS PO 03/23/17 21:00 04/02/17 20:53 (Pill Splitter) 1 ea UNSCH PRN OTHER 03/23/17 19:45 Sodium Bicarbonate 650 mg 650 mg TID PO 03/24/17 18:00 04/03/17 09:31 (NS 1000 ml Inj) 1,000 ml @ 0 mls/hr Q0M PRN IV 03/24/17 14:44 03/25/17 16:48 Heparin Sodium (Porcine) 8000 units 8,000 units UNSCH PRN IVF 03/24/17 14:45 (NS 1000 ml Inj) 1,000 ml @ 0 mls/hr Q0M PRN IV 03/24/17 14:44 (Mannitol Inj) 12.5 gm UNSCH PRN IV 03/24/17 14:45 (Albumin 25% Inj) 25 gm UNSCH PRN IV 03/24/17 14:45 (NS Flush) 5 ml UNSCH PRN IV FLUSH 03/24/17 14:45 04/01/17 21:11 (Gentamicin (Dialysis) Inj) 20 mg UNSCH PRN IV 03/24/17 14:45 (Zofran Inj) 4 mg UNSCH PRN IV 03/24/17 14:45 (Tylenol) 650 mg UNSCH PRN PO 03/24/17 14:45 (Benadryl) 25 mg UNSCH PRN PO 03/24/17 14:45 (Nitrostat Sl) 0.4 mg UNSCH PRN SL 03/24/17 14:45 (Catapres) 0.1 mg UNSCH PRN PO 03/24/17 14:45 04/03/17 09:32 (Gelfoam 12 Mm/7 Mm Top) 1 foam UNSCH PRN TOP 03/24/17 14:45 03/25/17 16:48 (Fosrenol Chew) 500 mg TID CHEW 03/29/17 18:00 04/03/17 09:31 (NS Flush) 2 ml UNSCH PRN IVF 03/31/17 08:45 (NS Flush) 2 ml BID IVF 03/31/17 09:00 04/03/17 09:00 (Bibiana-Colace) 1 tab BID PO 03/31/17 09:00 04/03/17 09:32 (Milk Of Theodora Lileonidas) 10 ml Q12H PRN PO 03/31/17 08:45 Miscellaneous Information UNSCH PRN XX 03/31/17 08:45 (Zofran Inj) 4 mg Q4H PRN IVP 03/31/17 08:45 04/03/17 12:30 (Theragran M Tab) 1 tab DAILY PO 03/31/17 09:00 04/03/17 09:32 (Benadryl) 25 mg Q6H PRN PO 03/31/17 08:45 (Narcan Inj) 0.4 mg UNSCH PRN IV 03/31/17 08:45 (Morphine Inj) 2 mg Q3H PRN IV PUSH 03/31/17 08:45 04/01/17 00:27 (Buford 5-325 Mg) 1 tab Q4H PRN PO 03/31/17 08:45 04/01/17 16:39 (Buford 5-325 Mg) 2 tab Q6H PRN PO 03/31/17 08:45 04/03/17 03:14 Guaifenesin 600 mg 600 mg BID PO 03/31/17 21:00 04/03/17 09:32 (Rocephin Inj/NS Inj) 100 ml @ 200 mls/hr Q24H IV 04/01/17 20:00 04/02/17 20:52 Miscellaneous Information ALL NURSING DEPARTME... UNSCH PRN .XX 04/02/17 15:15 04/03/17 15:14 (Prograf) 2 mg DAILY@0600 PO 04/03/17 06:00 04/03/17 05:22 (Prograf) 1.5 mg DAILY@18 PO 04/02/17 18:00 04/02/17 16:23 A/P Assessment and Plan Left BKA/Knee Cellulitis: no open wound or drainage, however, +erythema/edema/ warmth with palpable effusion. Concern for septic joint. Patient also with history of sarahy in left femur and pins in left elbow. -Continue IV antibiotics with vancomycin during dialysis and ceftriaxone per ID. -Status post I and D and closure of left BKA POD #1, daily dressing changes beginning tomorrow. Non weightbearing left lower extremity with no use of prosthesis for 6 to 8 weeks. CIR following for Inpatient Rehab asked for PT and OT, Followed by ID specialist with Diagnosis of Cellulitis/Abscess of the right Left knee Group B strep, Immunosuppression status post Pancreatic transplant on immunosuppressive medicines, recommended to continue Vancomycin with Dialysis for 2 weeks additional treatment. continue Ceftriaxone by now. Leukocytosis: secondary to cellulitis as above, no documented fevers. Resolved. -On antibiotics as above -Continue to monitor blood cultures, NGTD ESRD on HD MWF, s/p failed renal transplant on chronic immunosuppression. -Consult nephrology. to continue Dialysis Saturday, Saturday and Saturday. -Continue home medications: Prograf, na bicarb, and prednisone. Prograf dose decreased d/t elevated levels. Repeat levels in 5 days per nephrology. -Monitor BMP. HTN, chronic: Resume home medications, hold if hypotensive. controlled. DM, Chronic: Resume home long acting insulin, Accu checks with SSI. Add long- acting as needed. Uncontrolled today increased Sliding scale to moderate dose. in the morning had Hypoglycemia started on D5 but discontinued after procedure. DVT prophylaxis: Heparin Discharge Planning Once cleared by specialists. Trung Jensen MD Apr 03, 2017 13:06 Trung Jensen MD Apr 03, 2017 13:06
--- NOTE | 2017-04-03 17:43 | HHI.IDPN ---
Note Infectious Disease Note Patient feels okay. No complaints. Denies chills. Afebrile. PAST MEDICAL HISTORY 1. End-stage renal disease. On hemodialysis. 2. Hypertension. 3. Diabetes mellitus. 4. Anxiety, depression. 5. Chronic acidosis. 6. Bilateral [id number] amputation. 7. kidney transplantation in 1991 and 2009. 8. Pancreatic transplantation in 1991. On immunosuppressive med. 9. Cholecystectomy. 10. Skin cancer removal. 11. Prosthesis in the right eye. ALLERGIES NO KNOWN DRUG ALLERGIES. OBJECTIVE: Vital Signs Date Time Temp Pulse Resp B/P Pulse Ox O2 Delivery O2 Flow Rate FiO2 04/03/17 08:00 97.4 78 20 212/93 95 04/03/17 07:00 Room Air 04/03/17 04:00 97.1 77 20 178/80 93 04/03/17 00:00 97.6 84 20 186/86 92 04/02/17 20:15 85 04/02/17 20:00 97.3 86 20 159/74 92 04/02/17 19:45 Room Air 04/02/17 19:41 18 PHYSICAL EXAMINATION GENERAL: No acute distress. HEENT: No icterus. The right side has an eye prosthesis. LUNGS: Clear. HEART: Regular S1-S2 without murmurs, rubs, or gallops. ABDOMEN: Decreased bowel sounds, soft, nontender. EXTREMITIES: The left knee is post debridement and wound closure. Dressing in place. SKIN: No rash. NEUROLOGIC: No gross focal findings. PSYCHIATRIC: Calm and cooperative. IMPRESSION 1. Cellulitis/abscess of the right knee. Group B strep. 2. Immunosuppression. The patient had pancreatic transplant and is on immunosuppressive medications. 3. Bilateral [id number] amputation. RECOMMENDATIONS Continue ceftriaxone IV x 2 weeks then PO Keflex x 4 weeks after that. Orders on chart. D/W Case management. Patient going to [facility]. Elier Mabry MD Apr 03, 2017 17:43
--- NOTE | 2017-04-03 17:49 | HHI.FF ---
Infusion Therapy Location of Infusion Therapy: [facility] Infusion Therapy Order Patient Information Patient Weight 91.1 kg Diagnosis: Diagnosis Left knee abscess Group B strep. Coded Allergies: No Known Allergies (Verified , 03/23/17) Administer Medication Ceftriaxone 2 grams IV q 24 hours PLEASE GIVE THE DOSE AFTER DIALYSIS ON DAYS OF DIALYSIS. Stop Treatment: Apr 17, 2017 Additional Information Venous access: Other Additional Instructions [x] Peripheral flush and dressing changes per protocol [x] Implanted port and central aerosol line operator: * Implanted port: 10 ml Normal Saline followed by 5 ml Heparin 100 units/ml Heparin flush after each use and monthly to maintain. [] May leave port accessed during therapy. [] May leave peripheral site accessed for duration of therapy. [x] If patient has SOB or respiratory distress, check oxygen saturation. If less than 90% or clinical signs of respiratory distress, administer oxygen at 2 L/min. via nasal cannula and notify physician. [x] Anaphylaxis/Reaction orders: * Stop infusion. * Keep IV line open with saline flush. * Notify physician. * Monitor vital signs every 15 minutes until symptoms resolve. * Check Oxygen saturation; Oxygen at 2 L/min. via nasal cannula if less than 90% or clinical signs of respiratory distress. * Administer diphenhydramine (Benadryl) 25 mg IV STAT, (unless patient has received as pre-med). May repeat once, if necessary. * Solu-Cortef 250 mg IVP over 30-60 seconds, use 100 mg vials for each dissolution. * Epinephrine (1mg/1 ml) 0.3 mg subcutaneously or IVP now with any signs of respiratory distress. * Check with physician for new additional pre-med orders if patient is re- challenged or re-treated. [x] May remove PICC line when treatment complete, after confirming with Physician. [x] If the patient is admitted to the hospital, the ED, or transferred via [facility] , complete transfer form including medication reconciliation order sheet. Laboratory Tests Additional Information PATIENT TO BE STARTED ON PO KEFLEX 250MG BID X 4 WEEKS AT THE END OF IV ANTIBIOTIC COURSE. Any antibiotic questions please call Dr. Mabry. [phone]. Elier Mabry MD Apr 03, 2017 17:49
[2017-04-03] MEDS: CINACALCET HYDROCHLORIDE 30 MG TAB PO SCH (18:00)
[2017-04-03] MEDS: traZODone HCL 100 MG TAB PO SCH (21:45)
[2017-04-03] MEDS: cefTRIAXone INJ 2,000 MG in SODIUM CHLORIDE 0.9% INJ 100 ML IV SCH (21:46)
[2017-04-03] MEDS: SODIUM CHLORIDE 0.9% FLUSH 10 ML FLUSH IV FLUSH PRN (21:49)
[2017-04-03] MEDS: INSULIN DETEMIR 100 UNITS/ML VIAL SQ SCH (22:06)
[2017-04-04] VITALS: BP 125/59; PULSE 84; RESP 20; TEMP 98.7; O2SAT 93
[2017-04-04 04:00] VITALS: BP 175/80; PULSE 82; RESP 20; TEMP 98; O2SAT 99
[2017-04-04] MEDS: TACROLIMUS 0.5 MG CAP PO SCH (06:43)
[2017-04-04] MEDS: INSULIN NovoLIN REGULAR SUPPLEMENTAL SCALE SQ SCH ×2 (06:43→11:00)
[2017-04-04 07:20] VITALS: BP 168/77; PULSE 74; RESP 16; TEMP 98; O2SAT 91
--- NOTE | 2017-04-04 08:12 | PD.ORT.PN ---
Subjective Subjective Remarks POD 2 s/p I&D left knee doing well. no changes Objective Vitals Vital Signs Date Time Temp Pulse Resp B/P Pulse Ox O2 Delivery O2 Flow Rate FiO2 04/04/17 04:00 98.0 82 20 175/80 99 04/04/17 00:00 98.7 84 20 125/59 93 04/03/17 22:02 99 Nasal Cannula 1.50 04/03/17 20:15 86 04/03/17 20:15 Nasal Cannula 2.00 04/03/17 20:00 98.6 83 20 177/77 93 04/03/17 12:00 97.7 78 20 181/72 99 I/O 04/03/17 04/03/17 04/03/17 04/04/17 04/04/17 04/04/17 06:59 14:59 22:59 06:59 14:59 22:59 Intake Total 240 ml 240 ml 250 ml 0 ml Output Total 400 ml 2000 ml Balance 240 ml -160 ml -1750 ml 0 ml Intake Oral 240 ml 240 ml 140 ml 0 ml IV Total 110 ml Output Urine Total 400 ml 0 ml Hemodialysis 2000 ml # Voids 0 1 # Bowel Movements 0 1 Result Diagram: 03/31/17 1440 Imaging Last 24 hours Impressions Knee MRI 03/30/17 0000 Signed Impressions: Service Date/Time: Thursday, March 30, 2017 07:56 - CONCLUSION: 1. Ill-defined fluid collection along the lateral distal femur adjacent to the screw-plate fixation device. This is mildly complex and nonspecific. 2. Second crescentic fluid collection along the anterior proximal tibia which is nonspecific. There is diffuse surrounding soft tissue edema. 3. No evidence of osteomyelitis. 4. Status post [id number] amputation and open rigid internal fixation of a distal femur fracture. 5. Small to moderate joint effusion and chondromalacia patella. Brett Sam MD I reviewed the MRI and agree with the report. Objective Remarks Patient is awake and alert. Left lower extremity: Clean dry dressings intact. No Pain with hip or knee range of motion Assessment & Plan Assessment and Plan 1) Irrigation debridement with closure of wounds to left below-knee amputation POD 2 Daily dressing changes beginning POD 2 Nonweightbearing left lower extremity with no use of prosthesis for 6-8 weeks Antibiotics managed by infectious disease: Recommend 2 weeks of IV antibiotics and continued oral antibiotics for a total of 6 weeks Case management for rehabilitation placement since patient lives alone Follow-up appointment with Dr. Bass or PA in 2 weeks Scott Murillo Apr 04, 2017 08:11
[2017-04-04] MEDS: DOCUSATE SODIUM 50 MG/SENNA 8.6 MG TAB PO SCH (09:00)
[2017-04-04] MEDS: SODIUM CHLORIDE 0.9% FLUSH 5 ML FLUSH IVF SCH (09:00)
[2017-04-04 09:30] LABS: AUTOMATED NEUTROPHIL # 4.6 TH/MM3 (1.8-7.7); BASOPHIL % 0.5 % (0.0-2.0); EOSINOPHIL # 0.1 TH/MM3 (0-0.4); EOSINOPHIL % 2.1 % (0.0-4.0); HEMATOCRIT 23.3 % (39.0-51.0); HEMO FLAGS DIFF FINAL; LYMPH % 13.4 % (9.0-44.0); LYMPHOCYTE # 0.8 TH/MM3 (1.0-4.8); MEAN CELL VOLUME 101.4 FL (80.0-100.0); MEAN CORPUSCULAR HEMOGLOBIN 33.7 PG (27.0-34.0); MEAN CORPUSCULAR HGB CONC 33.3 % (32.0-36.0); MONO % 6.9 % (0.0-8.0); NEUT % 77.1 % (16.0-70.0); PLATELET COUNT 222 TH/MM3 (150-450); RED CELL DISTRIBUTION WIDTH 16.6 % (11.6-17.2)
[2017-04-04] MEDS: azaTHIOprine 50 MG TAB PO SCH (09:50)
[2017-04-04] MEDS: guaiFENesin E.R. 600 MG TAB PO SCH (09:51)
[2017-04-04] MEDS: SODIUM BICARBONATE 325 MG TAB PO SCH ×2 (09:51→13:42)
[2017-04-04] MEDS: LANTHANUM CARBONATE 500 MG CHEWABLE TABLET CHEW SCH ×2 (09:51→13:42)
[2017-04-04] MEDS: predniSONE 5 MG TAB PO SCH (09:51)
[2017-04-04] MEDS: MULTIVITAMINS/MINERALS THERAPEUTIC TAB PO SCH (09:51)
[2017-04-04 09:54] LABS: BICARBONATE 28.6 MEQ/L (21.0-32.0); POTASSIUM 4.5 MEQ/L (3.5-5.1)
[2017-04-04] MEDS: ESCITALOPRAM OXALATE 10 MG TAB PO SCH (09:54)
--- NOTE | 2017-04-04 10:28 | HHI.PR ---
Subjective Remarks 56 y/o male with a history of ESRD on HD s/p failed kidney transplant on chronic immunosuppression , HTN, DM, bilateral BKA, anxiety and depression presented to the ED with complaints of pain, swelling and redness in left stump. Patient seen in his bedroom stable no new complaint, Seen by Orthopedic blasting entry specialist, recommended to obtain a fluid sample from the medial aspect of the knee if this organizes into a more significant collection, for now continue observation. 03/31: Status post I and D with two vacuum placed on the left stump. 04/01: Stable in his bedroom Discussed with nurse Miss Rojas and patient, was recommended by Orthopedic Surgery Doctor Carlos Sarkar to repeat the Irrigation and debridement with possible wound closure for tomorrow, patient will be NPO at midnight and will go tomorrow for the procedure denies any nausea, vomit or diarrhea. today was on Hemodialysis and seen by ID specialist recommended to continue Vancomycin and Ceftriaxone. 04/02: Seen in his bedroom stable status post Surgery, no new issues. 04/03: Stable in his bedroom seen already by Orthopedic Surgery, he is in status post I and D and closure of left BKA POD #1, daily dressing changes beginning tomorrow. Non weightbearing left lower extremity with no use of prosthesis for 6 to 8 weeks. [facility] following for Inpatient Rehab asked for PT and OT, Followed by ID specialist with Diagnosis of Cellulitis/Abscess of the right Left knee Group B strep, Immunosuppression status post Pancreatic transplant on immunosuppressive medicines, recommended to continue Vancomycin with Dialysis for 2 weeks additional treatment. continue Ceftriaxone by now. 04/04: Seen in his bedroom stable no new complaint, no nausea, vomit or diarrhea , okay to transfer to [facility] as per Orthopedic surgery and ID specialist orders in chart for antibiotics. Non weight bearing left lower extrmity with no use of prosthesis for 6 to 8 weeks. follow up in two weeks with Doctor Antonina's PA. Objective Vital Signs Date Time Temp Pulse Resp B/P Pulse Ox O2 Delivery O2 Flow Rate FiO2 04/04/17 07:20 04/04/17 04:00 98.0 82 20 175/80 99 04/04/17 00:00 98.7 84 20 125/59 93 04/03/17 22:02 99 Nasal Cannula 1.50 04/03/17 20:15 86 04/03/17 20:15 Nasal Cannula 2.00 8/16/17 20:00 98.6 83 20 177/77 93 04/03/17 12:00 97.7 78 20 181/72 99 I/O 04/03/17 04/03/17 04/03/17 04/04/17 04/04/17 04/04/17 07:00 15:00 23:00 07:00 15:00 23:00 Intake Total 240 ml 240 ml 250 ml 0 ml Output Total 400 ml 2000 ml Balance 240 ml -160 ml -1750 ml 0 ml Intake Oral 240 ml 240 ml 140 ml 0 ml IV Total 110 ml Output Urine Total 400 ml 0 ml Hemodialysis 2000 ml # Voids 0 1 # Bowel Movements 0 1 Result Diagram: 04/04/17 0630 04/04/17 0630 Imaging Last Impressions Knee MRI 03/30/17 0000 Signed Impressions: Service Date/Time: Thursday, March 30, 2017 07:56 - CONCLUSION: 1. Ill-defined fluid collection along the lateral distal femur adjacent to the screw-plate fixation device. This is mildly complex and nonspecific. 2. Second crescentic fluid collection along the anterior proximal tibia which is nonspecific. There is diffuse surrounding soft tissue edema. 3. No evidence of osteomyelitis. 4. Status post [id number] amputation and open rigid internal fixation of a distal femur fracture. 5. Small to moderate joint effusion and chondromalacia patella. Brett Sam MD Knee X-Ray 03/27/17 0000 Signed Impressions: Service Date/Time: Monday, March 27, 2017 17:04 - CONCLUSION: No definite acute bony findings Gage Tellez MD Aspiration 03/25/17 0000 Signed Impressions: Service Date/Time: Saturday, March 25, 2017 09:48 - CONCLUSION: Uncomplicated aspiration as above. Rodney Vaughan MD Chest X-Ray 03/23/17 1734 Signed Impressions: Service Date/Time: Thursday, March 23, 2017 17:57 - CONCLUSION: 1. Mild basal atelectasis. Cardiomegaly. No significant change from October 17. Tee Stack MD Procedures 03/25/17 - right lateral knee joint aspiration 03/31/17-Status post Left stump I and D with two Vacuum placed. Other Results Laboratory Tests Test 8/14/17 8/17/17 08:14 06:30 Tacrolimus (Prograf) Level 5.2 NG/ML White Blood Count 6.0 TH/MM3 Red Blood Count 2.30 MIL/MM3 Hemoglobin 7.8 GM/DL Hematocrit 23.3 % Mean Corpuscular Volume 101.4 FL Mean Corpuscular Hemoglobin 33.7 PG Mean Corpuscular Hemoglobin 33.3 % Concent Red Cell Distribution Width 16.6 % Platelet Count 222 TH/MM3 Mean Platelet Volume 7.1 FL Neutrophils (%) (Auto) 77.1 % Lymphocytes (%) (Auto) 13.4 % Monocytes (%) (Auto) 6.9 % Eosinophils (%) (Auto) 2.1 % Basophils (%) (Auto) 0.5 % Neutrophils # (Auto) 4.6 TH/MM3 Lymphocytes # (Auto) 0.8 TH/MM3 Monocytes # (Auto) 0.4 TH/MM3 Eosinophils # (Auto) 0.1 TH/MM3 Basophils # (Auto) 0.0 TH/MM3 CBC Comment DIFF FINAL Differential Comment Sodium Level 132 MEQ/L Potassium Level 4.5 MEQ/L Chloride Level 94 MEQ/L Carbon Dioxide Level 28.6 MEQ/L Anion Gap 9 MEQ/L Blood Urea Nitrogen 38 MG/DL Creatinine 5.90 MG/DL Estimat Glomerular Filtration 10 ML/MIN Rate Random Glucose 90 MG/DL Calcium Level 8.0 MG/DL Objective Remarks GENERAL: Well-nourished, well-developed pleasant middle aged male patient in [facility]. SKIN: Warm and dry. HEENT: Normocephalic. Atraumatic. Pupils equal and round. Mucous membranes pink and moist. CARDIOVASCULAR: Regular rate and rhythm. S1, S2 noted. No murmur appreciated. RESPIRATORY: CTAB.. GASTROINTESTINAL: Abdomen soft, non-tender, nondistended. Normoactive bowel sounds x4. MUSCULOSKELETAL: Chronic bilateral BKA. Left stump dressed. NEUROLOGICAL: Awake and alert. No obvious cranial nerve deficits. Motor grossly within normal limits. Normal speech. PSYCHIATRIC: Appropriate mood and affect; insight and judgment normal. Medications and IVs Current Medications Medications (Trade) Dose Ordered Sig/Lida Route Start Time Stop Time Status Last Admin (D50w (Vial) Inj) 50 ml UNSCH PRN IV 03/23/17 19:15 (Glucagon Inj) 1 mg UNSCH PRN OTHER 03/23/17 19:15 (Heparin Inj) 5,000 units Q12H SQ 03/23/17 23:00 04/03/17 21:45 (Senokot) 17.2 mg Q12H PRN PO 03/23/17 19:15 (Dulcolax Supp) 10 mg DAILY PRN RECTAL 03/23/17 19:15 (Lactulose Liq) 30 ml DAILY PRN PO 03/23/17 19:15 (Imuran) 75 mg DAILY PO 03/24/17 09:00 04/04/17 09:50 (Lexapro) 10 mg DAILY PO 03/24/17 09:00 04/04/17 09:54 (Levemir Inj) 15 units HS SQ 03/23/17 21:00 04/03/17 22:06 (Deltasone) 5 mg DAILY PO 03/24/17 09:00 04/04/17 09:51 (Desyrel) 100 mg HS PO 03/23/17 21:00 04/03/17 21:45 (Pill Splitter) 1 ea UNSCH PRN OTHER 03/23/17 19:45 Sodium Bicarbonate 650 mg 650 mg TID PO 03/24/17 18:00 04/04/17 09:51 (NS 1000 ml Inj) 1,000 ml @ 0 mls/hr Q0M PRN IV 03/24/17 14:44 03/25/17 16:48 Heparin Sodium (Porcine) 8000 units 8,000 units UNSCH PRN IVF 03/24/17 14:45 (NS 1000 ml Inj) 1,000 ml @ 0 mls/hr Q0M PRN IV 03/24/17 14:44 (Mannitol Inj) 12.5 gm UNSCH PRN IV 03/24/17 14:45 (Albumin 25% Inj) 25 gm UNSCH PRN IV 03/24/17 14:45 (NS Flush) 5 ml UNSCH PRN IV FLUSH 03/24/17 14:45 04/03/17 21:49 (Gentamicin (Dialysis) Inj) 20 mg UNSCH PRN IV 03/24/17 14:45 (Zofran Inj) 4 mg UNSCH PRN IV 03/24/17 14:45 (Tylenol) 650 mg UNSCH PRN PO 03/24/17 14:45 (Benadryl) 25 mg UNSCH PRN PO 03/24/17 14:45 (Nitrostat Sl) 0.4 mg UNSCH PRN SL 03/24/17 14:45 (Catapres) 0.1 mg UNSCH PRN PO 03/24/17 14:45 04/03/17 09:32 (Gelfoam 12 Mm/7 Mm Top) 1 foam UNSCH PRN TOP 03/24/17 14:45 03/25/17 16:48 (Fosrenol Chew) 500 mg TID CHEW 03/29/17 18:00 04/04/17 09:51 (NS Flush) 2 ml UNSCH PRN IVF 03/31/17 08:45 (NS Flush) 2 ml BID IVF 03/31/17 09:00 04/03/17 21:00 (Bibiana-Colace) 1 tab BID PO 03/31/17 09:00 04/03/17 09:32 (Milk Of Magnhéctor Liq) 10 ml Q12H PRN PO 03/31/17 08:45 Miscellaneous Information UNSCH PRN XX 03/31/17 08:45 (Zofran Inj) 4 mg Q4H PRN IVP 03/31/17 08:45 04/03/17 12:30 (Theragran M Tab) 1 tab DAILY PO 03/31/17 09:00 04/04/17 09:51 (Benadryl) 25 mg Q6H PRN PO 03/31/17 08:45 (Narcan Inj) 0.4 mg UNSCH PRN IV 03/31/17 08:45 (Morphine Inj) 2 mg Q3H PRN IV PUSH 03/31/17 08:45 04/01/17 00:27 (Perry 5-325 Mg) 1 tab Q4H PRN PO 03/31/17 08:45 04/01/17 16:39 (Perry 5-325 Mg) 2 tab Q6H PRN PO 03/31/17 08:45 04/03/17 21:48 Guaifenesin 600 mg 600 mg BID PO 03/31/17 21:00 04/04/17 09:51 (Rocephin Inj/NS Inj) 100 ml @ 200 mls/hr Q24H IV 04/01/17 20:00 04/03/17 21:46 (Prograf) 2 mg DAILY@0600 PO 04/03/17 06:00 04/04/17 06:43 (Prograf) 1.5 mg DAILY@18 PO 04/02/17 18:00 04/02/17 16:23 A/P Assessment and Plan Left BKA/Knee Cellulitis: no open wound or drainage, however, +erythema/edema/ warmth with palpable effusion. Concern for septic joint. Patient also with history of sarahy in left femur and pins in left elbow. -Continue IV antibiotics with vancomycin during dialysis and ceftriaxone per ID. -Status post I and D and closure of left BKA POD #1, daily dressing changes beginning tomorrow. Non weightbearing left lower extremity with no use of prosthesis for 6 to 8 weeks. [facility] following for Inpatient Rehab asked for PT and OT, Followed by ID specialist with Diagnosis of Cellulitis/Abscess of the right Left knee Group B strep, Immunosuppression status post Pancreatic transplant on immunosuppressive medicines, recommended to continue Vancomycin with Dialysis for 2 weeks additional treatment. continue Ceftriaxone by now. will need antibiotics until April 17 2017 Non weight bearing left lower extremity with no use of prosthesis for 6 to 8 weeks. follow up in two weeks with Doctor Antonina's PA. Leukocytosis: secondary to cellulitis as above, no documented fevers. Resolved. -On antibiotics as above -Continue to monitor blood cultures, NGTD ESRD on HD MWF, s/p failed renal transplant on chronic immunosuppression. -Consult nephrology. to continue Dialysis Saturday, Saturday and Saturday. -Continue home medications: Prograf, na bicarb, and prednisone. Prograf dose decreased d/t elevated levels. Repeat levels in 5 days per nephrology. -Monitor BMP. HTN, chronic: Resume home medications, hold if hypotensive. controlled. DM, Chronic: Resume home long acting insulin, Accu checks with SSI. Add long- acting as needed. Uncontrolled today increased Sliding scale to moderate dose. in the morning had Hypoglycemia started on D5 but discontinued after procedure. DVT prophylaxis: Heparin Discussed with patient and nurse Miss Mccloud all questions answered to the best of my abilities. Discharge Planning discharge to [facility] today Trung Jensen MD Apr 04, 2017 10:28
[2017-04-04] MEDS: HEPARIN SODIUM - SQ 10,000 UNITS/ML VIAL SQ SCH (11:00)
[2017-04-04] MEDS: ACETAMINOPHEN/HYDROcodone 325 MG/5 MG TAB PO PRN (12:03)
[2017-04-04] MEDS ORDERED: TACR0.5 PO ×2 (12:04)
[2017-04-04] MEDS ORDERED: CLON.1 PO (12:04)
[2017-04-04] MEDS ORDERED: guaiFENesin ER PO (12:04)
[2017-04-04] MEDS ORDERED: LANT500 CHEW (12:04)
[2017-04-04] MEDS ORDERED: CINA30 PO (12:04)
--- NOTE | 2017-04-04 12:06 | HHI.DS ---
Discharge Summary Admission Date Mar 23, 2017 at 19:15 Discharge Date: Apr 04, 2017 Admitting Diagnosis left leg stump cellulitis. End stage renal disease on dialysis. El (1) Cellulitis ICD Code: L03.90 Diagnosis: Principal (2) Diabetes mellitus type 2 with complications ICD Code: E11.8 Diagnosis: Principal (3) HTN (hypertension) ICD Code: I10 Diagnosis: Principal (4) End stage renal disease on dialysis ICD Code: N18.6 Diagnosis: Principal Procedures 03/25/17 - right lateral knee joint aspiration Brief History - From Admission 56 y/o male with a history of ESRD on HD s/p failed kidney transplant on chronic immunosuppression , HTN, DM, bilateral BKA, anxiety and depression presented to the ED with complaints of pain, swelling and redness in left stump. Patient states for the last week he has been having pain, swelling and redness in his left stump, and yesterday he began to have a hard time walking with his prostatic. He denies any fevers but does state at dialysis yesterday he did experience chills. He is a dialysis patient MWF with Dr. Ramirez. He denies any chest pain, sob, nausea, vomiting, dizziness or headaches. CBC/BMP: 04/04/17 0630 04/04/17 0630 Significant Findings Laboratory Tests Test 04/04/17 06:30 Red Blood Count 2.30 MIL/MM3 (4.50-5.90) Hemoglobin 7.8 GM/DL (13.0-17.0) Hematocrit 23.3 % (39.0-51.0) Mean Corpuscular Volume 101.4 FL (80.0-100.0) Neutrophils (%) (Auto) 77.1 % (16.0-70.0) Lymphocytes # (Auto) 0.8 TH/MM3 (1.0-4.8) Sodium Level 132 MEQ/L (136-145) Chloride Level 94 MEQ/L (98-107) Blood Urea Nitrogen 38 MG/DL (7-18) Creatinine 5.90 MG/DL (0.60-1.30) Estimat Glomerular Filtration 10 ML/MIN (>89) Rate Calcium Level 8.0 MG/DL (8.5-10.1) Imaging Last Impressions Knee MRI 03/30/17 0000 Signed Impressions: Service Date/Time: Thursday, March 30, 2017 07:56 - CONCLUSION: 1. Ill-defined fluid collection along the lateral distal femur adjacent to the screw-plate fixation device. This is mildly complex and nonspecific. 2. Second crescentic fluid collection along the anterior proximal tibia which is nonspecific. There is diffuse surrounding soft tissue edema. 3. No evidence of osteomyelitis. 4. Status post [id number] amputation and open rigid internal fixation of a distal femur fracture. 5. Small to moderate joint effusion and chondromalacia patella. Brett Sam MD Knee X-Ray 03/27/17 0000 Signed Impressions: Service Date/Time: Monday, March 27, 2017 17:04 - CONCLUSION: No definite acute bony findings Gage Tellez MD Aspiration 03/25/17 0000 Signed Impressions: Service Date/Time: Saturday, March 25, 2017 09:48 - CONCLUSION: Uncomplicated aspiration as above. Rodney Vaughan MD Chest X-Ray 03/23/17 1734 Signed Impressions: Service Date/Time: Thursday, March 23, 2017 17:57 - CONCLUSION: 1. Mild basal atelectasis. Cardiomegaly. No significant change from October 17. Tee Stack MD PE at Discharge GENERAL: Well-nourished, well-developed pleasant middle aged male patient in [facility]. SKIN: Warm and dry. HEENT: Normocephalic. Atraumatic. Pupils equal and round. Mucous membranes pink and moist. CARDIOVASCULAR: Regular rate and rhythm. S1, S2 noted. No murmur appreciated. RESPIRATORY: CTAB.. GASTROINTESTINAL: Abdomen soft, non-tender, nondistended. Normoactive bowel sounds x4. MUSCULOSKELETAL: Chronic bilateral BKA. Left stump dressed. NEUROLOGICAL: Awake and alert. No obvious cranial nerve deficits. Motor grossly within normal limits. Normal speech. PSYCHIATRIC: Appropriate mood and affect; insight and judgment normal. Hospital Course 56 y/o male with a history of ESRD on HD s/p failed kidney transplant on chronic immunosuppression , HTN, DM, bilateral BKA, anxiety and depression presented to the ED with complaints of pain, swelling and redness in left stump. Patient seen in his bedroom stable no new complaint, Seen by Orthopedic consumer relations specialist, recommended to obtain a fluid sample from the medial aspect of the knee if this organizes into a more significant collection, for now continue observation. 03/31: Status post I and D with two vacuum placed on the left stump. 04/01: Stable in his bedroom Discussed with nurse Miss Rojas and patient, was recommended by Orthopedic Surgery Doctor Carlos Sarkar to repeat the Irrigation and debridement with possible wound closure for tomorrow, patient will be NPO at midnight and will go tomorrow for the procedure denies any nausea, vomit or diarrhea. today was on Hemodialysis and seen by ID specialist recommended to continue Vancomycin and Ceftriaxone. 04/02: Seen in his bedroom stable status post Surgery, no new issues. 04/03: Stable in his bedroom seen already by Orthopedic Surgery, he is in status post I and D and closure of left BKA POD #1, daily dressing changes beginning tomorrow. Non weightbearing left lower extremity with no use of prosthesis for 6 to 8 weeks. [facility] following for Inpatient Rehab asked for PT and OT, Followed by ID specialist with Diagnosis of Cellulitis/Abscess of the right Left knee Group B strep, Immunosuppression status post Pancreatic transplant on immunosuppressive medicines, recommended to continue Vancomycin with Dialysis for 2 weeks additional treatment. continue Ceftriaxone by now. 04/04: Seen in his bedroom stable no new complaint, no nausea, vomit or diarrhea , okay to transfer to [facility] as per Orthopedic surgery and ID specialist orders in chart for antibiotics. Non weight bearing left lower extrmity with no use of prosthesis for 6 to 8 weeks. follow up in two weeks with Doctor Sarkar's PA. Assessment and Plan Left BKA/Knee Cellulitis: no open wound or drainage, however, +erythema/edema/ warmth with palpable effusion. Concern for septic joint. Patient also with history of sarahy in left femur and pins in left elbow. -Continue IV antibiotics with vancomycin during dialysis and ceftriaxone per ID. -Status post I and D and closure of left BKA POD #1, daily dressing changes beginning tomorrow. Non weightbearing left lower extremity with no use of prosthesis for 6 to 8 weeks. [facility] following for Inpatient Rehab asked for PT and OT, Followed by ID specialist with Diagnosis of Cellulitis/Abscess of the right Left knee Group B strep, Immunosuppression status post Pancreatic transplant on immunosuppressive medicines, recommended to continue Vancomycin with Dialysis for 2 weeks additional treatment. continue Ceftriaxone by now. will need antibiotics until April 17 2017 Non weight bearing left lower extremity with no use of prosthesis for 6 to 8 weeks. follow up in two weeks with Doctor Antonina's PA. Leukocytosis: secondary to cellulitis as above, no documented fevers. Resolved. -On antibiotics as above -Continue to monitor blood cultures, NGTD ESRD on HD MWF, s/p failed renal transplant on chronic immunosuppression. -Consult nephrology. to continue Dialysis Saturday, Saturday and Saturday. -Continue home medications: Prograf, na bicarb, and prednisone. Prograf dose decreased d/t elevated levels. Repeat levels in 5 days per nephrology. -Monitor BMP. HTN, chronic: Resume home medications, hold if hypotensive. controlled. DM, Chronic: Resume home long acting insulin, Accu checks with SSI. Add long- acting as needed. Uncontrolled today increased Sliding scale to moderate dose. in the morning had Hypoglycemia started on D5 but discontinued after procedure. DVT prophylaxis: Heparin Discussed with patient and nurse Miss Mccloud all questions answered to the best of my abilities. Discharge Planning discharge to [facility] today Pt Condition on Discharge: Stable Discharge Disposition: Rehab Inpatient Discharge Time: > 30 minutes Discharge Instructions DIET: Follow Instructions for: Heart Healthy Diet, Diabetic Diet Activities you can perform: Non Weight Bearing Other Activity Instructions: On the left leg due to procedure for the next six weeks. Trung Jensen MD Apr 04, 2017 12:06
[2017-04-04] MEDS ORDERED: CEFT2INJ2 IV (14:40)
[2017-04-18] MEDS ORDERED: TACR0.5 PO (13:06)
[2017-04-18] MEDS ORDERED: SODI650T PO (13:06)
[2017-04-18] MEDS ORDERED: FERR325T20 PO (13:06)
[2017-04-18] MEDS ORDERED: AZAT50 PO (13:06)
[2017-04-18] MEDS ORDERED: LEXA10TA PO (13:06)
[2017-04-18] MEDS ORDERED: PRED5TAB PO (13:06)
[2017-04-18] MEDS ORDERED: ONDA4TAB7 PO (13:06)
[2017-04-18] MEDS ORDERED: LEVEMIR SQ (13:06)
[2017-04-18] MEDS ORDERED: LANT500 CHEW (13:06)
[2017-04-18] MEDS ORDERED: TACR1 PO (13:06)
[2017-04-18] MEDS ORDERED: BUME1TAB PO (13:06)
[2017-04-18] MEDS ORDERED: guaiFENesin ER PO (13:06)
[2017-04-18] MEDS ORDERED: CINA30 PO (13:06)
[2017-04-18] MEDS ORDERED: HYDR-3583 PO (13:06)
[2017-04-18] MEDS ORDERED: TRAZ100T6 PO (13:06)
[2017-04-18] MEDS ORDERED: CEFT2INJ2 IV (13:06)
[2017-05-22] MEDS ORDERED: HYDR-3583 PO (13:44)
== END 2017-04-04 13:55 | DRG 463 ==
LOC: PHED 17:16 → PHEDA 19:15 → N04A 23:52
PROVIDERS: ADMIT Hospitalist; ATTEND Internal Medicine
PROC: 0S9D3ZX Drainage of Left Knee Joint, Percutaneous Approach, Diagnostic (ICD-10-PCS; 2017-03-25)
PROC: 5A1D60Z (ICD-10-PCS; 2017-03-25)
PROC: 0HDLXZZ Extraction of Left Lower Leg Skin, External Approach (ICD-10-PCS; 2017-03-31)
PROC: 0JBP0ZZ Excision of Left Lower Leg Subcutaneous Tissue and Fascia, Open Approach (ICD-10-PCS; principal; 2017-03-31 07:46)
PROC: 0JBP0ZZ Excision of Left Lower Leg Subcutaneous Tissue and Fascia, Open Approach (ICD-10-PCS; 2017-04-02)
DX: T87.44 Infection of amputation stump, left lower extremity (principal); N18.6 End stage renal disease; T86.11 Kidney transplant rejection; E87.2 Acidosis; I12.0 Hypertensive chronic kidney disease with stage 5 chronic kidney disease or end stage renal disease; Z94.83 Pancreas transplant status; L02.416 Cutaneous abscess of left lower limb; L03.116 Cellulitis of left lower limb; T86.12 Kidney transplant failure; I13.11 Hypertensive heart and chronic kidney disease without heart failure, with stage 5 chronic kidney disease, or end stage renal disease; Y83.5 Amputation of limb(s) as the cause of abnormal reaction of the patient, or of later complication, without mention of misadventure at the time of the procedure; Z99.2 Dependence on renal dialysis; Z85.828 Personal history of other malignant neoplasm of skin; E11.22 Type 2 diabetes mellitus with diabetic chronic kidney disease; B95.1 Streptococcus, group B, as the cause of diseases classified elsewhere; F32.9 Major depressive disorder, single episode, unspecified; F41.9 Anxiety disorder, unspecified; M25.462 Effusion, left knee; E11.51 Type 2 diabetes mellitus with diabetic peripheral angiopathy without gangrene; E11.65 Type 2 diabetes mellitus with hyperglycemia; E83.39 Other disorders of phosphorus metabolism; Y83.0 Surgical operation with transplant of whole organ as the cause of abnormal reaction of the patient, or of later complication, without mention of misadventure at the time of the procedure; E11.649 Type 2 diabetes mellitus with hypoglycemia without coma; Z89.511 Acquired absence of right leg below knee; Z79.4 Long term (current) use of insulin; Z79.899 Other long term (current) drug therapy
CPT/HCPCS: 20610; 71010; 73564; 73721; 76942; 80048; 80053; 80069; 80197; 82945; 82948; 83735; 84100; 84157; 85025; 85027; 85610; 85730; 86403; 87015; 87040; 87070; 87102; 87116; 87176; 87205; 87206; 89051; 90935; 94150; 94640; 96365; 96374; 96375; J0696; J1580; J1644; J1720; J1815; J2250; J2270; J2370; J2405; J3010; J3370; J7030; J7042; J7050; J7500; J7507; J7512; J7613

== ENCOUNTER 2017-10-30 23:27 | Emergency (ER) | payer MEDICARE, OTHER ==
[~2017-10-30] VITALS: Ht 185.4 cm; Wt 95.2 kg
[~2017-10-30 23:27] MED LIST changes: -AMLO10TA2 PO; +CEFT2INJ2 IV; +CINA30 PO; -CIPR500T2 PO; +CLON.1 PO; +FERR325T20 PO; +HYDR-3583 PO; -HYDR50TA15 PO; +LANT500 CHEW; -LORA-373 PO; -MAGN400T5 PO; +ONDA4TAB7 PO; +TACR0.5 PO; +TRAZ100T10 PO; -TRAZ100T4 PO; +guaiFENesin ER PO
[2017-10-30 23:32] VITALS: BP 103/69; PULSE 91; RESP 18; TEMP 97.5; O2SAT 99
[2017-10-31] MEDS ORDERED: SODIUM CHLOR 0.9% 1000 ML INJ 1,000 ML IV SCH (02:41)
--- NOTE | 2017-10-31 02:43 | PD ---
HPI Chief Complaint: GI Complaint Time Seen by Provider: 02:40 Travel History International Travel<30 days: No Contact w/Intl Traveler<30days: No Traveled to known affect area: No History of Present Illness HPI Patient states that over the past 2 days or so he has developed some nausea along with some suprapubic pressure, which is the way he normally feels whenever he develops a UTI. Otherwise the patient feels within his normal limits, he is a dialysis patient on Saturday No known drug allergies Past medical history significant for cataract surgery, AV shunt, hypertension, pancreatitis, cholecystectomy, left kidney transplant 2, pancreas transplant in , appendectomy, cholecystectomy, GERD, Self-Cath, frequent UTIs, prostate problems with TURP, diabetes PFSH Past Medical History Hx Anticoagulant Therapy: No Arthritis: No Asthma: No Autoimmune Disease: No Anxiety: No Depression: No Heart Rhythm Problems: No Cancer: Yes (SKIN) Cardiovascular Problems: Yes High Cholesterol: No Chemotherapy: No Chest Pain: No Congestive Heart Failure: No COPD: No Cerebrovascular Accident: No Diabetes: Yes (Type I) Dialysis: No ( STOPPED IN 2009) Diminished Hearing: No Endocrine: Yes Gastrointestinal Disorders: Yes GERD: Yes Glaucoma: No Genitourinary: Yes (SELF CATH NEEDED, HX: BLADDER STONES) Headaches: No Hepatitis: No Hiatal Hernia: No Hypertension: Yes Immune Disorder: No Implanted Vascular Access Dvce: Yes Kidney Stones: No Musculoskeletal: No Neurologic: No Psychiatric: No Reproductive: No Respiratory: No Immunizations Current: Yes Migraines: No Myocardial Infarction: No Pancreatitis: Yes Radiation Therapy: No Renal Failure: Yes Seizures: No Sleep Apnea: No Thyroid Disease: No Ulcer: No Past Surgical History Abdominal Surgery: Yes (left kidney transplants x2, pancreas transplant-1991) AICD: No Appendectomy: Yes Arteriovenous Shunt: Yes ( non-functional AV graft LUE) Cardiac Surgery: No Cholecystectomy: Yes Ear Surgery: Yes (cataract surgery left eye) Endocrine Surgery: Yes (pancreatic TXPL 1991) Eye Surgery: Yes (rt eye extracted/prosthetic eye now) Genitourinary Surgery: Yes (turp 2006- patient self cath to void) Gynecologic Surgery: No Hysterectomy: No Insulin Pump: No Joint Replacement: No Neurologic Surgery: No Oral Surgery: No Pacemaker: No Prostatectomy: Yes Thoracic Surgery: No Other Surgery: Yes (fistula left ARM upper arm, non funtional av graft) Social History Alcohol Use: No Tobacco Use: No Substance Use: No Allergies-Medications (Allergen,Severity, Reaction): Coded Allergies: No Known Allergies (Verified Allergy, Unknown, 10/31/17) Reported Meds & Prescriptions Reported Meds & Active Scripts Active Zofran Odt (Ondansetron Odt) 4 Mg Tab 4 Mg SL Q6HR PRN Hydrocodone-Acetaminophen 10-325 mg Tab 1 Tab PO TID PRN Prograf (Tacrolimus) 1 Mg Cap 2 Mg PO DAILY@18 30 Days Levemir Inj (Insulin Detemir) 1,000 unit/ 10 ML Vial 10 Units SQ HS 30 Days Do not mix with any other Insulin. Ondansetron Odt 4 Mg Tab 4 Mg PO Q4H PRN Bumetanide 1 Mg Tab 2 Mg PO DAILY Ferosul (Ferrous Sulfate) 325 Mg (65 Mg Iron) Tablet 325 Mg PO BID@12,17 30 Days Ceftriaxone Inj (Ceftriaxone Sodium/Dextrose) 2 Gm/50 Ml Bagp 2 Gm IV Q24H 14 Days Stop date on 05/01/17 Fosrenol (Lanthanum Carbonate) 500 Mg Tab 500 Mg CHEW TID Prograf (Tacrolimus) 0.5 Mg Cap 2 Mg PO DAILY@0600 30 Days [guaiFENesin ER] 600 MG Tabcr 600 Mg PO BID Sensipar (Cinacalcet) 30 Mg Tab 30 Mg PO WITH DINNER Trazodone (Trazodone HCl) 100 Mg Tablet 100 Mg PO HS Sodium Bicarbonate 650 Mg Tab 650 Mg PO BID Lexapro (Escitalopram Oxalate) 10 Mg Tab 10 Mg PO DAILY Prednisone 5 Mg Tab 5 Mg PO DAILY Azathioprine 50 Mg Tab 75 Mg PO DAILY Hazardous agent use appropriate precautions for handling and disposal. Catapres (Clonidine) 0.1 Mg Tab 0.1 Mg PO UNSCH PRN Reported Humulin R Inj (Insulin Human Regular) 1,000 Unit/10 Ml Vial 1-9 Units SQ ACHS Max dose at bedtime( )units; sugars < 70(0)units; sugars 150-199,(1)unit; sugars 200-249(3)units; sugars 250-299,(5)units; sugars 300-349(7)units; sugars more than 349(9)units. Review of Systems General / Constitutional: No: Fever Eyes: No: Visual changes HENT: No: Headaches Cardiovascular: No: Chest Pain or Discomfort Respiratory: No: Shortness of Breath Gastrointestinal: No: Abdominal Pain Genitourinary: No: Dysuria Musculoskeletal: Positive: Pain Skin: No Rash Neurologic: No: Weakness Psychiatric: No: Depression Endocrine: No: Polydipsia Hematologic/Lymphatic: No: Easy Bruising Physical Exam Narrative GENERAL: SKIN: Warm and dry. HEAD: Atraumatic. Normocephalic. EYES: Pupils equal and round. No scleral icterus. No injection or drainage. ENT: No nasal bleeding or discharge. Mucous membranes pink and moist. NECK: Trachea midline. No JVD. CARDIOVASCULAR: Regular rate and rhythm. RESPIRATORY: No accessory muscle use. Clear to auscultation. Breath sounds equal bilaterally. GASTROINTESTINAL: Abdomen soft, non-tender, nondistended. MUSCULOSKELETAL: Extremities without clubbing, cyanosis, or edema. No obvious deformities. Patient has bilateral BKA NEUROLOGICAL: Awake and alert. No obvious cranial nerve deficits. Motor grossly within normal limits. Five out of 5 muscle strength in the arms and legs. Normal speech. PSYCHIATRIC: Appropriate mood and affect; insight and judgment normal. Data Data Last Documented VS Vital Signs Date Time Temp Pulse Resp B/P (MAP) Pulse Ox O2 Delivery O2 Flow Rate FiO2 10/31/17 04:30 78 18 108/66 (80) 100 Room Air 10/31/17 02:57 98.3 Orders Orders Complete Blood Count With Diff (10/31/17 02:41) Comprehensive Metabolic Panel (10/31/17 02:41) Lipase (10/31/17 02:41) Urinalysis - C+S If Indicated (10/31/17 02:41) Iv Access Insert/Monitor (10/31/17 02:41) Ecg Monitoring (10/31/17 02:41) Oximetry (10/31/17 02:41) NPO (10/31/17 02:41) Ondansetron Inj (Zofran Inj) (10/31/17 02:45) Sodium Chlor 0.9% 1000 Ml Inj (Ns 1000 M (10/31/17 02:41) Urine Culture (10/31/17 03:07) Ceftriaxone Inj (Rocephin Inj) (10/31/17 05:00) Ed Discharge Order (10/31/17 04:58) Labs Laboratory Tests Test 10/31/17 03:07 10/31/17 03:15 Urine Collection Type CLEAN CATCH Urine Color YELLOW Urine Turbidity CLOUDY Urine pH 8.5 Urine Specific [place] 1.010 Urine Protein 30 mg/dL Urine Glucose (UA) NEG mg/dL Urine Ketones NEG mg/dL Urine Occult Blood MOD Urine Nitrite NEG Urine Bilirubin NEG Urine Urobilinogen 0.2 MG/DL Urine Leukocyte Esterase LARGE Urine RBC 10-14 /hpf Urine WBC INNUM /hpf Urine WBC Clumps MOD Urine Squamous Epithelial Cells 0-5 /hpf Urine Amorphous Sediment FEW Urine Bacteria RARE /hpf Urine Mucus OCC /lpf Microscopic Urinalysis Comment CULTURE INDICATED White Blood Count 8.4 TH/MM3 Red Blood Count 3.62 MIL/MM3 Hemoglobin 12.5 GM/DL Hematocrit 37.1 % Mean Corpuscular Volume 102.4 FL Mean Corpuscular Hemoglobin 34.5 PG Mean Corpuscular Hemoglobin Concent 33.7 % Red Cell Distribution Width 15.0 % Platelet Count 259 TH/MM3 Mean Platelet Volume 6.5 FL Neutrophils (%) (Auto) 63.1 % Lymphocytes (%) (Auto) 23.9 % Monocytes (%) (Auto) 10.0 % Eosinophils (%) (Auto) 0.5 % Basophils (%) (Auto) 2.5 % Neutrophils # (Auto) 5.4 TH/MM3 Lymphocytes # (Auto) 2.0 TH/MM3 Monocytes # (Auto) 0.8 TH/MM3 Eosinophils # (Auto) 0.0 TH/MM3 Basophils # (Auto) 0.2 TH/MM3 CBC Comment DIFF FINAL Differential Comment Blood Urea Nitrogen 21 MG/DL Creatinine 5.50 MG/DL Random Glucose 71 MG/DL Total Protein 8.5 GM/DL Albumin 3.4 GM/DL Calcium Level 8.6 MG/DL Alkaline Phosphatase 123 U/L Aspartate Amino Transf (AST/SGOT) 17 U/L Alanine Aminotransferase (ALT/SGPT) 14 U/L Total Bilirubin 0.3 MG/DL Sodium Level 135 MEQ/L Potassium Level 4.2 MEQ/L Chloride Level 100 MEQ/L Carbon Dioxide Level 23.9 MEQ/L Anion Gap 11 MEQ/L Estimat Glomerular Filtration Rate 11 ML/MIN Lipase 502 U/L [facility] Medical Decision Making Medical Screen Exam Complete: Yes Emergency Medical Condition: Yes Medical Record Reviewed: Yes Differential Diagnosis Gastroenteritis versus pancreatitis versus hepatitis versus UTI Narrative Course UA consistent with a UTI Chemistry profile shows normal electrolytes, as expected elevated creatinine of 5.5 BUN 21 and a GFR of 11 dialysis patient. Normal liver function tests however the patient's lipase is elevated at 502. CBC shows no leukocytosis, no left shift, normal H&H of 12.5/37 and normal platelet count. Diagnosis Primary Impression: UTI Additional Impression: Mild pancreatitis Patient Instructions: General Instructions, Urinary Tract Infection in Men (DC) Additional Instructions: you were given rocephin IV medication which is all that is required for treatment, culture will be evaluated as well and should you require further antibiotic you will be called. Scripts Ondansetron Odt (Zofran Odt) 4 Mg Tab 4 MG SL Q6HR Y for Nausea/Vomiting, #15 TAB 0 Refills Prov: Lio Pastor MD 10/31/17 Disposition: 01 DISCHARGE HOME Condition: Stable Lio Pastor MD Oct 31, 2017 02:43
[2017-10-31] MEDS ORDERED: ONDANSETRON HCL 4 MG/2 ML VIAL IVP ONE (02:45)
[2017-10-31 02:57] VITALS: BP 131/77; PULSE 86; RESP 16; TEMP 98.3; O2SAT 99
[2017-10-31 03:33] LABS: BILIRUBIN, URINE NEG (NEG); BLOOD, URINE MOD (NEG); GLUCOSE,URINE NEG (NEG); KETONE, URINE NEG (NEG); NITRITE,URINE NEG (NEG); PH, URINE 8.5 (5.0-8.5); URINE COLOR YELLOW (YELLW/STRAW); URINE LEUKOCYTE ESTERASE LARGE (NEG)
[2017-10-31 03:33] LABS: AUTOMATED NEUTROPHIL # 5.4 TH/MM3 (1.8-7.7); BASOPHIL # 0.2 TH/MM3 (0-0.2); BASOPHIL % 2.5 % (0.0-2.0); EOSINOPHIL % 0.5 % (0.0-4.0); HEMATOCRIT 37.1 % (39.0-51.0); HEMOGLOBIN 12.5 GM/DL (13.0-17.0); LYMPH % 23.9 % (9.0-44.0); MEAN CELL VOLUME 102.4 FL (80.0-100.0); MEAN CORPUSCULAR HEMOGLOBIN 34.5 PG (27.0-34.0); MEAN CORPUSCULAR HGB CONC 33.7 % (32.0-36.0); MEAN PLATELET VOLUME 6.5 FL (7.0-11.0); MONOCYTE # 0.8 TH/MM3 (0-0.9); NEUT % 63.1 % (16.0-70.0); PLATELET COUNT 259 TH/MM3 (150-450); RED BLOOD COUNT 3.62 MIL/MM3 (4.50-5.90); WHITE BLOOD COUNT 8.4 TH/MM3 (4.0-11.0)
[2017-10-31 03:40] LABS: WBC, URINE INNUM /hpf (0-5)
[2017-10-31 03:41] LABS: MUCUS URINE OCC /lpf (OCC); SQUAMOUS EPITHELIAL CELL URINE 0-5 /hpf (0-5); WHITE BLOOD CELL CLUMPS MOD
[2017-10-31 03:42] LABS: AMORPHOUS SEDIMENT, URINE FEW; BACTERIA, URINE RARE /hpf
[2017-10-31 03:54] LABS: CHLORIDE 100 MEQ/L (98-107); SODIUM (NA) 135 MEQ/L (136-145)
[2017-10-31 03:57] LABS: CALCIUM 8.6 MG/DL (8.5-10.1)
[2017-10-31 03:58] LABS: ALBUMIN 3.4 GM/DL (3.4-5.0); BICARBONATE 23.9 MEQ/L (21.0-32.0); BLOOD UREA NITROGEN 21 MG/DL (7-18); GLUCOSE,RANDOM 71 MG/DL (74-106)
[2017-10-31 04:01] LABS: ALT (GPT) 14 U/L (12-78); AST (GOT) 17 U/L (15-37); GLOMERULAR FILTRATION RATE 11 ML/MIN (>89)
[2017-10-31 04:02] LABS: TOTAL BILIRUBIN ADULT 0.3 MG/DL (0.2-1.0); TOTAL PROTEIN 8.5 GM/DL (6.4-8.2)
[2017-10-31 04:03] LABS: ALKALINE PHOSPHATASE 123 U/L (45-117)
[2017-10-31] MEDS ORDERED: ZOFR4TAB3 SL (04:16)
[2017-10-31 04:30] VITALS: BP 108/66; PULSE 78; RESP 18; O2SAT 100
[2017-10-31] MEDS ORDERED: cefTRIAXone INJ 1,000 MG in SODIUM CHLORIDE 0.9% INJ 100 ML IV ONE (05:00)
== END 2017-10-31 05:27 | disposition home or self-care (01) ==
LOC: PHED 23:27
DX: N39.0 Urinary tract infection, site not specified (principal); K85.90 Acute pancreatitis without necrosis or infection, unspecified; B95.7 Other staphylococcus as the cause of diseases classified elsewhere; B95.2 Enterococcus as the cause of diseases classified elsewhere; E10.22 Type 1 diabetes mellitus with diabetic chronic kidney disease; I12.9 Hypertensive chronic kidney disease with stage 1 through stage 4 chronic kidney disease, or unspecified chronic kidney disease; N18.9 Chronic kidney disease, unspecified; K21.9 Gastro-esophageal reflux disease without esophagitis; Z79.4 Long term (current) use of insulin; Z94.0 Kidney transplant status
CPT/HCPCS: 80053; 81001; 83690; 85025; 87077; 87086; 87186; 96361; 96365; 96375; 99284; J0696; J2405; J7030

== ENCOUNTER 2017-12-12 09:20 | Observation (INO) | payer MEDICARE, OTHER ==
[2017-12-12] VITALS (14 sets, daily range): BP systolic 124–229; BP diastolic 62–107; PULSE 56–84; RESP 16–20; TEMP 97.5–98.2; O2SAT 93–100
[~2017-12-12 09:20] MED LIST changes: +ZOFR4TAB3 SL
[2017-12-12] MEDS ORDERED: SODIUM CHLORIDE 0.9% FLUSH 10 ML FLUSH IVF PRN (09:45)
[2017-12-12] MEDS ORDERED: ASPIRIN 81 MG CHEW TAB PO ONE (09:45)
[2017-12-12] MEDS ORDERED: hydrALAZINE HCL 20 MG/ML VIAL IV PUSH ONE (10:00)
[2017-12-12 10:09] LABS: AUTOMATED NEUTROPHIL # 3.1 TH/MM3 (1.8-7.7); BASOPHIL % 0.9 % (0.0-2.0); EOSINOPHIL # 0.1 TH/MM3 (0-0.4); EOSINOPHIL % 1.7 % (0.0-4.0); HEMOGLOBIN 10.7 GM/DL (13.0-17.0); LYMPH % 26.3 % (9.0-44.0); LYMPHOCYTE # 1.3 TH/MM3 (1.0-4.8); MEAN CELL VOLUME 101.4 FL (80.0-100.0); MEAN CORPUSCULAR HEMOGLOBIN 35.1 PG (27.0-34.0); MEAN CORPUSCULAR HGB CONC 34.6 % (32.0-36.0); MEAN PLATELET VOLUME 6.6 FL (7.0-11.0); MONO % 8.5 % (0.0-8.0); MONOCYTE # 0.4 TH/MM3 (0-0.9); NEUT % 62.6 % (16.0-70.0); PLATELET COUNT 195 TH/MM3 (150-450); RED BLOOD COUNT 3.06 MIL/MM3 (4.50-5.90); RED CELL DISTRIBUTION WIDTH 15.3 % (11.6-17.2)
[2017-12-12] MEDS ORDERED: PROCHLORPERAZINE INJ 10 MG/2 ML VIAL IV PUSH ONE (10:15)
[2017-12-12 10:18] LABS: INTERNATIONAL NORMALIZED RATIO 1.1 RATIO; PROTHROMBIN TIME - PATIENT 10.7 SEC (9.8-11.6)
[2017-12-12 10:26] LABS: BICARBONATE 24.9 MEQ/L (21.0-32.0); CALCIUM 10.6 MG/DL (8.5-10.1); CREATININE 5.71 MG/DL (0.60-1.30); MAGNESIUM 2.3 MG/DL (1.5-2.5)
[2017-12-12 10:30] LABS: TROPONIN I 0.03 NG/ML (0.02-0.05)
--- NOTE | 2017-12-12 10:30 | PD ---
HPI Chief Complaint: Chest Pain Time Seen by Provider: 09:38 Travel History International Travel<30 days: No Contact w/Intl Traveler<30days: No Traveled to known affect area: No History of Present Illness HPI 57-year-old male with a history of diabetes mellitus, renal failure, previous renal transplant, who presents today with complaints of dizziness, weakness, chest pressure. Patient states that he has not been feeling well over the last day or 2. He reports that when he was at his appointment for a possible renal transplant, they noted his blood pressure to be over 200 systolic and over 100 diastolic. The patient denies any headache. He does report nausea and vomiting. He reports that he was at dialysis this morning and was still feeling bad and decided to come here. Patient reports he has had a previous pancreatic transplant as well as kidney transplant reports his kidney transplant failed 1 year ago. PFSH Past Medical History Hx Anticoagulant Therapy: No Arthritis: No Asthma: No Autoimmune Disease: No Anxiety: No Depression: No Heart Rhythm Problems: No Cancer: Yes (SKIN) Cardiovascular Problems: Yes High Cholesterol: No Chemotherapy: No Chest Pain: No Congestive Heart Failure: No COPD: No Cerebrovascular Accident: No Diabetes: Yes (Type I) Dialysis: Yes (Mon, Wed and FRi) Diminished Hearing: No Endocrine: Yes Gastrointestinal Disorders: Yes GERD: Yes Glaucoma: No Genitourinary: Yes (SELF CATH NEEDED, HX: BLADDER STONES) Headaches: No Hepatitis: No Hiatal Hernia: No Hypertension: Yes Immune Disorder: No Implanted Vascular Access Dvce: Yes Kidney Stones: No Musculoskeletal: No Neurologic: No Psychiatric: No Reproductive: No Respiratory: No Immunizations Current: Yes Migraines: No Myocardial Infarction: No Pancreatitis: Yes Radiation Therapy: No Renal Failure: Yes Seizures: No Sleep Apnea: No Thyroid Disease: No Ulcer: No Past Surgical History Abdominal Surgery: Yes (left kidney transplants x2, pancreas transplant-1991) AICD: No Appendectomy: Yes Arteriovenous Shunt: Yes ( non-functional AV graft LUE) Cardiac Surgery: No Cholecystectomy: Yes Ear Surgery: Yes (cataract surgery left eye) Endocrine Surgery: Yes (pancreatic TXPL 1991) Eye Surgery: Yes (rt eye extracted/prosthetic eye now) Genitourinary Surgery: Yes (turp 2006- patient self cath to void) Gynecologic Surgery: No Hysterectomy: No Insulin Pump: No Joint Replacement: No Neurologic Surgery: No Oral Surgery: No Pacemaker: No Prostatectomy: Yes Thoracic Surgery: No Other Surgery: Yes (fistula left ARM upper arm, non funtional av graft) Social History Alcohol Use: No Tobacco Use: No Substance Use: No Allergies-Medications (Allergen,Severity, Reaction): Coded Allergies: No Known Allergies (Verified Allergy, Unknown, 10/31/17) Reported Meds & Prescriptions Reported Meds & Active Scripts Active Hydrocodone-Acetaminophen 10-325 mg Tab 1 Tab PO TID PRN Prograf (Tacrolimus) 1 Mg Cap 2 Mg PO DAILY@18 30 Days Levemir Inj (Insulin Detemir) 1,000 unit/ 10 ML Vial 10 Units SQ HS 30 Days Do not mix with any other Insulin. Ondansetron Odt 4 Mg Tab 4 Mg PO Q4H PRN Bumetanide 1 Mg Tab 2 Mg PO DAILY Ferosul (Ferrous Sulfate) 325 Mg (65 Mg Iron) Tablet 325 Mg PO BID@12,17 30 Days Fosrenol (Lanthanum Carbonate) 500 Mg Tab 500 Mg CHEW TID Prograf (Tacrolimus) 0.5 Mg Cap 2 Mg PO DAILY@0600 30 Days [guaiFENesin ER] 600 MG Tabcr 600 Mg PO BID Sensipar (Cinacalcet) 30 Mg Tab 30 Mg PO WITH DINNER Trazodone (Trazodone HCl) 100 Mg Tablet 100 Mg PO HS Sodium Bicarbonate 650 Mg Tab 650 Mg PO BID Lexapro (Escitalopram Oxalate) 10 Mg Tab 10 Mg PO DAILY Prednisone 5 Mg Tab 5 Mg PO DAILY Azathioprine 50 Mg Tab 75 Mg PO DAILY Hazardous agent use appropriate precautions for handling and disposal. Catapres (Clonidine) 0.1 Mg Tab 0.1 Mg PO UNSCH PRN Reported Humulin R Inj (Insulin Human Regular) 1,000 Unit/10 Ml Vial 1-9 Units SQ ACHS Max dose at bedtime( )units; sugars < 70(0)units; sugars 150-199,(1)unit; sugars 200-249(3)units; sugars 250-299,(5)units; sugars 300-349(7)units; sugars more than 349(9)units. Review of Systems Except as stated in HPI: all other systems reviewed are Neg General / Constitutional: No: Fever, Chills HENT: Positive: Lightheadedness, No: Neck Pain Cardiovascular: Positive: Chest Pain or Discomfort (Chest pressure), No: Palpitations Respiratory: No: Cough, Shortness of Breath Gastrointestinal: Positive: Nausea, Vomiting, No: Diarrhea, Abdominal Pain Genitourinary: No: Flank Pain Musculoskeletal: Positive: Weakness, No: Pain Skin: No Rash, No Lesions Neurologic: Positive: Weakness, Dizziness, No: Headache, Change in Mentation Physical Exam Narrative GENERAL: Well-developed well-nourished male in no acute distress. SKIN: Focused skin assessment warm/dry. HEAD: Atraumatic. Normocephalic. EYES: Patient has had a right lobectomy. No scleral icterus. No injection or drainage. ENT: No nasal bleeding or discharge. Mucous membranes pink and moist. NECK: Trachea midline. No JVD. Supple. CARDIOVASCULAR: Regular rate and rhythm. 2/6 systolic murmur heard mid substernal area. RESPIRATORY: No accessory muscle use. Clear to auscultation. Breath sounds equal bilaterally. GASTROINTESTINAL: Abdomen soft, non-tender, nondistended. No rebound or guarding. MUSCULOSKELETAL: Status post bilateral BKA's. Patient's also missing fingers in his left hand. NEUROLOGICAL: Awake and alert. No obvious cranial nerve deficits. Motor grossly within normal limits. Normal speech. Data Data Last Documented VS Vital Signs Date Time Temp Pulse Resp B/P (MAP) Pulse Ox O2 Delivery O2 Flow Rate FiO2 12/12/17 13:15 75 16 143/71 (95) 97 Room Air 12/12/17 09:32 98.2 Orders Orders Electrocardiogram (12/12/17 09:39) Basic Metabolic Panel (Bmp) (12/12/17 09:39) Ckmb (Isoenzyme) Profile (12/12/17 09:39) Complete Blood Count With Diff (12/12/17 09:39) Magnesium (Mg) (12/12/17 09:39) Prothrombin Time / Inr (Pt) (12/12/17 09:39) Act Partial Throm Time (Ptt) (12/12/17 09:39) Troponin I (12/12/17 09:39) Chest, Single Ap (12/12/17 09:39) Ecg Monitoring (12/12/17 09:39) Bilateral Bp Monitoring (12/12/17 09:39) Iv Access Insert/Monitor (12/12/17 09:39) Oximetry (12/12/17 09:39) Oxygen Administration (12/12/17 09:39) Aspirin Chew (Aspirin Chew) (12/12/17 09:45) Sodium Chloride 0.9% Flush (Ns Flush) (12/12/17 09:45) Hydralazine Inj (Apresoline Inj) (12/12/17 10:00) Prochlorperazine Inj (Compazine Inj) (12/12/17 10:15) Acetamin-Hydrocod 325-10 Mg ([place] 10-32 (12/12/17 11:45) Admit Order (Ed Use Only) (12/12/17 13:22) Labs Laboratory Tests Test 12/12/17 09:55 White Blood Count 5.0 TH/MM3 Red Blood Count 3.06 MIL/MM3 Hemoglobin 10.7 GM/DL Hematocrit 31.0 % Mean Corpuscular Volume 101.4 FL Mean Corpuscular Hemoglobin 35.1 PG Mean Corpuscular Hemoglobin Concent 34.6 % Red Cell Distribution Width 15.3 % Platelet Count 195 TH/MM3 Mean Platelet Volume 6.6 FL Neutrophils (%) (Auto) 62.6 % Lymphocytes (%) (Auto) 26.3 % Monocytes (%) (Auto) 8.5 % Eosinophils (%) (Auto) 1.7 % Basophils (%) (Auto) 0.9 % Neutrophils # (Auto) 3.1 TH/MM3 Lymphocytes # (Auto) 1.3 TH/MM3 Monocytes # (Auto) 0.4 TH/MM3 Eosinophils # (Auto) 0.1 TH/MM3 Basophils # (Auto) 0.0 TH/MM3 CBC Comment DIFF FINAL Differential Comment Prothrombin Time 10.7 SEC Prothromb Time International Ratio 1.1 RATIO Activated Partial Thromboplast Time 25.7 SEC Blood Urea Nitrogen 16 MG/DL Creatinine 5.71 MG/DL Random Glucose 173 MG/DL Calcium Level 10.6 MG/DL Magnesium Level 2.3 MG/DL Sodium Level 135 MEQ/L Potassium Level 4.6 MEQ/L Chloride Level 100 MEQ/L Carbon Dioxide Level 24.9 MEQ/L Anion Gap 10 MEQ/L Estimat Glomerular Filtration Rate 10 ML/MIN Total Creatine Kinase 28 U/L Troponin I 0.03 NG/ML MDM Medical Decision Making Medical Screen Exam Complete: Yes Emergency Medical Condition: Yes Differential Diagnosis ACS versus hypertensive urgency versus metabolic derangement Narrative Course 57-year-old male presents today with complaints of chest pain and not feeling well. Patient states that his blood pressures also been elevated. The patient has a history of renal transplant. Patient also has history of pancreas transplant. He has vascular disease and has had bilateral BKA's. Patient will be admitted to the hospital for rule out. Given the patient's complex history, he is not a good candidate for the chest pain center so I will admit him to the medicine service. I spoke with the admitting medicine doctor and they are agreeable to the plan. Diagnosis Primary Impression: Chest pain Additional Impressions: Uncontrolled hypertension End stage renal disease on dialysis Diabetes mellitus type 2 with complications Admitting Information Admitting Physician Requests: Observation Scripts Aspirin DR (Aspirin DR) 81 Mg Tabdr 81 MG PO DAILY for Heart, #30 TAB Prov: Brtet Rick DO 12/13/17 Amlodipine (Norvasc) 5 Mg Tab 5 MG PO DAILY for Blood Pressure Management, #30 TAB Prov: Brett Rick DO 12/13/17 Carvedilol (Coreg) 6.25 Mg Tab 6.25 MG PO Q12HR for Blood Pressure Management, #60 TAB Prov: Brett Rick DO 12/13/17 Ketan Lobato MD Dec 12, 2017 10:30
--- NOTE | 2017-12-12 10:56 | RADRPT ---
EXAM DATE/TIME: 12/12/2017 10:03 [facility] COMPARISON: CHEST SINGLE AP, March 23, 2017, 17:57. INDICATIONS : Chest pain. MEDICAL HISTORY : Hypertension. Diabetes mellitus type II. SURGICAL HISTORY : Appendectomy. Cholecystectomy. ENCOUNTER: Initial ACUITY: 1 day PAIN SCORE: 8/10 LOCATION: Left upper chest FINDINGS: A single view of the chest demonstrates the lungs to be symmetrically aerated without evidence of mas s, infiltrate or effusion. Benign pleural thickening bilaterally right greater the left. The cardiome diastinal contours are unremarkable. Osseous structures are intact. CONCLUSION: Lungs are grossly clear. No infiltrate or mass. Bandar Lombardi MD on December 12, 2017 at 10:53 Board Certified Radiologist. This report was verified electronically.
[2017-12-12] MEDS ORDERED: ACETAMINOPHEN/HYDROcodone 325 MG/10 MG TAB PO ONE (11:45)
[2017-12-12] MEDS ORDERED: ACETAMINOPHEN 325 MG TAB PO PRN ×3 (13:45→17:00)
[2017-12-12] MEDS ORDERED: ACETAMINOPHEN/HYDROcodone 325 MG/5 MG TAB PO PRN (13:45)
[2017-12-12] MEDS ORDERED: SODIUM CHLORIDE 0.9% FLUSH 10 ML FLUSH IV FLUSH PRN ×2 (13:45→17:00)
[2017-12-12] MEDS ORDERED: NALOXONE HCL 0.4 MG/ML AMP IV PUSH PRN (13:45)
[2017-12-12] MEDS ORDERED: ONDANSETRON HCL 4 MG/2 ML VIAL IVP PRN (15:00)
[2017-12-12] MEDS: FERROUS SULFATE 325 MG (65 MG ELEMENTAL IRON) TAB PO SCH (15:24)
[2017-12-12] MEDS: ACETAMINOPHEN/HYDROcodone 325 MG/10 MG TAB PO PRN ×2 (15:24→20:18)
[2017-12-12] MEDS: HEPARIN SODIUM - SQ 10,000 UNITS/ML VIAL SQ SCH ×2 (15:25→21:22)
--- NOTE | 2017-12-12 15:36 | HHI.HP ---
HPI Service [facility] Hospitalists Primary Care Physician Axel Ching MD Admission Diagnosis chest pain, uncontrolled hypertension, diabetes mellitus, Diagnoses: Chief Complaint: Chest pain N/V Uncontrolled blood pressure Travel History International Travel<30 Days: No Contact w/Intl Traveler <30 Da: No Traveled to Known Affected Are: No History of Present Illness This is a 57yo male with a PMHX of ESRD on HD, with history of previous renal transplant, previous pancreatic transplant, DM and hypertension who presents to [facility] ED with complaints of uncontrolled blood pressure, chest pain, nausea, vomiting. Patient states he has not felt well for the past several days. He states his blood pressure has not been well controlled and while at his dialysis appointment yesterday his BP was 200/100. Last night, he developed chest pain that he describes as constant dull chest pressure over the epigastric area with associated shortness of breath, nausea, vomiting and mild dizziness. He had 2 episodes of nonbloody vomitus yesterday and one this morning. He states he's had several episodes of diarrhea over the past few days but denies any abdominal pain. Patient follow with Dr. Medina of cardiology and was last seen a month ago. He states his blood pressure has been well controlled off of any medications for the past year. At present, patient states his chest pain has improved. He has no shortness of breath. Review of Systems Except as stated in HPI: all other systems reviewed are Neg Past Family Social History Past Medical History ESRD on HD MWF, follows with Dr. Ramirez HTN, off of medications for the past year DM Hx of kidney transplant x 2 and pancreatic transplant Blind right eye GERD Hx of bladder stones Past Surgical History Cataract surgery left eye Kidney transplant x 2 pancreatic transplant Bilateral BKAs AV shunt TURP 2006 Removal right eye, now with prosthetic Cholecystectomy Appendectomy Reported Medications Hydrocodone-Acetaminophen 10-325 mg Tab 1 Tab PO TID PRN Prograf (Tacrolimus) 1 Mg Cap 2 Mg PO DAILY@18 30 Days Levemir Inj (Insulin Detemir) 1,000 unit/ 10 ML Vial 10 Units SQ HS 30 Days Do not mix with any other Insulin. Ondansetron Odt 4 Mg Tab 4 Mg PO Q4H PRN Bumetanide 1 Mg Tab 2 Mg PO DAILY Ferosul (Ferrous Sulfate) 325 Mg (65 Mg Iron) Tablet 325 Mg PO BID@12,17 30 Days Fosrenol (Lanthanum Carbonate) 500 Mg Tab 500 Mg CHEW TID Prograf (Tacrolimus) 0.5 Mg Cap 2 Mg PO DAILY@0600 30 Days [guaiFENesin ER] 600 MG Tabcr 600 Mg PO BID Sensipar (Cinacalcet) 30 Mg Tab 30 Mg PO WITH DINNER Trazodone (Trazodone HCl) 100 Mg Tablet 100 Mg PO HS Sodium Bicarbonate 650 Mg Tab 650 Mg PO BID Lexapro (Escitalopram Oxalate) 10 Mg Tab 10 Mg PO DAILY Prednisone 5 Mg Tab 5 Mg PO DAILY Azathioprine 50 Mg Tab 75 Mg PO DAILY Hazardous agent use appropriate precautions for handling and disposal. Catapres (Clonidine) 0.1 Mg Tab 0.1 Mg PO UNSCH PRN Humulin R Inj (Insulin Human Regular) 1,000 Unit/10 Ml Vial 1-9 Units SQ ACHS Max dose at bedtime( )units; sugars < 70(0)units; sugars 150-199,(1)unit; sugars 200-249(3)units; sugars 250-299,(5)units; sugars 300-349(7)units; sugars more than 349(9)units. Allergies: Coded Allergies: No Known Allergies (Verified Allergy, Unknown, 10/31/17) Active Ordered Medications Current Medications Medications (Trade) Dose Ordered Sig/Lida Route Start Time Stop Time Status Last Admin (NS Flush) 2 ml UNSCH PRN IVF 12/12/17 09:45 (Imuran) 75 mg DAILY PO 12/13/17 09:00 (Bumetanide) 2 mg DAILY PO 12/13/17 09:00 (Sensipar) 30 mg WITH DINNER PO 12/12/17 18:00 (Lexapro) 10 mg DAILY PO 12/13/17 09:00 (Ferrous Sulfate) 325 mg BID@,17 PO 12/12/17 17:00 (Levemir Inj) 10 units HS SQ 12/12/17 21:00 (Fosrenol Chew) 500 mg TID CHEW 12/12/17 18:00 (Deltasone) 5 mg DAILY PO 12/13/17 09:00 (Sodium Bicarbonate) 650 mg BID PO 12/12/17 21:00 (Prograf) 2 mg DAILY@0600 PO 12/13/17 06:00 (Prograf) 2 mg DAILY@18 PO 12/12/17 18:00 (Desyrel) 100 mg HS PO 12/12/17 21:00 (NovoLOG SUPPLEMENTAL SCALE) 1 ACHS SLIDING SCALE SQ 12/12/17 17:00 (NS Flush) 2 ml UNSCH PRN IV FLUSH 12/12/17 13:45 (NS Flush) 2 ml BID IV FLUSH 12/12/17 21:00 (Tylenol) 650 mg Q4H PRN PO 12/12/17 13:45 (Zofran Inj) 4 mg Q6H PRN IVP 12/12/17 15:00 (Heparin Inj) 5,000 units Q8HR SQ 12/12/17 15:00 (Tylenol) 650 mg Q6H PRN PO 12/12/17 13:45 (Alexis 5-325 Mg) 1 tab Q4H PRN PO 12/12/17 13:45 (Alexis 10-325 Mg) 1 tab Q4H PRN PO 12/12/17 13:45 (Narcan Inj) 0.4 mg UNSCH PRN IV PUSH 12/12/17 13:45 (Bibiana-Colace) 1 tab BID PO 12/12/17 21:00 Family History CAD Social History Patient denies any tobacco use, EtOH consumption or illicit drug use. Physical Exam Vital Signs Vital Signs Date Time Temp Pulse Resp B/P (MAP) Pulse Ox O2 Delivery O2 Flow Rate FiO2 12/12/17 13:55 75 16 162/79 (106) 97 Room Air 12/12/17 13:15 75 16 143/71 (95) 97 Room Air 12/12/17 13:08 16 12/12/17 12:30 78 18 154/76 (102) 97 Room Air 12/12/17 11:30 80 18 150/70 (96) 97 Room Air 12/12/17 10:48 84 18 151/72 (98) 97 Room Air 12/12/17 10:35 84 18 181/83 (115) 97 Room Air 12/12/17 10:24 84 18 201/91 (127) 96 Room Air 12/12/17 09:44 96 Room Air 12/12/17 09:44 95 Room Air 12/12/17 09:43 73 18 229/107 (147) 100 Room Air 12/12/17 09:40 76 20 97 Room Air 12/12/17 09:32 98.2 75 20 174/74 (107) 93 Physical Exam GENERAL: This is a well-nourished, well-developed male patient, in no apparent distress. Sitting up in bed. Awake and alert. Appears comfortable. SKIN: No rashes, ecchymoses or lesions. Cool and dry. HEAD: Atraumatic. Normocephalic. No temporal or scalp tenderness. EYES: Pupils equal round and reactive left eye. Extraocular motions intact left eye. No scleral icterus. No injection or drainage. Patient has prosthetic right eye. ENT: Nose without bleeding or purulent drainage. Throat without erythema, tonsillar hypertrophy or exudate. Uvula midline. Airway patent. NECK: Trachea midline. No lymphadenopathy. Supple, nontender, no meningeal signs. CARDIOVASCULAR: Regular rate and rhythm without murmurs, gallops, or rubs. RESPIRATORY: Clear to auscultation. Breath sounds equal bilaterally. No wheezes , rales, or rhonchi. GASTROINTESTINAL: Abdomen soft, non-tender, nondistended. No hepato-splenomegaly , or palpable masses. No guarding. MUSCULOSKELETAL: s/p Bilateral BKAs. Extremities without clubbing, cyanosis, or edema. No joint tenderness or edema noted. (+)Nontender effusion lateral aspect left knee, chronic ppr. Patient s/p amputations of 3rd and 5th digit of the left hand. NEUROLOGICAL: Awake and alert. Cranial nerves II through XII grossly intact. Motor and sensory grossly within normal limits. Normal speech. Laboratory Laboratory Tests Test 12/12/17 09:55 White Blood Count 5.0 Red Blood Count 3.06 Hemoglobin 10.7 Hematocrit 31.0 Mean Corpuscular Volume 101.4 Mean Corpuscular Hemoglobin 35.1 Mean Corpuscular Hemoglobin Concent 34.6 Red Cell Distribution Width 15.3 Platelet Count 195 Mean Platelet Volume 6.6 Neutrophils (%) (Auto) 62.6 Lymphocytes (%) (Auto) 26.3 Monocytes (%) (Auto) 8.5 Eosinophils (%) (Auto) 1.7 Basophils (%) (Auto) 0.9 Neutrophils # (Auto) 3.1 Lymphocytes # (Auto) 1.3 Monocytes # (Auto) 0.4 Eosinophils # (Auto) 0.1 Basophils # (Auto) 0.0 CBC Comment DIFF FINAL Differential Comment Prothrombin Time 10.7 Prothromb Time International Ratio 1.1 Activated Partial Thromboplast Time 25.7 Blood Urea Nitrogen 16 Creatinine 5.71 Random Glucose 173 Calcium Level 10.6 Magnesium Level 2.3 Sodium Level 135 Potassium Level 4.6 Chloride Level 100 Carbon Dioxide Level 24.9 Anion Gap 10 Estimat Glomerular Filtration Rate 10 Total Creatine Kinase 28 Troponin I 0.03 Result Diagram: 12/12/17 0955 12/12/17 09 Imaging Last Impressions Chest X-Ray 12/12/17 0939 Signed Impressions: Service Date/Time: , December 12, 2017 10:03 - CONCLUSION: Lungs are grossly clear. No infiltrate or mass. MD Narayan Trivedi VTE Risk Assessment Jorgerinclay VTE Risk Assessment: Mod/High Risk (score >= 2) Caprini Risk Assessment Model Point Value = 1 Point Value = 2 Point Value = 3 Point Value = 5 Age 41-60 Minor surgery BMI > 25 kg/m2 Swollen legs Varicose veins or History of unexplained or recurrent spontaneous Oral contraceptives or hormone replacement Sepsis (< 1 month) Serious lung disease, including pneumonia (< 1 month) Abnormal pulmonary function Acute myocardial infarction Congestive heart failure (< 1 month) History of inflammatory bowel disease Medical patient at bed rest Age 61-74 Arthroscopic surgery Major open surgery (> 45 min) Laparoscopic surgery (> 45 min) Malignancy Confined to bed (> 72 hours) Immobilizing plaster cast Central venous access Age >= 75 History of VTE Family history of VTE Factor V Leiden Prothrombin [id number] Lupus anticoagulant Anticardiolipin antibodies Elevated serum homocysteine Heparin-induced thrombocytopenia Other congenital or acquired thrombophilia Stroke (< 1 month) Elective arthroplasty Hip, pelvis, or leg fracture Acute spinal cord injury (< 1 month) Prophylaxis Regimen Total Risk Factor Score Risk Level Prophylaxis Regimen 0-1 Low Early ambulation 2 Moderate Order ONE of the following: *Sequential Compression Device (SCD) *Heparin 5000 units SQ BID 3-4 Higher Order ONE of the following medications: *Heparin 5000 units SQ TID *Enoxaparin/Lovenox 40 mg SQ daily (WT < 150 kg, CrCl > 30 mL/min) *Enoxaparin/Lovenox 30 mg SQ daily (WT < 150 kg, CrCl > 10-29 mL/min) *Enoxaparin/Lovenox 30 mg SQ BID (WT < 150 kg, CrCl > 30 mL/min) AND/OR *Sequential Compression Device (SCD) 5 or more Highest Order ONE of the following medications: *Heparin 5000 units SQ TID (Preferred with Epidurals) *Enoxaparin/Lovenox 40 mg SQ daily (WT < 150 kg, CrCl > 30 mL/min) *Enoxaparin/Lovenox 30 mg SQ daily (WT < 150 kg, CrCl > 10-29 mL/min) *Enoxaparin/Lovenox 30 mg SQ BID (WT < 150 kg, CrCl > 30 mL/min) AND *Sequential Compression Device (SCD) Assessment and Plan Assessment and Plan Chest pain, atypical, r/o ACS Initial troponin 0.03 Possible GI etiology -Continue to cycle cardiac enzymes -monitor on telemetry -start Protonix 40mg daily Hypertension, uncontrolled Patient states his BP has been well controlled off of antihypertensives x 1 year -Clonidine prn -resume on home dose of Bumex -given c/o chest pain and uncontrolled BP off of medications, will consult patients dinkey engineer Dr. Medina, appreciate assistance -monitor BP and adjust treatment accordingly ESRD on HD MWF Patient does make some urine and self caths as needed -Consult Nephrology, patient follows with Dr. Ramirez, appreciate assistance -resume on home dose of bicarb, fosrenol and sensipar -self catheterization as needed Hx of renal transplant x 2 and pancreatic transplant -resume on home dose of suppressive meds to include prednisone, azathioprine and tacrolimus -obtain Prograf level Diabetes mellitus -resume patient on home dose of Levemir 10u sq daily -accucheck and ISS Chronic BLE pain -resume home dose of Alexis as needed Anemia, chronic, stable No evidence of active bleeding -resume home dose of ferrous sulfate 325mg BID -monitor CBC as indicted -Epogen per Nephrology Macrocytosis Hx of B12 deficiency -obtain B12 and folate levels Depression -resume home dose of Lexapro and Trazodone DVT prophylaxis -Heparin sq Discussed Condition With patient, Dr. Prabhjot Monson,Rosa MARKS Dec 12, 2017 15:36
[2017-12-12] MEDS ORDERED: PANTOPRAZOLE SOD 40 MG DELAYED RELEASE TAB PO ONE (15:45)
[2017-12-12] MEDS ORDERED: cloNIDine HCL 0.1 MG TAB PO PRN ×2 (16:00→17:00)
--- NOTE | 2017-12-12 16:27 | EKG ---
Date Performed: 12/12/2017 Time Performed: 09:40:57 PTAGE: 57 years EKG: Sinus rhythm NORMAL ECG PREVIOUS TRACING : 10/17/2016 17.29 Since the previous tracing, no significant change noted DOCTOR: Gary Lee Interpretating Date/Time 12/12/2017 16:24:58
[2017-12-12] MEDS ORDERED: SODIUM CHLOR 0.9% 1000 ML INJ 1,000 ML IV PRN (16:58)
[2017-12-12] MEDS ORDERED: SODIUM CHLOR 0.9% 1000 ML INJ 1,000 ML OTHER PRN ×2 (16:58)
[2017-12-12] MEDS ORDERED: diphenhydrAMINE HCL 25 MG CAP PO PRN (17:00)
[2017-12-12] MEDS ORDERED: HEPARIN SODIUM - IV 10,000 UNITS/10 ML VIAL IV FLUSH PRN (17:00)
[2017-12-12] MEDS ORDERED: ALBUMIN 25% INJ 100 ML IV PRN (17:00)
[2017-12-12] MEDS ORDERED: GELATIN 12 MM/7 MM FOAM TOP PRN (17:00)
[2017-12-12] MEDS ORDERED: ONDANSETRON HCL 4 MG/2 ML VIAL IV PUSH PRN (17:00)
[2017-12-12] MEDS ORDERED: NITROGLYCERIN 0.4 MG SL 25 TABS/BTL SL PRN (17:00)
[2017-12-12] MEDS: INSULIN ASPART SUPPLEMENTAL SCALE SQ SCH ×2 (17:00→21:22)
--- NOTE | 2017-12-12 17:01 | PD.CONS ---
HPI Consult Requested By Primary Care Physician Axel Ching MD History of Present Illness Patient indicating that he has not been feeling well these last few days but cannot be specific. Was noted to have an elevated blood pressure in the dialysis unit yesterday. Subsequently he decided to come to the emergency room. He states he has been experiencing intermittent episodes of chest pressure as well as dyspnea lasting for several minutes at a time. Recently saw his operations trainer Dr. Medina. Last stress test was about a year ago by history. No history of hemoptysis. Past Family Social History Allergies: Coded Allergies: No Known Allergies (Verified Allergy, Unknown, 10/31/17) Past Medical History Past Medical History End-stage renal disease from failed transplant s/p kidney transplant x2 Pancreas transplant HTN DM Urinary retention requiring self-cath 4x daily PVD s/p bilat BKA Anxiety Depression Chronic Acidosis Past Surgical History Past Medical History End-stage renal disease from failed transplant s/p kidney transplant x2 Bilat BKA Kidney transplant x2 Pancreas transplant Cholecystectomy Knee surgery Skin CA removal Pancreatic transplant Reported Medications Reported Meds & Active Scripts Active Hydrocodone-Acetaminophen 10-325 mg Tab 1 Tab PO TID PRN Prograf (Tacrolimus) 1 Mg Cap 2 Mg PO DAILY@18 30 Days Levemir Inj (Insulin Detemir) 1,000 unit/ 10 ML Vial 10 Units SQ HS 30 Days Do not mix with any other Insulin. Ondansetron Odt 4 Mg Tab 4 Mg PO Q4H PRN Bumetanide 1 Mg Tab 2 Mg PO DAILY Ferosul (Ferrous Sulfate) 325 Mg (65 Mg Iron) Tablet 325 Mg PO BID@12,17 30 Days Fosrenol (Lanthanum Carbonate) 500 Mg Tab 500 Mg CHEW TID Prograf (Tacrolimus) 0.5 Mg Cap 2 Mg PO DAILY@0600 30 Days [guaiFENesin ER] 600 MG Tabcr 600 Mg PO BID Sensipar (Cinacalcet) 30 Mg Tab 30 Mg PO WITH DINNER Trazodone (Trazodone HCl) 100 Mg Tablet 100 Mg PO HS Sodium Bicarbonate 650 Mg Tab 650 Mg PO BID Lexapro (Escitalopram Oxalate) 10 Mg Tab 10 Mg PO DAILY Prednisone 5 Mg Tab 5 Mg PO DAILY Azathioprine 50 Mg Tab 75 Mg PO DAILY Hazardous agent use appropriate precautions for handling and disposal. Catapres (Clonidine) 0.1 Mg Tab 0.1 Mg PO UNSCH PRN Reported Humulin R Inj (Insulin Human Regular) 1,000 Unit/10 Ml Vial 1-9 Units SQ ACHS Max dose at bedtime( )units; sugars < 70(0)units; sugars 150-199,(1)unit; sugars 200-249(3)units; sugars 250-299,(5)units; sugars 300-349(7)units; sugars more than 349(9)units. Active Ordered Medications Current Medications Aspirin (Aspirin Chew) 324 mg ONCE ONCE PO Last administered on 12/12/17at 09: 56; Start 12/12/17 at 09:45; Stop 12/12/17 at 09:46; Status DC Sodium Chloride (NS Flush) 2 ml UNSCH PRN IVF FLUSH AFTER USING IV ACCESS; Start 12/12/17 at 09:45 Hydralazine HCl (Apresoline Inj) 20 mg ONCE ONCE IV PUSH Last administered on 12/12/17at 09:56; Start 12/12/17 at 10:00; Stop 12/12/17 at 10:01; Status DC Prochlorperazine Edisylate (Compazine Inj) 10 mg ONCE ONCE IV PUSH Last administered on 12/12/17at 10:24; Start 12/12/17 at 10:15; Stop 12/12/17 at 10:16 ; Status DC Acetaminophen/ Hydrocodone Bitart ([place] 10-325 Mg) 1 tab ONCE ONCE PO Last administered on 12/12/17at 12:08; Start 12/12/17 at 11:45; Stop 12/12/17 at 11:46 ; Status DC Azathioprine (Imuran) 75 mg DAILY PO ; Start 12/13/17 at 09:00 Bumetanide (Bumetanide) 2 mg DAILY PO ; Start 12/13/17 at 09:00 Cinacalcet (Sensipar) 30 mg WITH DINNER PO ; Start 12/12/17 at 18:00 Escitalopram Oxalate (Lexapro) 10 mg DAILY PO ; Start 12/13/17 at 09:00 Ferrous Sulfate (Ferrous Sulfate) 325 mg BID@12,17 PO Last administered on 12/12at 15:24; Start 12/12/17 at 17:00 Insulin Detemir (Levemir Inj) 10 units HS SQ ; Start 12/12/17 at 21:00 Lanthanum Carbonate (Fosrenol Chew) 500 mg TID CHEW ; Start 12/12/17 at 18:00 Prednisone (Deltasone) 5 mg DAILY PO ; Start 12/13/17 at 09:00 Sodium Bicarbonate (Sodium Bicarbonate) 650 mg BID PO ; Start 12/12/17 at 21:00 Tacrolimus (Prograf) 2 mg DAILY@0600 PO ; Start 12/13/17 at 06:00 Tacrolimus (Prograf) 2 mg DAILY@18 PO ; Start 12/12/17 at 18:00 Trazodone HCl (Desyrel) 100 mg HS PO ; Start 12/12/17 at 21:00 Insulin Aspart (NovoLOG SUPPLEMENTAL SCALE) 1 ACHS SLIDING SCALE SQ ; Start at 17:00 Sodium Chloride (NS Flush) 2 ml UNSCH PRN IV FLUSH FLUSH AFTER USING IV ACCESS ; Start 12/12/17 at 13:45 Sodium Chloride (NS Flush) 2 ml BID IV FLUSH ; Start 12/12/17 at 21:00 Acetaminophen (Tylenol) 650 mg Q4H PRN PO TEMP > 100.4; Start 12/12/17 at 13:45 Ondansetron HCl (Zofran Inj) 4 mg Q6H PRN IVP NAUSEA OR VOMITING; Start at 15:00 Heparin Sodium (Porcine) (Heparin Inj) 5,000 units Q8HR SQ Last administered on 12/12/17at 15:25; Start 12/12/17 at 15:00 Acetaminophen (Tylenol) 650 mg Q6H PRN PO PAIN SCALE 1 TO 2; Start 12/12/17 at 13:45 Acetaminophen/ Hydrocodone Bitart ([place] 5-325 Mg) 1 tab Q4H PRN PO PAIN SCALE 3 TO 5; Start 12/12/17 at 13:45 Acetaminophen/ Hydrocodone Bitart ([place] 10-325 Mg) 1 tab Q4H PRN PO PAIN SCALE 6 TO 10 Last administered on 12/12/17at 15:24; Start 12/12/17 at 13:45 Naloxone HCl (Narcan Inj) 0.4 mg UNSCH PRN IV PUSH SEE LABEL COMMENTS; Start at 13:45 Senna/Docusate Sodium (Bibiana-Colace) 1 tab BID PO ; Start 12/12/17 at 21:00 Pantoprazole Sodium (Protonix) 40 mg DAILY PO ; Start 12/13/17 at 09:00 Pantoprazole Sodium (Protonix) 40 mg ONCE ONCE PO ; Start 12/12/17 at 15:45; Stop 12/12/17 at 15:46; Status DC Clonidine (Catapres) 0.1 mg Q6H PRN PO SBP>180, DBP>95; Start 12/12/17 at 16:00 Family History Noncontributory to current complaint. Social History No history of illicit drug use. Physical Exam Vital Signs Vital Signs Date Time Temp Pulse Resp B/P (MAP) Pulse Ox O2 Delivery O2 Flow Rate FiO2 12/12/17 14:20 12/12/17 13:55 75 16 162/79 (106) 97 Room Air 12/12/17 13:15 75 16 143/71 (95) 97 Room Air 12/12/17 13:08 16 12/12/17 12:30 78 18 154/76 (102) 97 Room Air 12/12/17 11:30 80 18 150/70 (96) 97 Room Air 12/12/17 10:48 84 18 151/72 (98) 97 Room Air 12/12/17 10:35 84 18 181/83 (115) 97 Room Air 12/12/17 10:24 84 18 201/91 (127) 96 Room Air 12/12/17 09:44 96 Room Air 12/12/17 09:44 95 Room Air 12/12/17 09:43 73 18 229/107 (147) 100 Room Air 12/12/17 09:40 76 20 97 Room Air 12/12/17 09:32 98.2 75 20 174/74 (107) 93 Physical Exam GENERAL: Patient lying in bed not in respiratory distress. SKIN: Warm and dry. HEAD: Normocephalic. EYES: No scleral icterus. No injection or drainage. NECK: Supple, trachea midline. No JVD or lymphadenopathy. CARDIOVASCULAR: Regular rate and rhythm without murmurs, gallops, or rubs. RESPIRATORY: Breath sounds equal bilaterally. No accessory muscle use. GASTROINTESTINAL: Abdomen soft, non-tender, nondistended. MUSCULOSKELETAL: No cyanosis, or edema. Laboratory Laboratory Tests Test 12/12/17 09:55 White Blood Count 5.0 Red Blood Count 3.06 Hemoglobin 10.7 Hematocrit 31.0 Mean Corpuscular Volume 101.4 Mean Corpuscular Hemoglobin 35.1 Mean Corpuscular Hemoglobin Concent 34.6 Red Cell Distribution Width 15.3 Platelet Count 195 Mean Platelet Volume 6.6 Neutrophils (%) (Auto) 62.6 Lymphocytes (%) (Auto) 26.3 Monocytes (%) (Auto) 8.5 Eosinophils (%) (Auto) 1.7 Basophils (%) (Auto) 0.9 Neutrophils # (Auto) 3.1 Lymphocytes # (Auto) 1.3 Monocytes # (Auto) 0.4 Eosinophils # (Auto) 0.1 Basophils # (Auto) 0.0 CBC Comment DIFF FINAL Differential Comment Prothrombin Time 10.7 Prothromb Time International Ratio 1.1 Activated Partial Thromboplast Time 25.7 Blood Urea Nitrogen 16 Creatinine 5.71 Random Glucose 173 Calcium Level 10.6 Magnesium Level 2.3 Sodium Level 135 Potassium Level 4.6 Chloride Level 100 Carbon Dioxide Level 24.9 Anion Gap 10 Estimat Glomerular Filtration Rate 10 Total Creatine Kinase 28 Troponin I 0.03 Result Diagram: 12/12/1795412/12/17954 Assessment and Plan Problem List: (1) End stage renal disease on dialysis ICD Codes: N18.6 - End stage renal disease; Z99.2 - Dependence on renal dialysis Status: Chronic Plan: On maintenance hemodialysis Saturday. We will arrange for hemodialysis tomorrow per his outpatient schedule. No evidence of fluid overload clinically at this time. Avoid gadolinium. Adjust medications for the patient's end-stage renal disease when indicated. (2) HTN (hypertension) ICD Codes: I10 - Essential (primary) hypertension Status: Chronic Plan: Patient blood pressure apparently has been stable without hypertensive medications for the last few months. Cardiology consultation is pending regarding opinion on possible active ischemic myocardial episode. Will defer to cardiology regarding resumption of hypertensive medications that may be tailored to management of his hypertension as well as possible ischemic episode. (3) Secondary hyperparathyroidism of renal origin ICD Codes: N25.81 - Secondary hyperparathyroidism of renal origin Status: Acute Plan: Continue Sensipar. (4) Pancreas transplant status ICD Codes: Z94.83 - Pancreas transplant status Status: Chronic Plan: Patient remains on immunosuppressive therapy because by history transplant clinic indicated pancreas is still functional. (5) Kidney transplant failure ICD Codes: T86.12 - Kidney transplant failure Status: Chronic Plan: As indicated above transplant is failed. Immunosuppressive therapy is being continued for his pancreatic transplant. (6) Anemia in CKD (chronic kidney disease) ICD Codes: N18.9 - Chronic kidney disease, unspecified; D63.1 - Anemia in chronic kidney disease Status: Chronic Problem Qualifiers (1) HTN (hypertension): Qualified Codes: I10 - Essential (primary) hypertension Rodo Ramirez MD Dec 12, 2017 17:00
--- NOTE | 2017-12-12 17:58 | MB ---
cc: Saw Welsh MD DATE: 12/12/2017 REASON FOR CONSULTATION: Chest pain, hypertension. HISTORY OF PRESENT ILLNESS: The patient is a 57-year-old white male, followed in our office by Dr. Priscila Medina, with a history of multiple medical problems including possible coronary artery disease demonstrated by nuclear stress testing last year, diabetes, end-stage renal disease, hypertension, peripheral vascular disease, who came to the hospital basically "not feeling well" and with elevated blood pressure apparently to greater than 200/100 yesterday. In addition, he states for the past 2-3 days, he has had a constant diffuse chest pressure and mild dyspnea, which also has been constant. Since coming into the hospital, these symptoms have essentially resolved. He denies paroxysmal nocturnal dyspnea, palpitations, dizziness, syncope, or near syncope, fevers, cough, or wheezing. PAST MEDICAL HISTORY: 1. Possible coronary artery disease with nuclear stress testing about a year ago showing mild basal inferior ischemia. He did have a heart catheterization in 2007 showing minimal coronary artery disease. 2. Diabetes. 3. End-stage renal disease, status post kidney transplant in 1991 and 2009. Of note, he is also status post pancreatic transplant in 1991. 4. Gastroesophageal reflux disease. 5. Hyperlipidemia. 6. Hypertension. 7. Peripheral vascular disease, status post bilateral [id number] amputations, status post left long finger amputation in 2009, as well as left small finger amputation in 2009. 8. 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 CARDIAC MEDICATIONS AT HOME: Bumetanide 2 mg daily. ALLERGIES: NO KNOWN DRUG ALLERGIES. FAMILY HISTORY: There is no significant family history of early myocardial infarction. SOCIAL HISTORY: The patient denies any history of alcohol or tobacco abuse. REVIEW OF SYSTEMS: As in history of present illness, otherwise negative or noncontributory. He also denies headache, abdominal pain, melena, dyspepsia, and bright red blood per rectum. PHYSICAL EXAMINATION: VITAL SIGNS: His blood pressure 185/84 with a pulse of 80, respirations 20. GENERAL: He is a well-developed, well-nourished white male, in no acute distress. NECK: Jugular venous pressure is normal. Carotid pulses are 2+ bilaterally and without bruits. CHEST: Reveals clear lungs mills anteriorly. CARDIAC: He has a regular rhythm and rate without S3, S4, or murmur. ABDOMEN: He had a soft, obese, nontender abdomen. Bowel sounds are present. There is no definite hepatosplenomegaly. EXTREMITIES: Reveals the patient to be status post bilateral [id number] amputations. DIAGNOSTIC STUDIES: EKG shows normal sinus rhythm, normal EKG. Laboratory data includes potassium 4.6, BUN 16, creatinine 5.71. CK 28, troponin 0.03. WBC 5.0, hemoglobin 10.7, platelets 195. INR 1.1. Chest x-ray shows no acute disease. IMPRESSION: Overall atypical chest pain, elevated blood pressures in this 57-year-old white male with a history of diabetes, end-stage renal disease, peripheral vascular disease, hypertension, possible coronary artery disease demonstrated by nuclear stress testing last year. Despite constant chest discomfort for the past 2-3 days, cardiac enzymes are initially negative for myocardial infarction. EKG is normal. Clinically, there is no definite evidence for aortic dissection or pulmonary embolism. Since coming into the hospital, his blood pressure control has improved, although still suboptimal. It appears he has been on no antihypertensive medications recently. RECOMMENDATIONS: 1. Optimize his blood pressure control. We will add carvedilol 6.25 mg b.i.d. and amlodipine 5 mg daily. 2. If okay from a renal/medical standpoint, daily baby aspirin. 3. He can be discharged home in the morning from a cardiac standpoint. He can follow up with Dr. Medina as already scheduled. MD ROMY Pantoja/[place] , 05:13 PM , 05:58 PM JUAN LUIS
[2017-12-12] MEDS ORDERED: CINACALCET HYDROCHLORIDE 30 MG TAB PO SCH (18:00)
[2017-12-12] MEDS ORDERED: TACROLIMUS 1 MG CAP PO SCH (18:00)
[2017-12-12] MEDS: amLODIPine BESYLATE 5 MG TAB PO SCH (18:29)
[2017-12-12] MEDS: LANTHANUM CARBONATE 500 MG CHEWABLE TABLET CHEW SCH (18:30)
[2017-12-12] MEDS: SODIUM BICARBONATE 650 MG TAB PO SCH (20:18)
[2017-12-12] MEDS: CARVEDILOL 6.25 MG TAB PO SCH (20:19)
[2017-12-12] MEDS: DOCUSATE SODIUM 50 MG/SENNA 8.6 MG TAB PO SCH (20:19)
[2017-12-12] MEDS: SODIUM CHLORIDE 0.9% FLUSH 10 ML FLUSH IV FLUSH SCH (20:19)
[2017-12-12] MEDS ORDERED: INSULIN DETEMIR 100 UNITS/ML VIAL SQ SCH (21:00)
[2017-12-12] MEDS ORDERED: traZODone HCL 100 MG TAB PO SCH (21:00)
[2017-12-13] VITALS (7 sets, daily range): BP systolic 140–163; BP diastolic 60–70; PULSE 59–70; RESP 16–20; TEMP 97.7–98.2; O2SAT 96–98
[2017-12-13 01:58] LABS: FOLATE 5.3 NG/ML (3.1-17.5); TROPONIN I 0.02 NG/ML (0.02-0.05)
[2017-12-13] MEDS: HEPARIN SODIUM - SQ 10,000 UNITS/ML VIAL SQ SCH ×2 (05:47→14:15)
[2017-12-13] MEDS ORDERED: TACROLIMUS 0.5 MG CAP PO SCH (06:00)
[2017-12-13 07:42] LABS: AUTOMATED NEUTROPHIL # 2.6 TH/MM3 (1.8-7.7); BASOPHIL % 0.9 % (0.0-2.0); EOSINOPHIL # 0.1 TH/MM3 (0-0.4); EOSINOPHIL % 2.5 % (0.0-4.0); HEMATOCRIT 30.5 % (39.0-51.0); HEMOGLOBIN 10.5 GM/DL (13.0-17.0); LYMPH % 29.3 % (9.0-44.0); LYMPHOCYTE # 1.3 TH/MM3 (1.0-4.8); MEAN CELL VOLUME 103.1 FL (80.0-100.0); MEAN CORPUSCULAR HEMOGLOBIN 35.6 PG (27.0-34.0); MEAN CORPUSCULAR HGB CONC 34.5 % (32.0-36.0); MEAN PLATELET VOLUME 6.7 FL (7.0-11.0); MONO % 7.6 % (0.0-8.0); MONOCYTE # 0.3 TH/MM3 (0-0.9); NEUT % 59.7 % (16.0-70.0); PLATELET COUNT 178 TH/MM3 (150-450); RED BLOOD COUNT 2.95 MIL/MM3 (4.50-5.90); RED CELL DISTRIBUTION WIDTH 15.6 % (11.6-17.2); WHITE BLOOD COUNT 4.4 TH/MM3 (4.0-11.0)
[2017-12-13] MEDS: ACETAMINOPHEN/HYDROcodone 325 MG/10 MG TAB PO PRN (07:42)
[2017-12-13] MEDS: INSULIN ASPART SUPPLEMENTAL SCALE SQ SCH ×2 (08:00→12:00)
[2017-12-13 08:25] LABS: BICARBONATE 21.2 MEQ/L (21.0-32.0); CALCIUM 10.1 MG/DL (8.5-10.1); CREATININE 7.84 MG/DL (0.60-1.30)
[2017-12-13] MEDS ORDERED: azaTHIOprine 50 MG TAB PO SCH (09:00)
[2017-12-13] MEDS ORDERED: BUMETANIDE 1 MG TAB PO SCH (09:00)
[2017-12-13] MEDS ORDERED: predniSONE 5 MG TAB PO SCH (09:00)
[2017-12-13] MEDS ORDERED: ESCITALOPRAM OXALATE 10 MG TAB PO SCH (09:00)
[2017-12-13] MEDS: DOCUSATE SODIUM 50 MG/SENNA 8.6 MG TAB PO SCH (09:00)
[2017-12-13] MEDS ORDERED: PANTOPRAZOLE SOD 40 MG DELAYED RELEASE TAB PO SCH (09:00)
[2017-12-13] MEDS ORDERED: ASPIRIN EC 81 MG TABEC PO SCH (09:00)
[2017-12-13] MEDS: CARVEDILOL 6.25 MG TAB PO SCH (09:01)
[2017-12-13] MEDS: LANTHANUM CARBONATE 500 MG CHEWABLE TABLET CHEW SCH ×2 (09:01→13:00)
[2017-12-13] MEDS: SODIUM BICARBONATE 650 MG TAB PO SCH (09:02)
[2017-12-13] MEDS: amLODIPine BESYLATE 5 MG TAB PO SCH (09:02)
[2017-12-13] MEDS: SODIUM CHLORIDE 0.9% FLUSH 10 ML FLUSH IV FLUSH SCH (09:03)
--- NOTE | 2017-12-13 11:21 | HHI.NPPN ---
Subjective History of Present Illness Patient indicating that he has not been feeling well these last few days but cannot be specific. Was noted to have an elevated blood pressure in the dialysis unit yesterday. Subsequently he decided to come to the emergency room. He states he has been experiencing intermittent episodes of chest pressure as well as dyspnea lasting for several minutes at a time. Recently saw his patient transport officer Dr. Medina. Last stress test was about a year ago by history. No history of hemoptysis. Interval History Seen during HD Denies any further chest pain Had eval with Dr. Welsh in house who recommended f/u with his outpatient patient transport officer, Dr. Medina. BP improved. Objective Data Data Vital Signs Date Time Temp Pulse Resp B/P (MAP) Pulse Ox O2 Delivery O2 Flow Rate FiO2 12/13/17 07:44 63 12/13/17 07:37 97 21 12/13/17 07:33 98.2 70 20 163/70 (101) 96 12/13/17 04:12 97.7 60 16 150/70 (96) 96 12/13/17 04:00 59 12/12/17 23:46 97.5 56 16 124/62 (82) 97 12/12/17 20:55 97.7 66 16 167/79 (108) 96 12/12/17 19:55 21 12/12/17 16:00 97.6 80 20 185/84 (117) 95 12/12/17 15:00 81 12/12/17 14:20 12/12/17 13:55 75 16 162/79 (106) 97 Room Air 12/12/17 13:15 75 16 143/71 (95) 97 Room Air 12/12/17 13:08 16 12/12/17 12:30 78 18 154/76 (102) 97 Room Air 12/12/17 11:30 80 18 150/70 (96) 97 Room Air -: 12/13/17 0724 12/13/17 0724 Imaging Last Impressions Chest X-Ray 12/12/17 0939 Signed Impressions: Service Date/Time: November 10:03 - CONCLUSION: Lungs are grossly clear. No infiltrate or mass. Bandar Lombardi MD Medication Review Current Medications Medications (Trade) Dose Ordered Sig/Lida Route Start Time Stop Time Status Last Admin (NS Flush) 2 ml UNSCH PRN IVF 12/12/17 09:45 (Imuran) 75 mg DAILY PO 12/13/17 09:00 12/13/17 09:00 (Bumetanide) 2 mg DAILY PO 12/13/17 09:00 12/13/17 09:01 (Sensipar) 30 mg WITH DINNER PO 12/12/17 18:00 12/12/17 18:30 (Lexapro) 10 mg DAILY PO 12/13/17 09:00 12/13/17 09:01 (Ferrous Sulfate) 325 mg BID@12,17 PO 12/12/17 17:00 12/12/17 15:24 (Levemir Inj) 10 units HS SQ 12/12/17 21:00 12/12/17 21:21 (Fosrenol Chew) 500 mg TID CHEW 12/12/17 18:00 12/13/17 09:01 (Deltasone) 5 mg DAILY PO 12/13/17 09:00 12/13/17 09:02 (Sodium Bicarbonate) 650 mg BID PO 12/12/17 21:00 12/13/17 09:02 (Prograf) 2 mg DAILY@0600 PO 12/13/17 06:00 12/13/17 05:46 (Prograf) 2 mg DAILY@18 PO 12/12/17 18:00 12/12/17 18:30 (Desyrel) 100 mg HS PO 12/12/17 21:00 12/12/17 20:18 (NovoLOG SUPPLEMENTAL SCALE) 1 ACHS SLIDING SCALE SQ 12/12/17 17:00 12/12/17 21:22 (NS Flush) 2 ml UNSCH PRN IV FLUSH 12/12/17 13:45 (NS Flush) 2 ml BID IV FLUSH 12/12/17 21:00 12/13/17 09:03 (Tylenol) 650 mg Q4H PRN PO 12/12/17 13:45 (Zofran Inj) 4 mg Q6H PRN IVP 12/12/17 15:00 (Heparin Inj) 5,000 units Q8HR SQ 12/12/17 15:00 12/12/17 21:22 (Tylenol) 650 mg Q6H PRN PO 12/12/17 13:45 ([place] 5-325 Mg) 1 tab Q4H PRN PO 12/12/17 13:45 ([place] 10-325 Mg) 1 tab Q4H PRN PO 12/12/17 13:45 12/13/17 07:42 (Narcan Inj) 0.4 mg UNSCH PRN IV PUSH 12/12/17 13:45 ([place]-Colace) 1 tab BID PO 12/12/17 21:00 (Protonix) 40 mg DAILY PO 12/13/17 09:00 12/13/17 09:00 (Catapres) 0.1 mg Q6H PRN PO 12/12/17 16:00 Sodium Chloride 1,000 ml @ 0 mls/hr Q0M PRN OTHER 12/12/17 16:58 (Heparin Inj) 8,000 units UNSCH PRN IV FLUSH 12/12/17 17:00 Sodium Chloride 1,000 ml @ 200 mls/hr Q5H PRN IV 12/12/17 16:58 Sodium Chloride 1,000 ml @ 0 mls/hr Q0M PRN OTHER 12/12/17 16:58 Albumin Human 100 ml @ 60 mls/hr UNSCH PRN IV 12/12/17 17:00 (NS Flush) 5 ml UNSCH PRN IV FLUSH 12/12/17 17:00 (Zofran Inj) 4 mg UNSCH PRN IV PUSH 12/12/17 17:00 (Tylenol) 650 mg UNSCH PRN PO 12/12/17 17:00 (Benadryl) 25 mg UNSCH PRN PO 12/12/17 17:00 (Nitrostat Sl) 0.4 mg UNSCH PRN SL 12/12/17 17:00 (Catapres) 0.1 mg UNSCH PRN PO 12/12/17 17:00 (Gelfoam 12 Mm/7 Mm Top) 1 foam UNSCH PRN TOP 12/12/17 17:00 (Coreg) 6.25 mg Q12HR PO 12/12/17 21:00 12/13/17 09:01 (Norvasc) 5 mg DAILY PO 12/12/17 17:15 12/13/17 09:02 (Ecotrin Ec) 81 mg DAILY PO 12/13/17 09:00 12/13/17 09:02 Physical Exam General Appearance: No Acute Distress, Comfortable Throat Throat Exam: Oral Mucosa [place] & Moist Neck Neck Exam: Neck Supple, Trachea Midline Pulmonary Resp Exam: Clear Bilaterally, Breath Sounds Equal Cardiology CV Exam: Regular, Normal Sinus Rhythm Gastrointestinal/Abdomen GI Exam: Soft, Non-Tender Integumentary Skin Exam: Clear, Warm Extremeties Extremities Exam: No Edema Neurologic Neuro Exam: Alert, Awake Psychiatric Psych Exam: Appropriate Responses Assessment/Plan Problem List: (1) End stage renal disease on dialysis ICD Codes: N18.6 - End stage renal disease; Z99.2 - Dependence on renal dialysis Status: Chronic Plan: Seen during HD today and tolerating well. OK to be discharged from renal standpoint when cleared by primary and cardio. Avoid gadolinium. Adjust medications for the patient's end-stage renal disease when indicated. (2) HTN (hypertension) ICD Codes: I10 - Essential (primary) hypertension Status: Chronic Plan: Improved with addition of Coreg and Amlodipine (3) Secondary hyperparathyroidism of renal origin ICD Codes: N25.81 - Secondary hyperparathyroidism of renal origin Status: Acute Plan: Continue Sensipar. (4) Pancreas transplant status ICD Codes: Z94.83 - Pancreas transplant status Status: Chronic Plan: Patient remains on immunosuppressive therapy because by history transplant clinic indicated pancreas is still functional. (5) Kidney transplant failure ICD Codes: T86.12 - Kidney transplant failure Status: Chronic Plan: As indicated above transplant is failed. Immunosuppressive therapy is being continued for his pancreatic transplant. (6) Anemia in CKD (chronic kidney disease) ICD Codes: N18.9 - Chronic kidney disease, unspecified; D63.1 - Anemia in chronic kidney disease Status: Chronic Problem Qualifiers (1) HTN (hypertension): Qualified Codes: I10 - Essential (primary) hypertension Liza Clifford Dec 13, 2017 11:21
[2017-12-13] MEDS: FERROUS SULFATE 325 MG (65 MG ELEMENTAL IRON) TAB PO SCH (13:33)
[2017-12-13] MEDS ORDERED: ECASA81 PO (14:52)
[2017-12-13] MEDS ORDERED: AMLO5 PO (14:52)
[2017-12-13] MEDS ORDERED: CARV6.25 PO (14:52)
--- NOTE | 2017-12-13 14:58 | HHI.DCPOC ---
Discharge Care Plan Diagnosis: (1) HTN (hypertension) (2) Diabetes mellitus type 2 with complications (3) End stage renal disease on dialysis (4) Transplanted kidney (5) Pancreas transplant status (6) S/P bilateral BKA (below knee amputation) (7) Dyspnea Goals to Promote Your Health * To prevent worsening of your condition and complications * To maintain your health at the optimal level Directions to Meet Your Goals Take your medications as prescribed Follow your dietary instruction Follow activity as directed Keep your appointments as scheduled Take your immunizations and boosters as scheduled If your symptoms worsen call your PCP, if no PCP go to Urgent Care Center or Emergency Room Smoking is Dangerous to Your Health. Avoid second hand smoke Call the 24-hour hour crisis hotline for domestic abuse at Brett Rick DO Dec 13, 2017 14:58
--- NOTE | 2017-12-13 15:16 | HHI.PR ---
Subjective Remarks The patient was resting comfortably. His mother was at the bedside. The patient says his symptoms have completely resolved. He was looking forward to going home. Their questions were answered. Objective Vitals Vital Signs Date Time Temp Pulse Resp B/P (MAP) Pulse Ox O2 Delivery O2 Flow Rate FiO2 12/13/17 13:34 97.9 70 18 140/60 (86) 98 12/13/17 07:44 63 12/13/17 07:37 97 21 12/13/17 07:33 98.2 70 20 163/70 (101) 96 12/13/17 04:12 97.7 60 16 150/70 (96) 96 12/13/17 04:00 59 12/12/17 23:46 97.5 56 16 124/62 (82) 97 12/12/17 20:55 97.7 66 16 167/79 (108) 96 12/12/17 19:55 21 12/12/17 16:00 97.6 80 20 185/84 (117) 95 I/O 12/12/17 12/12/17 12/12/17 12/13/17 12/13/17 12/13/17 07:00 15:00 23:00 07:00 15:00 23:00 Intake Total 250 ml 480 ml 100 ml Balance 250 ml 480 ml 100 ml Intake Oral 250 ml 480 ml IV Total 100 ml # Voids 1 Result Diagram: 12/13/17 0724 12/13/17 0724 Imaging Last Impressions Chest X-Ray 12/12/17 0939 Signed Impressions: Service Date/Time: November 10:03 - CONCLUSION: Lungs are grossly clear. No infiltrate or mass. Bandar Lombardi MD Objective Remarks GENERAL: No distress. SKIN: No rashes, ecchymoses or lesions. Cool and dry. HEAD: Atraumatic. Normocephalic. No temporal or scalp tenderness. EYES: Pupils equal round and reactive left eye. Extraocular motions intact left eye. No scleral icterus. No injection or drainage. Patient has prosthetic right eye. ENT: Nose without bleeding or purulent drainage. Throat without erythema, tonsillar hypertrophy or exudate. Uvula midline. Airway patent. NECK: Trachea midline. No lymphadenopathy. Supple, nontender, no meningeal signs. CARDIOVASCULAR: Regular rate and rhythm without murmurs, gallops, or rubs. RESPIRATORY: Clear to auscultation. Breath sounds equal bilaterally. No wheezes , rales, or rhonchi. GASTROINTESTINAL: Abdomen soft, non-tender, nondistended. No hepato-splenomegaly , or palpable masses. No guarding. MUSCULOSKELETAL: s/p Bilateral BKAs. Extremities without clubbing, cyanosis, or edema. No joint tenderness or edema noted. (+)Nontender effusion lateral aspect left knee, chronic ppr. Patient s/p amputations of 3rd and 5th digit of the left hand. NEUROLOGICAL: Awake and alert. Cranial nerves II through XII grossly intact. Motor and sensory grossly within normal limits. Normal speech. PSYCH: Mood and affect appropriate. Medications and IVs Current Medications Medications (Trade) Dose Ordered Sig/Lida Route Start Time Stop Time Status Last Admin (NS Flush) 2 ml UNSCH PRN IVF 12/12/17 09:45 (Imuran) 75 mg DAILY PO 12/13/17 09:00 12/13/17 09:00 (Bumetanide) 2 mg DAILY PO 12/13/17 09:00 12/13/17 09:01 (Sensipar) 30 mg WITH DINNER PO 12/12/17 18:00 12/12/17 18:30 (Lexapro) 10 mg DAILY PO 12/13/17 09:00 12/13/17 09:01 (Ferrous Sulfate) 325 mg BID@12,17 PO 12/12/17 17:00 12/13/17 13:33 (Levemir Inj) 10 units HS SQ 12/12/17 21:00 12/12/17 21:21 (Fosrenol Chew) 500 mg TID CHEW 12/12/17 18:00 12/13/17 09:01 (Deltasone) 5 mg DAILY PO 12/13/17 09:00 12/13/17 09:02 (Sodium Bicarbonate) 650 mg BID PO 12/12/17 21:00 12/13/17 09:02 (Prograf) 2 mg DAILY@0600 PO 12/13/17 06:00 12/13/17 05:46 (Prograf) 2 mg DAILY@18 PO 12/12/17 18:00 12/12/17 18:30 (Desyrel) 100 mg HS PO 12/12/17 21:00 12/12/17 20:18 (NovoLOG SUPPLEMENTAL SCALE) 1 ACHS SLIDING SCALE SQ 12/12/17 17:00 12/12/17 21:22 (NS Flush) 2 ml UNSCH PRN IV FLUSH 12/12/17 13:45 (NS Flush) 2 ml BID IV FLUSH 12/12/17 21:00 12/13/17 09:03 (Tylenol) 650 mg Q4H PRN PO 12/12/17 13:45 (Zofran Inj) 4 mg Q6H PRN IVP 12/12/17 15:00 (Heparin Inj) 5,000 units Q8HR SQ 12/12/17 15:00 12/13/17 14:15 (Tylenol) 650 mg Q6H PRN PO 12/12/17 13:45 ([place] 5-325 Mg) 1 tab Q4H PRN PO 12/12/17 13:45 ([place] 10-325 Mg) 1 tab Q4H PRN PO 12/12/17 13:45 12/13/17 07:42 (Narcan Inj) 0.4 mg UNSCH PRN IV PUSH 12/12/17 13:45 (Bibiana-Colace) 1 tab BID PO 12/12/17 21:00 (Protonix) 40 mg DAILY PO 12/13/17 09:00 12/13/17 09:00 (Catapres) 0.1 mg Q6H PRN PO 12/12/17 16:00 Sodium Chloride 1,000 ml @ 0 mls/hr Q0M PRN OTHER 12/12/17 16:58 (Heparin Inj) 8,000 units UNSCH PRN IV FLUSH 12/12/17 17:00 Sodium Chloride 1,000 ml @ 200 mls/hr Q5H PRN IV 12/12/17 16:58 Sodium Chloride 1,000 ml @ 0 mls/hr Q0M PRN OTHER 12/12/17 16:58 Albumin Human 100 ml @ 60 mls/hr UNSCH PRN IV 12/12/17 17:00 12/13/17 11:00 (NS Flush) 5 ml UNSCH PRN IV FLUSH 12/12/17 17:00 (Zofran Inj) 4 mg UNSCH PRN IV PUSH 12/12/17 17:00 (Tylenol) 650 mg UNSCH PRN PO 12/12/17 17:00 (Benadryl) 25 mg UNSCH PRN PO 12/12/17 17:00 (Nitrostat Sl) 0.4 mg UNSCH PRN SL 12/12/17 17:00 (Catapres) 0.1 mg UNSCH PRN PO 12/12/17 17:00 (Gelfoam 12 Mm/7 Mm Top) 1 foam UNSCH PRN TOP 12/12/17 17:00 12/13/17 12:42 (Coreg) 6.25 mg Q12HR PO 12/12/17 21:00 12/13/17 09:01 (Norvasc) 5 mg DAILY PO 12/12/17 17:15 12/13/17 09:02 (Ecotrin Ec) 81 mg DAILY PO 12/13/17 09:00 12/13/17 09:02 A/P Assessment and Plan Chest pain, atypical, r/o ACS Trops negative. Cleared by cardiology. Added baby ASA. -outpt follow-up with cardiology. -monitor on telemetry Hypertension, uncontrolled Patient states his BP has been well controlled off of antihypertensives x 1 year -Clonidine prn -resume on home dose of Bumex -Coreg and amlodipine added. -monitor BP and adjust treatment accordingly ESRD on HD MWF Patient does make some urine and self caths as needed -Consult Nephrology, patient follows with Dr. Ramirez, appreciate assistance -resume on home dose of bicarb, fosrenol and sensipar -self catheterization as needed -dialysis as scheduled. Hx of renal transplant x 2 and pancreatic transplant -resume on home dose of suppressive meds to include prednisone, azathioprine and tacrolimus -outpt follow-up Diabetes mellitus -resume patient on home dose of Levemir 10u sq daily -accucheck and ISS Chronic BLE pain -resume home dose of [place] as needed Anemia, chronic, stable No evidence of active bleeding -resume home dose of ferrous sulfate 325mg BID -monitor CBC as indicted -Epogen per Nephrology Depression -resume home dose of Lexapro and Trazodone DVT prophylaxis -Heparin sq Discharge Planning D/c home Brett Rick DO Dec 13, 2017 15:16
== END 2017-12-13 15:59 | disposition home or self-care (01) ==
LOC: NEPE 09:20 → NEDA 13:24 → NEPGCP 14:38
PROVIDERS: ADMIT Hospitalist; ATTEND Hospitalist
DX: I12.0 Hypertensive chronic kidney disease with stage 5 chronic kidney disease or end stage renal disease (principal); E11.22 Type 2 diabetes mellitus with diabetic chronic kidney disease; N25.81 Secondary hyperparathyroidism of renal origin; N18.6 End stage renal disease; I25.10 Atherosclerotic heart disease of native coronary artery without angina pectoris; D63.1 Anemia in chronic kidney disease; R53.1 Weakness; R42 Dizziness and giddiness; R11.2 Nausea with vomiting, unspecified; K21.9 Gastro-esophageal reflux disease without esophagitis; Z89.511 Acquired absence of right leg below knee; Z89.512 Acquired absence of left leg below knee; E78.5 Hyperlipidemia, unspecified; R06.00 Dyspnea, unspecified; Z99.2 Dependence on renal dialysis; Z94.0 Kidney transplant status; Z94.83 Pancreas transplant status; Z79.4 Long term (current) use of insulin
CPT/HCPCS: 71045; 80048; 80197; 82550; 82607; 82746; 82948; 83735; 84484; 85025; 85610; 85730; 93005; 96372; 96374; 96375; 97161; 99285; G0257; G0378; G8987; G8988; J0360; J0780; J1644; J1815; J7500; J7507; J7512; 90935; P9047

== ENCOUNTER 2018-01-19 13:46 | Inpatient (IN) | payer MEDICARE, OTHER ==
[~2018-01-19] VITALS: Ht 185.4 cm; Wt 87.6 kg
[~2018-01-19 13:46] MED LIST changes: +AMLO5 PO; +CARV6.25 PO; -CEFT2INJ2 IV; +ECASA81 PO; -ZOFR4TAB3 SL
[2018-01-19 13:55] VITALS: BP 132/76; PULSE 57; RESP 16; TEMP 98.1; O2SAT 98
--- NOTE | 2018-01-19 14:08 | PD ---
HPI Chief Complaint: Fall Time Seen by Provider: 13:49 Travel History International Travel<30 days: No Contact w/Intl Traveler<30days: No Traveled to known affect area: No History of Present Illness HPI 57-year-old male with PMH of ESRD on dialysis, DM, transplanted pancreas, bilateral BKA presents to the ED for evaluation of left elbow pain after mechanical fall. Patient states that he tripped at a transition between concrete and grass. States that he landed on his left side. He states that he felt pain in the elbow but reached up on the railing to pull himself up and then felt a pop. On presentation he rates the pain 8/10, throbbing, worsened by any attempted ROM. He endorses previous fracture of the elbow with pinning. He denies hitting his head, loss of consciousness. He has been ambulatory since the accident. States his tetanus immunization is up-to-date. Requests Dr. Matthias Lubin should ortho consult be required. States that he last ate around 9:30 PM last night. PFSH Past Medical History Hx Anticoagulant Therapy: No Arthritis: No Asthma: No Autoimmune Disease: No Blood Disorders: No Anxiety: No Depression: No Heart Rhythm Problems: No Cancer: Yes (SKIN) Cardiovascular Problems: Yes High Cholesterol: No Chemotherapy: No Chest Pain: No Congestive Heart Failure: No COPD: No Cerebrovascular Accident: No Diabetes: Yes Patient Takes Glucophage: No Dialysis: Yes (Mon, Wed and FRi) Diminished Hearing: No Endocrine: Yes Gastrointestinal Disorders: Yes GERD: Yes Glaucoma: No Genitourinary: Yes (SELF CATH NEEDED, HX: BLADDER STONES) Headaches: No Hepatitis: No Hiatal Hernia: No Hypertension: Yes Immune Disorder: No Implanted Vascular Access Dvce: Yes Kidney Stones: No Musculoskeletal: No Neurologic: Yes Psychiatric: No Reproductive: No Respiratory: No Immunizations Current: Yes Migraines: No Myocardial Infarction: No Pancreatitis: Yes Radiation Therapy: No Renal Failure: Yes Seizures: No Sleep Apnea: No Thyroid Disease: No Ulcer: No Tetanus Vaccination: > 5 Years Past Surgical History Abdominal Surgery: Yes (left kidney transplants x2, pancreas transplant-1991) AICD: No Appendectomy: Yes Arteriovenous Shunt: Yes (LEFT ARM ) Cardiac Surgery: No Cholecystectomy: Yes Ear Surgery: Yes (cataract surgery left eye) Endocrine Surgery: Yes (pancreatic TXPL 1991) Eye Surgery: Yes (rt eye extracted/prosthetic eye now) Genitourinary Surgery: Yes (turp 2007- patient self cath to void) Gynecologic Surgery: No Hysterectomy: No Insulin Pump: No Joint Replacement: No Neurologic Surgery: No Oral Surgery: No Pacemaker: No Prostatectomy: Yes Thoracic Surgery: No Other Surgery: Yes (fistula left ARM upper arm, non funtional av graft) Social History Alcohol Use: No Tobacco Use: No Substance Use: No Allergies-Medications (Allergen,Severity, Reaction): Coded Allergies: No Known Allergies (Verified Allergy, Unknown, 01/19/18) Reported Meds & Prescriptions Reported Meds & Active Scripts Active Aspirin DR (Aspirin) 81 Mg Tabdr 81 Mg PO DAILY Norvasc (Amlodipine Besylate) 5 Mg Tab 5 Mg PO DAILY Coreg (Carvedilol) 6.25 Mg Tab 6.25 Mg PO Q12HR Prograf (Tacrolimus) 1 Mg Cap 2 Mg PO DAILY@18 30 Days Levemir Inj (Insulin Detemir) 1,000 unit/ 10 ML Vial 10 Units SQ HS 30 Days Do not mix with any other Insulin. Ondansetron Odt 4 Mg Tab 4 Mg PO Q4H PRN Bumetanide 1 Mg Tab 2 Mg PO DAILY Ferosul (Ferrous Sulfate) 325 Mg (65 Mg Iron) Tablet 325 Mg PO BID@12,17 30 Days Fosrenol (Lanthanum Carbonate) 500 Mg Tab 500 Mg CHEW TID Prograf (Tacrolimus) 0.5 Mg Cap 2 Mg PO DAILY@0600 30 Days Sensipar (Cinacalcet) 30 Mg Tab 30 Mg PO WITH DINNER Trazodone (Trazodone HCl) 100 Mg Tablet 100 Mg PO HS Sodium Bicarbonate 650 Mg Tab 650 Mg PO BID Lexapro (Escitalopram Oxalate) 10 Mg Tab 10 Mg PO DAILY Prednisone 5 Mg Tab 5 Mg PO DAILY Azathioprine 50 Mg Tab 75 Mg PO DAILY Hazardous agent use appropriate precautions for handling and disposal. Catapres (Clonidine) 0.1 Mg Tab 0.1 Mg PO UNSCH PRN Reported Novolog Inj (Insulin Aspart) 1,000 Unit/10 Ml Vial 1-9 Units SQ ACHS Max dose at bedtime:( )units; sugars less than 70,(0)units; sugars 150-199,(1) unit; sugars 200-249,(3) units; sugars 250-299,(5) units; sugars 300-349,(7) units; sugars greater than 349,(9) units Review of Systems Except as stated in HPI: all other systems reviewed are Neg Physical Exam Narrative GENERAL: Well-nourished, well-developed white male no acute distress. SKIN: Focused skin assessment warm/dry. 2 small skin tears of the left upper extremity. HEAD: Normocephalic. EYES: No scleral icterus. No injection or drainage. NECK: Supple, trachea midline. No JVD or lymphadenopathy. CARDIOVASCULAR: Regular rate and rhythm without murmurs, gallops, or rubs. RESPIRATORY: Breath sounds equal bilaterally. No accessory muscle use. GASTROINTESTINAL: Abdomen soft, non-tender, nondistended. MUSCULOSKELETAL: No cyanosis, or edema. FOCUSED LEFT UPPER EXTREMITY EXAM: Palpable DP pulse. No TTP of the shoulder joint. AV fistula in the upper arm, strong thrill present. TTP of the elbow joint. ROM testing deferred 2/2 pain. Strong cutter inspector strength distally. Neurovascularly intact on each digit distally. BACK: Nontender without obvious deformity. No CVA tenderness. Data Data Last Documented VS Vital Signs Date Time Temp Pulse Resp B/P (MAP) Pulse Ox O2 Delivery O2 Flow Rate FiO2 01/19/18 16:38 16 01/19/18 16:10 98 Room Air 01/19/18 16:05 97.8 86 Orders Orders Acetamin-Hydrocod 325-5 Mg ([place] 5-325 (01/19/18 14:15) Ice/Cold Pack (01/19/18 14:05) Sodium Chlor 0.9% 1000 Ml Inj (Ns 1000 M (01/19/18 15:30) NPO (01/19/18 15:21) Elbow, Limited (Ap&Lat) (01/19/18 15:37) Electrocardiogram (01/19/18 16:06) Complete Blood Count With Diff (01/19/18 16:06) Comprehensive Metabolic Panel (01/19/18 16:06) Prothrombin Time / Inr (Pt) (01/19/18 16:06) Act Partial Throm Time (Ptt) (01/19/18 16:06) Type And Screen (01/19/18 16:06) Chest, Single Ap (01/19/18 16:06) Iv Access Insert/Monitor (01/19/18 16:06) Oximetry (01/19/18 16:06) Ecg Monitoring (01/19/18 16:06) Morphine Inj (Morphine Inj) (01/19/18 16:15) Sodium Chloride 0.9% Flush (Ns Flush) (01/19/18 16:15) Splinting (01/19/18 ) Diet 1800 Ada Cons Carb (01/19/18 Dinner) Vital Signs (Adult) BENNY.Q4H (01/19/18 17:54) Npo After Midnight W/ Po Meds (01/19/18 Dinner) Consult Nephrology (01/19/18 ) Consult Orthopedic (01/19/18 ) Acetamin-Hydrocod 325-5 Mg ([place] 5-325 (01/19/18 18:00) Acetamin-Hydrocod 325-5 Mg ([place] 5-325 (01/19/18 18:00) Blood Glucose Goal (Criteria) (01/19/18 17:54) Hypoglycemia 70 Mg/Dl Or < (01/19/18 17:54) Notify Dr: Other (01/19/18 17:54) Dextrose 50% In Paramjit (Vial) Inj (D50w (Vi (01/19/18 18:00) Glucagon Inj (Glucagon Inj) (01/19/18 18:00) Insulin Aspart Supplemtl Scale (Novolog (01/19/18 21:00) Admit Order (Ed Use Only) (01/19/18 18:01) Labs Laboratory Tests Test 01/19/18 16:50 White Blood Count 5.8 TH/MM3 Red Blood Count 2.82 MIL/MM3 Hemoglobin 10.1 GM/DL Hematocrit 29.5 % Mean Corpuscular Volume 104.6 FL Mean Corpuscular Hemoglobin 35.7 PG Mean Corpuscular Hemoglobin Concent 34.1 % Red Cell Distribution Width 16.0 % Platelet Count 147 TH/MM3 Mean Platelet Volume 6.5 FL Neutrophils (%) (Auto) 67.7 % Lymphocytes (%) (Auto) 21.9 % Monocytes (%) (Auto) 7.7 % Eosinophils (%) (Auto) 2.0 % Basophils (%) (Auto) 0.7 % Neutrophils # (Auto) 3.9 TH/MM3 Lymphocytes # (Auto) 1.3 TH/MM3 Monocytes # (Auto) 0.4 TH/MM3 Eosinophils # (Auto) 0.1 TH/MM3 Basophils # (Auto) 0.0 TH/MM3 CBC Comment DIFF FINAL Differential Comment Prothrombin Time 10.5 SEC Prothromb Time International Ratio 1.0 RATIO Activated Partial Thromboplast Time 23.9 SEC Blood Urea Nitrogen 35 MG/DL Creatinine 9.07 MG/DL Random Glucose 164 MG/DL Total Protein 6.3 GM/DL Albumin 2.9 GM/DL Calcium Level 8.3 MG/DL Alkaline Phosphatase 66 U/L Aspartate Amino Transf (AST/SGOT) 8 U/L Alanine Aminotransferase (ALT/SGPT) 9 U/L Total Bilirubin 0.4 MG/DL Sodium Level 129 MEQ/L Potassium Level 4.6 MEQ/L Chloride Level 99 MEQ/L Carbon Dioxide Level 14.1 MEQ/L Anion Gap 16 MEQ/L Estimat Glomerular Filtration Rate 6 ML/MIN MDM Medical Decision Making Medical Screen Exam Complete: Yes Emergency Medical Condition: Yes Differential Diagnosis Fracture versus dislocation versus musculoskeletal pain versus contusion versus other Narrative Course 57-year-old male with PMH of ESRD on dialysis, DM, transplanted pancreas, bilateral BKA presents to the ED for evaluation of left elbow pain after mechanical fall. Patient states that he tripped at a transition between concrete and grass. States that he landed on his left side. Vitals reviewed. On exam patient has tenderness to palpation in the elbow. There are a couple of small skin tears. His AV fistula is in the affected arm and has a bounding thrill. Neurovascularly intact distally. X-rays revealed supracondylar fracture. Patient was placed in a posterior long-arm splint by the Ortho techs. Neurovascularly intact after splinting. Call placed to the on-call orthopedist, Dr. Posey. Dr. Posey was in surgery, was unable to return the call. Patient was admitted to the medicine service with plan for n.p.o. at midnight. Discussed the results the workup with the patient. He is agreeable to admission. Dr. Posey was eventually able to return my phone call and states he is agreeable to this plan. Please see medicine and orthopedic notes for disposition. Patricia Harper Jan 19, 2018 14:08
[2018-01-19] MEDS ORDERED: ACETAMINOPHEN/HYDROcodone 325 MG/5 MG TAB PO ONE (14:15)
[2018-01-19] MEDS ORDERED: NOVOLOGP2 SQ (14:24)
[2018-01-19] MEDS ORDERED: SODIUM CHLOR 0.9% 1000 ML INJ 1,000 ML IV ONE (15:30)
[2018-01-19 16:05] VITALS: BP 136/72; PULSE 86; RESP 16; TEMP 97.8; O2SAT 98
--- NOTE | 2018-01-19 16:09 | RADRPT ---
EXAM DATE: 01/19/2018 3:59 PM EDT AGE/SEX: 57 years / Male INDICATIONS: Pain in left elbow post fall today. CLINICAL DATA: This is the patient's initial encounter. Patient reports that signs and symptoms have been present for 2 days and indicates a pain score of 10/10. MEDICAL/SURGICAL HISTORY: None. . Austen and pins in left elbow. COMPARISON: No prior [facility] exams available for comparison. FINDINGS: Patient has an acute, mildly comminuted but mostly transverse fracture in the supracondylar region of the distal left humerus. Displacement is minimal. Articular surfaces appear intact. Old olecranon fracture status post wire and pin fixation appears healed. 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 CONCLUSION: Acute, mildly comminuted, minimally displaced supracondylar fracture of the distal left humerus. Othe r findings are chronic/old, as above. Electronically signed by: Gage Zhou MD 01/19/2018 4:07 PM EDT
[2018-01-19 16:10] VITALS: RESP 17; O2SAT 98
[2018-01-19] MEDS ORDERED: MORPHINE SULFATE 4 MG/ML INJ IV PUSH ONE (16:15)
[2018-01-19] MEDS: SODIUM CHLORIDE 0.9% FLUSH 10 ML FLUSH IVF PRN (16:32)
--- NOTE | 2018-01-19 16:34 | RADRPT ---
EXAM DATE: 01/19/2018 4:22 PM EDT AGE/SEX: 57 years / Male INDICATIONS: Evaluate for pneumonia, pneumothorax and other communicable diseases. Pre-op for left e lbow surgery. CLINICAL DATA: This is the patient's initial encounter. Patient reports that signs and symptoms have been present for 1 day and indicates a pain score of 0/10. MEDICAL/SURGICAL HISTORY: Non-responsive. None. COMPARISON: [facility], CHEST SINGLE AP, 12/12/2017. . FINDINGS: Mild atelectasis seen of both bases. No large effusions seen. No pneumothorax. Mild cardiomegaly unchanged and compensated. CONCLUSION: Mild bibasilar atelectasis. Stable, mild compensated cardiomegaly. Electronically signed by: Gage Zhou MD 01/19/2018 4:33 PM EDT
[2018-01-19 17:20] LABS: AUTOMATED NEUTROPHIL # 3.9 TH/MM3 (1.8-7.7); BASOPHIL % 0.7 % (0.0-2.0); EOSINOPHIL # 0.1 TH/MM3 (0-0.4); HEMATOCRIT 29.5 % (39.0-51.0); HEMOGLOBIN 10.1 GM/DL (13.0-17.0); LYMPH % 21.9 % (9.0-44.0); LYMPHOCYTE # 1.3 TH/MM3 (1.0-4.8); MEAN CELL VOLUME 104.6 FL (80.0-100.0); MEAN CORPUSCULAR HEMOGLOBIN 35.7 PG (27.0-34.0); MEAN CORPUSCULAR HGB CONC 34.1 % (32.0-36.0); MEAN PLATELET VOLUME 6.5 FL (7.0-11.0); MONO % 7.7 % (0.0-8.0); MONOCYTE # 0.4 TH/MM3 (0-0.9); NEUT % 67.7 % (16.0-70.0); PLATELET COUNT 147 TH/MM3 (150-450); RED BLOOD COUNT 2.82 MIL/MM3 (4.50-5.90); WHITE BLOOD COUNT 5.8 TH/MM3 (4.0-11.0)
[2018-01-19 17:27] LABS: PROTHROMBIN TIME - PATIENT 10.5 SEC (9.8-11.6)
[2018-01-19 17:46] LABS: ALBUMIN 2.9 GM/DL (3.4-5.0); AST (GOT) 8 U/L (15-37); BICARBONATE 14.1 MEQ/L (21.0-32.0); BLOOD UREA NITROGEN 35 MG/DL (7-18); CALCIUM 8.3 MG/DL (8.5-10.1); CHLORIDE 99 MEQ/L (98-107); CREATININE 9.07 MG/DL (0.60-1.30); GLOMERULAR FILTRATION RATE 6 ML/MIN (>89); GLUCOSE,RANDOM 164 MG/DL (74-106); SODIUM (NA) 129 MEQ/L (136-145)
[2018-01-19 17:47] LABS: ALT (GPT) 9 U/L (12-78)
[2018-01-19 17:49] LABS: ALKALINE PHOSPHATASE 66 U/L (45-117); TOTAL BILIRUBIN ADULT 0.4 MG/DL (0.2-1.0); TOTAL PROTEIN 6.3 GM/DL (6.4-8.2)
[2018-01-19] MEDS ORDERED: GLUCAGON 1 MG/ML VIAL OTHER PRN (18:00)
[2018-01-19] MEDS ORDERED: ACETAMINOPHEN/HYDROcodone 325 MG/5 MG TAB PO PRN ×2 (18:00)
[2018-01-19] MEDS ORDERED: DEXTROSE 50% IN WATER 50 ML VIAL(D50) IV PUSH PRN (18:00)
[2018-01-19 18:50] VITALS: BP 128/77; TEMP 97.8
[2018-01-19] MEDS ORDERED: METOCLOPRAMIDE HCL 10 MG/2 ML VIAL IV PUSH PRN (19:00)
[2018-01-19] MEDS ORDERED: SENNOSIDES 8.6 MG TAB PO PRN (19:00)
[2018-01-19] MEDS ORDERED: SODIUM CHLORIDE 0.9% FLUSH 10 ML FLUSH IV FLUSH PRN (19:00)
[2018-01-19] MEDS ORDERED: ACETAMINOPHEN 325 MG TAB PO PRN (19:00)
[2018-01-19] MEDS ORDERED: MAGNESIUM HYDROXIDE SUSP 30 ML CUP PO PRN (19:00)
[2018-01-19] MEDS ORDERED: LACTULOSE SYRUP 20 GM/30 ML CUP PO PRN (19:00)
[2018-01-19] MEDS ORDERED: BISACODYL 10 MG SUPP RECTAL PRN (19:00)
--- NOTE | 2018-01-19 19:07 | HHI.HP ---
[facility] Service [facility] Primary Care Physician Unknown Admission Diagnosis Supracondylar fracture left elbow Diagnoses: Travel History International Travel<30 Days: No Contact w/Intl Traveler <30 Da: No Traveled to Known Affected Are: No Past Family Social History Allergies: Coded Allergies: No Known Allergies (Verified Allergy, Unknown, 01/19/18) Physical Exam Vital Signs Vital Signs Date Time Temp Pulse Resp B/P (MAP) Pulse Ox O2 Delivery O2 Flow Rate FiO2 01/19/18 18:50 97.8 82 16 128/77 (94) 99 01/19/18 16:38 16 01/19/18 16:10 17 98 Room Air 01/19/18 16:05 97.8 86 16 136/72 (93) 98 Room Air 01/19/18 15:15 16 01/19/18 13:55 56 97 01/19/18 13:55 98.1 57 16 132/76 (94) 98 Room Air Physical Exam GENERAL: This is a well-nourished, well-developed patient, in no apparent distress. SKIN: No rashes, ecchymoses or lesions. Cool and dry. HEAD: Atraumatic. Normocephalic. No temporal or scalp tenderness. EYES: Pupils equal round and reactive. Extraocular motions intact. No scleral icterus. No injection or drainage. ENT: Nose without bleeding, purulent drainage or septal hematoma. Throat without erythema, tonsillar hypertrophy or exudate. Uvula midline. Airway patent. NECK: Trachea midline. No JVD or lymphadenopathy. Supple, nontender, no meningeal signs. CARDIOVASCULAR: Regular rate and rhythm without murmurs, gallops, or rubs. RESPIRATORY: Clear to auscultation. Breath sounds equal bilaterally. No wheezes , rales, or rhonchi. GASTROINTESTINAL: Abdomen soft, non-tender, nondistended. No hepato-splenomegaly , or palpable masses. No guarding. MUSCULOSKELETAL: Extremities without clubbing, cyanosis, or edema. No joint tenderness, effusion, or edema noted. No calf tenderness. Negative Homans sign bilaterally. NEUROLOGICAL: Awake and alert. Cranial nerves II through XII intact. Motor and sensory grossly within normal limits. Five out of 5 muscle strength in all muscle groups. Normal speech. Laboratory Laboratory Tests Test 01/19/18 16:50 White Blood Count 5.8 Red Blood Count 2.82 Hemoglobin 10.1 Hematocrit 29.5 Mean Corpuscular Volume 104.6 Mean Corpuscular Hemoglobin 35.7 Mean Corpuscular Hemoglobin Concent 34.1 Red Cell Distribution Width 16.0 Platelet Count 147 Mean Platelet Volume 6.5 Neutrophils (%) (Auto) 67.7 Lymphocytes (%) (Auto) 21.9 Monocytes (%) (Auto) 7.7 Eosinophils (%) (Auto) 2.0 Basophils (%) (Auto) 0.7 Neutrophils # (Auto) 3.9 Lymphocytes # (Auto) 1.3 Monocytes # (Auto) 0.4 Eosinophils # (Auto) 0.1 Basophils # (Auto) 0.0 CBC Comment DIFF FINAL Differential Comment Prothrombin Time 10.5 Prothromb Time International Ratio 1.0 Activated Partial Thromboplast Time 23.9 Blood Urea Nitrogen 35 Creatinine 9.07 Random Glucose 164 Total Protein 6.3 Albumin 2.9 Calcium Level 8.3 Alkaline Phosphatase 66 Aspartate Amino Transf (AST/SGOT) 8 Alanine Aminotransferase (ALT/SGPT) 9 Total Bilirubin 0.4 Sodium Level 129 Potassium Level 4.6 Chloride Level 99 Carbon Dioxide Level 14.1 Anion Gap 16 Estimat Glomerular Filtration Rate 6 Result Diagram: 01/19/18 1650 01/19/18 1650 Caprini VTE Risk Assessment Caprini Risk Assessment Model Point Value = 1 Point Value = 2 Point Value = 3 Point Value = 5 Age 41-60 Minor surgery BMI > 25 kg/m2 Swollen legs Varicose veins or History of unexplained or recurrent spontaneous Oral contraceptives or hormone replacement Sepsis (< 1 month) Serious lung disease, including pneumonia (< 1 month) Abnormal pulmonary function Acute myocardial infarction Congestive heart failure (< 1 month) History of inflammatory bowel disease Medical patient at bed rest Age 61-74 Arthroscopic surgery Major open surgery (> 45 min) Laparoscopic surgery (> 45 min) Malignancy Confined to bed (> 72 hours) Immobilizing plaster cast Central venous access Age >= 75 History of VTE Family history of VTE Factor V Leiden Prothrombin [id number] Lupus anticoagulant Anticardiolipin antibodies Elevated serum homocysteine Heparin-induced thrombocytopenia Other congenital or acquired thrombophilia Stroke (< 1 month) Elective arthroplasty Hip, pelvis, or leg fracture Acute spinal cord injury (< 1 month) Prophylaxis Regimen Total Risk Factor Score Risk Level Prophylaxis Regimen 0-1 Low Early ambulation 2 Moderate Order ONE of the following: *Sequential Compression Device (SCD) *Heparin 5000 units SQ BID 3-4 Higher Order ONE of the following medications: *Heparin 5000 units SQ TID *Enoxaparin/Lovenox 40 mg SQ daily (WT < 150 kg, CrCl > 30 mL/min) *Enoxaparin/Lovenox 30 mg SQ daily (WT < 150 kg, CrCl > 10-29 mL/min) *Enoxaparin/Lovenox 30 mg SQ BID (WT < 150 kg, CrCl > 30 mL/min) AND/OR *Sequential Compression Device (SCD) 5 or more Highest Order ONE of the following medications: *Heparin 5000 units SQ TID (Preferred with Epidurals) *Enoxaparin/Lovenox 40 mg SQ daily (WT < 150 kg, CrCl > 30 mL/min) *Enoxaparin/Lovenox 30 mg SQ daily (WT < 150 kg, CrCl > 10-29 mL/min) *Enoxaparin/Lovenox 30 mg SQ BID (WT < 150 kg, CrCl > 30 mL/min) AND *Sequential Compression Device (SCD) Physician Certification Order for Inpatient Services The services are ordered in accordance with Medicare regulations or non- Medicare payer requirements, as applicable. In the case of services not specified as inpatient-only, they are appropriately provided as inpatient services in accordance with the 2-midnight benchmark. days is the estimated time the patient will need to remain in the hospital, assuming treatment plan goals are met and no additional complications. Enriqueta Shen MD Jan 19, 2018 19:07
[2018-01-19 20:00] VITALS: BP 130/63; PULSE 56; RESP 18; TEMP 97.8; O2SAT 96
[2018-01-19] MEDS: INSULIN DETEMIR 100 UNITS/ML VIAL SQ SCH (20:44)
[2018-01-19] MEDS: DOCUSATE SODIUM 50 MG/SENNA 8.6 MG TAB PO SCH (21:00)
[2018-01-19] MEDS: ACETAMINOPHEN/HYDROcodone 325 MG/5 MG TAB PO PRN (21:01)
[2018-01-19] MEDS: INSULIN ASPART SUPPLEMENTAL SCALE SQ SCH (21:01)
[2018-01-19] MEDS: traZODone HCL 100 MG TAB PO SCH (21:01)
[2018-01-19] MEDS: SODIUM CHLORIDE 0.9% FLUSH 10 ML FLUSH IV FLUSH SCH (21:01)
[2018-01-19] MEDS: CARVEDILOL 6.25 MG TAB PO SCH (21:01)
--- NOTE | 2018-01-19 21:08 | HHI.HP ---
HPI Service [facility] Primary Care Physician Unknown Admission Diagnosis Supracondylar fracture left elbow Diagnoses: Chief Complaint: Left elbow pain Travel History International Travel<30 Days: No Contact w/Intl Traveler <30 Da: No Traveled to Known Affected Are: No History of Present Illness 57-year-old male with a history of ESRD on dialysis MWF w/ Dr. Ramirez, hypertension, neuropathy, diabetes, kidney transplant and pancreatic transplant , blind right eye, GERD presented to the ED status post fall. Patient states he was walking outside with the ground became on level between the sidewalk in the grass and he tripped and fell landing on his left arm. Patient states the pain to his left arm is constant, 8/10, throbbing, worse with movement, better with pain medication with no radiation or associated symptoms. Prior to fall patient denies any chest pain, shortness of breath or dizziness. He denies hitting his head. Review of Systems Except as stated in HPI: all other systems reviewed are Neg Past Family Social History Past Medical History ESRD on HD MWF, follows with Dr. Ramirez HTN, off of medications for the past year DM Hx of kidney transplant x 2 and pancreatic transplant Blind right eye GERD Hx of bladder stones Past Surgical History Cataract surgery left eye Kidney transplant x 2 pancreatic transplant Bilateral BKAs AV shunt TURP 2006 Removal right eye, now with prosthetic Cholecystectomy Appendectomy Left fifth and fourth digit amputation Reported Medications Reported Meds & Active Scripts Active Aspirin DR (Aspirin) 81 Mg Tabdr 81 Mg PO DAILY Norvasc (Amlodipine Besylate) 5 Mg Tab 5 Mg PO DAILY Coreg (Carvedilol) 6.25 Mg Tab 6.25 Mg PO Q12HR Prograf (Tacrolimus) 1 Mg Cap 2 Mg PO DAILY@18 30 Days Levemir Inj (Insulin Detemir) 1,000 unit/ 10 ML Vial 10 Units SQ HS 30 Days Do not mix with any other Insulin. Ondansetron Odt 4 Mg Tab 4 Mg PO Q4H PRN Bumetanide 1 Mg Tab 2 Mg PO DAILY Ferosul (Ferrous Sulfate) 325 Mg (65 Mg Iron) Tablet 325 Mg PO BID@12,17 30 Days Fosrenol (Lanthanum Carbonate) 500 Mg Tab 500 Mg CHEW TID Prograf (Tacrolimus) 0.5 Mg Cap 2 Mg PO DAILY@0600 30 Days Sensipar (Cinacalcet) 30 Mg Tab 30 Mg PO WITH DINNER Trazodone (Trazodone HCl) 100 Mg Tablet 100 Mg PO HS Sodium Bicarbonate 650 Mg Tab 650 Mg PO BID Lexapro (Escitalopram Oxalate) 10 Mg Tab 10 Mg PO DAILY Prednisone 5 Mg Tab 5 Mg PO DAILY Azathioprine 50 Mg Tab 75 Mg PO DAILY Hazardous agent use appropriate precautions for handling and disposal. Catapres (Clonidine) 0.1 Mg Tab 0.1 Mg PO UNSCH PRN Reported Novolog Inj (Insulin Aspart) 1,000 Unit/10 Ml Vial 1-9 Units SQ ACHS Max dose at bedtime:( )units; sugars less than 70,(0)units; sugars 150-199,(1) unit; sugars 200-249,(3) units; sugars 250-299,(5) units; sugars 300-349,(7) units; sugars greater than 349,(9) units Allergies: Coded Allergies: No Known Allergies (Verified Allergy, Unknown, 01/19/18) Active Ordered Medications Current Medications Medications (Trade) Dose Ordered Sig/Lida Route Start Time Stop Time Status Last Admin (NS Flush) 2 ml UNSCH PRN IVF 01/19/18 16:15 01/19/18 16:32 (D50w (Vial) Inj) 50 ml UNSCH PRN IV PUSH 01/19/18 18:00 (Glucagon Inj) 1 mg UNSCH PRN OTHER 01/19/18 18:00 (NovoLOG SUPPLEMENTAL SCALE) 1 ACHS SLIDING SCALE SQ 01/19/18 21:00 01/19/18 21:01 (NS Flush) 2 ml UNSCH PRN IV FLUSH 01/19/18 19:00 01/20/18 00:27 (NS Flush) 2 ml BID IV FLUSH 01/19/18 21:00 01/19/18 21:01 (Reglan Inj) 5 mg Q6H PRN IV PUSH 01/19/18 19:00 (Tylenol) 650 mg Q6H PRN PO 01/19/18 19:00 ([place] 5-325 Mg) 1 tab Q4H PRN PO 6/3/18 19:00 01/19/18 21:01 (Morphine Inj) 2 mg Q3H PRN IV PUSH 01/19/18 19:00 01/20/18 00:27 (Bibiana-Colace) 1 tab BID PO 01/19/18 21:00 (Milk Of Magnesia Liq) 30 ml Q12H PRN PO 01/19/18 19:00 (Senokot) 17.2 mg Q12H PRN PO 01/19/18 19:00 (Dulcolax Supp) 10 mg DAILY PRN RECTAL 01/19/18 19:00 (Lactulose Liq) 30 ml DAILY PRN PO 01/19/18 19:00 (Norvasc) 5 mg DAILY PO 01/20/18 09:00 (Imuran) 75 mg DAILY PO 01/20/18 09:00 (Bumetanide) 2 mg DAILY PO 01/20/18 09:00 (Coreg) 6.25 mg Q12HR PO 01/19/18 21:00 01/19/18 21:01 (Lexapro) 10 mg DAILY PO 01/20/18 09:00 (Levemir Inj) 10 units HS SQ 01/19/18 21:00 (Deltasone) 5 mg DAILY PO 01/20/18 09:00 (Sodium Bicarbonate) 650 mg BID PO 01/19/18 21:00 01/19/18 21:46 (Prograf) 2 mg DAILY@0600 PO 01/20/18 06:00 (Prograf) 2 mg DAILY@18 PO 01/20/18 18:00 (Desyrel) 100 mg HS PO 01/19/18 21:00 01/19/18 21:01 ([place] 10-325 Mg) 1 tab Q4H PRN PO 01/20/18 00:00 Family History Family history significant of CAD Social History Patient denies any tobacco, alcohol or illicit drug use Physical Exam Vital Signs Vital Signs Date Time Temp Pulse Resp B/P (MAP) Pulse Ox O2 Delivery O2 Flow Rate FiO2 01/19/18 20:00 97.8 56 18 130/63 (85) 96 01/19/18 18:50 97.8 82 16 128/77 (94) 99 01/19/18 16:38 16 01/19/18 16:10 17 98 Room Air 01/19/18 16:05 97.8 86 16 136/72 (93) 98 Room Air 01/19/18 15:15 16 01/19/18 13:55 56 97 01/19/18 13:55 98.1 57 16 132/76 (94) 98 Room Air Physical Exam GENERAL: This is a well-nourished, well-developed patient, in no apparent distress. SKIN: No rashes, ecchymoses or lesions. Cool and dry. Left arm and splint HEAD: Atraumatic. Normocephalic. No temporal or scalp tenderness. EYES: Pupils equal round and reactive. Extraocular motions intact. CARDIOVASCULAR: Regular rate and rhythm without murmurs, gallops, or rubs. RESPIRATORY: Clear to auscultation. Breath sounds equal bilaterally. No wheezes , rales, or rhonchi. GASTROINTESTINAL: Abdomen soft, non-tender, nondistended. No hepato-splenomegaly , or palpable masses. No guarding. MUSCULOSKELETAL: Extremities without clubbing, cyanosis, or edema. Minimal range of motion with left arm, left arm tenderness bilateral BKA NEUROLOGICAL: Awake and alert. Normal speech. Laboratory Laboratory Tests Test 01/19/18 16:50 White Blood Count 5.8 Red Blood Count 2.82 Hemoglobin 10.1 Hematocrit 29.5 Mean Corpuscular Volume 104.6 Mean Corpuscular Hemoglobin 35.7 Mean Corpuscular Hemoglobin Concent 34.1 Red Cell Distribution Width 16.0 Platelet Count 147 Mean Platelet Volume 6.5 Neutrophils (%) (Auto) 67.7 Lymphocytes (%) (Auto) 21.9 Monocytes (%) (Auto) 7.7 Eosinophils (%) (Auto) 2.0 Basophils (%) (Auto) 0.7 Neutrophils # (Auto) 3.9 Lymphocytes # (Auto) 1.3 Monocytes # (Auto) 0.4 Eosinophils # (Auto) 0.1 Basophils # (Auto) 0.0 CBC Comment DIFF FINAL Differential Comment Prothrombin Time 10.5 Prothromb Time International Ratio 1.0 Activated Partial Thromboplast Time 23.9 Blood Urea Nitrogen 35 Creatinine 9.07 Random Glucose 164 Total Protein 6.3 Albumin 2.9 Calcium Level 8.3 Alkaline Phosphatase 66 Aspartate Amino Transf (AST/SGOT) 8 Alanine Aminotransferase (ALT/SGPT) 9 Total Bilirubin 0.4 Sodium Level 129 Potassium Level 4.6 Chloride Level 99 Carbon Dioxide Level 14.1 Anion Gap 16 Estimat Glomerular Filtration Rate 6 Result Diagram: 01/19/18 1650 01/19/18 1650 Imaging Last Impressions Chest X-Ray 01/19/18 1606 Signed Impressions: CONCLUSION: Mild bibasilar atelectasis. Stable, mild compensated cardiomegaly. Elbow X-Ray 01/19/18 1537 Signed Impressions: CONCLUSION: Acute, mildly comminuted, minimally displaced supracondylar fracture of the dis chiquita left humerus. Other findings are chronic/old, as above. Caprini VTE Risk Assessment Caprini VTE Risk Assessment: No/Low Risk (score <= 1) Caprini Risk Assessment Model Point Value = 1 Point Value = 2 Point Value = 3 Point Value = 5 Age 41-60 Minor surgery BMI > 25 kg/m2 Swollen legs Varicose veins or History of unexplained or recurrent spontaneous Oral contraceptives or hormone replacement Sepsis (< 1 month) Serious lung disease, including pneumonia (< 1 month) Abnormal pulmonary function Acute myocardial infarction Congestive heart failure (< 1 month) History of inflammatory bowel disease Medical patient at bed rest Age 61-74 Arthroscopic surgery Major open surgery (> 45 min) Laparoscopic surgery (> 45 min) Malignancy Confined to bed (> 72 hours) Immobilizing plaster cast Central venous access Age >= 75 History of VTE Family history of VTE Factor V Leiden Prothrombin [id number] Lupus anticoagulant Anticardiolipin antibodies Elevated serum homocysteine Heparin-induced thrombocytopenia Other congenital or acquired thrombophilia Stroke (< 1 month) Elective arthroplasty Hip, pelvis, or leg fracture Acute spinal cord injury (< 1 month) Prophylaxis Regimen Total Risk Factor Score Risk Level Prophylaxis Regimen 0-1 Low Early ambulation 2 Moderate Order ONE of the following: *Sequential Compression Device (SCD) *Heparin 5000 units SQ BID 3-4 Higher Order ONE of the following medications: *Heparin 5000 units SQ TID *Enoxaparin/Lovenox 40 mg SQ daily (WT < 150 kg, CrCl > 30 mL/min) *Enoxaparin/Lovenox 30 mg SQ daily (WT < 150 kg, CrCl > 10-29 mL/min) *Enoxaparin/Lovenox 30 mg SQ BID (WT < 150 kg, CrCl > 30 mL/min) AND/OR *Sequential Compression Device (SCD) 5 or more Highest Order ONE of the following medications: *Heparin 5000 units SQ TID (Preferred with Epidurals) *Enoxaparin/Lovenox 40 mg SQ daily (WT < 150 kg, CrCl > 30 mL/min) *Enoxaparin/Lovenox 30 mg SQ daily (WT < 150 kg, CrCl > 10-29 mL/min) *Enoxaparin/Lovenox 30 mg SQ BID (WT < 150 kg, CrCl > 30 mL/min) AND *Sequential Compression Device (SCD) Assessment and Plan Assessment and Plan 57-year-old male with a history of ESRD on dialysis MWF w/ Dr. Ramirez, hypertension, diabetes, kidney transplant and pancreatic transplant, blind right eye, GERD presented to the ED status post fall. Elbow fracture, left Elbow x-ray shows acute, mildly comminuted, minimally displaced supracondylar fracture of the distal left humerus -Consult orthopedic for possible surgery in a.m. -N.p.o. -Pain management with p.o. [place] and IV morphine -PT ESRD on dialysis, creatinine appears around baseline -Consult nephrology, patient does dialysis on MWF -Avoid nephrotoxins -Continue home medications sodium bicarb Diabetes, chronic -Accu-Cheks with sliding scale insulin -Continue home long-acting insulin Hypertension, chronic -Continue home medications Norvasc, carvedilol -monitor vitals Kidney and pancreas transplant, chronic -Resume home medications Prograf DVT prophylaxis: Hold chemical in lieu of surgery Discussed Condition With Patient and RN Physician Certification 2 Midnight Certification Type: Admission for Inpatient Services Order for Inpatient Services The services are ordered in accordance with Medicare regulations or non- Medicare payer requirements, as applicable. In the case of services not specified as inpatient-only, they are appropriately provided as inpatient services in accordance with the 2-midnight benchmark. Estimated LOS (days): 2 days is the estimated time the patient will need to remain in the hospital, assuming treatment plan goals are met and no additional complications. Post-Hospital Plan: Ashley Kuo Jan 19, 2018 21:08
[2018-01-19] MEDS: SODIUM BICARBONATE 650 MG TAB PO SCH (21:46)
[2018-01-20] VITALS: BP 142/66; PULSE 57; RESP 18; TEMP 97.8; O2SAT 95
[2018-01-20] MEDS: MORPHINE SULFATE 4 MG/ML INJ IV PUSH PRN ×4 (00:27→20:08)
[2018-01-20 04:00] VITALS: BP 152/72; PULSE 56; RESP 18; TEMP 97.9; O2SAT 97
[2018-01-20] MEDS: SODIUM CHLORIDE 0.9% FLUSH 10 ML FLUSH IVF PRN (04:34)
[2018-01-20] MEDS: TACROLIMUS 1 MG CAP PO SCH ×2 (05:41→18:00)
[2018-01-20] MEDS ORDERED: LACTATED RINGER'S 1000 ML IV PRN (06:45)
[2018-01-20] MEDS ORDERED: CHLORHEXIDINE GLUCONATE 2 % 1 PACK (2 CLOTHS) TOPICAL PRN (06:45)
[2018-01-20] MEDS ORDERED: POVIDONE IODINE 5% (ANTISEPSIS KIT) 4 APPLICATIONS EACH NARE PRN (06:45)
[2018-01-20] MEDS ORDERED: SODIUM CHLORID 0.9% 500 ML IV PRN (06:45)
--- NOTE | 2018-01-20 07:22 | PD.ORT.PN ---
Subjective Subjective Remarks Patient had a slip and fall yesterday with fracture to left distal humerus fracture. He had a previous fracture years ago to his left olecranon. He also is diabetic and has a fistula for dialysis on the left arm. He has bilateral below knee amputations Objective Vitals Vital Signs Date Time Temp Pulse Resp B/P (MAP) Pulse Ox O2 Delivery O2 Flow Rate FiO2 01/20/18 04:00 97.9 56 18 152/72 (98) 97 01/20/18 00:00 97.8 57 18 142/66 (91) 95 01/19/18 20:00 97.8 56 18 130/63 (85) 96 01/19/18 18:50 97.8 82 16 128/77 (94) 99 01/19/18 16:38 16 01/19/18 16:10 17 98 Room Air 01/19/18 16:05 97.8 86 16 136/72 (93) 98 Room Air 01/19/18 15:15 16 01/19/18 13:55 56 97 01/19/18 13:55 98.1 57 16 132/76 (94) 98 Room Air I/O 01/19/18 01/19/18 01/19/18 01/20/18 01/20/18 01/20/18 07:00 15:00 23:00 07:00 15:00 23:00 Intake Total 1000 ml 0 ml Balance 1000 ml 0 ml Intake Oral 0 ml IV Total 1000 ml # Voids 0 Result Diagram: 01/19/18 1650 01/19/18 1650 Other Results Laboratory Tests Test 01/19/18 16:50 Prothromb Time International Ratio 1.0 RATIO Prothrombin Time 10.5 SEC (9.8-11.6) Imaging Last 24 hours Impressions Chest X-Ray 01/19/18 1606 Signed Impressions: CONCLUSION: Mild bibasilar atelectasis. Stable, mild compensated cardiomegaly. Elbow X-Ray 01/19/18 1537 Signed Impressions: CONCLUSION: Acute, mildly comminuted, minimally displaced supracondylar fracture of the dis chiquita left humerus. Other findings are chronic/old, as above. Objective Remarks Right upper extremity: Full range of motion neurovascularly intact Bilateral lower extremities: No pain with range of motion of hip or knees. Bilateral below-knee amputations. No complications. Good tissue perfusion Left upper extremity: No pain with shoulder range of motion. Splint intact with pain over elbow. Distally he has intact sensation in all fingers. He has previous amputations of 2 fingers. He is able to extend and flex all his fingers Assessment & Plan Assessment and Plan Minimally displaced left supracondylar humerus fracture Due to alignment of fracture and comorbidities we will recommend nonoperative treatment of this distal humerus. He will maintain the splint and be nonweightbearing on the left upper extremity. This obviously poses challenges due to being a bilateral below-knee amputation. Rehab may need to be considered. We will re-x-ray the elbow in 10-14 days. Due to the fistula being under the splint and compression of dressings continued use of the fistula may be difficult. Brett Asher Jr. KENDRICK Jan 20, 2018 07:22
[2018-01-20 08:00] VITALS: BP 138/68; PULSE 58; RESP 18; TEMP 97.2; O2SAT 96
[2018-01-20] MEDS: DOCUSATE SODIUM 50 MG/SENNA 8.6 MG TAB PO SCH ×2 (08:50→20:10)
--- NOTE | 2018-01-20 08:58 | EKG ---
Date Performed: 01/19/2018 Time Performed: 18:50:11 PTAGE: 57 years EKG: SINUS BRADYCARDIA BORDERLINE ECG PREVIOUS TRACING : 12/12/2017 09.40 Since the previous tracing, no significant change noted DOCTOR: Yves Rubalcava Interpretating Date/Time 01/20/2018 08:57:14
--- NOTE | 2018-01-20 09:09 | MB ---
cc: Carlos Sarkar MD DATE: 01/20/2018 REASON FOR CONSULTATION: Left distal humerus fracture. HISTORY OF PRESENT ILLNESS: Basilio is a 57-year-old male who has multiple medical problems. He has end-stage renal disease and is on dialysis. He also has hypertension, neuropathy, and history of renal and pancreatic transplant. He has reflux. He has bilateral below-knee amputations. He states he was walking on a sidewalk. He lost his balance and fell. He landed on his left arm. He initially tried to pull himself up with his left arm and he heard a pop. He presented to the emergency room where x-rays were taken. X-rays reveal a nondisplaced left distal humerus supracondylar fracture. He denies dizziness, syncope or loss of consciousness. The pain is worse with movement. The pain is improved with rest. PAST MEDICAL HISTORY: End-stage renal failure, hypertension, diabetes, right eye vision loss and reflux. PAST SURGICAL HISTORY: Cataract surgery, kidney transplant x2, pancreatic transplant, bilateral below-knee amputations, TURP, cholecystectomy, appendectomy. MEDICATIONS: Include aspirin, Norvasc, Coreg, Prograf, Levemir, bumetanide, Feosol, Prograf, Trazodone, Lexapro, prednisone, azathioprine, Catapres, NovoLog. ALLERGIES: NO KNOWN DRUG ALLERGIES. SOCIAL HISTORY: The patient denies alcohol, tobacco or drug use. FAMILY HISTORY: Positive for coronary artery disease. REVIEW OF SYSTEMS: The patient denies headache, visual changes, neck pain, chest pain, shortness of breath, abdominal pain, nausea, vomiting, recent weight loss, fever or chills, numbness or tingling of extremities or bowel or bladder incontinence. He does have peripheral neuropathy. He complains of left elbow pain with movement. LABORATORY DATA: The patient has a white blood cell count of 5.8, hematocrit of 29.5, platelet count of 147. INR 1.0. BUN of 35, creatinine is 9.07. PHYSICAL EXAMINATION: GENERAL: The patient is a well-developed, well-nourished 57-year-old male. He is awake and alert. He is in no acute distress. He appears well-developed and well-nourished. VITAL SIGNS: Temperature 97.9, pulse 56, respirations 18, blood pressure 152/72, O2 saturation 97% on room air. HEENT: The patient is normocephalic. He does have a prosthetic right eye. NECK: Soft, nontender. The trachea is in the midline. ABDOMEN: Soft, nontender, nondistended. EXTREMITIES: Examination of the right arm reveals no pain with shoulder, elbow and wrist motion. He has intact sensation in all fingers. He has good capillary refill in all fingers. Skin is intact. Radial pulses palpable. Examination of the left arm reveals no tenderness around his shoulder, wrist or fingers. He has intact sensation in all fingers. He has good capillary refill in all fingers. He is tender to palpation over the distal humerus and elbow. Skin is intact. He has an AV fistula in the left arm. Examination of the bilateral lower extremities reveals no significant pain with hip or knee motion. He has bilateral below-knee amputations. X-RAYS: X-rays of the left elbow are reviewed. X-rays reveal a nondisplaced left distal humerus fracture. Alignment is near-anatomic. He has hardware in his olecranon from previous fracture. IMPRESSION: 1. Diabetes. 2. Peripheral neuropathy. 3. End-stage renal disease. 4. Coronary artery disease. 5. Nondisplaced left distal humerus supracondylar fracture. PLAN: Treatment options were discussed with the patient. I discussed both surgical and nonsurgical options. At this point, the fracture is still in excellent alignment. There is no displacement of the fracture. I feel the patient would likely do well with nonoperative treatment. The patient is in agreement with this plan and would like to avoid surgery if possible. He will remain in a long arm splint. He will need to follow up in 1 week for repeat x-rays of left elbow. If fracture displaces significantly, he would need surgical intervention. All questions were answered. A mid-level provider in my office, nurse practitioner or PA, may see this patient on a follow-up basis and continue to implement the objective of this plan including: Starting or adjusting medications, injections of muscle, tendon, bursa or joints, cast application, orthotic or brace application, physical therapy, further radiographic studies including x-ray, MRI, CT, ultrasounds or bone scan, vascular studies, neurologic studies, or other specialist consultations, and proceeding with surgical management as appropriate. Carlos MD AGAPITO Mejia/ROMANA , 08:42 AM , 09:08 AM
[2018-01-20] MEDS: predniSONE 5 MG TAB PO SCH (09:14)
[2018-01-20] MEDS: azaTHIOprine 50 MG TAB PO SCH (09:14)
[2018-01-20] MEDS: CARVEDILOL 6.25 MG TAB PO SCH ×2 (09:14→20:10)
[2018-01-20] MEDS: SODIUM CHLORIDE 0.9% FLUSH 10 ML FLUSH IV FLUSH SCH ×2 (09:14→20:10)
[2018-01-20] MEDS: INSULIN ASPART SUPPLEMENTAL SCALE SQ SCH ×4 (09:14→21:33)
[2018-01-20] MEDS: ESCITALOPRAM OXALATE 10 MG TAB PO SCH (09:15)
[2018-01-20] MEDS: ACETAMINOPHEN/HYDROcodone 325 MG/10 MG TAB PO PRN ×2 (09:15→23:09)
[2018-01-20] MEDS: SODIUM BICARBONATE 650 MG TAB PO SCH ×2 (09:15→20:10)
[2018-01-20] MEDS: amLODIPine BESYLATE 5 MG TAB PO SCH (09:15)
[2018-01-20] MEDS: BUMETANIDE 1 MG TAB PO SCH (09:16)
--- NOTE | 2018-01-20 11:09 | HHI.PR ---
Subjective Remarks Patient states that he does get hemodialysis Saturday. His splint is over his left arm fistula and likely may need a Vas-Cath for hemodialysis. I will await nephrology's recommendations. States that he is okay with non-operative management of his fracture and will follow up with Dr. Sarkar, orthopedic surgery. His pain overall is controlled at this time. He is also declining rehab. He wants to see if he can go home with home health care. He does have people at home that can help him with activities of daily living. Objective Vitals Vital Signs Date Time Temp Pulse Resp B/P (MAP) Pulse Ox O2 Delivery O2 Flow Rate FiO2 01/20/18 04:00 97.9 56 18 152/72 (98) 97 01/20/18 00:00 97.8 57 18 142/66 (91) 95 01/19/18 20:00 97.8 56 18 130/63 (85) 96 01/19/18 18:50 97.8 82 16 128/77 (94) 99 01/19/18 16:38 16 01/19/18 16:10 17 98 Room Air 01/19/18 16:05 97.8 86 16 136/72 (93) 98 Room Air 01/19/18 15:15 16 01/19/18 13:55 56 97 01/19/18 13:55 98.1 57 16 132/76 (94) 98 Room Air I/O 01/19/18 01/19/18 01/19/18 01/20/18 01/20/18 01/20/18 07:00 15:00 23:00 07:00 15:00 23:00 Intake Total 1000 ml 0 ml Balance 1000 ml 0 ml Intake Oral 0 ml IV Total 1000 ml # Voids 0 Result Diagram: 01/19/18 1650 01/19/18 1650 Objective Remarks GENERAL: This is a well-nourished, well-developed patient, in no apparent distress. CARDIOVASCULAR: Regular rate and rhythm RESPIRATORY: Clear to auscultation. Breath sounds equal bilaterally. No wheezes , rales, or rhonchi. GASTROINTESTINAL: Abdomen soft, non-tender, nondistended. Normal active bowel sounds MUSCULOSKELETAL: Left upper arm in the sling and splint bandage clean dry and intact. Patient was neurovascularly intact, bilateral BKA unchanged. NEURO: Alert & Oriented x4 to person, place, time, situation. A/P Problem List: (1) Left humeral fracture ICD Code: S42.302A - Unspecified fracture of shaft of humerus, left arm, initial encounter for closed fracture Status: Acute Assessment and Plan 57-year-old male with a history of ESRD on dialysis MWF w/ Dr. Ramirez, hypertension, diabetes mellitus insulin-dependent, kidney transplant and pancreatic transplant, blind right eye, GERD presented to the ED status post fall. Acute elbow fracture, left Elbow x-ray shows acute, mildly comminuted, minimally displaced supracondylar fracture of the distal left humerus -Consult orthopedic, Dr. Sarkar who states that the fracture seems to be in good alignment this time recommend a non-surgical management of the fracture. ESRD on dialysis, creatinine appears around baseline -Consult nephrology, patient does dialysis on MWF -Avoid nephrotoxins -Continue home medications sodium bicarb Patient may need Vas-Cath placement due to his left fistula in the same area as his left humerus fracture. Will await nephrology's recommendations Diabetes, chronic -Accu-Cheks with sliding scale insulin -Continue home long-acting insulin Hypertension, chronic -Continue home medications Norvasc, carvedilol -monitor vitals Kidney and pancreas transplant, chronic -Resume home medications Prograf DVT prophylaxis: Restart heparin Discharge Planning Home with home health care when patients physical activity is evaluated and cleared by orthopedic surgery Problem Qualifiers (1) Left humeral fracture: Joan Pond MD Jan 20, 2018 11:09
[2018-01-20 11:22] LABS: AUTOMATED NEUTROPHIL # 4.2 TH/MM3 (1.8-7.7); BASOPHIL % 0.7 % (0.0-2.0); EOSINOPHIL # 0.1 TH/MM3 (0-0.4); EOSINOPHIL % 1.8 % (0.0-4.0); HEMATOCRIT 32.2 % (39.0-51.0); HEMOGLOBIN 10.9 GM/DL (13.0-17.0); LYMPH % 20.4 % (9.0-44.0); LYMPHOCYTE # 1.2 TH/MM3 (1.0-4.8); MEAN CELL VOLUME 104.4 FL (80.0-100.0); MEAN CORPUSCULAR HEMOGLOBIN 35.3 PG (27.0-34.0); MEAN CORPUSCULAR HGB CONC 33.8 % (32.0-36.0); MEAN PLATELET VOLUME 6.6 FL (7.0-11.0); MONO % 7.1 % (0.0-8.0); MONOCYTE # 0.4 TH/MM3 (0-0.9); PLATELET COUNT 164 TH/MM3 (150-450); RED BLOOD COUNT 3.09 MIL/MM3 (4.50-5.90)
[2018-01-20 12:00] VITALS: BP 136/64; PULSE 56; RESP 18; TEMP 97.6; O2SAT 97
[2018-01-20 12:06] LABS: ALBUMIN 3.1 GM/DL (3.4-5.0); ALKALINE PHOSPHATASE 88 U/L (45-117); ALT (GPT) 11 U/L (12-78); AST (GOT) 9 U/L (15-37); BICARBONATE 11.6 MEQ/L (21.0-32.0); BLOOD UREA NITROGEN 47 MG/DL (7-18); CALCIUM 8.1 MG/DL (8.5-10.1); CHLORIDE 98 MEQ/L (98-107); GLOMERULAR FILTRATION RATE 5 ML/MIN (>89); GLUCOSE,RANDOM 165 MG/DL (74-106); SODIUM (NA) 127 MEQ/L (136-145); TOTAL BILIRUBIN ADULT 0.4 MG/DL (0.2-1.0); TOTAL PROTEIN 6.9 GM/DL (6.4-8.2)
[2018-01-20] MEDS ORDERED: SODIUM CHLOR 0.9% 1000 ML INJ 1,000 ML IV PRN (12:11)
[2018-01-20] MEDS ORDERED: SODIUM CHLOR 0.9% 1000 ML INJ 1,000 ML OTHER PRN ×2 (12:11)
[2018-01-20] MEDS ORDERED: GELATIN 12 MM/7 MM FOAM TOP PRN (12:15)
[2018-01-20] MEDS ORDERED: SODIUM CHLORIDE 0.9% FLUSH 10 ML FLUSH IV FLUSH PRN ×2 (12:15→14:45)
[2018-01-20] MEDS ORDERED: diphenhydrAMINE HCL 25 MG CAP PO PRN (12:15)
[2018-01-20] MEDS ORDERED: ACETAMINOPHEN 325 MG TAB PO PRN (12:15)
[2018-01-20] MEDS ORDERED: GENTAMICIN SULFATE 20 MG/2 ML VIAL OTHER PRN (12:15)
[2018-01-20] MEDS ORDERED: cloNIDine HCL 0.1 MG TAB PO PRN (12:15)
[2018-01-20] MEDS ORDERED: HEPARIN SODIUM - IV 10,000 UNITS/10 ML VIAL PRN (12:15)
[2018-01-20] MEDS ORDERED: NITROGLYCERIN 0.4 MG SL 25 TABS/BTL SL PRN (12:15)
[2018-01-20] MEDS ORDERED: HEPARIN SODIUM - IV 10,000 UNITS/10 ML VIAL IV FLUSH PRN (12:15)
[2018-01-20] MEDS ORDERED: ONDANSETRON ODT 4 MG TAB PO PRN (12:15)
[2018-01-20 12:18] LABS: CREATININE 10.68 MG/DL (0.60-1.30)
--- NOTE | 2018-01-20 12:30 | PD.CONS ---
HPI Consult Requested By Reason for Consult End-stage renal disease with need for inpatient hemodialysis. Primary Care Physician Unknown History of Present Illness This patient is a very pleasant 57-year-old male with a history of renal transplant 2 which unfortunately have both failed. Patient also has a functional pancreatic graft and continues on immunosuppressive therapy for same. Patient fell at home and unfortunately has sustained a fracture of the distal left humerus. Patient is being managed nonsurgically as a fracture has minimal displacement and the patient has opted for nonsurgical management. Unfortunately the patient's dialysis fistula is in the same upper extremity and because of need for splinting the dialysis access is not currently accessible for dialysis treatment. Patient also has a history of chronic metabolic acidosis in part related to his end-stage renal disease but also secondary to bicarbonate losses related to his pancreatic transplant. Bicarbonate level noted to be significantly low today despite p.o. sodium bicarbonate as an outpatient. Otherwise the patient has no complaints. Review of Systems Constitutional: DENIES: Diaphoretic episodes, Fatigue, Fever, Weight gain, Weight loss, Chills, Dizziness, Change in appetite, Night Sweats Respiratory: DENIES: Apneas, Cough, Snoring, Wheezing, Hemoptysis, Sputum production, Shortness of breath Cardiovascular: DENIES: Chest pain, Palpitations, Syncope, Dyspnea on Exertion , PND, Lower Extremity Edema, Orthopnea, Claudication Gastrointestinal: DENIES: Abdominal pain, Black stools, Bloody stools, Constipation, Diarrhea, Nausea, Vomiting, Difficulty Swallowing, Anorexia Musculoskeletal: COMPLAINS OF: Joint pain, DENIES: Muscle aches, Stiffness, Joint Swelling, Back pain, Neck pain Past Family Social History Allergies: Coded Allergies: No Known Allergies (Verified Allergy, Unknown, 01/19/18) Past Medical History End-stage renal disease. 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 Gastroesophageal reflux disease. Anemia of renal disease. Diabetes mellitus. Hypertension. Past Surgical History Renal transplant and pancreatic transplant as indicated above. BKA bilaterally. TURP. Appendectomy. Cholecystectomy by history. Placement of an AV dialysis fistula left upper extremity. Reported Medications Reported Meds & Active Scripts Active Aspirin DR (Aspirin) 81 Mg Tabdr 81 Mg PO DAILY Norvasc (Amlodipine Besylate) 5 Mg Tab 5 Mg PO DAILY Coreg (Carvedilol) 6.25 Mg Tab 6.25 Mg PO Q12HR Prograf (Tacrolimus) 1 Mg Cap 2 Mg PO DAILY@18 30 Days Levemir Inj (Insulin Detemir) 1,000 unit/ 10 ML Vial 10 Units SQ HS 30 Days Do not mix with any other Insulin. Ondansetron Odt 4 Mg Tab 4 Mg PO Q4H PRN Bumetanide 1 Mg Tab 2 Mg PO DAILY Ferosul (Ferrous Sulfate) 325 Mg (65 Mg Iron) Tablet 325 Mg PO BID@12,17 30 Days Fosrenol (Lanthanum Carbonate) 500 Mg Tab 500 Mg CHEW TID Prograf (Tacrolimus) 0.5 Mg Cap 2 Mg PO DAILY@0600 30 Days Sensipar (Cinacalcet) 30 Mg Tab 30 Mg PO WITH DINNER Trazodone (Trazodone HCl) 100 Mg Tablet 100 Mg PO HS Sodium Bicarbonate 650 Mg Tab 650 Mg PO BID Lexapro (Escitalopram Oxalate) 10 Mg Tab 10 Mg PO DAILY Prednisone 5 Mg Tab 5 Mg PO DAILY Azathioprine 50 Mg Tab 75 Mg PO DAILY Hazardous agent use appropriate precautions for handling and disposal. Catapres (Clonidine) 0.1 Mg Tab 0.1 Mg PO UNSCH PRN Reported Novolog Inj (Insulin Aspart) 1,000 Unit/10 Ml Vial 1-9 Units SQ ACHS Max dose at bedtime:( )units; sugars less than 70,(0)units; sugars 150-199,(1) unit; sugars 200-249,(3) units; sugars 250-299,(5) units; sugars 300-349,(7) units; sugars greater than 349,(9) units Active Ordered Medications Current Medications Acetaminophen/ Hydrocodone Bitart ([place] 5-325 Mg) 1 tab ONCE ONCE PO Last administered on 01/19/18at 14:11; Start 01/19/18 at 14:15; Stop 01/19/18 at 14:16; Status DC Sodium Chloride 1,000 ml @ 999 mls/hr BOLUS ONCE IV Last administered on at 16:06; Start 01/19/18 at 15:30; Stop 01/19/18 at 16:30; Status DC Morphine Sulfate (Morphine Inj) 4 mg ONCE ONCE IV PUSH Last administered on 01/19/18at 16:32; Start 01/19/18 at 16:15; Stop 01/19/18 at 16:16; Status DC Sodium Chloride (NS Flush) 2 ml UNSCH PRN IVF FLUSH AFTER USING IV ACCESS Last administered on 01/20/18 04:34; Start 01/19/18 at 16:15; Stop 01/20/18 at 11:30; Status DC Acetaminophen/ Hydrocodone Bitart ([place] 5-325 Mg) 1 tab Q4H PRN PO PAIN 1-5; Start 01/19/18 at 18:00; Stop 01/19/18 at 19:07; Status DC Acetaminophen/ Hydrocodone Bitart ([place] 5-325 Mg) 2 tab Q4H PRN PO PAIN 6-10 ; Start 01/19/18 at 18:00; Stop 01/19/18 at 19:07; Status DC Dextrose (D50w (Vial) Inj) 50 ml UNSCH PRN IV PUSH HYPOGLYCEMIA-SEE COMMENTS; Start 01/19/18 at 18:00 Glucagon (Glucagon Inj) 1 mg UNSCH PRN OTHER HYPOGLYCEMIA-SEE COMMENTS; Start 01/19/18 at 18:00 Insulin Aspart (NovoLOG SUPPLEMENTAL SCALE) 1 ACHS SLIDING SCALE SQ Last administered on 01/20/18 09:14; Start 01/19/18 at 21:00 Sodium Chloride (NS Flush) 2 ml UNSCH PRN IV FLUSH FLUSH AFTER USING IV ACCESS Last administered on 01/20/18 00:27; Start 01/19/18 at 19:00 Sodium Chloride (NS Flush) 2 ml BID IV FLUSH Last administered on 01/20/18 09: 14; Start 01/19/18 at 21:00 Metoclopramide HCl (Reglan Inj) 5 mg Q6H PRN IV PUSH NAUSEA OR VOMITING Last administered on 01/20/18at 07:46; Start 01/19/18 at 19:00 Acetaminophen (Tylenol) 650 mg Q6H PRN PO FEVER/PAIN SCALE 1 TO 2; Start at 19:00 Acetaminophen/ Hydrocodone Bitart ([place] 5-325 Mg) 1 tab Q4H PRN PO PAIN SCALE 3 TO 5 Last administered on 01/19/18 21:01; Start 01/19/18 at 19:00 Morphine Sulfate (Morphine Inj) 2 mg Q3H PRN IV PUSH Breakthrough Last administered on 01/20/18 11:33; Start 01/19/18 at 19:00 Senna/Docusate Sodium (Bib[place]-Colace) 1 tab BID PO ; Start 01/19/18 at 21:00 Magnesium Hydroxide (Milk Of Magnesia Liq) 30 ml Q12H PRN PO Mild constipation ; Start 01/19/18 at 19:00 Sennosides (Senokot) 17.2 mg Q12H PRN PO Moderate constipation; Start 01/19/18 at 19:00 Bisacodyl (Dulcolax Supp) 10 mg DAILY PRN RECTAL SEVERE CONSITIPATION; Start at 19:00 Lactulose (Lactulose Liq) 30 ml DAILY PRN PO SEVERE CONSITIPATION; Start at 19:00 Amlodipine Besylate (Norvasc) 5 mg DAILY PO Last administered on 01/20/18 09:15 ; Start 01/20/18 at 09:00 Azathioprine (Imuran) 75 mg DAILY PO Last administered on 01/20/18at 09:14; Start 01/20/18 at 09:00 Bumetanide (Bumetanide) 2 mg DAILY PO Last administered on 01/20/18at 09:16; Start 01/20/18 at 09:00 Carvedilol (Coreg) 6.25 mg Q12HR PO Last administered on 01/20/18 09:14; Start 01/19/18 at 21:00 Escitalopram Oxalate (Lexapro) 10 mg DAILY PO Last administered on 01/20/18at 09: 15; Start 01/20/18 at 09:00 Insulin Detemir (Levemir Inj) 10 units HS SQ ; Start 01/19/18 at 21:00 Prednisone (Deltasone) 5 mg DAILY PO Last administered on 01/20/18at 09:14; Start 01/20/18 at 09:00 Sodium Bicarbonate (Sodium Bicarbonate) 650 mg BID PO Last administered on 09:15; Start 01/19/18 at 21:00 Tacrolimus (Prograf) 2 mg DAILY@0600 PO Last administered on 01/20/18at 05:41; Start 01/20/18 at 06:00 Tacrolimus (Prograf) 2 mg DAILY@18 PO ; Start 01/20/18 at 18:00 Trazodone HCl (Desyrel) 100 mg HS PO Last administered on 01/19/18at 21:01; Start 01/19/18 at 21:00 Acetaminophen/ Hydrocodone Bitart ([place] 10-325 Mg) 1 tab Q4H PRN PO pain 6-10 Last administered on 01/20/18at 09:15; Start 01/20/18 at 00:00 Lactated Ringer's 1,000 ml @ 30 mls/hr Q24H PRN IV SEE LABEL COMMENTS; Start at 06:45; Stop 01/23/18 at 06:44 Sodium Chloride 500 ml @ 30 mls/hr [id number] PRN IV SEE LABEL COMMENTS; Start 01/20/18 at 06:45; Stop 01/23/18 at 06:44 Povidone Iodine (Betadine 5% Antisepsis Kit) 1 applic PHOTOGRAPHY ASSISTANT PRN EACH NARE SEE LABEL COMMENTS; Start 01/20/18 at 06:45; Stop 01/23/18 at 06:44 Chlorhexidine Gluconate (Chlorhexidine 2% Cloth) 3 pack PHOTOGRAPHY ASSISTANT PRN TOPICAL SEE LABEL COMMENTS; Start 01/20/18 at 06:45; Stop 01/23/18 at 06:44 Heparin Sodium (Porcine) (Heparin Inj) 5,000 units Q12H SQ ; Start 01/20/18 at 21 :00 Sodium Chloride 1,000 ml @ 0 mls/hr Q0M PRN OTHER For Prime & Rinse Back; Start 01/20/18 at 12:11 Heparin Sodium (Porcine) (Heparin Inj) 8,000 units UNSCH PRN IV FLUSH WITH DIALYSIS; Start 01/20/18 at 12:15 Sodium Chloride 1,000 ml @ 200 mls/hr Q5H PRN IV WITH DIALYSIS; Start 01/20/18 at 12:11 Sodium Chloride 1,000 ml @ 0 mls/hr Q0M PRN OTHER WITH DIALYSIS; Start 01/20/18 at 12:11 Albumin Human 100 ml @ 60 mls/hr UNSCH PRN IV WITH DIALYSIS; Start 01/20/18 at 12:15; Status UNV Sodium Chloride (NS Flush) 5 ml UNSCH PRN IV FLUSH WITH DIALYSIS; Start at 12:15 Heparin Sodium (Porcine) (Heparin Inj) UNSCH PRN .XX WITH DIALYSIS; Start 01/20 at 12:15 Gentamicin Sulfate (Gentamicin Inj) 20 mg UNSCH PRN OTHER WITH DIALYSIS; Start 01/20/18 at 12:15 Ondansetron HCl (Zofran Odt) 4 mg UNSCH PRN PO WITH DIALYSIS; Start 01/20/18 at 12:15 Acetaminophen (Tylenol) 650 mg UNSCH PRN PO for headach, pain, temp > 101F; Start 01/20/18 at 12:15 Diphenhydramine HCl (Benadryl) 25 mg UNSCH PRN PO for hives/itching/anaphylaxis ; Start 01/20/18 at 12:15 Nitroglycerin (Nitrostat Sl) 0.4 mg UNSCH PRN SL CHEST PAIN; Start 01/20/18 at 12:15; Status UNV Clonidine (Catapres) 0.1 mg UNSCH PRN PO for BP > 180/100 X 2 readings; Start 01/20/18 at 12:15; Status UNV Gelatin (Gelfoam 12 Mm/7 Mm Top) 1 foam UNSCH PRN TOP SEE LABEL COMMENTS; Start 01/20/18 at 12:15; Status UNV Family History Noncontributory to current complaint. Social History Noncontributory to current complaint. No history of illicit drug use. No history of alcohol abuse. Physical Exam Vital Signs Vital Signs Date Time Temp Pulse Resp B/P (MAP) Pulse Ox O2 Delivery O2 Flow Rate FiO2 01/20/18 08:00 Room Air 01/20/18 04:00 97.9 56 18 152/72 (98) 97 01/20/18 00:00 97.8 57 18 142/66 (91) 95 01/19/18 20:00 97.8 56 18 130/63 (85) 96 01/19/18 18:50 97.8 82 16 128/77 (94) 99 01/19/18 16:38 16 01/19/18 16:10 17 98 Room Air 01/19/18 16:05 97.8 86 16 136/72 (93) 98 Room Air 01/19/18 15:15 16 01/19/18 13:55 56 97 01/19/18 13:55 98.1 57 16 132/76 (94) 98 Room Air Physical Exam GENERAL: General examination reveals a very pleasant middle-aged male sitting in a chair not in respiratory distress. SKIN: Warm and dry. HEAD: Normocephalic. EYES: No scleral icterus. No injection or drainage. NECK: Supple, trachea midline. No JVD or lymphadenopathy. CARDIOVASCULAR: Regular rate and rhythm without murmurs, gallops, or rubs. RESPIRATORY: Breath sounds equal bilaterally. No accessory muscle use. GASTROINTESTINAL: Abdomen soft, non-tender, nondistended. MUSCULOSKELETAL: No cyanosis, or edema. Left upper extremity has occlusive splinting in place. Unable to physically examine the AV fistula. Laboratory Laboratory Tests Test 01/19/18 16:50 01/20/18 10:05 01/20/18 10:23 White Blood Count 5.8 6.0 Red Blood Count 2.82 3.09 Hemoglobin 10.1 10.9 Hematocrit 29.5 32.2 Mean Corpuscular Volume 104.6 104.4 Mean Corpuscular Hemoglobin 35.7 35.3 Mean Corpuscular Hemoglobin Concent 34.1 33.8 Red Cell Distribution Width 16.0 16.0 Platelet Count 147 164 Mean Platelet Volume 6.5 6.6 Neutrophils (%) (Auto) 67.7 70.0 Lymphocytes (%) (Auto) 21.9 20.4 Monocytes (%) (Auto) 7.7 7.1 Eosinophils (%) (Auto) 2.0 1.8 Basophils (%) (Auto) 0.7 0.7 Neutrophils # (Auto) 3.9 4.2 Lymphocytes # (Auto) 1.3 1.2 Monocytes # (Auto) 0.4 0.4 Eosinophils # (Auto) 0.1 0.1 Basophils # (Auto) 0.0 0.0 CBC Comment DIFF FINAL DIFF FINAL Differential Comment Prothrombin Time 10.5 Prothromb Time International Ratio 1.0 Activated Partial Thromboplast Time 23.9 Blood Urea Nitrogen 35 47 Creatinine 9.07 10.68 Random Glucose 164 165 Total Protein 6.3 6.9 Albumin 2.9 3.1 Calcium Level 8.3 8.1 Alkaline Phosphatase 66 88 Aspartate Amino Transf (AST/SGOT) 8 9 Alanine Aminotransferase (ALT/SGPT) 9 11 Total Bilirubin 0.4 0.4 Sodium Level 129 127 Potassium Level 4.6 4.8 Chloride Level 99 98 Carbon Dioxide Level 14.1 11.6 Anion Gap 16 17 Estimat Glomerular Filtration Rate 6 5 Result Diagram: 01/20/18 1005 01/20/18 1023 Imaging Last 48 hours Impressions Chest X-Ray 01/19/18 1606 Signed Impressions: CONCLUSION: Mild bibasilar atelectasis. Stable, mild compensated cardiomegaly. Elbow X-Ray 01/19/18 1537 Signed Impressions: CONCLUSION: Acute, mildly comminuted, minimally displaced supracondylar fracture of the dis chiquita left humerus. Other findings are chronic/old, as above. Assessment and Plan Problem List: (1) End stage renal disease on dialysis ICD Codes: N18.6 - End stage renal disease; Z99.2 - Dependence on renal dialysis Status: Chronic Plan: Patient with end-stage renal disease. Regular dialysis days are Saturday and Saturday and the patient is scheduled for dialysis today. There is evidence of significant metabolic acidosis related to end-stage renal disease as well as his pancreatic transplant with associated bicarbonate losses. Would like to proceed with dialysis today but as indicated the patient has a fractured left humerus and his dialysis access is currently not accessible. After counseling the patient has agreed to Vas-Cath placement today for dialysis with subsequent conversion to a hemodialysis PermCath when the patient is adequately n.p.o. for that procedure. Medication should be adjusted for the patient's end-stage renal disease when indicated. Avoid gadolinium. (2) Pancreas transplant status ICD Codes: Z94.83 - Pancreas transplant status Plan: Patient currently on immunosuppressive therapy per transplant center in view of the fact that his pancreatic allograft is still functional. (3) Left humeral fracture ICD Codes: S42.302A - Unspecified fracture of shaft of humerus, left arm, initial encounter for closed fracture Status: Acute (4) Anemia in CKD (chronic kidney disease) ICD Codes: N18.9 - Chronic kidney disease, unspecified; D63.1 - Anemia in chronic kidney disease Status: Chronic Problem Qualifiers (1) Left humeral fracture: Rodo Ramirez MD Jan 20, 2018 12:30
--- NOTE | 2018-01-20 14:38 | PD.RAD ---
Post Procedure Progress Note Pre Procedure Diagnosis: (1) End stage renal disease on dialysis (2) Left humeral fracture Post Procedure Diagnosis: (1) Left humeral fracture (2) End stage renal disease on dialysis Procedure Date: Jan 20, 2018 Supervising Radiologist: Augusto Coello JR Proceduralist/Assist: Other Anesthesia: Local Plan of Activity Patient to Unit: Nursing Unit Patient Condition: Good See PACS Report for procedural detail/treatment Central Venous Access Device Procedure 1 Right Internal Jugular Hemodialysis Catheter Non-Tunneled Placement dual lumen Tajik: 14 Findings: Placed RIJ Vascath. In good position and functions well. OK to use. Jr. Mode,Augusto Frederick MD Jan 20, 2018 14:38
[2018-01-20] MEDS ORDERED: HEPARIN SODIUM - IV 2,000 UNITS/2 ML VIAL IV FLUSH PRN (14:45)
--- NOTE | 2018-01-20 16:37 | OTSOAPIP ---
TIME SESSION COMPLETED: 1630 RECEIVED OCCUPATIONAL THERAPY ORDERS. PATIENT OFF FLOOR FOR DIALYSIS. WILL REATTEMPT TOMORROW. INTERDISCIPLINARY COMMUNICATION: REVIEWED ELECTRONIC MEDICAL RECORD, SPOKE WITH NURSING Therapist: Connie Rao OTR/Sarah Signature on file
[2018-01-20 20:00] VITALS: BP 111/64; PULSE 78; RESP 16; TEMP 97.8; O2SAT 97
[2018-01-20] MEDS: traZODone HCL 100 MG TAB PO SCH (20:10)
[2018-01-20] MEDS: HEPARIN SODIUM - SQ 10,000 UNITS/ML VIAL SQ SCH (20:11)
[2018-01-20] MEDS: INSULIN DETEMIR 100 UNITS/ML VIAL SQ SCH (21:33)
[2018-01-21] VITALS: BP 144/78; PULSE 71; RESP 18; TEMP 97.8; O2SAT 94
[2018-01-21] MEDS: MORPHINE SULFATE 4 MG/ML INJ IV PUSH PRN ×2 (03:05→09:19)
[2018-01-21] MEDS: TACROLIMUS 1 MG CAP PO SCH ×2 (05:51→17:15)
[2018-01-21] MEDS: ACETAMINOPHEN/HYDROcodone 325 MG/10 MG TAB PO PRN ×3 (05:51→20:43)
[2018-01-21 08:00] VITALS: BP 91/47; PULSE 69; RESP 18; TEMP 96.9; O2SAT 92
[2018-01-21] MEDS: INSULIN ASPART SUPPLEMENTAL SCALE SQ SCH ×4 (08:00→20:42)
--- NOTE | 2018-01-21 08:19 | RADRPT ---
EXAM DATE: 01/20/2018 2:59 PM EDT AGE/SEX: 57 years / Male INDICATIONS: Patient on dialysis needs access . AV fistula cannot be accessed due to broken left elb ow. CLINICAL DATA: This is the patient's initial encounter. Patient reports that signs and symptoms have been present for 1 day and indicates a pain score of 6/10. MEDICAL/SURGICAL HISTORY: Hypertension. Diabetes. Renal disease, end stage. CAD AV fistula l eft kidney transplant [id number] transplant bilateral [id number] eye cholecystectomy appendectomy COMPARISON: No prior [facility] exams available for comparison. FLUORO TIME (min): 0.7 IMAGE SERIES: 2 ACCESS SITE: Right internal jugular vein DEVICE(S): 14 [place]onian double lumen Schon catheter 15 cm . . PROCEDURE : 1. Ultrasound guided venipuncture. 2. Fluoroscopic guidance. 3. Central line placement. The risks, benefits and alternatives to the procedure were explained and verbal and written consent w as obtained. The site was prepped in sterile fashion. Full sterile technique was used, including ca p, mask, sterile gloves and gown and a large sterile sheet. Hand hygiene and 2% chlorhexidine prep w as utilized per protocol for cutaneous antisepsis with appropriate dry time for site. Sterile gel an d sterile probe cover were utilized for ultrasound guidance. The skin and subcutaneous tissues were infiltrated with local anesthetic solution. A suitable site a isabel the vein was selected with ultrasound and fluoroscopic guidance. A small incision was made. Th e vein was accessed under direct ultrasound visualization using the micropuncture technique. The anna ropuncture set was exchanged for a 0.035 wire. The tract was dilated. The catheter was advanced int o position under direct fluoroscopic visualization, and was advanced with the tip at the junction of the superior vena cava and rt atrium. The catheter was fixed in place with suture and a sterile dres sing was applied. The patient tolerated the procedure well and there were no complications. CONCLUSION: 1. Uncomplicated line placement as above. Electronically signed by: Augusto Coello MD 01/21/2018 8:17 AM EDT
[2018-01-21] MEDS: DOCUSATE SODIUM 50 MG/SENNA 8.6 MG TAB PO SCH ×2 (09:00→20:43)
[2018-01-21] MEDS: SODIUM CHLORIDE 0.9% FLUSH 10 ML FLUSH IV FLUSH SCH ×2 (09:17→20:44)
[2018-01-21] MEDS: HEPARIN SODIUM - SQ 10,000 UNITS/ML VIAL SQ SCH ×2 (09:18→20:41)
[2018-01-21] MEDS: amLODIPine BESYLATE 5 MG TAB PO SCH (09:22)
[2018-01-21] MEDS: BUMETANIDE 1 MG TAB PO SCH (09:22)
[2018-01-21] MEDS: predniSONE 5 MG TAB PO SCH (09:22)
[2018-01-21] MEDS: CARVEDILOL 6.25 MG TAB PO SCH ×2 (09:22→20:43)
[2018-01-21] MEDS: ESCITALOPRAM OXALATE 10 MG TAB PO SCH (09:23)
[2018-01-21] MEDS: SODIUM BICARBONATE 650 MG TAB PO SCH ×2 (09:23→20:42)
[2018-01-21] MEDS: azaTHIOprine 50 MG TAB PO SCH (09:23)
--- NOTE | 2018-01-21 10:11 | HHI.PR ---
Subjective Remarks Doing okay. Overall pain control. No other concerns at this time. Open now going to rehab. Awaiting nephrology to determine when permacath can be placed. Objective Vitals Vital Signs Date Time Temp Pulse Resp B/P (MAP) Pulse Ox O2 Delivery O2 Flow Rate FiO2 01/21/18 09:27 18 01/21/18 00:00 97.8 71 18 144/78 (100) 94 01/20/18 20:00 97 Room Air 01/20/18 20:00 97.8 78 16 111/64 (80) 97 01/20/18 16:00 Room Air 01/20/18 12:00 97.6 56 18 136/64 (88) 97 01/20/18 12:00 Room Air I/O 01/20/18 01/20/18 01/20/18 01/21/18 01/21/18 01/21/18 07:00 15:00 23:00 07:00 15:00 23:00 Intake Total 0 ml 240 ml 360 ml Output Total 3000 ml Balance 0 ml -2760 ml 360 ml Intake Oral 0 ml 240 ml 360 ml Hemodialysis 3000 ml # Voids 0 1 # Bowel Movements 1 0 Result Diagram: 01/20/18 1005 01/20/18 1023 Other Results Item Value Date Time Bedside Blood Glucose 113 mg/dl 01/21/18 0800 Bedside Blood Glucose 208 mg/dl 01/20/18 2135 Bedside Blood Glucose 163 mg/dl 01/20/18 1705 Objective Remarks GENERAL: This is a well-nourished, well-developed patient, in no apparent distress. chest wall: Right Vas-Cath in place CARDIOVASCULAR: Regular rate and rhythm RESPIRATORY: Clear to auscultation. Breath sounds equal bilaterally. No wheezes , rales, or rhonchi. GASTROINTESTINAL: Abdomen soft, non-tender, nondistended. Normal active bowel sounds MUSCULOSKELETAL: Left upper arm in the sling and splint bandage clean dry and intact. Patient was neurovascularly intact, bilateral BKA unchanged. NEURO: Alert & Oriented x4 to person, place, time, situation. A/P Problem List: (1) Left humeral fracture ICD Code: S42.302A - Unspecified fracture of shaft of humerus, left arm, initial encounter for closed fracture Status: Acute Assessment and Plan 57-year-old male with a history of ESRD on dialysis MWF w/ Dr. Ramirez, hypertension, diabetes mellitus insulin-dependent, kidney transplant and pancreatic transplant, blind right eye, GERD presented to the ED status post fall. Acute elbow fracture, left Elbow x-ray shows acute, mildly comminuted, minimally displaced supracondylar fracture of the distal left humerus -Consult orthopedic, Dr. Sarkar who states that the fracture seems to be in good alignment this time recommend a non-surgical management of the fracture. ESRD on dialysis, creatinine appears around baseline -Consult nephrology, patient does dialysis on MWF -Avoid nephrotoxins -Continue home medications sodium bicarb Patient had Vas-Cath placement yesterday due to his left fistula in the same area as his left humerus fracture. Dr. bergman, nephrology states that patient will need conversion to permacath prior to discharge. Diabetes mellitus, insulin-dependent, chronic -labile blood sugar controlled will continue with blood sugar monitoring with sliding scale insulin -Continue home long-acting insulin Hypertension, chronic essential -Continue home medications Norvasc, carvedilol -monitor vitals Kidney and pancreas transplant, chronic -Resume home medications Prograf DVT prophylaxis: Restart heparin Discharge Planning To [place] versus SNF upon discharge Problem Qualifiers (1) Left humeral fracture: Joan Pond MD Jan 21, 2018 10:11
[2018-01-21 12:00] VITALS: BP 125/66; PULSE 76; RESP 18; TEMP 99; O2SAT 91
--- NOTE | 2018-01-21 12:05 | HHI.NPPN ---
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 Patient also has a functional pancreatic graft and continues on immunosuppressive therapy for same. Patient fell at home and unfortunately has sustained a fracture of the distal left humerus. Patient is being managed nonsurgically as a fracture has minimal displacement and the patient has opted for nonsurgical management. Unfortunately the patient's dialysis fistula is in the same upper extremity and because of need for splinting the dialysis access is not currently accessible for dialysis treatment. Patient also has a history of chronic metabolic acidosis in part related to his end-stage renal disease but also secondary to bicarbonate losses related to his pancreatic transplant. Bicarbonate level noted to be significantly low today despite p.o. sodium bicarbonate as an outpatient. Interval History Patient tolerated his dialysis well yesterday. No verbal complaints today. He indicated that he may be transferred to [place] rehab. Objective Data Data Vital Signs Date Time Temp Pulse Resp B/P (MAP) Pulse Ox O2 Delivery O2 Flow Rate FiO2 01/21/18 09:27 18 01/21/18 00:00 97.8 71 18 144/78 (100) 94 01/20/18 20:00 97 Room Air 01/20/18 20:00 97.8 78 16 111/64 (80) 97 01/20/18 16:00 Room Air -: 01/20/18 1005 01/20/18 1023 Physical Exam General Appearance: Well Developed, Well Nourished, No Acute Distress, Comfortable Eyes Eye Exam: Sclera White Pulmonary Resp Exam: Clear Bilaterally, Breath Sounds Equal Cardiology CV Exam: Regular, Normal Sinus Rhythm Gastrointestinal/Abdomen GI Exam: Soft, Non-Tender Integumentary Skin Exam: Normal Turgor Extremeties Extremities Exam: No Edema Neurologic Neuro Exam: Alert, Awake, Moving All Extremities Psychiatric Psych Exam: Appropriate Responses Assessment/Plan Problem List: (1) End stage renal disease on dialysis ICD Codes: N18.6 - End stage renal disease; Z99.2 - Dependence on renal dialysis Status: Chronic Plan: Patient with end-stage renal disease. Regular dialysis days are Saturday and Saturday.. We will consult radiology to confirm Vas-Cath her hemodialysis PermCath in preparation for discharge. Medication should be adjusted for the patient's end-stage renal disease when indicated. Avoid gadolinium. (2) Pancreas transplant status ICD Codes: Z94.83 - Pancreas transplant status Plan: Patient currently on immunosuppressive therapy per transplant center in view of the fact that his pancreatic allograft is still functional. (3) Left humeral fracture ICD Codes: S42.302A - Unspecified fracture of shaft of humerus, left arm, initial encounter for closed fracture Status: Acute (4) Anemia in CKD (chronic kidney disease) ICD Codes: N18.9 - Chronic kidney disease, unspecified; D63.1 - Anemia in chronic kidney disease Status: Chronic Problem Qualifiers (1) Left humeral fracture: Rodo Ramirez MD Jan 21, 2018 12:05
[2018-01-21] MEDS ORDERED: VANCOMYCIN INJ 1,000 MG in SODIUM CHLOR 0.9% 250 ML INJ 250 ML IV SCH (13:45)
[2018-01-21] MEDS ORDERED: ceFAZolin 2 GM PREMIX 50 ML IV SCH (13:45)
[2018-01-21 20:30] VITALS: BP 105/52; PULSE 120; RESP 17; TEMP 97.7; O2SAT 93
[2018-01-21] MEDS: traZODone HCL 100 MG TAB PO SCH (20:42)
[2018-01-21] MEDS: INSULIN DETEMIR 100 UNITS/ML VIAL SQ SCH (20:42)
[2018-01-22] VITALS (7 sets, daily range): BP systolic 117–152; BP diastolic 61–69; PULSE 65–91; RESP 16–20; TEMP 97.4–98.5; O2SAT 92–100
[2018-01-22] MEDS: TACROLIMUS 1 MG CAP PO SCH ×2 (05:52→18:08)
[2018-01-22] MEDS: INSULIN ASPART SUPPLEMENTAL SCALE SQ SCH ×4 (08:00→20:35)
[2018-01-22] MEDS: SODIUM CHLORIDE 0.9% FLUSH 10 ML FLUSH IV FLUSH SCH ×2 (08:13→20:32)
[2018-01-22] MEDS: SODIUM BICARBONATE 650 MG TAB PO SCH ×2 (08:14→20:34)
[2018-01-22] MEDS: amLODIPine BESYLATE 5 MG TAB PO SCH (08:14)
[2018-01-22] MEDS: predniSONE 5 MG TAB PO SCH (08:14)
[2018-01-22] MEDS: azaTHIOprine 50 MG TAB PO SCH (08:14)
[2018-01-22] MEDS: CARVEDILOL 6.25 MG TAB PO SCH ×2 (08:14→20:32)
[2018-01-22] MEDS: ESCITALOPRAM OXALATE 10 MG TAB PO SCH (08:14)
[2018-01-22] MEDS: ACETAMINOPHEN/HYDROcodone 325 MG/10 MG TAB PO PRN ×2 (08:15→18:44)
[2018-01-22] MEDS: HEPARIN SODIUM - SQ 10,000 UNITS/ML VIAL SQ SCH ×2 (08:15→20:35)
[2018-01-22] MEDS: DOCUSATE SODIUM 50 MG/SENNA 8.6 MG TAB PO SCH ×2 (08:15→20:34)
[2018-01-22] MEDS: BUMETANIDE 1 MG TAB PO SCH (08:21)
[2018-01-22] MEDS: ALBUMIN 25% INJ 100 ML IV PRN ×2 (09:41→09:57)
--- NOTE | 2018-01-22 09:41 | RADRPT ---
EXAM DATE: 01/22/2018 9:15 AM EDT AGE/SEX: 57 years / Male INDICATIONS: Evaluate left elbow fracture post op. CLINICAL DATA: This is the patient's subsequent encounter. Patient reports that signs and symptoms h ave been present for 3 days and indicates a pain score of 8/10. MEDICAL/SURGICAL HISTORY: . Fx left elbow. . ORIF left elbow. [place] [facility] [place] & [place]19/[place]. . FINDINGS: 3 views of the left elbow with posterior casting material in place demonstrates a transverse mildly c omminuted fracture of the distal left humerus in the supracondylar region. Distal fragment is displac ed anteriorly by approximately 4 mm which is very similar to the prior study. Fracture line does not appear to involve the articular surface. There are posterior K wires and a cerclage wires in the prox imal ulna, stable from the prior study. Posterior elbow soft tissue swelling remains present. There i s arterial vascular calcification. Multiple surgical clips are present in the distal medial arm. CONCLUSION: 1. There is a transverse distal left humeral supracondylar fracture with mild displacement of 4 mm. Displacement is similar to the prior examination. 2. Elbow region soft tissue swelling. There is severe vascular calcification. Electronically signed by: Gage Escobar MD 01/22/2018 9:39 AM EDT
[2018-01-22] MEDS ORDERED: VANCOMYCIN INJ 1,000 MG in SODIUM CHLOR 0.9% 250 ML INJ 250 ML IV SCH (13:30)
[2018-01-22] MEDS: ACETAMINOPHEN/HYDROcodone 325 MG/5 MG TAB PO PRN (14:45)
[2018-01-22] MEDS ORDERED: MIDAZOLAM HCL 2 MG/2 ML VIAL ONE (15:17)
[2018-01-22] MEDS ORDERED: fentaNYL CITRATE 250 MCG/5 ML AMP ONE (15:17)
[2018-01-22] MEDS ORDERED: LIDOCAINE 1%/EPINEPHrine 1:100,000 SOLN 30 ML VIAL ONE (15:22)
--- NOTE | 2018-01-22 16:07 | PD.RAD ---
Post Procedure Progress Note Pre Procedure Diagnosis: (1) CKD (chronic kidney disease) stage 4, GFR 15-29 ml/min Post Procedure Diagnosis: (1) CKD (chronic kidney disease) stage 4, GFR 15-29 ml/min Procedure Date: Jan 22, 2018 Supervising Radiologist: Augusto Coello JR Proceduralist/Assist: Shelly Boothe, RT(R), Briana Srinivasan, RT(R)(CV) Anesthesia: Conscious Sedation Plan of Activity Patient to Unit: ROPU Patient Condition: Good See PACS Report for procedural detail/treatment Central Venous Access Device Procedure 1 Right Internal Jugular Hemodialysis Catheter Tunneled Placement dual lumen [place]: 15 Findings: Exchanged Vascath for Permcath. Functions well. OK to use. Plan Remove suture at base of neck and suture holding Permacath in place in 2-3 weeks. Jr. Mode,Augusto Frederick MD Jan 22, 2018 16:07
[2018-01-22] MEDS ORDERED: HEPARIN SODIUM - IV 2,000 UNITS/2 ML VIAL IV FLUSH PRN (16:15)
[2018-01-22] MEDS ORDERED: SODIUM CHLORIDE 0.9% FLUSH 10 ML FLUSH IV FLUSH PRN (16:15)
--- NOTE | 2018-01-22 16:49 | RADRPT ---
EXAM DATE: 01/22/2018 4:16 PM EDT AGE/SEX: 57 years / Male INDICATIONS: Patient on dialysis needs permacath. AV fistula cannot be accessed due to broken left e lbow. CLINICAL DATA: This is the patient's subsequent encounter. Patient reports that signs and symptoms h ave been present for 4 - 6 days and indicates a pain score of 9/10. MEDICAL/SURGICAL HISTORY: Hypertension. Diabetes. Renal disease, end stage. CAD, AV fistula, Cholecystectomy. Appendectomy. AV fistula Left kidney transplant Pancreas transplant Bilateral BK A TURP COMPARISON: No prior exams available for comparison. FLUORO TIME (min): 0.23 IMAGE SERIES: 1 SEDATION TIME (min): 30 MEDICATION(S): 2mg midazolam (Versed) IV 150mcg fentanyl (Sublimaze) IV Prophylactic antibiotics were administered with appropriate pre-procedure timing. DEVICE(S): Right 19cm Permacath . . PROCEDURE: 1. Dialysis catheter placement. 2. Conscious sedation with continuous EKG and oximetry monitoring. The risks, benefits and alternatives to the procedure were explained and verbal and written consent w as obtained. The site was prepped in sterile fashion. Full sterile technique was used, including ca p, mask, sterile gloves and gown and a large sterile sheet. Hand hygiene and 2% chlorhexidine and/or betadine/alcohol prep was utilized per protocol for cutaneous antisepsis. The skin and subcutaneous tissues were infiltrated with local anesthetic solution. With fluoroscopic guidance a dermatotomy was created using the existing venous access. A subcutaneou s tunnel was created in a retrograde fashion the catheter was pulled through the tunnel. The cathete r was flushed and assembled and locked with heparin. The catheter was sutured in place. Conscious sedation was performed with the prescribed dosages and duration as above in the presence of an independent trained radiology nurse to assist in the monitoring of the patient. EKG and oximetry remained stable throughout the procedure. The patient tolerated the procedure well and there were n o complications. The patient was sent to post anesthesia recovery in stable condition. CONCLUSION: 1. Uncomplicated Dialysis catheter placement as above. Electronically signed by: Augusto Coello MD 01/22/2018 4:48 PM EDT
--- NOTE | 2018-01-22 16:55 | HHI.PR ---
Subjective Remarks Pt just came back from his permacath placement. Has some knee discomfort but that is chronic for him. No CP/SOB/N/V Objective Vitals Vital Signs Date Time Temp Pulse Resp B/P (MAP) Pulse Ox O2 Delivery O2 Flow Rate FiO2 01/22/18 08:10 Room Air 01/22/18 08:00 97.9 75 19 128/69 (88) 93 01/22/18 00:55 98.3 65 17 118/61 (80) 92 01/21/18 20:30 97.7 120 17 105/52 (69) 93 I/O 01/21/18 01/21/18 01/21/18 01/22/18 01/22/18 01/22/18 07:00 15:00 23:00 07:00 15:00 23:00 Intake Total 360 ml 360 ml 200 ml Output Total 300 ml 1500 ml Balance 360 ml -300 ml 360 ml -1300 ml Intake Oral 360 ml 360 ml IV Total 200 ml Output Urine Total 300 ml Hemodialysis 1500 ml # Voids 1 1 # Bowel Movements 0 1 Result Diagram: 01/20/18 1005 01/20/18 1023 Imaging Last Impressions Elbow X-Ray 01/22/18 0000 Signed Impressions: CONCLUSION: 1. There is a transverse distal left humeral supracondylar fracture with mild displacement of 4 mm. Displacement is similar to the prior examination. 2. Elbow region soft tissue swelling. There is severe vascular calcification. Catheter Placement X-Ray 01/20/18 0000 Signed Impressions: CONCLUSION: 1. Uncomplicated line placement as above. Chest X-Ray 01/19/18 1606 Signed Impressions: CONCLUSION: Mild bibasilar atelectasis. Stable, mild compensated cardiomegaly. Objective Remarks GENERAL: laying in bed chest wall: permacath noted and no signs of hematoma CARDIOVASCULAR: Regular rate and rhythm RESPIRATORY: Clear to auscultation. Breath sounds equal bilaterally. No wheezes GASTROINTESTINAL: Abdomen soft, non-tender, nondistended. Normal active bowel sounds MUSCULOSKELETAL: Left upper arm in the sling and splint bandage clean dry and intact. Patient was neurovascularly intact, bilateral BKA unchanged. A/P Problem List: (1) Left humeral fracture ICD Code: S42.302A - Unspecified fracture of shaft of humerus, left arm, initial encounter for closed fracture Status: Acute Assessment and Plan 57-year-old male with a history of ESRD on dialysis MWF w/ Dr. Ramirez, hypertension, diabetes mellitus insulin-dependent, kidney transplant and pancreatic transplant, blind right eye, GERD presented to the ED status post fall. Acute elbow fracture, left Elbow x-ray shows acute, mildly comminuted, minimally displaced supracondylar fracture of the distal left humerus -Orthopedic surgery evaluated the pt and recommends non-surgical management of the fracture at this time. f/u w Dr. Sarkar as an outpatient. ESRD on dialysis, creatinine appears around baseline -nephrology following, patient does dialysis on MWF -Avoid nephrotoxins -Continue home medications sodium bicarb Pt initially had a Vas-Cath placed and today s/p permacath placement by IR Diabetes mellitus, insulin-dependent, chronic -labile blood sugar controlled will continue with blood sugar monitoring with sliding scale insulin -Continue home long-acting insulin Hypertension, chronic essential -Continue home medications Norvasc, carvedilol -monitor vitals Kidney and pancreas transplant, chronic -on Prograf/prednisone/azithioprine DVT prophylaxis: Restart heparin Discharge Planning anticipate d/c to [place] tomorrow. Problem Qualifiers (1) Left humeral fracture: Zina Puente MD Jan 22, 2018 16:55
[2018-01-22] MEDS: traZODone HCL 100 MG TAB PO SCH (20:32)
[2018-01-22] MEDS: INSULIN DETEMIR 100 UNITS/ML VIAL SQ SCH (20:35)
[2018-01-23] VITALS: BP 133/60; PULSE 63; RESP 18; TEMP 97.6; O2SAT 97
[2018-01-23] MEDS: TACROLIMUS 1 MG CAP PO SCH (06:29)
[2018-01-23] MEDS: ACETAMINOPHEN/HYDROcodone 325 MG/10 MG TAB PO PRN ×2 (06:29→10:55)
--- NOTE | 2018-01-23 06:38 | PD.ORT.PN ---
Subjective Subjective Remarks Patient is awake and alert. No complaints. Pain controlled Objective Vitals Vital Signs Date Time Temp Pulse Resp B/P (MAP) Pulse Ox O2 Delivery O2 Flow Rate FiO2 01/23/18 00:00 97.6 63 18 133/60 (84) 97 01/22/18 20:00 97.4 87 20 122/61 (81) 100 01/22/18 17:18 98.3 90 19 152/65 (94) 94 01/22/18 16:45 85 16 137/64 (88) 99 01/22/18 16:30 89 16 129/68 (88) 96 01/22/18 16:15 98.5 91 16 117/61 (79) 93 01/22/18 08:10 Room Air 01/22/18 08:00 97.9 75 19 128/69 (88) 93 I/O 01/22/18 01/22/18 01/22/18 01/23/18 01/23/18 01/23/18 07:00 15:00 23:00 07:00 15:00 23:00 Intake Total 360 ml 200 ml 360 ml Output Total 1500 ml Balance 360 ml -1300 ml 360 ml Intake Oral 360 ml 360 ml IV Total 200 ml Hemodialysis 1500 ml # Voids 1 # Bowel Movements 1 Result Diagram: 01/20/18 1005 01/20/18 1023 Imaging Last 24 hours Impressions Chest X-Ray 01/19/18 1606 Signed Impressions: CONCLUSION: Mild bibasilar atelectasis. Stable, mild compensated cardiomegaly. Elbow X-Ray 01/19/18 1537 Signed Impressions: CONCLUSION: Acute, mildly comminuted, minimally displaced supracondylar fracture of the dis chiquita left humerus. Other findings are chronic/old, as above. Objective Remarks Right upper extremity: Full range of motion neurovascularly intact Bilateral lower extremities: No pain with range of motion of hip or knees. Bilateral below-knee amputations. No complications. Skin intact Left upper extremity: No pain with shoulder range of motion. Splint intact with pain over elbow. Distally he has intact sensation in all fingers. He has previous amputations of 2 fingers. He is able to extend and flex his fingers. Good capillary refill Assessment & Plan Assessment and Plan Minimally displaced left supracondylar humerus fracture--x-rays reviewed from 01/22/2018--fracture is still well aligned Due to alignment of fracture and comorbidities we will recommend nonoperative treatment of this distal humerus. He will maintain the splint and be nonweightbearing on the left upper extremity. This obviously poses challenges due to being a bilateral below-knee amputation. Rehab may need to be considered. We will re-x-ray the elbow in 10-14 days--follow-up in clinic in 10 -14 days. Renal failure--continue dialysis as needed Carlos Sarkar MD Jan 23, 2018 06:38
[2018-01-23] MEDS: INSULIN ASPART SUPPLEMENTAL SCALE SQ SCH (08:00)
[2018-01-23 08:14] VITALS: BP 138/67; PULSE 77; RESP 18; TEMP 97.3; O2SAT 91
[2018-01-23] MEDS: SODIUM BICARBONATE 650 MG TAB PO SCH (08:18)
[2018-01-23] MEDS: azaTHIOprine 50 MG TAB PO SCH (08:19)
[2018-01-23] MEDS: predniSONE 5 MG TAB PO SCH (08:19)
[2018-01-23] MEDS: CARVEDILOL 6.25 MG TAB PO SCH (08:19)
[2018-01-23] MEDS: ESCITALOPRAM OXALATE 10 MG TAB PO SCH (08:19)
[2018-01-23] MEDS: amLODIPine BESYLATE 5 MG TAB PO SCH (08:19)
[2018-01-23] MEDS: HEPARIN SODIUM - SQ 10,000 UNITS/ML VIAL SQ SCH (08:20)
[2018-01-23] MEDS: DOCUSATE SODIUM 50 MG/SENNA 8.6 MG TAB PO SCH (08:21)
[2018-01-23] MEDS: SODIUM CHLORIDE 0.9% FLUSH 10 ML FLUSH IV FLUSH SCH (08:27)
[2018-01-23] MEDS: BUMETANIDE 1 MG TAB PO SCH (08:27)
--- NOTE | 2018-01-23 08:43 | HHI.DS ---
Discharge Summary Admission Date Jan 19, 2018 at 18:02 Discharge Date: Jan 23, 2018 Admitting Diagnosis Supracondylar fracture left elbow (1) Left humeral fracture ICD Code: S42.302A - Unspecified fracture of shaft of humerus, left arm, initial encounter for closed fracture Status: Acute Procedures Please see below Brief History - From Admission 57-year-old male with a history of ESRD on dialysis MWF w/ Dr. Ramirez, hypertension, neuropathy, diabetes, kidney transplant and pancreatic transplant , blind right eye, GERD presented to the ED status post fall. Patient states he was walking outside with the ground became on level between the sidewalk in the grass and he tripped and fell landing on his left arm. Patient states the pain to his left arm is constant, 8/10, throbbing, worse with movement, better with pain medication with no radiation or associated symptoms. Prior to fall patient denies any chest pain, shortness of breath or dizziness. He denies hitting his head. CBC/BMP: 01/20/18 1005 01/20/18 1023 Significant Findings Laboratory Tests Test 01/20/18 10:05 01/20/18 10:23 Red Blood Count 3.09 MIL/MM3 (4.50-5.90) Hemoglobin 10.9 GM/DL (13.0-17.0) Hematocrit 32.2 % (39.0-51.0) Mean Corpuscular Volume 104.4 FL (80.0-100.0) Mean Corpuscular Hemoglobin 35.3 PG (27.0-34.0) Mean Platelet Volume 6.6 FL (7.0-11.0) Blood Urea Nitrogen 47 MG/DL (7-18) Creatinine 10.68 MG/DL (0.60-1.30) Random Glucose 165 MG/DL (74-106) Albumin 3.1 GM/DL (3.4-5.0) Calcium Level 8.1 MG/DL (8.5-10.1) Aspartate Amino Transf (AST/SGOT) 9 U/L (15-37) Alanine Aminotransferase (ALT/SGPT) 11 U/L (12-78) Sodium Level 127 MEQ/L (136-145) Carbon Dioxide Level 11.6 MEQ/L (21.0-32.0) Anion Gap 17 MEQ/L (5-15) Estimat Glomerular Filtration Rate 5 ML/MIN (>89) Imaging Last Impressions Elbow X-Ray 01/22/18 0000 Signed Impressions: CONCLUSION: 1. There is a transverse distal left humeral supracondylar fracture with mild displacement of 4 mm. Displacement is similar to the prior examination. 2. Elbow region soft tissue swelling. There is severe vascular calcification. Catheter Placement X-Ray 01/22/18 0000 Signed Impressions: CONCLUSION: 1. Uncomplicated Dialysis catheter placement as above. Chest X-Ray 01/19/18 1606 Signed Impressions: CONCLUSION: Mild bibasilar atelectasis. Stable, mild compensated cardiomegaly. PE at Discharge GENERAL: laying in bed chest wall: permacath noted and no signs of hematoma CARDIOVASCULAR: Regular rate and rhythm RESPIRATORY: Clear to auscultation. Breath sounds equal bilaterally. No wheezes GASTROINTESTINAL: Abdomen soft, non-tender, nondistended. Normal active bowel sounds MUSCULOSKELETAL: Left upper arm in the sling and splint bandage clean dry and intact. Patient was neurovascularly intact, bilateral BKA unchanged. Pt update on day of discharge Follow-up left humeral fracture. Patient seen and examined, sitting up in bed comfortably in no apparent distress. Pain is well controlled. Patient underwent PermCath placement yesterday. Vital signs have been stable. Afebrile. Patient discharged to [place] today. Hospital Course 57-year-old male with a history of ESRD on dialysis MWF w/ Dr. Ramirez, hypertension, diabetes mellitus insulin-dependent, kidney transplant and pancreatic transplant, blind right eye, GERD presented to the ED status post fall he sustained a left elbow fracture. Upon presentation elbow x-ray showed acute, mildly comminuted, minimally displaced supracondylar fracture of the distal left humerus. Orthopedic surgery was consulted and recommended nonsurgical management of fracture at this time. Patient will follow up with Dr. Sarkar as outpatient as ordered. Patient has end-stage renal disease on dialysis. Creatinine is actually around baseline upon presentation. Nephrology was consulted and followed, dialysis Saturday. PermCath was placed during hospitalization. Avoid nephrotoxins. Continued on home medications including sodium bicarb. Nephrology to manage. Patient discharged [facility], request for consult for nephrology upon presentation to rehab. Patient has diabetes mellitus, insulin-dependent and chronic. Labile blood sugars during presentation the hospital. Was continued on long-acting insulin. As well as sliding scale. On discharge patient's sugars were well controlled. Patient does have essential chronic hypertension. Was continued on home medications including Norvasc and carvedilol. Patient with chronic kidney and pancreas transplant, continue home kidney and pancreas transplant, chronic Prograf/prednisone/azathioprine. Pt Condition on Discharge: Stable Discharge Disposition: Rehab Inpatient Discharge Time: > 30 minutes Discharge Instructions DIET: Follow Instructions for: Renal Failure Diet Speech Therapy-Diet Recommends: Regular Activities you can perform: Regular-No Restrictions Follow up Referrals: Nephrology - 2-3 Days Will need dialysis inpatient rehab, MWF. Consult while at [facility] [place]. PCP Follow-up - 1 Week Continued Medications: Amlodipine (Norvasc) 5 Mg Tab 5 MG PO DAILY for Blood Pressure Management, #[address] (Aspirin DR) 81 Mg Tabdr 81 MG PO DAILY for Heart, #30 TAB Azathioprine (Azathioprine) 50 Mg Tab 75 MG PO DAILY for Immunosuppression, #30 TAB 0 Refills Hazardous agent use appropriate precautions for handling and disposal. Bumetanide (Bumetanide) 1 Mg Tab 2 MG PO DAILY, #60 TAB Carvedilol (Coreg) 6.25 Mg Tab 6.25 MG PO Q12HR for Blood Pressure Management, #60 TAB Cinacalcet (Sensipar) 30 Mg Tab 30 MG PO WITH DINNER for ESRD, #30 TAB 0 Refills Clonidine (Catapres) 0.1 Mg Tab 0.1 MG PO UNSCH PRN for for BP > 180/100 X 2 readings, #1 TAB 0 Refills Escitalopram (Lexapro) 10 Mg Tab 10 MG PO DAILY, #30 TAB 0 Refills Ferrous Sulfate (Ferosul) 325 Mg (65 Mg Iron) Tablet 325 MG PO BID@12,17 for 30 Days Insulin Aspart Inj (Novolog Inj) 1,000 Unit/10 Ml Vial 1-9 UNITS SQ ACHS for Blood Sugar Management, #10 ML 0 Refills Max dose at bedtime:( )units; sugars less than 70,(0)units; sugars 150-199,(1) unit; sugars 200-249,(3) units; sugars 250-299,(5) units; sugars 300-349,(7) units; sugars greater than 349,(9) units Insulin Detemir Inj (Levemir Inj) 1,000 unit/ 10 ML Vial 10 UNITS SQ HS for 30 Days, INJECTION Do not mix with any other Insulin. Lanthanum (Fosrenol) 500 Mg Tab 500 MG CHEW TID for ESRD, #90 EA 0 Refills Ondansetron Odt (Ondansetron Odt) 4 Mg Tab 4 MG PO Q4H PRN for NAUSEA OR VOMITING, #30 TAB Prednisone (Prednisone) 5 Mg Tab 5 MG PO DAILY, #30 TAB 0 Refills Sodium Bicarbonate (Sodium Bicarbonate) 650 Mg Tab 650 MG PO BID for Supplement, #60 TAB Tacrolimus (Prograf) 0.5 Mg Cap 2 MG PO DAILY@0600 for TRANSPLANT for 30 Days, CAP 0 Refills Tacrolimus (Prograf) 1 Mg Cap 2 MG PO DAILY@18 for 30 Days, CAP Trazodone (Trazodone) 100 Mg Tablet 100 MG PO HS for Control Depression, #30 TAB 0 Refills Tessa Dill Jan 23, 2018 08:43
--- NOTE | 2018-01-23 08:45 | HHI.DCPOC ---
Discharge Care Plan Diagnosis: (1) Impaired mobility and activities of daily living (2) HTN (hypertension) (3) Diabetes mellitus type 2 with complications (4) End stage renal disease on dialysis (5) S/P bilateral BKA (below knee amputation) (6) Pancreas transplant status (7) Left humeral fracture Goals to Promote Your Health * To prevent worsening of your condition and complications * To maintain your health at the optimal level Directions to Meet Your Goals Take your medications as prescribed Follow your dietary instruction Follow activity as directed Keep your appointments as scheduled Take your immunizations and boosters as scheduled If your symptoms worsen call your PCP, if no PCP go to Urgent Care Center or Emergency Room Smoking is Dangerous to Your Health. Avoid second hand smoke Call the 24-hour hour crisis hotline for domestic abuse at Tessa Dill Jan 23, 2018 08:44
== END 2018-01-23 10:58 | DRG 562 ==
LOC: NEPE 13:46 → NEDA 18:02 → N06B 18:58
PROVIDERS: ADMIT Hospitalist; ATTEND Hospitalist
PROC: 2W3BX1Z Immobilization of Left Upper Arm using Splint (ICD-10-PCS; 2018-01-19)
PROC: 02HV33Z Insertion of Infusion Device into Superior Vena Cava, Percutaneous Approach (ICD-10-PCS; principal; 2018-01-20)
PROC: B518ZZA Fluoroscopy of Superior Vena Cava, Guidance (ICD-10-PCS; 2018-01-20)
PROC: 5A1D70Z Performance of Urinary Filtration, Intermittent, Less than 6 Hours Per Day (ICD-10-PCS; 2018-01-20)
PROC: 05HM33Z Insertion of Infusion Device into Right Internal Jugular Vein, Percutaneous Approach (ICD-10-PCS; 2018-01-22)
PROC: B513ZZA Fluoroscopy of Right Jugular Veins, Guidance (ICD-10-PCS; 2018-01-22)
DX: S42.422A Displaced comminuted supracondylar fracture without intercondylar fracture of left humerus, initial encounter for closed fracture (principal); N18.6 End stage renal disease; E87.2 Acidosis; Z94.83 Pancreas transplant status; I13.11 Hypertensive heart and chronic kidney disease without heart failure, with stage 5 chronic kidney disease, or end stage renal disease; Z94.0 Kidney transplant status; J98.11 Atelectasis; E11.22 Type 2 diabetes mellitus with diabetic chronic kidney disease; K21.9 Gastro-esophageal reflux disease without esophagitis; E11.40 Type 2 diabetes mellitus with diabetic neuropathy, unspecified; I25.10 Atherosclerotic heart disease of native coronary artery without angina pectoris; D63.1 Anemia in chronic kidney disease; W01.0XXA Fall on same level from slipping, tripping and stumbling without subsequent striking against object, initial encounter; Y93.01 Activity, walking, marching and hiking; H54.61 Unqualified visual loss, right eye, normal vision left eye; Z87.442 Personal history of urinary calculi; Z82.49 Family history of ischemic heart disease and other diseases of the circulatory system; Z85.828 Personal history of other malignant neoplasm of skin; Z79.899 Other long term (current) drug therapy; Z89.511 Acquired absence of right leg below knee; Z89.512 Acquired absence of left leg below knee; Z99.2 Dependence on renal dialysis; Z79.4 Long term (current) use of insulin; Z89.029 Acquired absence of unspecified finger(s)
CPT/HCPCS: 36556; 36558; 71045; 73070; 76937; 77001; 80053; 82948; 85025; 85610; 85730; 86850; 86900; 86901; 90935; 93005; 96361; 96374; 96375; 99152; 99153; C1750; C1752; C1769; J1644; J1815; J2250; J2270; J2765; J3010; J3370; J7030; J7050; J7120; J7500; J7507; J7512; P9047

== ENCOUNTER 2018-02-11 14:25 | Inpatient (IN) ==
[2018-02-16] MEDS ORDERED: Sod Chloride 0.9% Inj 1,000 ML IV.CONT PRN
[2018-02-16] MEDS ORDERED: Acetaminophen 325 MG Tablet PO PRN
[2018-02-16] MEDS ORDERED: Albumin Human 25% Inj 100 ML IV.SIG PRN
[2018-02-16] MEDS ORDERED: Naloxone Inj 0.4 MG/ML Vial IV.PUSH PRN
[2018-02-16] MEDS ORDERED: Dextrose 50% in Water 50 ML Vial IV.PUSH PRN
[2018-02-16] MEDS ORDERED: Vancomycin Inj 1 GM/200 ML PIGGYBACK IV.SIG PRN
[2018-02-16] MEDS ORDERED: Heparin 10,000 UNITS/10 ML Vial (for IV use) IV.FLUSH PRN
[2018-02-16] MEDS ORDERED: traZODone 50 MG Tablet PO SCH
[2018-02-16] MEDS ORDERED: Sod Chloride 0.9% Inj 1,000 ML OTHER PRN ×2
[2018-02-16] MEDS ORDERED: Gelatin 12 MM/7 MM Topical Foam TOPICAL PRN
[2018-02-16] MEDS ORDERED: Heparin 10,000 UNITS/10 ML Vial (for IV use) OTHER PRN
[2018-02-16] MEDS ORDERED: Sodium Bicarbonate 650 MG Tablet PO SCH ×2 (06:00→09:00)
[2018-02-16] MEDS: Insulin NovoLOG Aspart Correctional Sugar Inj SQ SCH ×3 (08:32→12:00)
[2018-02-16] MEDS ORDERED: azaTHIOprine 50 MG Tablet PO SCH (09:00)
[2018-02-16] MEDS ORDERED: predniSONE 5 MG Tablet PO SCH (09:00)
[2018-02-16] MEDS ORDERED: Escitalopram 10 MG Tablet PO SCH (09:00)
[2018-02-16] MEDS ORDERED: Carvedilol 6.25 MG Tablet PO SCH (09:00)
[2018-02-16] MEDS ORDERED: Lactobacillus Acidophilus/L. Spores Tablet PO SCH (09:00)
[2018-02-16] MEDS ORDERED: amLODIPine 5 MG Tablet PO SCH (09:00)
[2018-02-16] MEDS ORDERED: Ferrous Sulfate 325 MG Tablet PO SCH (12:00)
--- NOTE | 2018-02-16 12:13 | P.PN ---
Subjective Interval history: Mr. Frank was hypertensive (SBP max 173) with O2 saturations 92% overnight; otherwise stable vital signs. Patient seen with his family today prior to hospice transportation. Patient does not have any complaints at this time. Physical Exam Vital signs: Vital Signs 02/16/18 00:00 02/16/18 00:16 02/16/18 04:00 Temperature 98.9 F 98.1 F Pulse Rate 63 66 66 Respiratory Rate 19 19 Blood Pressure 149/71 H 142/86 H Pulse Oximetry 92 L 94 L 02/16/18 08:00 Temperature 98.0 F Pulse Rate 61 Respiratory Rate 16 Blood Pressure 173/78 H Pulse Oximetry 100 Intake & Output 02/15/18 02/16/18 02/16/18 18:59 06:59 18:59 Intake Total 0 / 0 Output Total 0 / 0 Balance 0 / 0 Weight 88.1 kg 88.2 kg Intake: Oral 0 / 0 Output: Urine 0 / 0 Other: # Bowel Movements 0 Narrative: GENERAL: no apparent distress.; resting in bed Skin: left arm covered; no visible lesions CARDIOVASCULAR: Grossly normal perfusion RESPIRATORY: Regular rate; no visible distress MUSCULOSKELETAL: Left arm in a cast. Status post bilateral BKA NEURO: Alert & Oriented. Grossly normal CN and peripheral motor function PSYCH: Mood seems appropriate. Does not seem depressed. Results - Labs CBC & Chem 7: 02/15/18 06:17 02/15/18 06:17 Labs: Laboratory Results - last 24 hr 02/13/18 02/13/18 02/14/18 06:51 06:51 08:28 WBC 6.5 RBC 2.61 L Hgb 9.3 L Hct 28.4 L MCV 109.0 H MCH 35.8 H MCHC 32.9 RDW 18.1 H Plt Count 125 L MPV 7.5 Sodium 137 137 Potassium 4.4 4.4 Chloride 101 99 Carbon Dioxide 25.1 24.7 Anion Gap 11 13 BUN 40 H D 53 H D Creatinine 6.21 H D 8.20 H D Estimated GFR 9 L 7 L POC Glucose Random Glucose 122 H 140 H Calcium 9.2 9.2 02/14/18 02/15/18 02/15/18 08:28 06:17 06:17 WBC 5.5 4.7 RBC 2.84 L 2.49 L Hgb 10.0 L 8.9 L Hct 31.1 L 27.0 L MCV 109.4 H 108.7 H MCH 35.3 H 35.9 H MCHC 32.2 33.0 RDW 17.5 H 17.1 Plt Count 134 L 124 L MPV 7.4 7.5 Sodium 136 Potassium 4.0 Chloride 98 Carbon Dioxide 29.0 Anion Gap 9 BUN 29 H D Creatinine 4.80 H D Estimated GFR 13 L POC Glucose Random Glucose 162 H Calcium 8.9 02/16/18 08:47 WBC RBC Hgb Hct MCV MCH MCHC RDW Plt Count MPV Sodium Potassium Chloride Carbon Dioxide Anion Gap BUN Creatinine Estimated GFR POC Glucose 175 H Random Glucose Calcium Assessment and Plan - Assessment (1) Healthcare-associated pneumonia Code(s): J18.9 - Pneumonia, unspecified organism Status: Acute (2) Severe sepsis Code(s): A41.9 - Sepsis, unspecified organism; R65.20 - Severe sepsis without septic shock Status: Acute (3) ESRD (end stage renal disease) Code(s): N18.6 - End stage renal disease Status: Chronic (4) Immunosuppression Code(s): D89.9 - Disorder involving the immune mechanism, unspecified Status: Chronic - Plan 57-year-old male w/ PMH ESRD on dialysis and bilateral BKA admitted secondary to healthcare associated pneumonia with severe sepsis. Treatment for sepsis and pneumonia has been progressing well. However the patient has decided to stop dialysis and transition to comfort care with hospice due to no longer having the quality of life he wants, therefore he decided to stop dialysis. No concern for depression currently. Per discussion between patient and Dr. Israel , patient did not suggest concern for depression or lack of adequate thinking/ planning about his options Severe sepsis/ HCAP Improving Status post IV antibiotics, cefepime, Vanc and azithromycin. Azithromycin was discontinued due to concern for interaction with other medications causing tremors. He has improved significantly from a sepsis standpoint. Patient was transitioned to oral antibiotics with cefuroxime. Blood cultures so far negative. Oxygen as needed End-stage renal disease Dialysis dependence Continue dialysis Nephrology following. -Patient elected to stop dialysis and transition to hospice Hypertension Continue baseline treatment; recently elevated Follow blood pressures Adjust treatments as needed Recent left arm fracture: - Patient in a cast. States he is due for follow up with [facility] [employer]. paint technician consulted to evaluate. RN to call [facility] today for evaluation of the cast. Debility: Secondary to all of his comorbid conditions. - PT consulted. History of pancreatic transplant: -continue immunosuppressive therapy. He will need to follow-up outpatient Tremors: -Etiology unclear. Could be medication side effect. Azithromycin discontinued. Monitor progress. Chronic medical conditions: General anxiety disorder Skin cancer Cardiovascular disease Pancreas failure, history of chronic pancreatitis Gastroesophageal reflux disease -Continue to monitor these conditions clinically -No exacerbations of these conditions DVT prophylaxis -SCDs Code Status: DNR Discussed Condition With: Patient, family Discharge Planning: Advanced directive previously discussed with the patient at length per his request. He decided to stop dialysis and transition to comfort care with hospice. Planned transfer to hospice today
[2018-02-16] MEDS ORDERED: Insulin Detemir Inj 1,000 UNIT/10 ML Vial SQ SCH (21:00)
--- NOTE | 2018-02-24 16:55 | P.DS ---
Date of admission: 02/11/18 14:26 Primary care physician: UNKNOWN Attending physician on discharge: Ismael Becker Anticipated date of discharge: 02/16/18 Brief History from admission: Per HPI by Dr. Soliman: Mrs. Frank is a 57 year old male. He has a chronic history of end-stage renal disease. He says starting last night he was having fever, shortness of breath, and malaise. Imaging is suggestive of pneumonia. He meets septic criteria and severe sepsis criteria. As an outpatient he follows with Dr. Ramirez. Severe sepsis criteria are lactic acid level 2.1, tachycardia, tachypnea , leukopenia, and fever. Approximately 1 week ago he had a permacath placed at the right chest. No outside signs of infection regards to this but this would be an alternate source of infection. Blood cultures have been obtained. He is negative for influenza testing. No other complaints tonight. DS: Diagnosis - Discharge Diagnosis (1) Healthcare-associated pneumonia Status: Acute (2) Severe sepsis Status: Acute (3) ESRD (end stage renal disease) Status: Chronic (4) Immunosuppression Status: Chronic DS: Summary Hospital Course: Mr. Frank is a 57-year-old male w/ PMH ESRD on dialysis and bilateral BKA admitted secondary to healthcare associated pneumonia with severe sepsis. Patient placed on Cefepime, Vancomycin, and Azithromycin for treatment of HCAP/ sepsis; he improved and was transitioned to Cefuroxime. Patient was also treated for ESRD with dialysis. Patient's other chronic medical conditions were treated during hospitalization. During hospitalization, patient elected to switch to hospice care due to having worse quality of life; per discussion between patient and Dr. Israel, patient did not suggest concern for depression or lack of adequate thinking/planning about his options. Patient was transitioned to hospice 02/16. - Time Spent with Patient Total time spent providing and/or coordinating discharge services: Results Procedures completed during hospitalization: dialysis Discharge Plan - Discharge Disposition Patient Disposition: [facility] - Discharge Condition Condition: Stable - Discharge Order Discharge Orders: Discharge Order (Routine); Ordered 02/16/18 Ordered By: Ismael Becker - Physicians Team Primary Care Provider: UNKNOWN, Attending Provider: Ismael Becker Other Providers: Seamus Ramirez MD - Rxs /Orders / Referrals /Forms Prescriptions: New acetaminophen 325 mg Tablet 650 mg PO UNSCH PRN (Reason: See Label Comments) RF: 0 acidophilus-sporogenes [Acidophilus Ex Str (L. sporog)] 35 million- 25 million cell Tablet 1 tab PO TID RF: 0 amlodipine [Norvasc] 5 mg Tablet 5 mg PO DAILY RF: 0 aspirin 81 mg Tablet,Delayed Release (Dr/Ec) 81 mg PO DAILY RF: 0 azathioprine 50 mg Tablet 75 mg PO DAILY RF: 0 bumetanide 1 mg Tablet 2 mg PO DAILY RF: 0 carvedilol [Coreg] 6.25 mg Tablet 6.25 mg PO Q12HR RF: 0 cefuroxime axetil 500 mg Tablet 500 mg PO Q12HR RF: 0 cinacalcet [Sensipar] 30 mg Tablet 30 mg PO DAILY@1800 RF: 0 clonidine HCl [Catapres] 0.1 mg Tablet 0.1 mg PO UNSCH PRN (Reason: BP>180/100 x 2 readings) RF: 0 diphenhydramine HCl 25 mg Capsule 25 mg PO UNSCH PRN (Reason: See Label Comments) RF: 0 epoetin tg [Epogen] 10,000 unit/mL Solution 6,000 unit IV.PUSH UNSCH PRN (Reason: See Label Comments) RF: 0 escitalopram oxalate 10 mg Tablet 10 mg PO DAILY RF: 0 ferrous sulfate [FeroSul] 325 mg (65 mg iron) Tablet 325 mg PO BID@1200,1700 RF: 0 gelatin absorbable [Gelfoam Sponge Size 12-7mm] 12-7 mm Sponge 1 foam Topical PRN PRN (Reason: help stop bleeding from site) RF: 0 gentamicin 20 mg/2 mL Solution 20 mg OTHER WITH DIALYSIS PRN (Reason: Dwell Gentamycin Lock) RF: 0 heparin (porcine) 1,000 unit/mL Solution 1,000 units OTHER WITH DIALYSIS PRN (Reason: Dwell Heparin to Fill Catheter ) RF: 0 heparin (porcine) 1,000 unit/mL Solution 8,000 units IV.FLUSH WITH DIALYSIS PRN (Reason: for machine prime) RF: 0 hydrocodone-acetaminophen 5-325 mg Tablet 1 tab PO Q4H PRN (Reason: PAIN SCALE 3-5) RF: 0 hydrocodone-acetaminophen 10-325 mg Tablet 1 tab PO Q4H PRN (Reason: PAIN SCALE 6-10) RF: 0 insulin aspart U-100 [Novolog U-100 Insulin aspart] 100 unit/mL Solution 0 unit Sub-Q ACHS RF: 0 insulin detemir U-100 [Levemir U-100 Insulin] 100 unit/mL Solution 5 unit Sub-Q HS RF: 0 lanthanum [Fosrenol] 500 mg Tablet,Chewable 500 mg CHEW TID RF: 0 magnesium hydroxide [Milk of Magnesia] 400 mg/5 mL Suspension 30 ml PO Q12H PRN (Reason: Mild Constipation) RF: 0 naloxone 0.4 mg/mL Solution 0.4 mg IV.PUSH UNSCH PRN (Reason: See Label Comments) RF: 0 nitroglycerin [Nitrostat] 0.4 mg Tablet, Sublingual 0.4 mg Sublingual Q5M PRN (Reason: Chest Pain) RF: 0 ondansetron 4 mg Tablet,Disintegrating 4 mg PO Q6H PRN (Reason: Nausea Or Vomiting) RF: 0 prednisone 5 mg Tablet 5 mg PO DAILY RF: 0 sodium bicarbonate 650 mg Tablet 650 mg PO Q8HR RF: 0 tacrolimus [Prograf] 1 mg Capsule 2 mg PO BID@0600,1800 RF: 0 trazodone 50 mg Tablet 50 mg PO HS RF: 0 vancomycin in 0.9 % sodium chl 1 gram/200 mL Piggyback 1 gm IV WITH DIALYSIS PRN (Reason: w/ each Dialysis) RF: 0 Continue pregabalin 50 mg Capsule 50 mg PO BID trazodone 100 mg Tablet 100 mg PO HS Discontinued amlodipine 5 mg Tablet 5 mg PO DAILY aspirin [Aspirin Low Dose] 81 mg Tablet,Delayed Release (Dr/Ec) 81 mg PO DAILY azathioprine 50 mg Tablet 75 mg PO DAILY bumetanide 1 mg Tablet 2 mg PO DAILY carvedilol 6.25 mg Tablet 6.25 mg PO Q12H cinacalcet 30 mg Tablet 30 mg PO DAILY escitalopram oxalate 10 mg Tablet 10 mg PO DAILY ferrous sulfate 325 mg (65 mg iron) Tablet 325 mg PO BID hydrocodone-acetaminophen 10-325 mg Tablet 1 tab PO Q6H PRN (Reason: Pain) insulin aspart U-100 100 unit/mL Solution 1 - 9 sliding scale dose SUB-Q ACHS insulin detemir U-100 100 unit/mL Solution 5 unit SUB-Q HS lanthanum 500 mg Tablet,Chewable 500 mg PO TID prednisone 5 mg Tablet 5 mg PO DAILY sodium bicarbonate 650 mg Tablet 650 mg PO BID tacrolimus 1 mg Capsule 2 mg PO Q12H Referrals: UNKNOWN, [Primary Care Provider] - See Instructions - Post Discharge Care Plan Care Plan Goals: Your Health Problems: Goals to Promote Your Health: * To prevent worsening of your condition * To maintain your health at the optimal level Directions to Meet Your Goals: * Take your medications as prescribed * Follow your dietary instruction * Follow activity as directed * Keep your appointments as scheduled * Take your immunizations and boosters as scheduled * If your symptoms worsen call your PCP * If no PCP go to Urgent Care or Emergency Room Smoking is dangerous to your health. Avoid second hand smoke. You may reach the 24-hour crisis hotline for domestic abuse at .
== END 2018-02-16 15:40 | disposition hospice, inpatient (51) ==
LOC: UNDODISIN → N04 14:26
PROVIDERS: ADMIT Family Medicine; ATTEND Family Medicine